=== PATIENT | female | born 1945 | race Two or more races ===

== ENCOUNTER 2017-12-12 09:18 | Inpatient (IN) | payer OTHER ==
[2017-12-12 09:27] VITALS: BMI 41.8
[2017-12-12] MEDS ORDERED: dilTIAZem HCL 50 MG/10 ML - 10 ML VIAL IVPUSH ONE (10:04)
--- NOTE | 2017-12-12 10:26 | PDOC ---
History of Present Illness - History of Present Illness Initial Comments: 12/12/17 11:11 The patient is a 72 year old female with a significant PMH of hypertension who presents to the emergency department with shortness of breath, generalized malaise, dizziness, palpitations and mild abdominal pain that began approximately last night. The patient states she takes baby aspirin for her HTN but Dr. Lang put her on Xarelto two days ago. The patient expresses concern that she has began experiencing all of these symptoms after being put on anticoagulants. The patient reports she was unable to sleep last night secondary to difficulty breathing. The patient states she was in her normal state of health two days ago. The patient denies chest pain and headache. Denies fever, chills, nausea, vomit, diarrhea and constipation. Denies dysuria, frequency, urgency and hematuria. Allergies: NKA Past surgical history: None reported Social history: No reported alcohol, cigarette, or drug use. PCP: Dr. Schneider <Carey Carlson - Last Filed: 12/12/17 11:11> - General History Source: Patient, Family Exam Limitations: No Limitations <Marvin Diez - Last Filed: 12/12/17 13:01> - General Chief Complaint: Shortness of Breath Stated Complaint: SOB Time Seen by Provider: 12/12/17 09:40 Past History <Carey Carlson - Last Filed: 12/12/17 11:11> - Past Medical History Anemia: No Asthma: No Cancer: No Cardiac Disorders: No CVA: No COPD: No CHF: No DVT: No Dementia: No Diabetes: No GI Disorders: No Disorders: No HTN: Yes Hypercholesterolemia: No Liver Disease: No Seizures: No Thyroid Disease: No - Surgical History Abdominal Surgery: Yes (TUBAL LIGATION) Appendectomy: No Cardiac Surgery: No Cholecystectomy: No Lung Surgery: No Neurologic Surgery: No Orthopedic Surgery: No - Immunization History Immunization Up to Date: Yes - Suicide/Smoking/Psychosocial Hx Smoking Status: No Smoking History: Never smoked Have you smoked in the past 12 months: No Number of Cigarettes Smoked Daily: 0 Information on smoking cessation initiated: No Hx Alcohol Use: No Drug/Substance Use Hx: No Substance Use Type: None Hx Substance Use Treatment: No <Marvin Diez - Last Filed: 12/12/17 13:01> - Past Medical History Allergies/Adverse Reactions: Allergies Allergy/AdvReac Type Severity Reaction Status Date / Time No Known Allergies Allergy Verified 12/12/17 09:22 Home Medications: Ambulatory Orders Apixaban [Eliquis] 5 mg PO BID 01/17/16 Levetiracetam [Keppra -] 250 mg PO BID 01/17/16 Cyclobenzaprine HCl [Flexeril -] 10 mg PO TID PRN 03/11/16 Cholestyramine/Aspartame [Questran Light Packet -] 4 gm PO DAILY #30 packet 03/03 Diltiazem Cd [Cardizem Cd -] 240 mg PO DAILY #30 cap.cd.24h 03/21/16 Metoprolol Succinate [Toprol XL -] 50 mg PO DAILY #30 tab.sr.24h 03/21/16 Miscellaneous Medical Supply [Outpatient Order] 1 each ASDIR #1 misc Review of Systems - Review of Systems Able to Perform ROS?: Yes Comments:: 12/12/17 11:12 GENERAL/CONSTITUTIONAL: (+) Generalized malaise. No fever or chills. HEAD, EYES, EARS, NOSE AND THROAT: No change in vision. No ear pain or discharge. No sore throat. CARDIOVASCULAR: (+) Palpitations. No chest pain. RESPIRATORY: (+) Shortness of breath. No cough, wheezing, or hemoptysis. GASTROINTESTINAL: (+) Mild abdominal pain. No nausea, vomiting, diarrhea or constipation. GENITOURINARY: No dysuria, frequency, or change in urination. MUSCULOSKELETAL: No joint or muscle swelling or pain. No neck or back pain. SKIN: No rash NEUROLOGIC: (+) Dizziness. No vertigo, loss of consciousness, or change in strength/sensation. ENDOCRINE: No increased thirst. No abnormal weight change. HEMATOLOGIC/LYMPHATIC: No anemia, easy bleeding, or history of blood clots. ALLERGIC/IMMUNOLOGIC: No hives or skin allergy. <Carey Carlson - Last Filed: 12/12/17 11:11> *Physical Exam - Vital Signs Last Vital Signs Temp Pulse Resp BP Pulse Ox 97.4 F L 97 H 18 94/73 98 12/12/17 09:23 12/12/17 10:41 12/12/17 10:41 12/12/17 10:41 12/12/17 10:41 - Physical Exam Comments: 12/12/17 11:14 GENERAL: Awake, alert, and fully oriented, in no acute distress HEAD: No signs of trauma EYES: PERRLA, EOMI, sclera anicteric, conjunctiva clear ENT: Auricles normal inspection, hearing grossly normal, nares patent, oropharynx clear without exudates. Moist mucosa NECK: Normal ROM, supple, no lymphadenopathy, JVD, or masses LUNGS: Breath sounds equal, clear to auscultation bilaterally. No wheezes, and no crackles HEART: (+) Irregular rate and rhythm. Normal S1 and S2, no murmurs, rubs or gallops ABDOMEN: Soft, nontender, normoactive bowel sounds. No guarding, no rebound. No masses EXTREMITIES: Normal range of motion, no edema. No clubbing or cyanosis. No cords, erythema, or tenderness NEUROLOGICAL: Cranial nerves II through XII grossly intact. Normal speech, normal gait SKIN: Warm, Dry, normal turgor, no rashes or lesions noted. <Carey Carlson - Last Filed: 12/12/17 11:11> - Vital Signs Last Vital Signs Temp Pulse Resp BP Pulse Ox 97.4 F L 83 16 126/59 100 12/12/17 09:23 12/12/17 09:23 12/12/17 09:23 12/12/17 09:23 12/12/17 09:23 <Marvin Diez - Last Filed: 12/12/17 13:01> Heart Score/ECG Review #1 ECG reviewed & interpreted by me at: 10:00 12/12/17 10:20 atrial fibrillation with RVR 133, LVH, TWI V4-V6, no std/nick, QTC 541 msec <Marvin Diez - Last Filed: 12/12/17 13:01> ED Treatment Course - LABORATORY CBC & Chemistry Diagram: 12/12/17 10:06 12/12/17 10:06 - ADDITIONAL ORDERS Additional order review: Laboratory Results 12/12/17 10:06 Sodium 144 Potassium 4.5 Chloride 110 H Carbon Dioxide 22 Anion Gap 12 BUN 14 Creatinine 1.0 Creat Clearance w eGFR 54.66 Random Glucose 133 H Calcium 8.3 L Phosphorus 4.1 ALT 19 Total Protein 7.2 Albumin 3.4 12/12/17 10:06 RBC 4.80 MCV 87.8 MCHC 32.1 RDW 13.4 MPV 11.3 H Neutrophils % 71.2 Lymphocytes % 20.3 D Monocytes % 5.5 Eosinophils % 2.1 Basophils % 0.9 - Medications Given in the ED: ED Medications Discontinued Medications Generic Name Dose Route Start Last Admin Trade Name Freq PRN Reason Stop Dose Admin Diltiazem HCl 10 mg 12/12/17 10:04 12/12/17 10:41 Cardizem Injection - IVPUSH 12/12/17 10:05 10 mg ONCE ONE Administration <Carey Carlson - Last Filed: 12/12/17 11:11> - LABORATORY CBC & Chemistry Diagram: 12/12/17 10:06 12/12/17 10:06 - RADIOLOGY Radiology Studies Ordered: Category Date Time Status CHEST X-RAY PORTABLE* [RAD] Stat Radiology 12/12/17 09:51 Taken <Marvin Diez - Last Filed: 12/12/17 13:01> Medical Decision Making - Medical Decision Making 12/12/17 10:21 A portion of this note was documented by scribe services under my direction. I have reviewed the details of the note, within reason, and agree with the documentation with the following case summary and management plan written by me. Patient treated in the ED. Nursing notes are reviewed and incorporated into the medical decision-making. Vital signs reviewed. Peripheral IV access obtained by the nurse, laboratory studies are drawn and sent, reviewed and interpreted by myself. Vital Signs Temp Pulse Resp BP Pulse Ox 97.4 F L 83 16 126/59 100 12/12/17 09:23 12/12/17 09:23 12/12/17 09:23 12/12/17 09:23 12/12/17 09:23 72-year-old female with history of atrial fibrillation on Xarelto, hypertension presents to the emergency department for general malaise and dizziness. The patient reported that 2 days ago he had visited Dr. Lang. She was initiated on Xarelto and since then, the patient has been feeling general malaise. She has reported that she's been having intermittent dizziness and lightheadedness but denied any chest pain. She states that she's been feeling somewhat increasingly short of breath. Denies any lower extremity edema. Stated yesterday that she had a tension-like headache but had an MRI performed here. MRI scans reviewed here: [id number] volume loss and chronic microvascular ischemic changes without evidence of acute intracranial pathology. The patient now has been endorsing feeling palpitations. She denies any recent illnesses, fevers, chills, cough, vomiting. Patient denies headache at this time. She initially expressed to me that she was concerned that the anti- correlation medication was causing her symptoms. However, the patient is in atrial fibrillation rapid ventricular response, which I suspect this may be driving the patient's symptoms. We'll attempt to rate control and reassess and touch base with the patient's watcher [employer]. 12/12/17 13:00 CBC, BMP 12/12/17 10:06 12/12/17 10:06 CMP Sodium 144 mmol/L (136-145) 12/12/17 10:06 Potassium 4.5 mmol/L (3.5-5.1) 12/12/17 10:06 Chloride 110 mmol/L (98-107) H 12/12/17 10:06 Carbon Dioxide 22 mmol/L (21-32) 12/12/17 10:06 Anion Gap 12 (8-16) 12/12/17 10:06 BUN 14 mg/dL (7-18) 12/12/17 10:06 Creatinine 1.0 mg/dL (0.55-1.02) 12/12/17 10:06 Creat Clearance w eGFR 54.66 (>60) 12/12/17 10:06 Random Glucose 133 mg/dL (74-106) H 12/12/17 10:06 Calcium 8.3 mg/dL (8.5-10.1) L 12/12/17 10:06 Phosphorus 4.1 mg/dL (2.5-4.9) 12/12/17 10:06 Magnesium 1.9 mg/dL (1.8-2.4) 12/12/17 10:06 Total Bilirubin 1.0 mg/dL (0.2-1.0) D 12/12/17 10:06 AST 24 U/L (15-37) 12/12/17 10:06 ALT 19 U/L (12-78) 12/12/17 10:06 Alkaline Phosphatase 88 U/L (45-117) 12/12/17 10:06 Creatine Kinase 129 IU/L (26-192) 12/12/17 10:06 Troponin I < 0.02 ng/ml (0.00-0.05) 12/12/17 10:06 B-Natriuretic Peptide 2408.95 pg/ml (5-125) H 12/12/17 10:06 Total Protein 7.2 g/dl (6.4-8.2) 12/12/17 10:06 Albumin 3.4 g/dl (3.4-5.0) 12/12/17 10:06 Chest xray reviewed. No acute findings. UA pending. Patient's heart rate improved with 10 a grams of IV Cardizem and then given 30 mg of by mouth Cardizem. Patient's blood pressures were in the 90 systolic, so 1 L of IV fluids given. I suspect that the atrial fibrillation is the cause of her symptoms. Case was discussed with watcher [employer] Dr. Lang was aware of the patient and is aware that the patient is admitted. Case is discussed with day kimball hospitalist who missed the patient to telemetry observation. Case discussed in detail with admitting physician including history, physical exam and ancillary studies. Admitting physician has assumed care for the patient, will follow all pending diagnostics and will complete the evaluation and treatment. <Marvin Diez - Last Filed: 12/12/17 13:01> *DC/Admit/Observation/Transfer - Attestations Scribe Attestion: 12/12/17 11:14 Documentation prepared by Carey Carlson, acting as medical front desk specialist for Marvin Diez MD. <Carey Carlson - Last Filed: 12/12/17 11:11> - Discharge Dispostion Admit: Yes <Marvin Diez - Last Filed: 12/12/17 13:01> Diagnosis at time of Disposition: Atrial fibrillation with rapid ventricular response - Discharge Dispostion Condition at time of disposition: Stable - Referrals Referrals: Haley Schneider MD [Primary Care Provider] - - Patient Instructions - Post Discharge Activity
[2017-12-12 10:33] LABS: BASO % 0.9 % (0-2.0); EOS % 2.1 % (0-4.5); HEMATOCRIT 42.1 % (32.4-45.2); HEMOGLOBIN 13.5 GM/dL (10.7-15.3); LYMPH % 20.3 % (8-40); MCH 28.2 pg (25.7-33.7); MCHC 32.1 g/dl (32.0-36.0); MEAN CELL VOLUME 87.8 fl (80-96); MEAN PLT VOLUME 11.3 fl (7.5-11.1); MONO % 5.5 % (3.8-10.2); NEUT % 71.2 % (42.8-82.8); RDW 13.4 % (11.6-15.6); WHITE BLOOD COUNT 12.1 K/mm3 (4.0-10.0)
[2017-12-12] MEDS ORDERED: dilTIAZem HCL 125 MG/25 ML - 25 ML VIAL ONE (10:33)
[2017-12-12] MEDS ORDERED: SODIUM CHLORIDE 1,000 ML IV STA (10:41)
[2017-12-12 11:04] LABS: INR 1.36 (0.82-1.09); PROTHROMBIN TIME (PATIENT) 15.4 SEC (9.98-11.88)
[2017-12-12 11:07] LABS: ACTIVATED PTT 38.8 SECONDS (26.9-34.4)
[2017-12-12 11:08] LABS: ALBUMIN 3.4 g/dl (3.4-5.0); ANION GAP 12 (8-16); BLOOD UREA NITROGEN 14 mg/dL (7-18); CALCIUM 8.3 mg/dL (8.5-10.1); CHLORIDE 110 mmol/L (98-107); CO2 22 mmol/L (21-32); GLUCOSE,RANDOM 133 mg/dL (74-106); PHOSPHOROUS 4.1 mg/dL (2.5-4.9); SGPT/ALT 19 U/L (12-78); SODIUM 144 mmol/L (136-145); TOT PROT 7.2 g/dl (6.4-8.2)
[2017-12-12] MEDS ORDERED: dilTIAZem HCL 30 MG TABLET (FP) PO ONE (11:08)
[2017-12-12 11:11] LABS: POTASSIUM 4.5 mmol/L (3.5-5.1)
[2017-12-12 11:15] LABS: ALK PHOS 88 U/L (45-117); N-TERMINAL BNP 2408.95 pg/ml (5-125)
[2017-12-12 11:17] LABS: MAGNESIUM 1.9 mg/dL (1.8-2.4); SGOT/AST 24 U/L (15-37)
[2017-12-12] MEDS ORDERED: dilTIAZem HCL 30 MG TABLET (FP) ONE (12:23)
--- NOTE | 2017-12-12 12:46 | HP ---
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 ER course was notable for: (1) (2) (3) Recent Travel: PAST MEDICAL HISTORY: PAST SURGICAL HISTORY: Social History: Smoking: Alcohol: Drugs: Family History: Allergies No Known Allergies Allergy (Verified 12/12/17 09:22) HOME MEDICATIONS: Home Medications Medication Instructions Recorded Apixaban [Eliquis] 5 mg PO BID 01/17/16 Levetiracetam [Keppra -] 250 mg PO BID 01/17/16 Cyclobenzaprine HCl [Flexeril -] 10 mg PO TID PRN 03/11/16 Cholestyramine/Aspartame [Questran 4 gm PO DAILY #30 packet 03/21/16 Light Packet -] Diltiazem Cd [Cardizem Cd -] 240 mg PO DAILY #30 cap.cd.24h 03/21/16 Metoprolol Succinate [Toprol XL -] 50 mg PO DAILY #30 tab.sr.24h 03/21/16 Miscellaneous Medical Supply 1 each ASDIR #1 misc 03/21/16 [Outpatient Order] REVIEW OF SYSTEMS CONSTITUTIONAL: Absent: fever, chills, diaphoresis, generalized weakness, malaise, loss of appetite, weight change HEENT: Absent: rhinorrhea, nasal congestion, throat pain, throat swelling, difficulty swallowing, mouth swelling, ear pain, eye pain, visual changes CARDIOVASCULAR: Absent: chest pain, syncope, palpitations, irregular heart rate, lightheadedness , peripheral edema RESPIRATORY: Absent: cough, shortness of breath, dyspnea with exertion, orthopnea, wheezing, stridor, hemoptysis GASTROINTESTINAL: Absent: abdominal pain, abdominal distension, nausea, vomiting, diarrhea, constipation, melena, hematochezia GENITOURINARY: Absent: dysuria, frequency, urgency, hesitancy, hematuria, flank pain, genital pain MUSCULOSKELETAL: Absent: myalgia, arthralgia, joint swelling, back pain, neck pain SKIN: Absent: rash, itching, pallor HEMATOLOGIC/IMMUNOLOGIC: Absent: easy bleeding, easy bruising, lymphadenopathy, frequent infections ENDOCRINE: Absent: unexplained weight gain, unexplained weight loss, heat intolerance, cold intolerance NEUROLOGIC: Absent: headache, focal weakness or paresthesias, dizziness, unsteady gait, seizure, mental status changes, bladder or bowel incontinence PSYCHIATRIC: Absent: anxiety, depression, suicidal or homicidal ideation, hallucinations. PHYSICAL EXAMINATION Vital Signs - 24 hr 12/12/17 12/12/17 12/12/17 09:23 10:30 10:41 Temperature 97.4 F L Pulse Rate 83 Pulse Rate [ 124 H 97 H Apical] Respiratory 16 18 Rate Blood Pressure 126/59 Blood Pressure 107/79 94/73 [Left Arm] O2 Sat by Pulse 100 98 Oximetry (%) GENERAL: Awake, alert, and fully oriented, in no acute distress. HEAD: Normal with no signs of trauma. EYES: Pupils equal, round and reactive to light, extraocular movements intact, sclera anicteric, conjunctiva clear. No lid lag. EARS, NOSE, THROAT: Ears normal, nares patent, oropharynx clear without exudates. Moist mucous membranes. NECK: Normal range of motion, supple without lymphadenopathy, JVD, or masses. LUNGS: Breath sounds equal, clear to auscultation bilaterally. No wheezes, and no crackles. No accessory muscle use. HEART: Regular rate and rhythm, normal S1 and S2 without murmur, rub or gallop. ABDOMEN: Soft, nontender, not distended, normoactive bowel sounds, no guarding, no rebound, no masses. No hepatomegaly or splenomegaly. MUSCULOSKELETAL: Normal range of motion at all joints. No bony deformities or tenderness. No CVA tenderness. UPPER EXTREMITIES: 2+ pulses, warm, well-perfused. No cyanosis. No clubbing. No peripheral edema. LOWER EXTREMITIES: 2+ pulses, warm, well-perfused. No calf tenderness. No peripheral edema. NEUROLOGICAL: Cranial nerves II-XII intact. Normal speech. Normal gait. PSYCHIATRIC: Cooperative. Good eye contact. Appropriate mood and affect. SKIN: Warm, dry, normal turgor, no rashes or lesions noted, normal capillary refill. Laboratory Results - last 24 hr 12/12/17 12/12/17 12/12/17 10:06 10:06 10:06 WBC 12.1 H RBC 4.80 Hgb 13.5 Hct 42.1 MCV 87.8 MCH 28.2 MCHC 32.1 RDW 13.4 MPV 11.3 H Neutrophils % 71.2 Lymphocytes % 20.3 D Monocytes % 5.5 Eosinophils % 2.1 Basophils % 0.9 PT with INR 15.40 H INR 1.36 H D PTT (Actin FS) 38.8 H Sodium 144 Potassium 4.5 Chloride 110 H Carbon Dioxide 22 Anion Gap 12 BUN 14 Creatinine 1.0 Creat Clearance w eGFR 54.66 Random Glucose 133 H Calcium 8.3 L Phosphorus 4.1 Magnesium 1.9 Total Bilirubin 1.0 D AST 24 ALT 19 Alkaline Phosphatase 88 Creatine Kinase 129 Troponin I < 0.02 B-Natriuretic Peptide 2408.95 H Total Protein 7.2 Albumin 3.4 ASSESSMENT/PLAN:
[2017-12-12 13:55] LABS: PLATELET COUNT 345 K/MM3 (134-434)
--- NOTE | 2017-12-12 14:07 | HP ---
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 Symptoms started when patient was resting and were accompanied by malaise, mild sob and dizziness when she gets up. They persisted though the night and were alleviated in ED s/p Cardizem administration. Last time she experienced similar symptoms wast 03/03, at which time she was admitted for afib with rvr precipitated by gastroenteritis. Patient denies f/c, cough, rhinorrhea, sore throat, dysuria, diarrhea, n/v, abd pain or sick contacts and attributes symptoms to starting a new medication (xarelto) 2 days ago. She states that she is compliant with all her home meds but has not been taking eliquis, which was prescribed to her years ago. She deneis CP, LE edema, back pain, weight change, appetite loss. She denies h/a, focal weakness, paresthesia. She denies taking cardizem at home. Yesterday she had an MRI of her brain (result unremarkable) that was ordered by PCP in order to d/c keppra, however, she denies history of seizure. ER course was notable for: (1)cxr: cardiomegaly, clear lung shukla. EKG: prolonged QTc, a fib RVR (2)labs (3)cardizem, IVF Recent Travel: returned from 1 mo ago PAST MEDICAL HISTORY: as above PAST SURGICAL HISTORY: denies Social History: lives at home, sedentary Smoking: denies Alcohol:denies Drugs: denies Family History: unremarkable Allergies No Known Allergies Allergy (Verified 12/12/17 09:22) HOME MEDICATIONS: Home Medications Medication Instructions Recorded Apixaban [Eliquis] 5 mg PO BID 01/17/16 Levetiracetam [Keppra -] 250 mg PO BID 01/17/16 Cyclobenzaprine HCl [Flexeril -] 10 mg PO TID PRN 03/11/16 Cholestyramine/Aspartame [Questran 4 gm PO DAILY #30 packet 03/21/16 Light Packet -] Diltiazem Cd [Cardizem Cd -] 240 mg PO DAILY #30 cap.cd.24h 03/21/16 Metoprolol Succinate [Toprol XL -] 50 mg PO DAILY #30 tab.sr.24h 03/21/16 Miscellaneous Medical Supply 1 each ASDIR #1 [facility] [place] 03/21/16 [Outpatient Order] REVIEW OF SYSTEMS CONSTITUTIONAL: Absent: fever, chills, loss of appetite, weight change HEENT: Absent: rhinorrhea, nasal congestion, throat pain, throat swelling, difficulty swallowin CARDIOVASCULAR: Absent: chest pain, syncope, peripheral edema RESPIRATORY: Absent: cough, dyspnea with exertion, orthopnea, wheezing, stridor, hemoptysis GASTROINTESTINAL: Absent: abdominal pain, abdominal distension, nausea, vomiting, diarrhea, constipation, melena, hematochezia GENITOURINARY: Absent: dysuria MUSCULOSKELETAL: Absent: myalgia, arthralgia SKIN: Absent: rash, itching, pallor HEMATOLOGIC/IMMUNOLOGIC: Absent: frequent infections ENDOCRINE: Absent: unexplained weight gain, unexplained weight loss, heat intolerance, cold intolerance NEUROLOGIC: Absent: headache, focal weakness or paresthesias PSYCHIATRIC: Absent: anxiety, depression PHYSICAL EXAMINATION Vital Signs - 24 hr 12/12/17 12/12/17 12/12/17 09:23 10:30 10:41 Temperature 97.4 F L Pulse Rate 83 Pulse Rate [ 124 H 97 H Apical] Respiratory 16 18 Rate Blood Pressure 126/59 Blood Pressure 107/79 94/73 [Left Arm] O2 Sat by Pulse 100 98 Oximetry (%) 12/12/17 13:10 Temperature Pulse Rate Pulse Rate [ 109 H Apical] Respiratory Rate Blood Pressure Blood Pressure 129/67 [Left Arm] O2 Sat by Pulse Oximetry (%) GENERAL: Awake, alert, and fully oriented, in no acute distress. HEAD: Normal with no signs of trauma. EYES: Pupils equal, round and reactive to light, extraocular movements intact, sclera anicteric, conjunctiva clear. No lid lag. EARS, NOSE, THROAT: Moist mucous membranes. NECK: supple without JVD or thyromegaly LUNGS: Breath sounds equal, clear to auscultation bilaterally. HEART:tachy, irregularly irregular, normal S1 and S2 without murmur, mild hepatojugular reflex at 30 degree recline ABDOMEN: Soft, nontender, not distended, normoactive bowel sounds MUSCULOSKELETAL: No CVA tenderness. UPPER EXTREMITIES: 2+ pulses, warm, well-perfused. No peripheral edema. LOWER EXTREMITIES: 1+ pulses, warm, well-perfused. No calf tenderness. No peripheral edema. NEUROLOGICAL: Cranial nerves II-XII intact. Normal speech. muslcel strenght 5/ 5 b/l, reflexes 1+ b/l PSYCHIATRIC: Cooperative. Good eye contact. Appropriate mood and affect. SKIN: Warm, dry Laboratory Results - last 24 hr 12/12/17 12/12/17 12/12/17 10:06 10:06 10:06 WBC 12.1 H RBC 4.80 Hgb 13.5 Hct 42.1 MCV 87.8 MCH 28.2 MCHC 32.1 RDW 13.4 Plt Count 345 MPV 11.3 H Neutrophils % 71.2 Lymphocytes % 20.3 D Monocytes % 5.5 Eosinophils % 2.1 Basophils % 0.9 PT with INR 15.40 H INR 1.36 H D PTT (Actin FS) 38.8 H Sodium 144 Potassium 4.5 Chloride 110 H Carbon Dioxide 22 Anion Gap 12 BUN 14 Creatinine 1.0 Creat Clearance w eGFR 54.66 Random Glucose 133 H Calcium 8.3 L Phosphorus 4.1 Magnesium 1.9 Total Bilirubin 1.0 D AST 24 ALT 19 Alkaline Phosphatase 88 Creatine Kinase 129 Troponin I < 0.02 B-Natriuretic Peptide 2408.95 H Total Protein 7.2 Albumin 3.4 ASSESSMENT/PLAN: This is a 72 year old female with PMH of A fib with rvr, HTN, 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 acute A fib with RVR, history of severe Mitral regurgitation -r/o infectious, structural vs endocrien etiology etiology -Mild leukocytosis appears chronic, f/u flu swab and UA -F/u TFT's -TTE -Cardiology consult -tele monitoring -rate control: continue home metoprolol sux 50 bid, cardizem 30 QID prn for HR> 120 -monitor lytes -A1c, lipid panel Prolonged QTc -avoid aggravating medication -repeat EKG AM Elevated BNP 1999 -patient appears euvolemic, CXR clear, likely chronic HTN -has been borderline hypotensive, hold HCTZ, losartan SZ -uncertain history -continue keppra -neuro f/u outpatient Dispo: obs tele Problem List - Problem (1) Atrial fibrillation with RVR Code(s): I48.91 - UNSPECIFIED ATRIAL FIBRILLATION (2) Leukocytosis Code(s): D72.829 - ELEVATED WHITE BLOOD CELL COUNT, UNSPECIFIED Qualifiers: Leukocytosis type: unspecified Qualified Code(s): D72.829 - Elevated white blood cell count, unspecified (3) Hypertension Code(s): I10 - ESSENTIAL (PRIMARY) HYPERTENSION Qualifiers: Hypertension type: essential hypertension Qualified Code(s): I10 - Essential (primary) hypertension Visit type - Emergency Visit Emergency Visit: Yes ED Registration Date: 12/12/17 Care time: The patient presented to the Emergency Department on the above date and was hospitalized for further evaluation of their emergent condition. - New Patient This patient is new to me today: Yes Date on this admission: 12/12/17 - Critical Care Critical Care patient: No
[2017-12-12] MEDS ORDERED: dilTIAZem HCL 30 MG TABLET (FP) PO PRN (14:12)
--- NOTE | 2017-12-12 14:29 | HP ---
CHIEF COMPLAINT: palpitations PCP: HISTORY OF PRESENT ILLNESS: 72 year old maldivian-speaking female pmh of hypertension, atrial fibrillation, seizures, and mitral regurgitation presenting for 1 day hx of palpitations and dizziness with mild shortness of breath. She states that she was not doing anything of note when she felt them. Denies any associated chest pain, headache , wheezing, fevers, chills, nausea, vomiting, diarrhea. [facility]. Echo was performed one year ago according to patient - records indicate it was done in 2014. Denies being sick recently. Denies sick contacts. Daughter was sick with bronchitis around abril time. ER course was notable for: (1) EKG Afib/RVR (2) leukocytosis (baseline?) (3) Recent Travel: Came from [place] 1 month ago PAST MEDICAL HISTORY: hypertension, atrial fibrillation, seizures, and mitral regurgitation PAST SURGICAL HISTORY: Social History: Smoking: never Alcohol: never Drugs: never Family History: hypertension Allergies No Known Allergies Allergy (Verified 12/12/17 09:22) HOME MEDICATIONS: Home Medications Medication Instructions Recorded Apixaban [Eliquis] 5 mg PO BID 01/17/16 Levetiracetam [Keppra -] 250 mg PO BID 01/17/16 Cyclobenzaprine HCl [Flexeril -] 10 mg PO TID PRN 03/11/16 Cholestyramine/Aspartame [Questran 4 gm PO DAILY #30 packet 03/21/16 Light Packet -] Diltiazem Cd [Cardizem Cd -] 240 mg PO DAILY #30 cap.cd.24h 03/21/16 Metoprolol Succinate [Toprol XL -] 50 mg PO DAILY #30 tab.sr.24h 03/21/16 Miscellaneous Medical Supply 1 each ASDIR #1 mis 03/21/16 [Outpatient Order] REVIEW OF SYSTEMS CONSTITUTIONAL: Absent: fever, chills, diaphoresis, generalized weakness, malaise, loss of appetite, weight change HEENT: Absent: rhinorrhea, nasal congestion, throat pain, throat swelling, difficulty swallowing, mouth swelling, ear pain, eye pain, visual changes CARDIOVASCULAR: Absent: chest pain, syncope, palpitations, irregular heart rate, lightheadedness , peripheral edema RESPIRATORY: Absent: cough, shortness of breath, dyspnea with exertion, orthopnea, wheezing, stridor, hemoptysis GASTROINTESTINAL: Absent: abdominal pain, abdominal distension, nausea, vomiting, diarrhea, constipation, melena, hematochezia GENITOURINARY: Absent: dysuria, frequency, urgency, hesitancy, hematuria, flank pain, genital pain MUSCULOSKELETAL: Absent: myalgia, arthralgia, joint swelling, back pain, neck pain SKIN: Absent: rash, itching, pallor HEMATOLOGIC/IMMUNOLOGIC: Absent: easy bleeding, easy bruising, lymphadenopathy, frequent infections ENDOCRINE: Absent: unexplained weight gain, unexplained weight loss, heat intolerance, cold intolerance NEUROLOGIC: Absent: headache, focal weakness or paresthesias, dizziness, unsteady gait, seizure, mental status changes, bladder or bowel incontinence PSYCHIATRIC: Absent: anxiety, depression, suicidal or homicidal ideation, hallucinations. PHYSICAL EXAMINATION Vital Signs - 24 hr 12/12/17 12/12/17 12/12/17 09:23 10:30 10:41 Temperature 97.4 F L Pulse Rate 83 Pulse Rate [ 124 H 97 H Apical] Respiratory 16 18 Rate Blood Pressure 126/59 Blood Pressure 107/79 94/73 [Left Arm] O2 Sat by Pulse 100 98 Oximetry (%) 12/12/17 13:10 Temperature Pulse Rate Pulse Rate [ 109 H Apical] Respiratory Rate Blood Pressure Blood Pressure 129/67 [Left Arm] O2 Sat by Pulse Oximetry (%) GENERAL: Awake, alert, and fully oriented, in no acute distress. HEAD: Normal with no signs of trauma. EYES: Pupils equal, round and reactive to light, extraocular movements intact, sclera anicteric, conjunctiva clear. No lid lag. EARS, NOSE, THROAT: Ears normal, nares patent, oropharynx clear without exudates. Moist mucous membranes. NECK: Normal range of motion, supple without lymphadenopathy, JVD, or masses. LUNGS: Breath sounds equal, clear to auscultation bilaterally. No wheezes, and no crackles. No accessory muscle use. HEART: Tachycardic, irregularly irregular, normal S1 and S2 without murmur, rub or gallop. ABDOMEN: Obese, Soft, nontender, not distended, normoactive bowel sounds, no guarding, no rebound, no masses. No hepatomegaly or splenomegaly. MUSCULOSKELETAL: Normal range of motion at all joints. No bony deformities or tenderness. No CVA tenderness. UPPER EXTREMITIES: 2+ pulses, warm, well-perfused. No cyanosis. No clubbing. No peripheral edema. LOWER EXTREMITIES: 2+ pulses, warm, well-perfused. No calf tenderness. No peripheral edema. NEUROLOGICAL: Cranial nerves II-XII intact. Normal speech. Normal gait. Laboratory Results - last 24 hr 12/12/17 12/12/17 12/12/17 10:06 10:06 10:06 WBC 12.1 H RBC 4.80 Hgb 13.5 Hct 42.1 MCV 87.8 MCH 28.2 MCHC 32.1 RDW 13.4 Plt Count 345 MPV 11.3 H Neutrophils % 71.2 Lymphocytes % 20.3 D Monocytes % 5.5 Eosinophils % 2.1 Basophils % 0.9 PT with INR 15.40 H INR 1.36 H D PTT (Actin FS) 38.8 H Sodium 144 Potassium 4.5 Chloride 110 H Carbon Dioxide 22 Anion Gap 12 BUN 14 Creatinine 1.0 Creat Clearance w eGFR 54.66 Random Glucose 133 H Calcium 8.3 L Phosphorus 4.1 Magnesium 1.9 Total Bilirubin 1.0 D AST 24 ALT 19 Alkaline Phosphatase 88 Creatine Kinase 129 Troponin I < 0.02 B-Natriuretic Peptide 2408.95 H Total Protein 7.2 Albumin 3.4 ASSESSMENT/PLAN: 72 yo female with a pmh of HTN, afib on xarelto, mitral regurg and seizures is admitted to obs for treatment of atrial fibrillation with rapid ventricular response #Afib/RVR: patient's rate is between 90bpm and 130bpm, CHADS-VASc of 3 -trop neg, CXR neg -BNP 2000 likely nonspecific -order TSH/free T4 -repeat BMP in AM, w/ mag and phos -hold HCTZ due to risk of hypotension -stop home bisoprolol -hold irbesartan -start metoprolol succinate 50mg PO BID -cardizem 30mg IV Push PRN Q6h -continue xarelto 20 -continue ASA -repeat EKG in AM -echocardiogram -lipid profile -consult home agency service representative Dr. Lang appreciated #Seizure hx: controlled -continue home keppra 250 BID #FEN No standing fluids Lytes normal, replete in AM #Prophylaxis -heparin 5000 subq TID #Disposition -Admit to obs-tele Visit type - Emergency Visit Emergency Visit: Yes ED Registration Date: 12/12/17 Care time: The patient presented to the Emergency Department on the above date and was hospitalized for further evaluation of their emergent condition. - New Patient This patient is new to me today: Yes Date on this admission: 12/12/17 - Critical Care Critical Care patient: No
[2017-12-12] MEDS: METOPROLOL TARTRATE 25 MG TABLET (FP) PO SCH ×2 (15:30→21:48)
[2017-12-12] MEDS ORDERED: FUROSEMIDE 20 MG TABLET (FP) PO ONE (17:15)
--- NOTE | 2017-12-12 18:01 | CON.CARD ---
Cardiology Consult (text) - Consultation Consultation Note: cc: palps/afib with rvr hpi: 72 yo with h/o pafib, htn, mod mr, mild ar, seizures on keppra ( followed by dr. goyal), obesity who p/w palps. + palpitations and weakness this am. On arrival to ER was noted to be in RVR 130's. Review of medications shows that she had been on bisoprolol -hctz 5-6.25 and not on metoprolol 50 mg/day and cardizem 240 mg/day as was previously prescribed by her multimedia developer. She also had self d/c eliquis b/c of side effects and her multimedia developer had switched her to xarelto this week and recommended she stop asa. s/p cardizem 10 mg IV x 1 and 30 mg po dilt in ER. --> this caused drop in sbp to 90's --> given 1L IVF. No cp, sob, dizzy, loc, pnd, orthopnea, le edema. no f/c/s, n/v/d, decreased po intake, transient neurologic sx's, bleeding, h/a, rash, cough, congestion. Sees Dr. Lang for cardiology. pmh: per hpi psh: tubal ligation social: no tob fam: no premature cad or scd ros: per hpi; meds: Ambulatory Orders Aspirin 81 mg PO DAILY 12/12/17 Bisoprolol/Hydrochlorothiazide [Bisoprolol-Hctz 5-6.25 mg Tab] 1 each PO DAILY 12/12/17 Irbesartan 300 mg PO DAILY 12/12/17 Levetiracetam [Keppra -] 250 mg PO BID 12/12/17 Rivaroxaban [Xarelto -] 20 mg PO DAILY 12/12/17 Current Medications Levetiracetam (Keppra -) 250 mg PO BID [facility] Metoprolol Tartrate (Lopressor -) 25 mg PO TID [facility] Last Admin: 12/12/17 15:30 Dose: 25 mg Rivaroxaban (Xarelto -) 20 mg PO DAILY@1800 ANN pe: Vital Signs - 24 hr 12/12/17 12/12/17 12/12/17 09:23 10:30 10:41 Temperature 97.4 F L Pulse Rate 83 Pulse Rate [ 124 H 97 H Apical] Respiratory 16 18 Rate Blood Pressure 126/59 Blood Pressure 107/79 94/73 [Left Arm] O2 Sat by Pulse 100 98 Oximetry (%) 12/12/17 12/12/17 12/12/17 13:10 15:30 16:07 Temperature Pulse Rate Pulse Rate [ 109 H 108 H 94 H Apical] Respiratory 16 16 Rate Blood Pressure Blood Pressure 129/67 116/81 122/96 [Left Arm] O2 Sat by Pulse 100 98 Oximetry (%) Intake & Output 12/10/17 12/11/17 12/12/17 12/13/17 07:59 07:59 07:59 07:59 Weight 214 lb nad no jvd irreg, s1s2 2/6 murmur at apex cta bl nl eff aaox3 no le e/c/c abd nt nd pos bs no jaundice diaphoresis pos dp pt, no carotid bruits CBC, BMP 12/12/17 10:06 12/12/17 10:06 Laboratory Tests 10/17/15 12/12/17 16:32 10:06 Magnesium 1.9 Total Bilirubin 1.0 D AST 24 ALT 19 Alkaline Phosphatase 88 Creatine Kinase 129 Troponin I < 0.02 B-Natriuretic Peptide 516.45 H 2408.95 H Albumin 3.4 ekg: afib, 133 bpm. lvh. non-specific inferolat t wave abnormality, similar to prior t wave abnormality. tele: afib, hr's now controlled 100s cxr: clear (although left base not well seen) echo 10/2015: low nl lvef, nl rv, mod lae, mod-sev mr, mild tr, mild-mod ar, rvsp 30-40 wilfredo 10/2015: mod mr, mild ar mibi 11/2011: no ischemia, nl lvef 72 yo with h/o pafib, htn, mod mr, mild ar, seizures on keppra (followed by dr. goyal), obesity who p/w palps. parox afib: -p/w RVR. possible was reduction of rate control regimen from dilt 240, toprol 50 to bystolic 5. - will start lopressor 25 tid and uptitrate as needed. Add ccb if needed. - con't xarelto (recently switched b/c pt felt she had side effects to eliquis) - note bnp elevated from priors but patient with no clinical signs or symptoms of heart failure and tolerated IVF in ER. Low suspicion for chf exacerbation. - ekg without ischemic changes - repeat echo htn: -stable/intermittently low, monitor with uptitration of regimen. mod mr, mild ar: -no signs of valvular decompensation. - repeat echo as mentioned above.
[2017-12-12] MEDS ORDERED: FUROSEMIDE 40 MG TABLET (FP) ONE (18:22)
--- NOTE | 2017-12-12 21:27 | PN ---
Teaching Attending Note Name of Resident: Ayaan Lopez ATTENDING PHYSICIAN STATEMENT I saw and evaluated the patient. I reviewed the resident's note and discussed the case with the resident. I agree with the resident's findings and plan as documented. SUBJECTIVE: very poor historian, cc: dizziness and palpitations started yesterday HPI: complains of palpitations, no cp or SOB then but now SOB iin ER . no fever or sick contact, no diarreha . no cough . she did nto take her meds this am . she was found to have a fib with RVR in Er , given cardizem IV and improved OBJECTIVE: NAD , AAox3, HEENT: MMM, no facial droop, EOMI, round equal pupils reactive to light . CV: ireg irreg , + hepatojuguilar reflux Lungs : CTAB ext: 1+ edema Abd: sfot, Nt , ND , NL BS Neuro : no facial droop, EOMI, round equal pupils reactive to light. strength 5/ 5 in upper and lower ext , proximally and distally . sensatio tolight touch nL ASSESSMENT AND PLAN: 72 y/o lady with h/o A fib, HTn, seizure disorder , and Mitral regurgitation who presented with palpitations and was found to have A fib with RVR 1- A fib with RVR: not clear of trigger. no signs of infection . looks slightly volume overloaded and SOB . not celar why she was changed from CCB to BB as out pt , also eliquis was changed ot xarelto x 2 yr ago. - check Echo - BB , monitor heart rate and BP - cont xarelto - give a dose of lasix - pending cardiac note for Recs - check TSH. - hold irbesartan due to give room for rate control 2- mild leukocytosis : no signs of infection . no urinary sx , no signs of pNA , no rash or cellulitis . monitor off Abx R mastoid effusion on MRI from yesterday, but has no sx . monitor WBC 3- H/o Seizures, cont keppra for now follow up as out pt ( had MRI yesterday as out pt , with no brain lesions ) 4- HTN: hold ARB as above - hold HCTZ and bisporolol , cont with lopressor DVT PX : on xarelto
[2017-12-12] MEDS: levETIRAcetam 250 MG TABLET (FP) PO SCH (21:48)
[2017-12-12] MEDS: RIVAROXABAN 20 MG TABLET PO SCH (21:48)
[2017-12-13] MEDS: METOPROLOL TARTRATE 25 MG TABLET (FP) PO SCH ×3 (05:52→21:31)
[2017-12-13 07:59] LABS: BASO % 1.1 % (0-2.0); EOS % 1.8 % (0-4.5); HEMATOCRIT 40.3 % (32.4-45.2); HEMOGLOBIN 12.7 GM/dL (10.7-15.3); LYMPH % 28.7 % (8-40); MCH 27.6 pg (25.7-33.7); MCHC 31.4 g/dl (32.0-36.0); MEAN CELL VOLUME 87.8 fl (80-96); MEAN PLT VOLUME 12.3 fl (7.5-11.1); MONO % 6.5 % (3.8-10.2); NEUT % 61.9 % (42.8-82.8); PLATELET COUNT 290 K/MM3 (134-434); RBC 4.59 M/mm3 (3.60-5.2); RDW 13.5 % (11.6-15.6); WHITE BLOOD COUNT 13.5 K/mm3 (4.0-10.0)
[2017-12-13 08:14] LABS: ANION GAP 10 (8-16); BLOOD UREA NITROGEN 16 mg/dL (7-18); CHLORIDE 109 mmol/L (98-107); CO2 24 mmol/L (21-32); CREATININE 0.9 mg/dL (0.55-1.02); GLUCOSE,RANDOM 106 mg/dL (74-106); POTASSIUM 4.1 mmol/L (3.5-5.1); SODIUM 143 mmol/L (136-145)
[2017-12-13 08:19] LABS: CHOLESTEROL 124 mg/dL (50-200); HDL CHOLESTEROL 43 mg/dL (40-60); LDL CHOLESTEROL (ONLY SJRH) 73 mg/dL (5-100); TRIGLYCERIDES 133 mg/dL (35-160)
[2017-12-13] MEDS ORDERED: METOPROLOL TARTRATE 25 MG TABLET (FP) PO ONE (09:00)
[2017-12-13] MEDS: levETIRAcetam 250 MG TABLET (FP) PO SCH ×2 (09:02→21:34)
[2017-12-13 09:09] LABS: MAGNESIUM 1.9 mg/dL (1.8-2.4); PHOSPHOROUS 4.3 mg/dL (2.5-4.9)
--- NOTE | 2017-12-13 09:20 | EKG ---
Test Reason : Blood Pressure : / mmHG Vent. Rate : 127 BPM Atrial Rate : 312 BPM P-R Int : 000 ms QRS Dur : 082 ms QT Int : 308 ms P-R-T Axes : 000 017 210 degrees QTc Int : 447 ms ATRIAL FIBRILLATION WITH RAPID VENTRICULAR RESPONSE WITH PREMATURE VENTRICULAR OR ABERRANTLY CONDUCTED COMPLEXES T WAVE ABNORMALITY, CONSIDER INFERIOR ISCHEMIA ABNORMAL ECG WHEN COMPARED WITH ECG OF 12-DEC-2017 09:54, INVERTED T WAVES HAVE REPLACED NONSPECIFIC T WAVE ABNORMALITY IN INFERIOR LEADS Confirmed by MEG BUSTILLO MD ([id number]) on 12/13/2017 9:19:45 AM Referred By: Confirmed By:MEG BUSTILLO MD
--- NOTE | 2017-12-13 09:49 | EKG ---
Test Reason : Blood Pressure : / mmHG Vent. Rate : 133 BPM Atrial Rate : 093 BPM P-R Int : 000 ms QRS Dur : 082 ms QT Int : 364 ms P-R-T Axes : 000 007 -09 degrees QTc Int : 541 ms ATRIAL FIBRILLATION WITH RAPID VENTRICULAR RESPONSE MINIMAL VOLTAGE CRITERIA FOR LVH, MAY BE NORMAL VARIANT NONSPECIFIC T WAVE ABNORMALITY ABNORMAL ECG WHEN COMPARED WITH ECG OF 16-MAR-2016 08:21, ATRIAL FIBRILLATION HAS REPLACED SINUS RHYTHM VENT. RATE HAS INCREASED BY 52 BPM NONSPECIFIC T WAVE ABNORMALITY HAS REPLACED INVERTED T WAVES IN LATERAL LEADS Confirmed by MEG BUSTILLO MD ([id number]) on 12/13/2017 9:48:53 AM Referred By: Confirmed By:MEG BUSTILLO MD
--- NOTE | 2017-12-13 10:44 | PN ---
Progress Note (short form) - Note Progress Note: s: no cp, mild sob and dizzy and palps o: Vital Signs Period Temp Pulse Resp BP Sys/Batista Pulse Ox Last 24 Hr 98.2 F-98.7 F 88-118 16-18 94-129/54-96 97-100 nad no jvd irreg, s1s2 2/6 murmur at apex cta bl nl eff aaox3 no le e/c/c abd nt nd pos bs Current Medications Generic Name Dose Route Start Last Admin Trade Name Freq PRN Reason Stop Dose Admin Levetiracetam 250 mg 12/12/17 22:00 12/13/17 09:02 Keppra - PO 250 mg BID ANN Administration Metoprolol Tartrate 37.5 mg 12/13/17 14:00 Lopressor - PO TID ANN Rivaroxaban 20 mg 12/12/17 18:00 12/12/17 21:48 Xarelto - PO 20 mg DAILY@1800 ANN Administration CBC, BMP 12/13/17 06:45 12/13/17 06:45 ekg: afib, 133 bpm. lvh. non-specific inferolat t wave abnormality, similar to prior t wave abnormality. tele: afib, rvr 130s cxr: clear (although left base not well seen) echo 10/2015: low nl lvef, nl rv, mod lae, mod-sev mr, mild tr, mild-mod ar, rvsp 30-40 wilfredo 10/2015: mod mr, mild ar echo 11/2017: pt in afib with rvr, lvef mildly reduced, global hk, mild lvh, nl rv, mod lae, mild mr/ar mibi 11/2011: no ischemia, nl lvef a/p: 72 yo f with h/o pafib, htn, mod mr, mild ar, seizures on keppra ( followed by dr. goyal), obesity who p/w palps. parox afib: -p/w RVR. possible was reduction of rate control regimen from dilt 240, toprol 50 to bystolic 5. 12/12: will start lopressor 25 tid and uptitrate as needed. Add ccb if needed. 12/13: still with rvr, increased BB dose, monitor tele. - con't xarelto (recently switched b/c pt felt she had side effects to eliquis) - note bnp elevated from priors but patient with no clinical signs or symptoms of heart failure and tolerated IVF in ER. Low suspicion for chf exacerbation. - ekg without ischemic changes syst chf: -echo here showing mildly reduced lvef but pt was in afib with rvr during the study so LVEF difficult to assess, alternatively she may have some tachycardia induced cardiomyopathy. -plan for now is rate control as above -repeat echo as outpt to monitor lvef htn: -stable/intermittently low, monitor with uptitration of regimen. mod mr, mild ar: -no signs of valvular decompensation. -stable on repeat echo here
--- NOTE | 2017-12-13 16:18 | PN ---
Physical Exam: SUBJECTIVE: Patient seen and examined at bedside. Patient states that she feels mildly short of breath with and has periods where she feels some palpitations. Denies overt chest pain, SOB, nausea, vomiting, diarrhea. OBJECTIVE: Vital Signs Period Temp Pulse Resp BP Sys/Batista Pulse Ox Last 24 Hr 98.2 F-98.7 F 88-118 16-18 112-126/54-61 97-98 GENERAL: Awake, alert, and fully oriented, in no acute distress. HEAD: Normal with no signs of trauma. NECK: possibly hepatojugular reflex noted on exam LUNGS: Breath sounds equal, clear to auscultation bilaterally. No wheezes, and no crackles. No accessory muscle use. HEART: Tachycardic, irregularly irregular, normal S1 and S2 without murmur, rub or gallop. ABDOMEN: Obese, Soft, nontender, not distended, normoactive bowel sounds, no guarding, no rebound, no masses. No hepatomegaly or splenomegaly. Laboratory Results - last 24 hr 12/13/17 12/13/17 12/13/17 06:45 06:45 06:45 WBC 13.5 H RBC 4.59 Hgb 12.7 Hct 40.3 MCV 87.8 MCH 27.6 MCHC 31.4 L RDW 13.5 Plt Count 290 MPV 12.3 H Neutrophils % 61.9 Lymphocytes % 28.7 D Monocytes % 6.5 Eosinophils % 1.8 Basophils % 1.1 Sodium 143 Potassium 4.1 Chloride 109 H Carbon Dioxide 24 Anion Gap 10 BUN 16 Creatinine 0.9 Random Glucose 106 Hemoglobin A1c % Calcium 8.0 L Phosphorus Cancelled 4.3 Magnesium Cancelled 1.9 Triglycerides 133 Cholesterol 124 Total LDL Cholesterol 73 HDL Cholesterol 43 Free T4 0.74 L 12/13/17 06:45 WBC RBC Hgb Hct MCV MCH MCHC RDW Plt Count MPV Neutrophils % Lymphocytes % Monocytes % Eosinophils % Basophils % Sodium Potassium Chloride Carbon Dioxide Anion Gap BUN Creatinine Random Glucose Hemoglobin A1c % 6.6 H Calcium Phosphorus Magnesium Triglycerides Cholesterol Total LDL Cholesterol HDL Cholesterol Free T4 Active Medications Generic Name Dose Route Start Last Admin Trade Name Freq PRN Reason Stop Dose Admin Levetiracetam 250 mg 12/12/17 22:00 12/13/17 09:02 Keppra - PO 250 mg BID ANN Administration Metoprolol Tartrate 37.5 mg 12/13/17 14:00 12/13/17 13:55 Lopressor - PO 37.5 mg TID ANN Administration Rivaroxaban 20 mg 12/12/17 18:00 12/12/17 21:48 Xarelto - PO 20 mg DAILY@1800 ANN Administration ASSESSMENT/PLAN: 72 yo female with a pmh of HTN, afib on xarelto, mitral regurg and seizures is admitted to obs for treatment of atrial fibrillation with rapid ventricular response #Atrial fibrillation with rapid ventricular response: patient's rate is between 90bpm and 120bpm, CHADS-VASc of 3 -echocardiogram - mild LVH, mild global hypokinesis of LV, LA moderately dilated , mild mitral regurgitation, mild aortic regurg -Increase metoprolol to 37.5 TID -continue xarelto 20 -continue ASA -stop home HCTZ and bisoprostol -consult home paper cone machine tender Dr. Lang appreciated #Diabetes: HBA1C returned as 6.6 -patient has never had issues with her sugars in the past -discussed importance of diet and exercise with patient -plan on following up as an outpatient with her primary care physician #Seizure hx: controlled -continue home keppra 250 BID #FEN No standing fluids Lytes normal, replete in AM Sodium controlled diet #Prophylaxis -heparin 5000 subq TID #Disposition -continue to monitor to obs-tele -dc planning once heart rate is better controlled Visit type - Emergency Visit Emergency Visit: No - New Patient This patient is new to me today: No - Critical Care Critical Care patient: No
[2017-12-13] MEDS ORDERED: FUROSEMIDE 20 MG TABLET (FP) PO ONE (16:48)
[2017-12-13] MEDS: RIVAROXABAN 20 MG TABLET PO SCH (18:04)
--- NOTE | 2017-12-13 19:18 | PN ---
Teaching Attending Note Name of Resident: Ayaan Lopez ATTENDING PHYSICIAN STATEMENT I saw and evaluated the patient. I reviewed the resident's note and discussed the case with the resident. I agree with the resident's findings and plan as documented. SUBJECTIVE: No fever or chills, feels SOB OBJECTIVE: NAD , AAox3, HEENT: MMM CV: irreg irreg Lungs: CTAB ext: trace edema , improved from yesterday ASSESSMENT AND PLAN: 72 y/o lady with h/o A fib, HTn, seizure disorder , and Mitral regurgitation who presented with palpitations and was found to have A fib with RVR 1- A fib with RVR: after meds adjustment as outpt . - tele with uncontrolled rate - lopressor increased to 37.5. - can increase as needed , can also add cardizem if needed - give another dose of lasix today - cont xarelto - check TSH - hold irbesartan due to give room for rate control 2- Mild leukocytosis: no signs of infection. no urinary sx , no signs of pNA , no rash or cellulitis . monitor off Abx R mastoid effusion on MRI as outpt , but has no sx . monitor WBC 3- H/o Seizures, cont keppra for now follow up as out pt 4- HTN: hold ARB as above - hold HCTZ and bisporolol, cont with lopressor 5- New diagnosis of DM: pt in denial . diet and esercise f/u as outpt for meds if still needed DVT PX : on xarelto
[2017-12-14] MEDS: METOPROLOL TARTRATE 25 MG TABLET (FP) PO SCH (05:50)
[2017-12-14 08:00] LABS: HEMATOCRIT 39.9 % (32.4-45.2); HEMOGLOBIN 12.7 GM/dL (10.7-15.3); MCH 28.1 pg (25.7-33.7); MCHC 31.8 g/dl (32.0-36.0); MEAN CELL VOLUME 88.4 fl (80-96); MEAN PLT VOLUME 11.9 fl (7.5-11.1); PLATELET COUNT 294 K/MM3 (134-434); RBC 4.52 M/mm3 (3.60-5.2); RDW 13.5 % (11.6-15.6); WHITE BLOOD COUNT 13.3 K/mm3 (4.0-10.0)
[2017-12-14 08:24] LABS: ANION GAP 8 (8-16); BLOOD UREA NITROGEN 15 mg/dL (7-18); CHLORIDE 109 mmol/L (98-107); CO2 26 mmol/L (21-32); GLUCOSE,RANDOM 101 mg/dL (74-106); POTASSIUM 4.2 mmol/L (3.5-5.1); SODIUM 143 mmol/L (136-145)
[2017-12-14 08:36] LABS: CREATININE 0.9 mg/dL (0.55-1.02)
[2017-12-14 09:28] LABS: URINE APPEARANCE CLEAR; URINE BILIRUBIN NEGATIVE (NEGATIVE); URINE BLOOD NEGATIVE (NEGATIVE); URINE COLOR LTYELLOW; URINE GLUCOSE (UA) NEGATIVE (NEGATIVE); URINE KETONE NEGATIVE (NEGATIVE); URINE LEUK ESTERASE TRACE (NEGATIVE); URINE NITRITE NEGATIVE (NEGATIVE); URINE PROTEIN NEGATIVE (NEGATIVE); URINE UROBILINOGEN NEGATIVE mg/dL (0.2-1.0)
[2017-12-14 09:55] LABS: EPI CELLS RARE /HPF (FEW); URINE BACTERIA RARE /hpf (NONE SEEN); URINE HYALINE CAST 1 /lpf; URINE MUCUS RARE
[2017-12-14] MEDS: levETIRAcetam 250 MG TABLET (FP) PO SCH ×2 (10:57→22:00)
[2017-12-14] MEDS: METOPROLOL TARTRATE 50 MG TABLET (FP) PO SCH ×3 (11:56→22:00)
--- NOTE | 2017-12-14 13:20 | PN ---
Physical Exam: SUBJECTIVE: Patient seen and examined at bedside. Patient reports feeling dizzy overnight and had some mild SOB. Patient felt some palpitations. No associated chest pain, nausea, vomiting, fevers, chills. OBJECTIVE: Vital Signs Period Temp Pulse Resp BP Sys/Batista Pulse Ox Last 24 Hr 97.9 F-98.8 F 99-146 14-20 103-144/56-94 96-97 GENERAL: Awake, alert, and fully oriented, in no acute distress. HEAD: Normal with no signs of trauma. NECK: no hepatojugular reflex noted on exam LUNGS: Breath sounds equal, clear to auscultation bilaterally. No wheezes, and no crackles. No accessory muscle use. HEART: Tachycardic, irregularly irregular, normal S1 and S2 without murmur, rub or gallop. ABDOMEN: Obese, Soft, nontender, not distended, normoactive bowel sounds, no guarding, no rebound, no masses. No hepatomegaly or splenomegaly. Laboratory Results - last 24 hr 12/14/17 12/14/17 12/14/17 05:05 05:05 06:30 WBC 13.3 H RBC 4.52 Hgb 12.7 Hct 39.9 MCV 88.4 MCH 28.1 MCHC 31.8 L RDW 13.5 Plt Count 294 MPV 11.9 H Sodium 143 Potassium 4.2 Chloride 109 H Carbon Dioxide 26 Anion Gap 8 BUN 15 Creatinine 0.9 Random Glucose 101 Calcium 8.0 L TSH 5.92 H Urine Color Ltyellow Urine Appearance Clear Urine pH 5.0 Ur Specific [place] 1.011 Urine Protein Negative Urine Glucose (UA) Negative Urine Ketones Negative Urine Blood Negative Urine Nitrite Negative Urine Bilirubin Negative Urine Urobilinogen Negative Ur Leukocyte Esterase Trace Urine WBC (Auto) 2 Urine RBC (Auto) None Ur Epithelial Cells Rare Urine Bacteria Rare Hyaline Casts 1 Urine Mucus Rare Active Medications Generic Name Dose Route Start Last Admin Trade Name Freq PRN Reason Stop Dose Admin Levetiracetam 250 mg 12/12/17 22:00 12/14/17 10:57 Keppra - PO 250 mg BID ANN Administration Metoprolol Tartrate 50 mg 12/14/17 10:51 12/14/17 11:56 Lopressor - PO 50 mg TID ANN Administration Rivaroxaban 20 mg 12/12/17 18:00 12/13/17 18:04 Xarelto - PO 20 mg DAILY@1800 ANN Administration ASSESSMENT/PLAN: 72 yo female with a pmh of HTN, afib on xarelto, mitral regurg and seizures is admitted to obs for treatment of atrial fibrillation with rapid ventricular response #Atrial fibrillation with rapid ventricular response: patient's rate is between 100bpm and 120bpm, CHADS-VASc of 3 -echocardiogram - mild LVH, mild global hypokinesis of LV, LA moderately dilated , mild mitral regurgitation, mild aortic regurg -Increase metoprolol to 50 TID -if rate continues to stay rapid, possible to add cardizem - would be cautious with further increase in B joshua due to potential for hypotension -continue xarelto 20 -continue ASA -need to control rate before considering DC -stop home HCTZ and bisoprostol -cardiology Dr. Lang appreciated #Mastoid Effusion: noted on recent MRI -may be source of infection? and elevated WBC? -ENT consult Dr. Hall #Diabetes: HBA1C 6.6 -patient has never had issues with her sugars in the past -yesterday discussed importance of diet and exercise with patient -plan on following up as an outpatient with her primary care physician #Seizure hx: controlled -continue home keppra 250 BID #FEN No standing fluids Lytes normal, replete in AM Sodium controlled diet #Prophylaxis -heparin 5000 subq TID #Disposition -continue to monitor to obs-tele -dc planning once heart rate is better controlled Visit type - Emergency Visit Emergency Visit: No - New Patient This patient is new to me today: No - Critical Care Critical Care patient: No
--- NOTE | 2017-12-14 14:11 | PN ---
Teaching Attending Note Name of Resident: Ayaan Lopez ATTENDING PHYSICIAN STATEMENT I saw and evaluated the patient. I reviewed the resident's note and discussed the case with the resident. I agree with the resident's findings and plan as documented. SUBJECTIVE: no fever or chills, has no pain, has palpitations , has light headedness . denies any pain in ear , or ART , has no pain behind her ears . was not recently treated for an ear infection OBJECTIVE: NAD , AAox3, HEENT: MMM, no TTP over mastoids, nl external auditory canal , a cerumen plug in both canals . nl oropharynx CV: irreg irreg, tachy Lungs: CTAB Ext: no edema ASSESSMENT AND PLAN: 72 y/o lady with h/o A fib, HTn, seizure disorder , and Mitral regurgitation who presented with palpitations and was found to have A fib with RVR 1- A fib with RVR: tele with poorly controlled HR - increase lopressor to 50 TID - can add cardizem if BP can't tolerate further uptitration in BB - cont xarelto - no evidence of hyperthyroidism, repeat TFTs as outpt - hold irbesartan due to give room for rate control 2- Mild leukocytosis: had leukocytosis in past, of unclear etiology R mastoid effusion on MRI as outpt , but has no sx or tenderness. can't visualize tympanic membranes due to cerumen plugs will ask ENT to evaluate for possible mastoiditis and management of effusion 3- H/o Seizures, cont keppra for now follow up as out pt 4- HTN: hold ARB as above - hold HCTZ and bisporolol, cont with lopressor 5- New diagnosis of DM:l . diet and exercise f/u as outpt for meds if still needed DVT PX : on xarelto
--- NOTE | 2017-12-14 15:57 | PN ---
Progress Note (short form) - Note Progress Note: CC: palps/afib with rvr s: no cp, + mild sob and dizzy and palps. HR's uncontrolled yesterday and this morning. lopressor increased to 50 tid. o: Current Medications Levetiracetam (Keppra -) 250 mg PO BID [facility] Last Admin: 12/14/17 10:57 Dose: 250 mg Metoprolol Tartrate (Lopressor -) 50 mg PO TID [facility] Last Admin: 12/14/17 14:41 Dose: Not Given Rivaroxaban (Xarelto -) 20 mg PO DAILY@1800 [facility] Last Admin: 12/13/17 18:04 Dose: 20 mg Vital Signs - 24 hr 12/13/17 12/13/17 12/13/17 17:00 21:00 22:00 Temperature 98.8 F 98.4 F Pulse Rate 99 H 100 H Respiratory 18 20 Rate Blood Pressure 103/75 119/72 O2 Sat by Pulse 97 Oximetry (%) 12/14/17 12/14/17 12/14/17 01:00 05:00 06:00 Temperature 97.9 F 98.1 F Pulse Rate 122 H 103 H Respiratory 20 20 Rate Blood Pressure 104/67 103/62 O2 Sat by Pulse 97 Oximetry (%) 12/14/17 12/14/17 12/14/17 09:00 12:11 12:12 Temperature 98.2 F Pulse Rate 124 H 132 H 140 H Respiratory 18 14 14 Rate Blood Pressure 104/56 128/76 144/94 O2 Sat by Pulse Oximetry (%) 12/14/17 12/14/17 12/14/17 12:14 12:57 14:00 Temperature 98.6 F Pulse Rate 146 H 94 H Respiratory 14 14 18 Rate Blood Pressure 134/92 129/79 O2 Sat by Pulse 97 Oximetry (%) Intake & Output 12/12/17 12/13/17 12/14/17 12/15/17 07:59 07:59 07:59 07:59 Intake Total 580 360 Balance 580 360 Weight 215 lb nad calm no jvd irreg, s1s2 2/6 murmur at apex cta bl nl eff + bs soft nt nd aaox3 no le e/c/c + dp/pt, no carotid bruits CBC, BMP 12/14/17 05:05 12/14/17 05:05 ekg: afib, 133 bpm. lvh. non-specific inferolat t wave abnormality, similar to prior t wave abnormality. tele: afib, rvr 120's-130s cxr: clear (although left base not well seen) echo 11/2017: pt in afib with rvr, lvef mildly reduced, global hk, mild lvh, nl rv, mod lae, mild mr/ar echo 10/2015: low nl lvef, nl rv, mod lae, mod-sev mr, mild tr, mild-mod ar, rvsp 30-40 wilfredo 10/2015: mod mr, mild ar mibi 11/2011: no ischemia, nl lvef a/p: 72 yo f with h/o pafib, htn, mod mr, mild ar, seizures on keppra ( followed by dr. goyal), obesity who p/w palps. parox afib: -p/w RVR. possible was reduction of rate control regimen from dilt 240, toprol 50 to bystolic 5. 12/12: will start lopressor 25 tid and uptitrate as needed. Add ccb if needed. 12/13-12/14: still with rvr, increased BB dose to 50 tid today, but still with uncontrolled rates, will increase further to 75 mg tid, monitor tele. - con't xarelto (recently switched b/c pt felt she had side effects to eliquis) - note bnp elevated from priors but patient with no clinical signs or symptoms of heart failure and tolerated IVF in ER. Low suspicion for chf exacerbation. - ekg without ischemic changes syst chf: -echo here showing mildly reduced lvef but pt was in afib with rvr during the study so LVEF difficult to assess, alternatively she may have some tachycardia induced cardiomyopathy. -plan for now is rate control as above -repeat echo as outpt to monitor lvef htn: -stable/intermittently low, monitor with uptitration of regimen. holding home irbesartan, hctz for now. New dx of dm, add back irbesartan once uptitration of rate control meds is complete and if bp tolerates. mod mr, mild ar: -no signs of valvular decompensation. -stable/improved on repeat echo here
[2017-12-14] MEDS: dilTIAZem HCL 60 MG TABLET (FP) PO SCH ×2 (17:22→23:56)
[2017-12-14] MEDS: RIVAROXABAN 20 MG TABLET PO SCH (17:22)
[2017-12-15] MEDS: dilTIAZem HCL 60 MG TABLET (FP) PO SCH (06:31)
[2017-12-15] MEDS: METOPROLOL TARTRATE 50 MG TABLET (FP) PO SCH ×3 (06:32→21:27)
[2017-12-15 09:06] LABS: BASO % 0.4 % (0-2.0); EOS % 1.9 % (0-4.5); HEMATOCRIT 39.8 % (32.4-45.2); HEMOGLOBIN 12.6 GM/dL (10.7-15.3); LYMPH % 27.4 % (8-40); MCHC 31.7 g/dl (32.0-36.0); MEAN CELL VOLUME 88.5 fl (80-96); MONO % 6.7 % (3.8-10.2); NEUT % 63.6 % (42.8-82.8); RDW 13.6 % (11.6-15.6); WHITE BLOOD COUNT 14.5 K/mm3 (4.0-10.0)
[2017-12-15 09:59] LABS: PLATELET COUNT 284 K/MM3 (134-434)
[2017-12-15] MEDS: levETIRAcetam 250 MG TABLET (FP) PO SCH ×2 (10:03→21:26)
--- NOTE | 2017-12-15 15:26 | PN ---
Progress Note (short form) - Note Progress Note: CC: palps/afib with rvr s: no cp, + mild sob and dizzy and palps. HR's uncontrolled yesterday. lopressor increased to 75 tid and diltiazem 60 mg po q6h added --> improved hr' s overnight but sbp's dropped into 90 --> stopped. HR's trending up this afternoon off diltiazem. o: Current Medications Levetiracetam (Keppra -) 250 mg PO BID [facility] Last Admin: 12/15/17 10:03 Dose: 250 mg Metoprolol Tartrate (Lopressor -) 75 mg PO TID [facility] Last Admin: 12/15/17 14:36 Dose: 75 mg Rivaroxaban (Xarelto -) 20 mg PO DAILY@1800 [facility] Last Admin: 12/14/17 17:22 Dose: 20 mg Vital Signs - 24 hr 12/14/17 12/14/17 12/14/17 18:00 20:10 22:00 Temperature 98.4 F 98.5 F Pulse Rate 115 H 98 H Respiratory 18 18 Rate Blood Pressure 117/62 107/68 O2 Sat by Pulse 98 Oximetry (%) 12/15/17 12/15/17 12/15/17 02:00 06:00 10:00 Temperature 97.7 F 97.7 F 98.2 F Pulse Rate 88 93 H 96 H Respiratory 20 20 14 Rate Blood Pressure 92/67 111/50 114/64 O2 Sat by Pulse Oximetry (%) 12/15/17 12/15/17 12:49 14:05 Temperature 98.1 F Pulse Rate 92 H Respiratory 14 18 Rate Blood Pressure 117/67 O2 Sat by Pulse 98 Oximetry (%) Intake & Output 12/13/17 12/14/17 12/15/17 12/16/17 07:59 07:59 07:59 07:59 Intake Total 580 360 Balance 580 360 Weight 215 lb nad calm no jvd irreg, s1s2 2/6 murmur at apex cta bl nl eff + bs soft nt nd aaox3 no le e/c/c + dp/pt, no carotid bruits CBC, BMP 12/15/17 08:30 ekg: afib, 133 bpm. lvh. non-specific inferolat t wave abnormality, similar to prior t wave abnormality. tele: afib, Hr's briefly controlled (80's), rising trend to 110's this afternoon. cxr: clear (although left base not well seen) echo 11/2017: pt in afib with rvr, lvef mildly reduced, global hk, mild lvh, nl rv, mod lae, mild mr/ar echo 10/2015: low nl lvef, nl rv, mod lae, mod-sev mr, mild tr, mild-mod ar, rvsp 30-40 wilfredo 10/2015: mod mr, mild ar mibi 11/2011: no ischemia, nl lvef a/p: 72 yo f with h/o pafib, htn, mod mr, mild ar, seizures on keppra ( followed by dr. goyal), obesity who p/w palps. parox afib: -p/w RVR. possible was reduction of rate control regimen from dilt 240, toprol 50 to bystolic 5. - 12/12: will start lopressor 25 tid and uptitrate as needed. Add ccb if needed. - 12/13-12/14: still with rvr, increased BB dose to 50 tid today, but still with uncontrolled rates, will increase further to 75 mg tid, monitor tele. - 12/15 HR's improved, but still uncontrolled on lopressor 75 mg tid yesterday. diltiazem 60 mg po q6h added yesterday afternoon --> improved hr's overnight but sbp's dropped into 90 --> stopped. HR's trending up this afternoon off diltiazem. Will add back lower dose of diltiazem (30 mg q6h), use with caution in setting of mildly depressed EF. - con't xarelto (recently switched b/c pt felt she had side effects to eliquis) - note bnp elevated from priors but patient with no clinical signs or symptoms of heart failure and tolerated IVF in ER. Low suspicion for chf exacerbation on admit. con't to monitor volume status in setting of persistently elevated heart rates. - ekg without ischemic changes syst chf: -echo here showing mildly reduced lvef but pt was in afib with rvr during the study so LVEF difficult to assess, alternatively she may have some tachycardia induced cardiomyopathy. -plan for now is rate control as above -repeat echo as outpt to monitor lvef htn: -stable/intermittently low, monitor with uptitration of regimen. holding home irbesartan, hctz for now. New dx of dm, add back irbesartan once uptitration of rate control meds is complete and if bp tolerates. mod mr, mild ar: -no signs of valvular decompensation. -stable/improved on repeat echo here
--- NOTE | 2017-12-15 16:54 | PN ---
Progress Note (short form) - Note Progress Note: Subjective: no fever or chills, has no SOB or CP Objective: Vital Signs: Last Vital Signs Temp Pulse Resp BP Pulse Ox 98.1 F 92 H 18 117/67 98 12/15/17 14:05 12/15/17 14:05 12/15/17 14:05 12/15/17 14:05 12/15/17 12:49 Laboratory Results - last 24 hr 12/15/17 08:30 WBC 14.5 H RBC 4.50 Hgb 12.6 Hct 39.8 MCV 88.5 MCH 28.0 MCHC 31.7 L RDW 13.6 Plt Count 284 MPV 12.0 H Neutrophils % 63.6 Lymphocytes % 27.4 Monocytes % 6.7 Eosinophils % 1.9 Basophils % 0.4 Platelet Comment No clumping noted Physical Exam: OBJECTIVE: NAD , AAox3, HEENT: MMM, no TTP over mastoids, CV: irreg irreg, HR in 90s Lungs: CTAB Ext: no edema ASSESSMENT AND PLAN: 72 y/o lady with h/o A fib, HTn, seizure disorder , and Mitral regurgitation who presented with palpitations and was found to have A fib with RVR 1- A fib with RVR: tele with better control of HR - cont lopressor 75 mg TID - cardizem 60 q 6 h was started yesterday afternoon, will dc du eot increased BB and to avoid hypotension - cont xarelto - no evidence of hyperthyroidism, repeat TFTs as outpt - hold irbesartan due to give room for rate control. 2- Mild leukocytosis: had leukocytosis in past, of unclear etiology R mastoid effusion on MRI as outpt, but has no sx or tenderness. can't visualize tympanic membranes due to cerumen plugs ENT eval pending , for need for Abx 3- H/o Seizures, cont keppra for now follow up as out pt 4- HTN: hold ARB as above - hold HCTZ and bisporolol, cont with lopressor 5- New diagnosis of DM: diet and exercise f/u as outpt for meds if still needed DVT PX: on xarelto Visit type - Emergency Visit Emergency Visit: Yes ED Registration Date: 12/12/17 Care time: The patient presented to the Emergency Department on the above date and was hospitalized for further evaluation of their emergent condition. - New Patient This patient is new to me today: No - Critical Care Critical Care patient: No
[2017-12-15] MEDS: dilTIAZem HCL 30 MG TABLET (FP) PO SCH ×2 (17:19→17:20)
[2017-12-15] MEDS: RIVAROXABAN 20 MG TABLET PO SCH (17:20)
[2017-12-15] MEDS ORDERED: METOPROLOL TARTRATE 5 MG/5 ML VIAL IVPUSH PRN (18:00)
[2017-12-16] MEDS: dilTIAZem HCL 30 MG TABLET (FP) PO SCH ×3 (00:20→15:16)
[2017-12-16] MEDS: METOPROLOL TARTRATE 50 MG TABLET (FP) PO SCH (05:48)
[2017-12-16 07:24] LABS: ANION GAP 9 (8-16); BLOOD UREA NITROGEN 15 mg/dL (7-18); CALCIUM 8.4 mg/dL (8.5-10.1); CHLORIDE 110 mmol/L (98-107); CO2 24 mmol/L (21-32); GLUCOSE,RANDOM 108 mg/dL (74-106); POTASSIUM 4.4 mmol/L (3.5-5.1); SODIUM 143 mmol/L (136-145)
[2017-12-16 07:26] LABS: CREATININE 0.9 mg/dL (0.55-1.02)
[2017-12-16 08:25] LABS: HEMATOCRIT 37.7 % (32.4-45.2); HEMOGLOBIN 11.9 GM/dL (10.7-15.3); MCH 27.9 pg (25.7-33.7); MCHC 31.5 g/dl (32.0-36.0); MEAN CELL VOLUME 88.4 fl (80-96); MEAN PLT VOLUME 12.4 fl (7.5-11.1); RBC 4.27 M/mm3 (3.60-5.2); RDW 13.3 % (11.6-15.6); WHITE BLOOD COUNT 16.5 K/mm3 (4.0-10.0)
[2017-12-16 08:47] LABS: PLATELET COUNT 272 K/MM3 (134-434)
--- NOTE | 2017-12-16 08:56 | PN ---
Progress Note, Physician Chief Complaint: palps History of Present Illness: bad palpitations overnight, much better now no cp slight sob briefly--resolved no syncope - Current Medication List Current Medications: Active Medications Diltiazem HCl (Cardizem -) 30 mg PO Q6HPO [facility] Last Admin: 12/16/17 05:48 Dose: 30 mg Levetiracetam (Keppra -) 250 mg PO BID [facility] Last Admin: 12/15/17 21:26 Dose: 250 mg Metoprolol Tartrate (Lopressor -) 75 mg PO TID [facility] Last Admin: 12/16/17 05:48 Dose: 75 mg Metoprolol Tartrate (Lopressor Injection -) 5 mg IVPUSH Q4H PRN PRN Reason: TACHYCARDIA Last Admin: 12/16/17 01:30 Dose: 5 mg Rivaroxaban (Xarelto -) 20 mg PO DAILY@1800 [facility] Last Admin: 12/15/17 17:20 Dose: 20 mg - Objective Vital Signs: Vital Signs Temperature 98.7 F 12/16/17 05:40 Pulse Rate 126 H 12/16/17 05:40 Respiratory Rate 20 12/16/17 05:40 Blood Pressure 116/62 12/16/17 05:40 O2 Sat by Pulse Oximetry (%) 99 12/15/17 22:00 Constitutional: Yes: Well Nourished, No Distress, Calm Cardiovascular: Yes: Pulse Irregular, S1, S2. No: JVD (tds habitus), Gallop, Murmur Respiratory: Yes: Regular, CTA Bilaterally. No: Accessory Muscle Use, Rales, Wheezes Extremities: No: Cold Edema: No Neurological: Yes: Alert. No: Seizure Psychiatric: No: Agitated Labs: CBC, BMP 12/16/17 07:15 12/16/17 06:35 INR, PTT INR 1.36 (0.82-1.09) H D 12/12/17 10:06 - ....Imaging EKG: Other (tele: afib mostly 110s, at times rapid to 140s overnight--currently 80s) Assessment/Plan ekg: afib, 133 bpm. lvh. non-specific t wave abnormality, similar to prior. cxr: clear (left base not well seen) echo 11/2017: pt in afib with rvr, lvef mildly reduced, global hk, mild lvh, nl rv, mod lae, mild mr/ar echo 10/2015: low nl lvef, nl rv, mod lae, mod-sev mr, mild tr, mild-mod ar, rvsp 30-40 wilfredo 10/2015: mod mr, mild ar mibi 11/2011: no ischemia, nl lvef a/p: 72 yo f with h/o pafib, htn, mod mr, mild ar, seizures on keppra ( followed by dr. goyal), obesity who p/w palps. parox afib: - p/w RVR. possible was reduction of rate control regimen from dilt 240, toprol 50 to bystolic 5. - 12/12: will start lopressor 25 tid and uptitrate as needed. Add ccb if needed. - 12/13-12/14: still with rvr, increased BB dose to 50 tid today, but still with uncontrolled rates, will increase further to 75 mg tid, monitor tele. - 12/15 HR's markedly improved with diltiazem 60 q6h (consistently in HRs), but was held for sbp in 90s. HR's trended back up off diltiazem so resumed at 30 q6h. - 12/16: clearly responds better to diltiazem than (high dose) lopressor. d/c lopressor. resume diltiazem 60 q6h (tolerated 240 ER dose at home). start toprol 25 bid for now. if HR controlled in am rec change back to diltiazem ER 240 qd and hope for discharge tomorrow - con't xarelto (recently switched as outpt b/c pt felt she had side effects to eliquis) - note bnp elevated from priors but patient with no clinical signs or symptoms of heart failure and tolerated IVF in ER. Low suspicion for chf exacerbation on admit. con't to monitor volume status in setting of persistently elevated heart rates. - ekg without ischemic changes syst chf: -echo here showing mildly reduced lvef but pt was in afib with rvr during the study so LVEF difficult to assess, alternatively she may have some tachycardia induced cardiomyopathy. -plan for now is rate control as above -repeat echo as outpt to monitor lvef htn: -stable/intermittently low, monitor with uptitration of regimen. -holding home irbesartan, hctz for now. -given new dx of dm, add back irbesartan once uptitration of rate control meds is complete, if bp tolerates. hi TSH (5.9) -per pmd/hospitalist
[2017-12-16] MEDS ORDERED: dilTIAZem HCL 30 MG TABLET (FP) PO ONE (08:58)
[2017-12-16] MEDS: levETIRAcetam 250 MG TABLET (FP) PO SCH ×2 (09:48→21:31)
[2017-12-16] MEDS: metoPROLOL SUCCINATE 25 MG TAB.SR.24H (FP) PO SCH ×2 (09:49→21:31)
[2017-12-16] MEDS: dilTIAZem HCL 60 MG TABLET (FP) PO SCH ×2 (11:57→17:30)
--- NOTE | 2017-12-16 13:19 | PN ---
Teaching Attending Note Name of Resident: Ayaan Lopez ATTENDING PHYSICIAN STATEMENT I saw and evaluated the patient. I reviewed the resident's note and discussed the case with the resident. I agree with the resident's findings and plan as documented. SUBJECTIVE: No fever or chills , has palpitations still OBJECTIVE: NAD , AAox3, HEENT: MMM, no TTP over mastoids, CV: irreg irreg, tachy . NO JVD Lungs: CTAB Ext: no edema ASSESSMENT AND PLAN: 72 y/o lady with h/o A fib, HTN, seizure disorder , and Mitral regurgitation who presented with palpitations and was found to have A fib with RVR 1- A fib with RVR: HR not controlled on BB alone - appreciate Dr. Castillo help. cardizem 60 q 6 and toprol 25 BID - cont xarelto - repeat TFTs as out pt 2- Mild leukocytosis: had leukocytosis in past, of unclear etiology. now WBC is worsening R mastoid effusion on MRI as outpt, but has no sx or tenderness. can't visualize tympanic membranes due to cerumen plugs. ENT eval pending, for need for Abx 3- H/o Seizures, cont keppra for now follow up as out pt 4- HTN: hold ARB for rate control - will not resume HCTZ and bisporololat dc - toprol and cardizem as above 5- New diagnosis of DM: diet and exercise f/u as outpt for meds if still needed DVT PX: on xarelto Dc pending rate control and ENT eval
[2017-12-16] MEDS: ACETAMINOPHEN 325 MG TABLET (FP) PO PRN (16:53)
--- NOTE | 2017-12-16 17:03 | PN ---
Physical Exam: SUBJECTIVE: Patient seen and examined at bedside. Patient states she has continued palpitations and mild dizziness when she stands up. Denies overt chest pain or shortness of breath. States that she has a headache. OBJECTIVE: Vital Signs Period Temp Pulse Resp BP Sys/Batista Pulse Ox Last 24 Hr 98 F-98.9 F 80-142 18-20 101-126/54-90 98-99 GENERAL: Awake, alert, and fully oriented, in no acute distress. HEAD: Normal with no signs of trauma. NECK: no hepatojugular reflex noted on exam LUNGS: Breath sounds equal, clear to auscultation bilaterally. No wheezes, and no crackles. No accessory muscle use. HEART: Tachycardic, irregularly irregular, normal S1 and S2 without murmur, rub or gallop. ABDOMEN: Obese, Soft, nontender, not distended, normoactive bowel sounds, no guarding, no rebound, no masses. No hepatomegaly or splenomegaly. Laboratory Results - last 24 hr 12/16/17 12/16/17 06:35 07:15 WBC 16.5 H RBC 4.27 Hgb 11.9 Hct 37.7 MCV 88.4 MCH 27.9 MCHC 31.5 L RDW 13.3 Plt Count 272 MPV 12.4 H Platelet Comment Sodium 143 Potassium 4.4 Chloride 110 H Carbon Dioxide 24 Anion Gap 9 BUN 15 Creatinine 0.9 Random Glucose 108 H Calcium 8.4 L Magnesium 2.0 Active Medications Generic Name Dose Route Start Last Admin Trade Name Freq PRN Reason Stop Dose Admin Acetaminophen 650 mg 12/16/17 16:42 12/16/17 16:53 Tylenol - PO 650 mg Q4H PRN Administration PAIN Diltiazem HCl 60 mg 12/16/17 12:00 12/16/17 11:57 Cardizem - PO 60 mg Q6HPO ANN Administration Levetiracetam 250 mg 12/12/17 22:00 12/16/17 09:48 Keppra - PO 250 mg BID ANN Administration Metoprolol Succinate 25 mg 12/16/17 10:00 12/16/17 09:49 Toprol Xl - PO 25 mg BID ANN Administration Metoprolol Tartrate 5 mg 12/15/17 18:00 12/16/17 01:30 Lopressor Injection - IVPUSH 5 mg Q4H PRN Administration TACHYCARDIA Rivaroxaban 20 mg 12/12/17 18:00 12/15/17 17:20 Xarelto - PO 20 mg DAILY@1800 ANN Administration ASSESSMENT/PLAN: 72 yo female with a pmh of HTN, afib on xarelto, mitral regurg and seizures is admitted to obs for treatment of atrial fibrillation with rapid ventricular response #Atrial fibrillation with rapid ventricular response: patient's rate is between 120bpm and 140bpm, CHADS-VASc of 3 -echocardiogram - mild LVH, mild global hypokinesis of LV, LA moderately dilated , mild mitral regurgitation, mild aortic regurg -medications changed to metoprolol 25 BID -added cardizem 60 Q6h standing -continue xarelto 20 -continue ASA -need to control rate before considering DC -stop home HCTZ and bisoprostol -cardiology Dr. Lang appreciated #Mastoid Effusion: noted on recent MRI -may be source of infection? and elevated WBC? -ENT consult Dr. Hall, called service today #Headache: 2/10 non-radiating, no aura, no nausea/vomiting. -tylenol 650 PO Q4 PRN #Diabetes: HBA1C 6.6 -patient has never had issues with her sugars in the past -plan on following up as an outpatient with her primary care physician #Seizure hx: controlled -continue home keppra 250 BID #FEN No standing fluids Lytes normal, replete in AM Sodium controlled diet #Prophylaxis -heparin 5000 subq TID #Disposition -change patient to inpatient status -dc planning once heart rate is better controlled Visit type - Emergency Visit Emergency Visit: No - New Patient This patient is new to me today: No - Critical Care Critical Care patient: No
[2017-12-16] MEDS: RIVAROXABAN 20 MG TABLET PO SCH (17:30)
--- NOTE | 2017-12-16 17:53 | CON.ENT ---
Consult Consult Specialty:: otolaryngology Reason for Consultation:: evaluate ear - History of Present Illness Chief Complaint: mastoid effusion History of Present Illness: 72F admitted for palpitations and cardiac workup was noted to incidentally have a mild mastoid effusion on MRI (right ear). Consult passed to me this morning. The patient denies any ear pain, hearing loss, tinnitus, vertigo. She's never had ear surgery nor recurrent ear infections. - History Source History Provided By: Patient Limitations to Obtaining History: Other (slovenian-speaking) - Past Medical History Cardio/Vascular: Yes: CAD, HTN, Other (STENTS) - Past Surgical History Past Surgical History: Yes: Joint Replacement, Tubal Ligation - Alcohol/Substance Use Hx Alcohol Use: No History of Substance Use: reports: None - Smoking History Smoking history: Never smoked Have you smoked in the past 12 months: No Aproximately how many cigarettes per day: 0 - Social History Usual Living Arrangement: With Child (daughter) ADL: Independent History of Recent Travel: No Home Medications - Allergies Allergies/Adverse Reactions: Allergies Allergy/AdvReac Type Severity Reaction Status Date / Time No Known Allergies Allergy Verified 12/12/17 09:22 - Home Medications Home Medications: Ambulatory Orders Aspirin 81 mg PO DAILY 12/12/17 Bisoprolol/Hydrochlorothiazide [Bisoprolol-Hctz 5-6.25 mg Tab] 1 each PO DAILY 12/12/17 Irbesartan 300 mg PO DAILY 12/12/17 Levetiracetam [Keppra -] 250 mg PO BID 12/12/17 Rivaroxaban [Xarelto -] 20 mg PO DAILY 12/12/17 Family Disease History - Family Disease History Family Disease History: Heart Disease: Mother (HTN), Sister (HTN) Review of Systems - Review of Systems HENT: denies: Ear Discharge, Ear Pain Cardiovascular: reports: Palpitations Physical Exam-ENT Vital Signs: Vital Signs Temperature 98.9 F 12/16/17 14:00 Pulse Rate 80 12/16/17 14:00 Respiratory Rate 18 12/16/17 09:00 Blood Pressure 126/69 12/16/17 14:00 O2 Sat by Pulse Oximetry (%) 98 12/16/17 10:00 Constitutional: Yes: Well Nourished, No Distress, Calm, Other (laying down watching TV. seems slightly irritated that I ask so many questions about her ear ) Head: Yes: WNL Face: Yes: WNL Eyes: Yes: WNL Nose: Yes: WNL Nasal Passage: Yes: WNL Oral/Pharynx: Yes: WNL Outer Ear: Yes: WNL, Other (no protrusion of auricles. no mastoid tenderness, edema, discoloration.) Ear Canal: Yes: Cerumen Neck: Yes: WNL Neurological: Yes: Other (CN3-7,11,12 intact, symmetrical) Imaging - Results MRI: Report Reviewed (small mastoid effusion right), Image Reviewed Other: Other (Loop curette used to remove wax right ear, unable to complete) Problem List - Problems (1) Mastoid disorder Assessment/Plan: Right mastoid effusion, mild, noted incidentally on MRI. No marrow changes noted. - Impacted wax, unable to remove at bedside, limits complete evaluation of the ear. (Cannot see TM). She can see me as an outpatient on discharge for cleaning with assistance of my microscope. - This is most likely an incidental finding. She has no pain or tenderness. My review of the MRI shows the fluid to be inferior in the mastoid tip, sparing the upper mastoid and middle ear. Very low suspicion for mastoiditis. Can consider doing CT Temporal Bone with Contrast as this is the best radiographic study to evaluate for mastoiditis, though I do not think it is necessary at this time. - Her leukocytosis has been present on nearly all her CBCs for several years and is very unlikely to be from the mastoid effusion. (her first WBC on computer record from 01/2011 was 19, and almost all since then have been abnormally high). Advise further workup as appropriate per primary team to determine the cause of her leukocytosis. Code(s): H74.90 - UNSP DISORDER OF MIDDLE EAR AND MASTOID, UNSPECIFIED EAR (2) Excessive cerumen in both ear canals Assessment/Plan: cannot safely remove at bedside given density of impaction I gave her my business card; she may schedule an apptmt with me after discharge. Thank you for this consultation. Please call with questions. Code(s): H61.23 - IMPACTED CERUMEN, BILATERAL
[2017-12-17] MEDS: dilTIAZem HCL 60 MG TABLET (FP) PO SCH ×2 (00:20→05:27)
[2017-12-17] MEDS: ACETAMINOPHEN 325 MG TABLET (FP) PO PRN ×2 (02:19→10:11)
[2017-12-17] MEDS: metoPROLOL SUCCINATE 25 MG TAB.SR.24H (FP) PO SCH (09:23)
[2017-12-17] MEDS: levETIRAcetam 250 MG TABLET (FP) PO SCH (09:23)
--- NOTE | 2017-12-17 11:20 | PN ---
Progress Note (short form) - Note Progress Note: Chief Complaint: palps History of Present Illness: Diltiazem increased to 60 mg po q6h. Lopressor 75 mg tid stopped and toprol 25 mg bid started --> improvement in HR/conversion to sr, stable bp's. no cp, palps, dizziness sob. today complaing of myalgias, h/a and nausea. Current Medications Acetaminophen (Tylenol -) 650 mg PO Q4H PRN PRN Reason: PAIN Last Admin: 12/17/17 10:11 Dose: 650 mg Diltiazem HCl (Cardizem -) 60 mg PO Q6HPO [facility] Last Admin: 12/17/17 05:27 Dose: 60 mg Levetiracetam (Keppra -) 250 mg PO BID [facility] Last Admin: 12/17/17 09:23 Dose: 250 mg Metoprolol Succinate (Toprol Xl -) 25 mg PO BID [facility] Last Admin: 12/17/17 09:23 Dose: 25 mg Metoprolol Tartrate (Lopressor Injection -) 5 mg IVPUSH Q4H PRN PRN Reason: TACHYCARDIA Last Admin: 12/16/17 01:30 Dose: 5 mg Rivaroxaban (Xarelto -) 20 mg PO DAILY@1800 [facility] Last Admin: 12/16/17 17:30 Dose: 20 mg - Objective Vital Signs: Vital Signs - 24 hr 12/16/17 12/16/17 12/16/17 14:00 17:00 20:42 Temperature 98.9 F 99.2 F Pulse Rate 80 54 L Respiratory 20 Rate Blood Pressure 126/69 113/46 O2 Sat by Pulse 95 Oximetry (%) 12/16/17 12/17/17 12/17/17 21:00 01:00 05:15 Temperature 98.5 F 99.0 F 98.2 F Pulse Rate 65 67 64 Respiratory 20 20 20 Rate Blood Pressure 127/68 133/75 121/66 O2 Sat by Pulse Oximetry (%) Intake & Output 12/15/17 12/16/17 12/17/17 12/18/17 07:59 07:59 07:59 07:59 Intake Total 100 900 Balance 100 900 nad calm no jvd rrr, s1s2 no mrg cta bl nl eff + bs soft nt nd aaox3 no le e/c/c + dp/pt, no carotid bruits Labs: no CBC, BMP - ....Imaging EKG: Other (tele: afib --> rate controlled --> conversion to sr. rare nsvt vs. short runs of rapid afib with aberrant conduction) Assessment/Plan ekg: afib, 133 bpm. lvh. non-specific t wave abnormality, similar to prior. cxr: clear (left base not well seen) echo 11/2017: pt in afib with rvr, lvef mildly reduced, global hk, mild lvh, nl rv, mod lae, mild mr/ar echo 10/2015: low nl lvef, nl rv, mod lae, mod-sev mr, mild tr, mild-mod ar, rvsp 30-40 wilfredo 10/2015: mod mr, mild ar mibi 11/2011: no ischemia, nl lvef a/p: 72 yo f with h/o pafib, htn, mod mr, mild ar, seizures on keppra ( followed by dr. goyal), obesity who p/w palps. parox afib: - p/w RVR. possible was reduction of rate control regimen from dilt 240, toprol 50 to bystolic 5. - 12/12: will start lopressor 25 tid and uptitrate as needed. Add ccb if needed. - 12/13-12/14: still with rvr, increased BB dose to 50 tid today, but still with uncontrolled rates, will increase further to 75 mg tid, monitor tele. - 12/15 HR's markedly improved with diltiazem 60 q6h (consistently in HRs), but was held for sbp in 90s. HR's trended back up off diltiazem so resumed at 30 q6h. - 12/16: clearly responds better to diltiazem than (high dose) lopressor. d/c lopressor. resume diltiazem 60 q6h (tolerated 240 ER dose at home). start toprol 25 bid for now. If HR controlled in am rec change back to diltiazem ER 240 qd and hope for discharge tomorrow - 12/17 HR now controlled and in SR, bp stable. Will stop short acting diltiazem and start diltiazem ER 240 mg. - con't xarelto (recently switched as outpt b/c pt felt she had side effects to eliquis) - note bnp elevated from priors but patient with no clinical signs or symptoms of heart failure and tolerated IVF in ER. Low suspicion for chf exacerbation on admit. stable volume status despite prolonged elevated heart rates (now rate controlled). - ekg without ischemic changes syst chf: -echo here showing mildly reduced lvef but pt was in afib with rvr during the study so LVEF difficult to assess, alternatively she may have some tachycardia induced cardiomyopathy. -plan for now is rate control as above -repeat echo as outpt to monitor lvef htn: -stable/intermittently low, with uptitration of regimen. --> stable on current rate control regimen. -holding home irbesartan, hctz for now. -given new dx of dm, add back irbesartan as outpatient if bp tolerates. hi TSH (5.9) -per pmd/hospitalist stable from CV perspective. OK to d/c if HR remains stable on long acting diltiazem today.
--- NOTE | 2017-12-17 13:31 | PN ---
Teaching Attending Note Name of Resident: Ayaan Lopez ATTENDING PHYSICIAN STATEMENT I saw and evaluated the patient. I reviewed the resident's note and discussed the case with the resident. I agree with the resident's findings and plan as documented. SUBJECTIVE: No fever or dc . has no pain , no palpitations OBJECTIVE: NAD , AAox3, HEENT: MMM, no TTP over mastoids, CV: irreg irreg . NO JVD Lungs: CTAB Ext: no edema ASSESSMENT AND PLAN: 72 y/o lady with h/o A fib, HTN, seizure disorder , and Mitral regurgitation who presented with palpitations and was found to have A fib with RVR 1- A fib with RVR: HR controlled . cont toprol BID ( 25 mg ) and cardizem CD ( 240 ) repeat TFTS as outpt 2- Mild leukocytosis: chronic . no signs of infection. appreciate ENT eval, mastoid effusion not thought to be infection. f/u as out pt for possible CT and ear cleaning for full evaluation f/u with heme for w//u of leukocytosis blood cx neg to date 3- H/o Seizures, cont keppra for now follow up as out pt 4- HTN: hold ARB . will be added as outpt as diabetic if tolerated - will not resume HCTZ and bisporololat dc - toprol and cardizem as above 5- New diagnosis of DM: diet and exercise f/u as outpt for meds if still needed dc home . f/u ENT, heme , PCP , and card
[2017-12-17 14:41] VITALS: BP 162/89; PULSE 78; TEMP 98.8
--- NOTE | 2017-12-17 14:59 | DS ---
Physical Exam: SUBJECTIVE: Patient seen and examined at bedside. Patient states that she is asymptomatic and did not have any more episodes of palpitations overnight. Her headache has resolved. OBJECTIVE: Vital Signs Period Temp Pulse Resp BP Sys/Batista Pulse Ox Last 24 Hr 98 F-99.2 F 54-78 18-20 113-162/46-90 95-98 PHYSICAL EXAM GENERAL: The patient is awake, alert, and fully oriented, in no acute distress. HEAD: Normal with no signs of trauma. EYES: PERRL, extraocular movements intact, sclera anicteric, conjunctiva clear. ENT: Ears normal, nares patent, oropharynx clear without exudates, moist mucous membranes. NECK: Trachea midline, full range of motion, supple. LUNGS: Breath sounds equal, clear to auscultation bilaterally, no wheezes, no crackles, no accessory muscle use. HEART: Regular rate but irregular rhythm, S1, S2 without murmur, rub or gallop. ABDOMEN: Soft, nontender, nondistended, normoactive bowel sounds, no guarding, no rebound, no hepatosplenomegaly, no masses. EXTREMITIES: 2+ pulses, warm, well-perfused, no edema. NEUROLOGICAL: Cranial nerves II through XII grossly intact. Normal speech, gait not observed. PSYCH: Normal mood, normal affect. SKIN: Warm, dry, normal turgor, no rashes or lesions noted. Home Medication List Medication Instructions Recorded Confirmed Type Aspirin 81 mg PO DAILY 12/12/17 12/12/17 History Levetiracetam [Keppra -] 250 mg PO BID 12/12/17 12/12/17 History Rivaroxaban [Xarelto -] 20 mg PO DAILY 12/12/17 12/12/17 History Active Medications Generic Name Dose Route Start Last Admin Trade Name Freq PRN Reason Stop Dose Admin Acetaminophen 650 mg 12/16/17 16:42 12/17/17 10:11 Tylenol - PO 650 mg Q4H PRN Administration PAIN Diltiazem HCl 240 mg 12/17/17 11:55 12/17/17 11:44 Cardizem Cd - PO 240 mg DAILY ANN Administration Levetiracetam 250 mg 12/12/17 22:00 12/17/17 09:23 Keppra - PO 250 mg BID ANN Administration Metoprolol Succinate 25 mg 12/16/17 10:00 12/17/17 09:23 Toprol Xl - PO 25 mg BID ANN Administration Metoprolol Tartrate 5 mg 12/15/17 18:00 12/16/17 01:30 Lopressor Injection - IVPUSH 5 mg Q4H PRN Administration TACHYCARDIA Rivaroxaban 20 mg 12/12/17 18:00 12/16/17 17:30 Xarelto - PO 20 mg DAILY@1800 ANN Administration HOSPITAL COURSE: Date of Admission:12/16/17 72 year old female with a pmh of HTN, atrial fibrillation on xarelto, mitral regurgitation, and seizures presented to the hospital on 12/16 for atrial fibrillation with rapid ventricular response. Patient's rate on admission was in the 120-140s and she was experiencing palpitations. CHADs-VASC on admission was 3. Patient was recently changed from eliquis to xarelto due to side effects of the medication. She had an MRI done the day prior to admission showing an effusion of the mastoid sinus. Patient also has a chronic leukocytosis (WBC 12- 13 range over several admissions) without any discernable reason. Patient was initially started on lopressor, which did not effectively control her rate, even after increasing her dose to 50mg BID. Patient was transitioned to cardizem 60mg PO Q6h and toprol XL 25 BID, which controlled her rate to the 60s- 80s. Patient's home irbesartan, bisoprolol, and HCTZ were stopped due to risk for hypotension in the hospital because her blood pressure has been consistently on the low end of normal. Dr. Gustafson ENT saw patient and did not recommend any acute treatment for the mastoid effusion. In the hospital, it was also found that patient is a diabetic with a HgbA1C of 6.6. Patient was discharged home with cardizem 240mg PO QD as well as toprol XL 25 BID and instructions to follow with her PCP in 1 week to evaluate blood pressure medications, follow up on her diabetes, and to follow with her naturopath as well as the ENT. Patient was also referred to Dr. Laughlin for a heme workup of her chronic leukocytosis. Date of Discharge: 12/17/17 Minutes to complete discharge: 35 Discharge Summary Reason For Visit: ATRIAL FIB W RAPID VENTRICULAR RESPONSE Current Active Problems Excessive cerumen in both ear canals (Acute) Leukocytosis (Chronic) Mastoid disorder (Chronic) Condition: Improved - Instructions Diet, Activity, Other Instructions: #You were treated in the hospital for atrial fibrillation with rapid ventricular response. #In the hospital, we found that you had an elevated white blood cell count which was elevated at many of your previous admissions. This could be normal for you, but it would be beneficial to see a electronic imager (blood doctor) to have this evaluated. #We found that you have fluid around your mastoid process, an area inside the bone of the skull in the back of your head. This is likely not a serious medical condition -the fluid was evaluated by an vice provost, who did not recommend any acute treatment, and only that you follow with him in the office in 2 weeks. #You were also found to have diabetes in the hospital. Although your daily sugar levels remained low, the Hemoglobin A1C level was 6.6, indicating that you have diabetes. Please follow with your primary care doctor for proper management. as you might need medications in near future #We changed several medications while you were in the hospital, please bring this form to your primary care provider when you see them in the office. Recommendations: 1. Take your blood pressure once every day and record that number, bring that number with you to the primary care physician. 2. If you experience severe palpitations, chest pain, or shortness of breath, please return to the hospital immediately. 3. You were diagnosed with diabetes - when you go to your primary care physician , make sure they follow your A1C levels closely to make sure your diabetes is not getting worse. 4- eat diabetic diet ( low carb, low fat diet ) 5- check your sugar daily before breakfast . take the log to your primary doctor . call MD if > 250 6- You need repeat thyroid function test in 4 weeks Medication Changes: 1. Take Cardizem 240mg once a day for atrial fibrillation. Please take this every day at the same time to avoid the chance of going back into a rapid and abnormal heart rhythm. 2. Take Toprol XL 25mg twice a day for atrial fibrillation. Please take this every day at the same time to avoid the chance of going back into a rapid and abnormal heart rhythm. 3. We stopped your hydrochlorothiazide (HCTZ) because your blood pressure was on the low end of normal. Do not take this when you go home and follow with your PCP. 4. We stopped your bisoprolol because your blood pressure was on the low end of normal and we used a different medication to control your atrial fibrillation. Do not take this at home. 5. We held your irbesartan due to your blood pressure being on the low end. Please check your blood pressure every day this week and discuss possibly restarting this medication with your primary care physician when you see them. 6. Continue taking aspirin 81mg once a day 7. Continue taking xarelto 20mg once a day at 3pm 8. Continue taking keppra 250mg twice a day Referrals: 1. Make an appointment with your primary care physician, Dr. Schneider within 1 week of discharge to discuss all of the medication changes we implemented in the hospital 2. Make an appointment with your naturopath, Dr. Lang, within 2 weeks of discharge to follow up on the management of your atrial fibrillation 3. Make an appointment with the vice provost, Dr. Gustafson, within 2 weeks of discharge to discuss the fluid around your mastoid process. 4. Make an appointment with the electronic imager, Dr. Laughlin, within 2 weeks of discharge to discuss your elevated white blood cell count Referrals: Bud Lang MD [Staff Physician] - 2 Weeks Norah Laughlin MD [Staff Physician] - 2 Weeks Haley Schneider MD [Primary Care Provider] - 1 Week Pete Rodriguez MD [Staff Physician] - 2 Weeks Disposition: HOME - Home Medications Comprehensive Discharge Medication List: Ambulatory Orders Aspirin 81 mg PO DAILY 12/12/17 Levetiracetam [Keppra -] 250 mg PO BID 12/12/17 Rivaroxaban [Xarelto -] 20 mg PO DAILY 12/12/17 Diltiazem Cd [Cardizem Cd -] 240 mg PO DAILY #30 cap.cd.24h 12/17/17 Lancets 1 each MC DAILY #100 each 12/17/17 Metoprolol Succinate [Toprol XL -] 25 mg PO BID #60 tab.sr.24h 12/17/17 Miscellaneous Medical Supply [Glucometer Device] 1 each SQ DAILY #1 kit Miscellaneous Medical Supply [Glucometer Test Strips #100] 1 each SQ DAILY #1 box 12/17/17 This patient is new to me today: No Emergency Visit: No Critical Care patient: No - Discharge Referral Referred to [facility] No
== END 2017-12-17 17:07 | disposition home or self-care (01) | DRG 309 ==
LOC: JER 09:18 → JERBED 13:01 → J4W 19:15 → JERBED 20:23 → J4W 20:24 → JERBED 20:33 → J4W 20:36 → OBSVTOIN 12-16 13:47
PROVIDERS: ADMIT Internal Medicine; ATTEND Internal Medicine
DX: I48.0 Paroxysmal atrial fibrillation (principal); I50.22 Chronic systolic (congestive) heart failure; Z68.41 Body mass index [BMI] 40.0-44.9, adult; G40.89 Other seizures; I11.0 Hypertensive heart disease with heart failure; I34.0 Nonrheumatic mitral (valve) insufficiency; E11.9 Type 2 diabetes mellitus without complications; E66.9 Obesity, unspecified; I45.81 Long QT syndrome; Z79.01 Long term (current) use of anticoagulants; H74.90 Unspecified disorder of middle ear and mastoid, unspecified ear; H61.23 Impacted cerumen, bilateral
CPT/HCPCS: 36415; 70450-TC; 71045-TC; 80048; 80053; 80061; 81003; 81015; 82550; 82803; 82962; 83036; 83605; 83721; 83735; 83880; 84100; 84439; 84443; 84484; 85025; 85027; 85610; 85730; 87040; 87086; 87804; 93005; 93010; 93306-TC; 99284-25; G0378

== ENCOUNTER 2017-12-17 21:16 | Inpatient (IN) | payer OTHER ==
--- NOTE | 2017-12-17 21:20 | PDOC ---
History of Present Illness - General History Source: Patient, Family Exam Limitations: No Limitations - History of Present Illness Initial Comments: 12/17/17 21:39 The patient is a 72 year old female with a pmh of HTN, atrial fibrillation on xarelto, mitral regurgitation, and seizures who presented to the hospital on and was admitted on 12/12 for atrial fibrillation with rapid ventricular response, who presents to the emergency department just a few hours post discharge with complaint of diffuse headache, difficulty breathing, and "high blood pressure since discharge" today. The patient states she takes baby aspirin for her hypertension, however, Dr. Lang put her on Xarelto two days prior to ED arrival on 12/11. As per discharge summary today, the patient was advised to continue taking xarelto 20mg once a day at 3pm, amongst many other thorough discharge instructions. The patient denies chest pain or dizziness. Denies fever, chills, nausea, vomit, diarrhea and constipation. Denies dysuria, frequency, urgency and hematuria. Allergies: NKDA Past surgical history: None reported Social history: No reported alcohol, cigarette, or drug use. PCP: Dr. Schneider Surgical Device Sales Representative: Dr. Lang <Nora Garcia - Last Filed: 12/17/17 23:43> - History of Present Illness Initial Comments: Pt and family report that pt's breathing is at baseline and that she was "breathing like that prior to going home from the hospital". 12/17/17 22:21 <Keri Hogan - Last Filed: 12/17/17 23:46> - General Stated Complaint: HEADACHE Time Seen by Provider: 12/17/17 21:20 Past History <Nora Garcia - Last Filed: 12/17/17 23:43> - Past Medical History Anemia: No Asthma: No Cancer: No Cardiac Disorders: No CVA: No COPD: No CHF: No DVT: No Dementia: No Diabetes: No GI Disorders: No Disorders: No HTN: Yes Hypercholesterolemia: No Liver Disease: No Seizures: No Thyroid Disease: No - Surgical History Abdominal Surgery: Yes (TUBAL LIGATION) Appendectomy: No Cardiac Surgery: No Cholecystectomy: No Lung Surgery: No Neurologic Surgery: No Orthopedic Surgery: No - Immunization History Immunization Up to Date: Yes - Suicide/Smoking/Psychosocial Hx Smoking Status: No Smoking History: Never smoked Have you smoked in the past 12 months: No Number of Cigarettes Smoked Daily: 0 Hx Alcohol Use: No Drug/Substance Use Hx: No Substance Use Type: None Hx Substance Use Treatment: No <Keri Hogan - Last Filed: 12/17/17 23:46> - Past Medical History Allergies/Adverse Reactions: Allergies Allergy/AdvReac Type Severity Reaction Status Date / Time No Known Allergies Allergy Verified 12/17/17 21:19 Home Medications: Ambulatory Orders Aspirin 81 mg PO DAILY 12/12/17 Levetiracetam [Keppra -] 250 mg PO BID 12/12/17 Rivaroxaban [Xarelto -] 20 mg PO DAILY 12/12/17 Diltiazem Cd [Cardizem Cd -] 240 mg PO DAILY #30 cap.cd.24h 12/17/17 Metoprolol Succinate [Toprol XL -] 25 mg PO BID #60 tab.sr.24h 12/17/17 Review of Systems - Review of Systems Able to Perform ROS?: Yes Comments:: 12/17/17 21:40 CONSTITUTIONAL: Absent: fever, no chills, no fatigue EYES: Absent: visual changes ENT: Absent: ear pain, no sore throat CARDIOVASCULAR: (+) high blood pressure. Absent: chest pain, no palpitations RESPIRATORY: (+) difficulty breathing Absent: cough, GI: Absent: abdominal pain, no nausea, no vomiting, no constipation, no diarrhea GENITOURINARY: Absent: dysuria, no frequency, no hematuria MUSCULOSKELETAL: Absent: back pain, no arthralgia, no myalgia SKIN: Absent: rash NEURO: (+) headache. No weakness <Nora Garcia - Last Filed: 12/17/17 23:43> *Physical Exam - Vital Signs Last Vital Signs Temp Pulse Resp BP Pulse Ox 96 H 28 H 146/107 96 12/17/17 21:26 12/17/17 21:26 12/17/17 21:26 12/17/17 21:26 - Physical Exam Comments: 12/17/17 21:41 GENERAL: (+) anxious appearing. Obese. No apparent distress. HEENT: Normocephalic, atraumatic. PERRL, EOM intact. CARDIOVASCULAR: Normal S1, S2. Regular rate and rhythm. PULMONARY: (+) tachypneic but speaking full sentences. Clear to auscultation bilaterally. ABDOMEN: Soft, non-distended, non-tender. EXTREMITIES: Normal ROM in all four extremities. No gross deformities. SKIN: Warm, dry. No rash NEUROLOGICAL: No focal neurological deficits. <Nora Garcia - Last Filed: 12/17/17 23:43> ED Treatment Course - LABORATORY CBC & Chemistry Diagram: 12/17/17 22:00 12/17/17 22:00 - RADIOLOGY Radiograph Interpretation: EXAM#: TYPE/EXAM: RESULT: [id number] RAD/CHEST X-RAY PORTABLE* Exam: Chest x-ray - single AP portable view. Indication: Chest pain. Comparison: 12/14/2009 chest x-ray. Findings: There is moderate pulmonary vascular congestion and small bilateral pleural effusions with underlying atelectasis versus consolidation. Stable enlargement of the cardiomediastinal silhouette. There is no definable pneumothorax. Impression: Moderate pulmonary vascular congestion and small bilateral pleural effusions with atelectasis versus consolidation in the underlying lung bases. Stable enlargement of the cardiomediastinal silhouette. Please correlate clinically for CHF exacerbation. Reported By: Maddi Alfred DO 12/17/17 2305 EXAM#: TYPE/EXAM: RESULT: [id number] CT/HEAD CT WITHOUT CONTRAST Exam: CT head without contrast. Indication: Headache. Technique: Axial noncontrast head CT with coronal and sagittal reformations. Comparison: 01/17/[address] Correlation made to the 12/11/2017 MRI brain. Findings: There is no acute intracranial hemorrhage. There is no compelling evidence of acute transcortical infarction at this time. MRI is more sensitive in detecting acute infarction. There is a left middle cranial fossa arachnoid cyst along the anterior left temporal convexity, measuring approximately 1.5 cm in AP dimension and 2.5 cm in length, unchanged unchanged in size dating back to at least 01/17/[address] There is unchanged mild mass effect with indentation of the anterior left temporal convexity. There are no other mass effects. There is no midline shift or hydrocephalus. There is an expanded and partially empty sella turcica. There is relatively symmetric, age-related calcification within the globus pallidus. The calvarium is intact. There is mild hyperostosis frontalis interna. The visualized paranasal sinuses and mastoid air cells are clear. Impression: 1. No definite interval change from 01/17/[address] No acute intracranial hemorrhage. No hydrocephalus. No significant mass effects. 2. Approximately 1.5 x 2.5 cm left middle cranial fossa arachnoid cyst indenting the anterior left temporal convexity is unchanged in size dating back to at least 01/17/[address] Reported By: Maddi Alfred DO 12/17/17 3516 <Nora Garcia - Last Filed: 12/17/17 23:43> - LABORATORY CBC & Chemistry Diagram: 12/17/17 22:00 12/17/17 22:00 <Keri Hogan - Last Filed: 12/17/17 23:46> Medical Decision Making - Medical Decision Making 12/17/17 22:23 Pt with HTN, afib on xarelto, recently diagnosed with DM presents to ED 7hrs after inpatient discharge from [facility] with headache, SOB and c/o "my pressure is high". +slight CP. O2 on room air is 92%, lungs clear but difficult to auscultate 2/2 habitus. +trace pitting edema bilat LE. Ddx includes CHF, MN, COPD (though no documented hx) less likely PE, though possible as she was recently hospitalized/reasonably immobilized. Regarding headache, seems that she complained of rogers while inpatient, the features are not different, was not sudden onset, not concerned about SAH at this time. EKG nsr HR 93, no ST/T wave changes, non-ischemic. - oxygen 2L nc - labs including cardiac enzymes (will trend), proBNP - CXR - reglan, tylenol, ntg [facility] - admit 12/17/17 23:38 CXR reviewed, labs reviewed. +leukocytosis higher than baseline with L shift. CXR with cardiomegaly, pleural effusion and pulm vasc congestion c/w CHF and possible pna. Due to recent hospitalization, will treat for HCAP with vanc/ zosyn. Will also give lasix 40mg IVP for CHF exac (EF 43% from 12/12/17). admit to hospitalist for further management. Looks more comfortable breathing now, received 1 sl ntg prior to CXR. If she clinically worsens, will consider bipap. 12/17/17 23:[address] Tong - will admit to med tele. Bld cx and lactate to be drawn prior to abx. <Keri Hogan - Last Filed: 12/17/17 23:46> *DC/Admit/Observation/Transfer - Attestations Scribe Attestion: 12/17/17 21:43 Documentation prepared by Nora Garcia, acting as medical sales specialist for Keri Hogan DO <Nora Garcia - Last Filed: 12/17/17 23:43> - Discharge Dispostion Admit: Yes <Keri Hogan - Last Filed: 12/17/17 23:46> Diagnosis at time of Disposition: Acute exacerbation of CHF (congestive heart failure), Hospital-acquired pneumonia - Discharge Dispostion Condition at time of disposition: Guarded - Referrals Referrals: Haley Schneider MD [Primary Care Provider] - - Patient Instructions - Post Discharge Activity
[2017-12-17 21:28] VITALS: BMI 41.8
[2017-12-17] MEDS ORDERED: ASPIRIN 81 MG CHEWABLE TABLETS PO ONE (21:29)
[2017-12-17] MEDS ORDERED: METOCLOPRAMIDE HCL INJECTION 10 MG/2 ML VIAL IVPUSH ONE (21:34)
[2017-12-17] MEDS ORDERED: ACETAMINOPHEN 325 MG TABLET (FP) PO ONE (21:34)
[2017-12-17] MEDS ORDERED: METOCLOPRAMIDE HCL INJECTION 10 MG/2 ML VIAL ONE (21:48)
[2017-12-17] MEDS ORDERED: NITROGLYCERIN SUBLINGUAL 1/150 0.4 MG TAB SL ONE (22:15)
[2017-12-17 22:23] LABS: VENOUS PC02 44.2 mmHg (38-52); VENOUS PH 7.39 (7.32-7.42); VENOUS PO2 46.2 mmHg (28-48)
[2017-12-17] MEDS ORDERED: ACETAMINOPHEN 325 MG TABLET (FP) ONE (22:28)
[2017-12-17] MEDS ORDERED: ASPIRIN 81 MG CHEWABLE TABLETS ONE (22:28)
[2017-12-17 22:38] LABS: BASO % 1.1 % (0-2.0); EOS % 0.3 % (0-4.5); HEMATOCRIT 34.9 % (32.4-45.2); HEMOGLOBIN 11.5 GM/dL (10.7-15.3); LYMPH % 8.3 % (8-40); MCH 28.6 pg (25.7-33.7); MCHC 32.9 g/dl (32.0-36.0); MEAN CELL VOLUME 86.8 fl (80-96); MONO % 6.6 % (3.8-10.2); NEUT % 83.7 % (42.8-82.8); RBC 4.02 M/mm3 (3.60-5.2); WHITE BLOOD COUNT 18.9 K/mm3 (4.0-10.0)
[2017-12-17 22:51] LABS: INR 1.24 (0.82-1.09)
[2017-12-17 23:03] LABS: ALBUMIN 3.5 g/dl (3.4-5.0); ANION GAP 8 (8-16); BILIRUBIN,TOTAL 0.9 mg/dL (0.2-1.0); BLOOD UREA NITROGEN 8 mg/dL (7-18); CALCIUM 8.2 mg/dL (8.5-10.1); CHLORIDE 107 mmol/L (98-107); CO2 27 mmol/L (21-32); CREATININE 0.9 mg/dL (0.55-1.02); GLUCOSE,RANDOM 155 mg/dL (74-106); MAGNESIUM 2.1 mg/dL (1.8-2.4); POTASSIUM 4.3 mmol/L (3.5-5.1); SGOT/AST 57 U/L (15-37); SGPT/ALT 83 U/L (12-78); SODIUM 142 mmol/L (136-145); TOT PROT 7.2 g/dl (6.4-8.2)
[2017-12-17 23:06] LABS: ALK PHOS 113 U/L (45-117)
[2017-12-17 23:12] LABS: MEAN PLT VOLUME 12.5 fl (7.5-11.1); PLATELET COUNT 243 K/MM3 (134-434)
[2017-12-17 23:13] LABS: PLATELET ESTIMATE ADEQUATE
[2017-12-17] MEDS ORDERED: FUROSEMIDE 40 MG/4 ML INJECTABLE VIAL IVPUSH ONE (23:34)
[2017-12-17] MEDS ORDERED: PIPERACILLIN/TAZOB 3.375 GM/50 ML PRE-DOCKED IVPB ONE (23:35)
[2017-12-17] MEDS ORDERED: FUROSEMIDE 40 MG/4 ML INJECTABLE VIAL ONE (23:41)
[2017-12-17] MEDS ORDERED: VANCOMYCIN 1 GRAM (PRE-DOCKED) 1,000 MG/250 ML BAG IVPB ONE (23:41)
[2017-12-17] MEDS ORDERED: PIPERACILLIN/TAZOB 3.375 GM 3.375 GM/50 ML BAG IVPB ONE (23:42)
--- NOTE | 2017-12-17 23:46 | PN ---
Teaching Attending Note Name of Resident: Dilcia Springer ATTENDING PHYSICIAN STATEMENT I saw and evaluated the patient. I reviewed the resident's note and discussed the case with the resident. I agree with the resident's findings and plan as documented. SUBJECTIVE: 72 F with pmhx. of A-FIB (on Xarelto), HTN, Seizure Do, and MR who was recently admitted 12/11 for Afib w RVR and d/c'd yesterday. Presents with headache and shortness of breath. Also with "high blood pressures" since d/c. States her headache has gone away now, and shortness of breath has improved, but is still present with exertion. No chest pain or pressure. OBJECTIVE: Physical: VS: Vital Signs Period Temp Pulse Resp BP Sys/Batista Pulse Ox Last 24 Hr 98.4 F 87-96 18-28 146-152/106-107 96- GEN: NAD, resting in bed, AA0X3 HEENT: NCAT, PERRL, throat without erythema or exudates CARD: RRR S1, S2 RESP: Bilateral Crackles at bases ABD: BSx4, NTD to palpation EXT: - C/C/E CBCD WBC 18.9 K/mm3 (4.0-10.0) H 12/17/17 22:00 RBC 4.02 M/mm3 (3.60-5.2) 12/17/17 22:00 Hgb 11.5 GM/dL (10.7-15.3) 12/17/17 22:00 Hct 34.9 % (32.4-45.2) 12/17/17 22:00 MCV 86.8 fl (80-96) 12/17/17 22:00 MCHC 32.9 g/dl (32.0-36.0) 12/17/17 22:00 RDW 13.0 % (11.6-15.6) 12/17/17 22:00 Plt Count 243 K/MM3 (134-434) 12/17/17 22:00 MPV 12.5 fl (7.5-11.1) H 12/17/17 22:00 CMP Sodium 142 mmol/L (136-145) 12/17/17 22:00 Potassium 4.3 mmol/L (3.5-5.1) 12/17/17 22:00 Chloride 107 mmol/L (98-107) 12/17/17 22:00 Carbon Dioxide 27 mmol/L (21-32) 12/17/17 22:00 Anion Gap 8 (8-16) 12/17/17 22:00 BUN 8 mg/dL (7-18) 12/17/17 22:00 Creatinine 0.9 mg/dL (0.55-1.02) 12/17/17 22:00 Creat Clearance w eGFR > 60 (>60) 12/17/17 22:00 Random Glucose 155 mg/dL (74-106) H 12/17/17 22:00 Calcium 8.2 mg/dL (8.5-10.1) L 12/17/17 22:00 Total Bilirubin 0.9 mg/dL (0.2-1.0) 12/17/17 22:00 AST 57 U/L (15-37) H 12/17/17 22:00 ALT 83 U/L (12-78) H 12/17/17 22:00 Alkaline Phosphatase 113 U/L (45-117) 12/17/17 22:00 Total Protein 7.2 g/dl (6.4-8.2) 12/17/17 22:00 Albumin 3.5 g/dl (3.4-5.0) 12/17/17 22:00 CARDIAC ENZYMES Creatine Kinase 47 IU/L (26-192) 12/17/17 22:00 Troponin I < 0.02 ng/ml (0.00-0.05) 12/17/17 22:00 CT HEAD: Impression: 1. No definite interval change from 01/17/[address] No acute intracranial hemorrhage. No hydrocephalus. No significant mass effects. 2. Approximately 1.5 x 2.5 cm left middle cranial fossa arachnoid cyst indenting the anterior left temporal convexity is unchanged in size dating back to at least 01/17/[address] CXR- Moderate pulmonary vascular congestion and small bilateral plueral effusions with atelectasis vs. consolidation in underlying lung bases, Stable enlargement of cardiomediastinal silhoutte. EKG:NSR, QTC 462 ECHO 12/12: EF 43%, Mild MR, Mild AR Home Medications Medication Instructions Recorded Aspirin 81 mg PO DAILY 12/12/17 Levetiracetam [Keppra -] 250 mg PO BID 12/12/17 Rivaroxaban [Xarelto -] 20 mg PO DAILY 12/12/17 Diltiazem Cd [Cardizem Cd -] 240 mg PO DAILY #30 cap.cd.24h 12/17/17 Metoprolol Succinate [Toprol XL -] 25 mg PO BID #60 tab.sr.24h 12/17/17 ASSESSMENT AND PLAN: 72 F with pmhx. of A-FIB (on Xarelto), HTN, Seizure Do, and MR who was recently admitted 12/11 for Afib w RVR and d/c'd yesterday, presents with shortness of breath, being admitted for pneumonia and Acute CHF exacerbation. 1.) Acute Systolic Congestive Heart Failure - Lasix - Daily weight - Strict I/O - Trend Trop/EKG - NA/Fluid Restrict - Cardio for medication adjustment 2.) Sepsis Pneumonia- Hospital Aquired - [place] stat - [facility] CX - Vanco/Zosyn - ID consult - Hold IVF due to CHF 3.) A-FIB: - Rate Controlled - C/W Xarelto - ? sys HF will hold Cardizem for now/ Toprol XL in AM 4.) Seizure Do - C/W Keppra 5.) Dvt Ppx - On Xarelto Place in [facility] [employer]
[2017-12-18 00:39] LABS: URINE APPEARANCE CLEAR; URINE BILIRUBIN NEGATIVE (NEGATIVE); URINE BLOOD NEGATIVE (NEGATIVE); URINE COLOR STRAW; URINE GLUCOSE (UA) NEGATIVE (NEGATIVE); URINE KETONE NEGATIVE (NEGATIVE); URINE LEUK ESTERASE NEGATIVE (NEGATIVE); URINE NITRITE NEGATIVE (NEGATIVE); URINE PROTEIN NEGATIVE (NEGATIVE); URINE UROBILINOGEN NEGATIVE mg/dL (0.2-1.0)
[2017-12-18] MEDS ORDERED: VANCOMYCIN 1,000 MG in DEXTROSE 5%-WATER - 250 ML IVPB ONE ×2 (01:04→23:34)
[2017-12-18] MEDS ORDERED: METOPROLOL SUCCINATE 50 MG TAB.SR.24H (FP) ONE ×2 (01:23→10:25)
[2017-12-18] MEDS ORDERED: levETIRAcetam 500 MG TABLET (FP) PO ONE ×2 (01:23→10:26)
[2017-12-18] MEDS: levETIRAcetam 250 MG TABLET (FP) PO SCH ×3 (01:26→22:15)
[2017-12-18] MEDS: METOPROLOL SUCCINATE 25 MG TAB.SR.24H (FP) PO SCH ×3 (01:26→22:15)
--- NOTE | 2017-12-18 01:31 | HP ---
CHIEF COMPLAINT: Headache, SOB PCP: HISTORY OF PRESENT ILLNESS: 72 y/o F with PMH HTN, afib (on Xarelto; with recent admission), MR, seizure disorder, newly diagnosed DM, who presented to the ED with ART and SOB. x 1 day. She was discharged yesterday afternoon d/t afib with RVR on Cardizem 240mg qd, Toprol XL 25mg BID, aspirin 81mg qd, and xarelto 20mg qd. As per pt, she developed an unbearable ART upon discharge- 08/27, constant pain in her temples b /l, which gradually worsened. During this time, pt also noted mild SOB at rest, however became increasingly tachypneic in ED after ambulating to the restroom. Pt denied fever, chills, visual changes, chest pain, cough, lower extremity edema, N/V, or changes in urinary or bowel function. 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 Smoking: denies Alcohol: denies Drugs: denies Family History: denies Allergies No Known Allergies Allergy (Verified 12/17/17 21:19) HOME MEDICATIONS: Home Medications Medication Instructions Recorded Aspirin 81 mg PO DAILY 12/12/17 Levetiracetam [Keppra -] 250 mg PO BID 12/12/17 Rivaroxaban [Xarelto -] 20 mg PO DAILY 12/12/17 Diltiazem Cd [Cardizem Cd -] 240 mg PO DAILY #30 cap.cd.24h 12/17/17 Metoprolol Succinate [Toprol XL -] 25 mg PO BID #60 tab.sr.24h 12/17/17 REVIEW OF SYSTEMS CONSTITUTIONAL: Absent: fever, chills, diaphoresis, generalized weakness, malaise, loss of appetite, weight change HEENT: Absent: rhinorrhea, nasal congestion, throat pain, throat swelling, difficulty swallowing, mouth swelling, ear pain, eye pain, visual changes CARDIOVASCULAR: Absent: chest pain, syncope, palpitations, irregular heart rate, lightheadedness , peripheral edema RESPIRATORY: +SOB, dyspnea with exertion Absent: cough, orthopnea, wheezing, stridor, hemoptysis GASTROINTESTINAL: Absent: abdominal pain, abdominal distension, nausea, vomiting, diarrhea, constipation, melena, hematochezia GENITOURINARY: Absent: dysuria, frequency, urgency, hesitancy, hematuria, flank pain, genital pain MUSCULOSKELETAL: Absent: myalgia, arthralgia, joint swelling, back pain, neck pain SKIN: Absent: rash, itching, pallor HEMATOLOGIC/IMMUNOLOGIC: Absent: easy bleeding, easy bruising, lymphadenopathy, frequent infections ENDOCRINE: Absent: unexplained weight gain, unexplained weight loss, heat intolerance, cold intolerance NEUROLOGIC: +headache Absent: focal weakness or paresthesias, dizziness, unsteady gait, seizure, mental status changes, bladder or bowel incontinence PSYCHIATRIC: Absent: anxiety, depression, suicidal or homicidal ideation, hallucinations. PHYSICAL EXAMINATION Vital Signs 12/17/17 12/17/17 21:26 22:39 Temperature 98.4 F Pulse Rate 96 H Pulse Rate [ 87 Apical] Respiratory 28 H 18 Rate Blood Pressure 146/107 Blood Pressure 152/106 [Left Arm] O2 Sat by Pulse 96 96 Oximetry (%) GENERAL: Tachypneic, lying on R side. Awake, alert, and fully oriented, in mild distress. On 3L NC HEAD: Normal with no signs of trauma. EYES: Pupils equal, round and reactive to light, extraocular movements intact, sclera anicteric, conjunctiva clear. EARS, NOSE, THROAT: Ears normal, nares patent, oropharynx clear without exudates. Moist mucous membranes. NECK: Normal range of motion, supple. Unable to adequately assess JVD, hepatojug reflex d/t pt's body habitus LUNGS: crackles appreciated in lung bases b/l. otherwise, without rhonchi or wheezes. mild accessory m. usage. HEART: Regular rate and rhythm (sinus during exam), normal S1 and S2 without murmur, rub or gallop. ABDOMEN: Soft, obese, without tenderness to palpation, non distended, normoactive bowel sounds, no guarding, no rebound UPPER EXTREMITIES: 2+ radial pulse LOWER EXTREMITIES: 2+ posterior tibial pulses, warm, well-perfused. No calf tenderness. Trace edema b/l NEUROLOGICAL: Cranial nerves II-XII intact. PSYCHIATRIC: Anxious Laboratory Results 12/17/17 12/17/17 12/17/17 22:00 22:00 22:00 WBC 18.9 H RBC 4.02 Hgb 11.5 Hct 34.9 MCV 86.8 MCH 28.6 MCHC 32.9 RDW 13.0 Plt Count 243 MPV 12.5 H Neutrophils % 83.7 H D Lymphocytes % 8.3 D Monocytes % 6.6 Eosinophils % 0.3 D Basophils % 1.1 Platelet Estimate Adequate Platelet Comment PT with INR 14.00 H INR 1.24 H VBG pH Mixed VBG HCO3 Sodium 142 Potassium 4.3 Chloride 107 Carbon Dioxide 27 Anion Gap 8 BUN 8 Creatinine 0.9 Creat Clearance w eGFR > 60 Random Glucose 155 H Lactic Acid Calcium 8.2 L Magnesium 2.1 Total Bilirubin 0.9 AST 57 H ALT 83 H Alkaline Phosphatase 113 Creatine Kinase 47 Troponin I < 0.02 B-Natriuretic Peptide Total Protein 7.2 Albumin 3.5 12/17/17 12/17/17 12/17/17 22:00 22:00 23:45 Lactic Acid 1.1 B-Natriuretic Peptide 2510.57 H Microbiology 12/17/17 22:00 Nasopharyngeal Swab Influenza Types A,B Antigen (NOMI) - Final 12/17/17 22:00 Nasopharyngeal Swab - Final Blood cx- pending Urine cx- pending Radio CXR: pulmonary vascular congestion, b/l pleural effusions with atelectasis ASSESSMENT/PLAN: 72 y/o F with PMH HTN, afib (on Xarelto; with recent admission), MR, seizure disorder, newly diagnosed DM, who presented to the ED with ART and SOB. x 1 day. Pt admitted to telemetry for acute CHF exacerbation possibly 2/2 HCAP. #Acute CHF exacerbation possibly 2/2 HCAP -SOB at rest and on exertion, 92% initial sat on RA. requiring 3L NC to keep sat up -sx alleviation with lasix, improved lower extremity edema since admission -CXR: b/l pl effusions with atelectasis -Continue lasix 40mg IVP qd -Strict I's and O's -Daily weights -Fluid restricted -Na control -Trend trops, 1st (-) #Elevated LFT's most likely 2/2 CHF -AST 57, ALT 83 -Continue to monitor #Possible HCAP -afebrile, however pt with recent hospital admission, with gradually increasing leukocytosis (16.5>18.9) -lactic acid WNL -Received vanc 1g, zosyn 3.375 x 1 in ED -Empiric coverage for HCAP with vanc 1g IVPB qd, zosyn 4.5 g IVPB q6h (Cr clearance WNL) -F/u blood cx, urine cx -ID Consult- Dr. Louie #Afib -Holding cardizem d/t decreased EF. To be reassessed by cardio -Pt continued on Toprol XL 25mg BID-rate control, aspirin 81mg qd, and xarelto 20mg qd -Cardio consult- Dr. Cordova #Hx seizure disorder -Continue keppra 250mg PO BID #PPX DVT: pt on xarelto #F/E/N -no fluids at this time, to avoid overload -will continue to monitor electrolytes -Na controlled diet #Dispo Telemetry monitoring Visit type - Emergency Visit Emergency Visit: Yes ED Registration Date: 12/18/17 Care time: The patient presented to the Emergency Department on the above date and was hospitalized for further evaluation of their emergent condition. - New Patient This patient is new to me today: Yes Date on this admission: 12/18/17 - Critical Care Critical Care patient: No
[2017-12-18] MEDS ORDERED: PIPERACILLIN/TAZOB 4.5 GM/100 ML PRE-DOCKED IVPB ONE (06:00)
[2017-12-18] MEDS ORDERED: PIPERACILLIN/TAZOB 4.5 GM 4.5 GM/100 ML BAG IVPB ONE ×2 (07:15→12:54)
--- NOTE | 2017-12-18 08:11 | EKG ---
Test Reason : Blood Pressure : / mmHG Vent. Rate : 093 BPM Atrial Rate : 093 BPM P-R Int : 168 ms QRS Dur : 076 ms QT Int : 372 ms P-R-T Axes : 041 029 053 degrees QTc Int : 462 ms NORMAL SINUS RHYTHM NORMAL ECG WHEN COMPARED WITH ECG OF 13-DEC-2017 08:35, SINUS RHYTHM HAS REPLACED ATRIAL FIBRILLATION T WAVE INVERSION NO LONGER EVIDENT IN INFERIOR LEADS NONSPECIFIC T WAVE ABNORMALITY NOW EVIDENT IN ANTERIOR LEADS T WAVE INVERSION NO LONGER EVIDENT IN LATERAL LEADS Confirmed by MAGED YODER, ILANA ([id number]) on 12/18/2017 8:11:30 AM Referred By: Confirmed By:ILANA LYNNE MD
--- NOTE | 2017-12-18 08:22 | PN ---
Teaching Attending Note Name of Resident: Ayaan Lopez ATTENDING PHYSICIAN STATEMENT I saw and evaluated the patient. I reviewed the resident's note and discussed the case with the resident. I agree with the resident's findings and plan as documented. SUBJECTIVE: Patient is a 72yo yoruba speaking female was discharged yesterday comes in with having headache today , frontal headache with no radiation to the back of his neck. ( translation was done by an ED EMS) OBJECTIVE: Vital Signs Temperature 98.9 F 12/18/17 06:59 Pulse Rate 90 12/18/17 07:00 Respiratory Rate 20 12/18/17 07:00 Blood Pressure 150/98 12/18/17 07:00 O2 Sat by Pulse Oximetry (%) 97 12/18/17 07:00 CBCD WBC 18.9 K/mm3 (4.0-10.0) H 12/17/17 22:00 RBC 4.02 M/mm3 (3.60-5.2) 12/17/17 22:00 Hgb 11.5 GM/dL (10.7-15.3) 12/17/17 22:00 Hct 34.9 % (32.4-45.2) 12/17/17 22:00 MCV 86.8 fl (80-96) 12/17/17 22:00 MCHC 32.9 g/dl (32.0-36.0) 12/17/17 22:00 RDW 13.0 % (11.6-15.6) 12/17/17 22:00 Plt Count 243 K/MM3 (134-434) 12/17/17 22:00 MPV 12.5 fl (7.5-11.1) H 12/17/17 22:00 CMP Sodium 142 mmol/L (136-145) 12/17/17 22:00 Potassium 4.3 mmol/L (3.5-5.1) 12/17/17 22:00 Chloride 107 mmol/L (98-107) 12/17/17 22:00 Carbon Dioxide 27 mmol/L (21-32) 12/17/17 22:00 Anion Gap 8 (8-16) 12/17/17 22:00 BUN 8 mg/dL (7-18) 12/17/17 22:00 Creatinine 0.9 mg/dL (0.55-1.02) 12/17/17 22:00 Creat Clearance w eGFR > 60 (>60) 12/17/17 22:00 Random Glucose 155 mg/dL (74-106) H 12/17/17 22:00 Calcium 8.2 mg/dL (8.5-10.1) L 12/17/17 22:00 Total Bilirubin 0.9 mg/dL (0.2-1.0) 12/17/17 22:00 AST 57 U/L (15-37) H 12/17/17 22:00 ALT 83 U/L (12-78) H 12/17/17 22:00 Alkaline Phosphatase 113 U/L (45-117) 12/17/17 22:00 Total Protein 7.2 g/dl (6.4-8.2) 12/17/17 22:00 Albumin 3.5 g/dl (3.4-5.0) 12/17/17 22:00 CARDIAC ENZYMES Creatine Kinase 47 IU/L (26-192) 12/17/17 22:00 Troponin I < 0.02 ng/ml (0.00-0.05) 12/17/17 22:00 Current Medications Generic Name Dose Route Start Last Admin Trade Name Freq PRN Reason Stop Dose Admin Aspirin 81 mg 12/18/17 10:00 Asa - PO DAILY [facility] Furosemide 40 mg 12/18/17 10:00 Lasix Injection - IVPUSH DAILY [facility] Vancomycin HCl 1,000 mg/ 250 mls @ 250 mls/hr 12/18/17 10:00 Dextrose IVPB DAILY [facility] Protocol Insulin Aspart 1 vial 12/18/17 07:00 Novolog Vial Sliding Scale - SQ ACHS [facility] Protocol Levetiracetam 250 mg 12/18/17 01:15 12/18/17 01:26 Keppra - PO 250 mg BID ANN Administration Metoprolol Succinate 25 mg 12/18/17 01:15 12/18/17 01:26 Toprol Xl - PO 25 mg BID ANN Administration Piperacillin/Tazobactam/Dextrose 4.5 gm 12/18/17 15:00 Zosyn 4.5gm Ivpb (Premix) IVPB Q6H-IV ANN Rivaroxaban 20 mg 12/18/17 10:00 Xarelto - PO DAILY [facility] Home Medications Medication Instructions Recorded Aspirin 81 mg PO DAILY 12/12/17 Levetiracetam [Keppra -] 250 mg PO BID 12/12/17 Rivaroxaban [Xarelto -] 20 mg PO DAILY 12/12/17 Diltiazem Cd [Cardizem Cd -] 240 mg PO DAILY #30 cap.cd.24h 12/17/17 Metoprolol Succinate [Toprol XL -] 25 mg PO BID #60 tab.sr.24h 12/17/17 PE: lying in bed c/o having headache Chest: decreased air entry BL Heart: S1s2 positive. CXR: pulmonary vascular congestion, b/l pleural effusions with atelectasis ASSESSMENT/PLAN: Patient is a 72 y/o F with PMH HTN, afib (on Xarelto; with recent admission), MR , seizure disorder, newly diagnosed DM, who presented to the ED with ART and SOB. x 1 day. Pt admitted to telemetry for acute CHF exacerbation with possible HCAP. #Acute systolic CHF exacerbation will place her on IV Lasix 40mg IV bid since CXR: BL with increased edema bl , Dr. Macias cardio consult Strict I's and O's, Daily weights, Fluid restricted, Na control and diabetic diet. #Elevated LFT's most likely due to CHF, will monitor #Possible HCAP will monitor, afebrile, with recent hospital admission, and elevated WBC from (16.5>18.9), lactic acid WNL, on Vanco/zosyn as per ID . to continue, will repeat the CXR in am # Headache , will get head CT to r/o bleed since patient is on Xarelto. #Afib on po cardizem to continue ,cardio to see the patient. Continue Toprol as well. #Hx seizure disorder continue keppra 250mg PO BID #PPX: DVT: pt on Xarelto
[2017-12-18 09:24] LABS: BASO % 0.5 % (0-2.0); EOS % 0.9 % (0-4.5); HEMATOCRIT 35.1 % (32.4-45.2); HEMOGLOBIN 11.3 GM/dL (10.7-15.3); LYMPH % 8.1 % (8-40); MCHC 32.2 g/dl (32.0-36.0); MEAN CELL VOLUME 87.1 fl (80-96); MEAN PLT VOLUME 11.8 fl (7.5-11.1); MONO % 8.2 % (3.8-10.2); NEUT % 82.3 % (42.8-82.8); RBC 4.03 M/mm3 (3.60-5.2); RDW 13.2 % (11.6-15.6); WHITE BLOOD COUNT 18.6 K/mm3 (4.0-10.0)
[2017-12-18] MEDS ORDERED: RIVAROXABAN 20 MG TABLET PO SCH (10:00)
[2017-12-18] MEDS ORDERED: FUROSEMIDE 40 MG/4 ML INJECTABLE VIAL IVPUSH SCH (10:00)
[2017-12-18] MEDS ORDERED: VANCOMYCIN 1,000 MG in DEXTROSE 5%-WATER - 250 ML IVPB SCH (10:00)
[2017-12-18 10:09] LABS: CHLORIDE 101 mmol/L (98-107); POTASSIUM 3.4 mmol/L (3.5-5.1); SODIUM 141 mmol/L (136-145)
[2017-12-18 10:13] LABS: ANION GAP 11 (8-16); BLOOD UREA NITROGEN 7 mg/dL (7-18); CALCIUM 8.6 mg/dL (8.5-10.1); CO2 29 mmol/L (21-32); CREATININE 0.8 mg/dL (0.55-1.02); GLUCOSE,RANDOM 116 mg/dL (74-106)
[2017-12-18] MEDS: INSULIN SLIDING SCALE (NOVOLOG) 1 VIAL SQ SCH ×4 (10:15→22:15)
[2017-12-18] MEDS ORDERED: ASPIRIN 81 MG CHEWABLE TABLETS ONE (10:25)
[2017-12-18] MEDS ORDERED: FUROSEMIDE 40 MG/4 ML INJECTABLE VIAL ONE (10:26)
[2017-12-18] MEDS: ASPIRIN 81 MG CHEWABLE TABLETS PO SCH (10:32)
--- NOTE | 2017-12-18 10:42 | CON.ID ---
Consult Consult Specialty:: infectious disease Referred by:: hospitalist service Reason for Consultation:: leukocytosis - History of Present Illness Chief Complaint: headache, sob History of Present Illness: 72 year old female with history of HTN, afib, just hospitalized 12/12 to 12/16 for afib with rapid ventricular response discharged yesterday afternoon, returned yesterday evening with HTN- 146/107 , ART and SOB, hypoxia she was noted to have an elevated WBC of 18K during the last admission she was noted to have elevated WBC as well-12 to 16 no fevers, no cough no chest pain, no abdominal pain no nausea or vomiting no diarrhea or dysuria - History Source History Provided By: Patient, Medical Record Limitations to Obtaining History: Clinical Condition - Past Medical History 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 Cardio/Vascular: Yes: AFIB, CAD, HTN, Other (STENTS, mitral regurgitation) Endocrine: Yes: Diabetes Mellitus - Past Surgical History Past Surgical History: Yes: Joint Replacement, Tubal Ligation - Alcohol/Substance Use Hx Alcohol Use: No History of Substance Use: reports: None - Smoking History Smoking history: Never smoked Have you smoked in the past 12 months: No Aproximately how many cigarettes per day: 0 - Social History Usual Living Arrangement: With Child (daughter) ADL: Independent History of Recent Travel: No Home Medications - Allergies Allergies/Adverse Reactions: Allergies Allergy/AdvReac Type Severity Reaction Status Date / Time No Known Allergies Allergy Verified 12/17/17 21:19 - Home Medications Home Medications: Ambulatory Orders Aspirin 81 mg PO DAILY 12/12/17 Levetiracetam [Keppra -] 250 mg PO BID 12/12/17 Rivaroxaban [Xarelto -] 20 mg PO DAILY 12/12/17 Diltiazem Cd [Cardizem Cd -] 240 mg PO DAILY #30 cap.cd.24h 12/17/17 Metoprolol Succinate [Toprol XL -] 25 mg PO BID #60 tab.sr.24h 12/17/17 Family Disease History - Family Disease History Family Disease History: Heart Disease: Mother (HTN), Sister (HTN) Review of Systems - Review of Systems Constitutional: reports: No Symptoms. denies: Chills, Fever Eyes: reports: No Symptoms HENT: reports: No Symptoms. denies: Difficult Swallowing, Throat Pain Neck: reports: No Symptoms Cardiovascular: reports: No Symptoms Respiratory: reports: SOB. denies: Cough Gastrointestinal: reports: No Symptoms. denies: Abdominal Pain, Constipation, Diarrhea, Nausea, Vomiting Genitourinary: reports: No Symptoms. denies: Burning, Discharge Breasts: reports: No Symptoms Reported Musculoskeletal: reports: No Symptoms Integumentary: reports: No Symptoms Neurological: reports: Headache Physical Exam Vital Signs: Vital Signs Temperature 98.9 F 12/18/17 06:59 Pulse Rate 90 12/18/17 07:00 Respiratory Rate 20 12/18/17 07:00 Blood Pressure 150/98 12/18/17 07:00 O2 Sat by Pulse Oximetry (%) 97 12/18/17 07:00 Constitutional: Yes: Well Nourished, No Distress, Calm Eyes: Yes: WNL HENT: Yes: Atraumatic, Normocephalic Neck: Yes: WNL, Supple, Trachea Midline Cardiovascular: Yes: Regular Rate and Rhythm Respiratory: Yes: Regular, CTA Bilaterally, Other (decreased bs at bases) Gastrointestinal: Yes: Normal Bowel Sounds, Soft ...Rectal Exam: Yes: Deferred Renal/: Yes: WNL Breast(s): Yes: WNL Musculoskeletal: Yes: WNL Extremities: Yes: Other (indurated tender cord right forearm) Neurological: Yes: Alert, Oriented Labs: CBC, BMP 12/18/17 09:00 12/18/17 09:00 blood cultures pending ua negative Imaging - Results Chest X-ray: Report Reviewed (pulmonary vascular congestion, small bilateral pleural effusions) Problem List - Problems (1) Leukocytosis Code(s): D72.829 - ELEVATED WHITE BLOOD CELL COUNT, UNSPECIFIED (2) Acute exacerbation of CHF (congestive heart failure) Code(s): I50.9 - HEART FAILURE, UNSPECIFIED (3) Hypertension Code(s): I10 - ESSENTIAL (PRIMARY) HYPERTENSION Qualifiers: Hypertension type: essential hypertension Qualified Code(s): I10 - Essential (primary) hypertension Assessment/Plan leukocytosis- unclear is she truly has pneumonia suggest repeat cxray in 48 hours continue vanco/zosyn as well she has a superficial phlebitis of the right forearm she has a history of prior elevated WBC and may ultimately need a heme evaluation I suspect pulmonary findings are more related to chf in the setting of uncontrolled HTN await cardiology f/u
[2017-12-18 11:02] LABS: PLATELET COUNT 231 K/MM3 (134-434)
[2017-12-18] MEDS ORDERED: ACETAMINOPHEN 500 MG TABLET (FP) PO ONE (11:50)
--- NOTE | 2017-12-18 12:23 | CON.CARD ---
Cardiology Consult (text) - Consultation Consultation Note: cc: ART, sob hpi: 72 yo with h/o pafib, htn, mod mr, mild ar, seizures, obesity, syst chf here with ART, sob. Recently admitted for afib with rvr, dc'ed and came back to ER next day for ART and sob. No cp, palps, dizzy, loc, pnd, orthopnea, le edema. Sees me for cardio. no f/c/s, n/v/d, decreased po intake, transient neurologic sx's, bleeding, rash , cough, congestion, gib, dysuria pmh: per hpi psh: tubal ligation social: no tob fam: no premature cad or scd ros: per hpi meds: Home Medications Medication Instructions Recorded Aspirin 81 mg PO DAILY 12/12/17 Levetiracetam [Keppra -] 250 mg PO BID 12/12/17 Rivaroxaban [Xarelto -] 20 mg PO DAILY 12/12/17 Diltiazem Cd [Cardizem Cd -] 240 mg PO DAILY #30 cap.cd.24h 12/17/17 Metoprolol Succinate [Toprol XL -] 25 mg PO BID #60 tab.sr.24h 12/17/17 pe: Home Medications Medication Instructions Recorded Aspirin 81 mg PO DAILY 12/12/17 Levetiracetam [Keppra -] 250 mg PO BID 12/12/17 Rivaroxaban [Xarelto -] 20 mg PO DAILY 12/12/17 Diltiazem Cd [Cardizem Cd -] 240 mg PO DAILY #30 cap.cd.24h 12/17/17 Metoprolol Succinate [Toprol XL -] 25 mg PO BID #60 tab.sr.24h 12/17/17 nad no jvd rrr, s1s2 2/6 murmur at apex scattered rhonchi, nl eff aaox3 no le e/c/c abd nt nd pos bs no jaundice diaphoresis pos dp pt, no carotid bruits Laboratory Last Values WBC 18.6 K/mm3 (4.0-10.0) H 12/18/17 09:00 RBC 4.03 M/mm3 (3.60-5.2) 12/18/17 09:00 Hgb 11.3 GM/dL (10.7-15.3) 12/18/17 09:00 Hct 35.1 % (32.4-45.2) 12/18/17 09:00 MCV 87.1 fl (80-96) 12/18/17 09:00 MCH 28.0 pg (25.7-33.7) 12/18/17 09:00 MCHC 32.2 g/dl (32.0-36.0) 12/18/17 09:00 RDW 13.2 % (11.6-15.6) 12/18/17 09:00 Plt Count 231 K/MM3 (134-434) 12/18/17 09:00 MPV 11.8 fl (7.5-11.1) H 12/18/17 09:00 Neutrophils % 82.3 % (42.8-82.8) 12/18/17 09:00 Lymphocytes % 8.1 % (8-40) 12/18/17 09:00 Monocytes % 8.2 % (3.8-10.2) 12/18/17 09:00 Eosinophils % 0.9 % (0-4.5) D 12/18/17 09:00 Basophils % 0.5 % (0-2.0) 12/18/17 09:00 Platelet Estimate Adequate 12/17/17 22:00 Platelet Comment 12/17/17 22:00 PT with INR 14.00 SEC (9.98-11.88) H 12/17/17 22:00 INR 1.24 (0.82-1.09) H 12/17/17 22:00 VBG pH 7.39 (7.32-7.42) 12/17/17 22:00 POC VBG pCO2 44.2 mmHg (38-52) 12/17/17 22:00 POC VBG pO2 46.2 mmHg (28-48) 12/17/17 22:00 Mixed VBG HCO3 25.9 meq/L (19-25) H 12/17/17 22:00 Sodium 141 mmol/L (136-145) 12/18/17 09:00 Potassium 3.4 mmol/L (3.5-5.1) L 12/18/17 09:00 Chloride 101 mmol/L (98-107) 12/18/17 09:00 Carbon Dioxide 29 mmol/L (21-32) 12/18/17 09:00 Anion Gap 11 (8-16) 12/18/17 09:00 BUN 7 mg/dL (7-18) 12/18/17 09:00 Creatinine 0.8 mg/dL (0.55-1.02) 12/18/17 09:00 Creat Clearance w eGFR > 60 (>60) 12/17/17 22:00 POC Glucometer 128.48191 UNITS (80-120) 12/18/17 09:36 Random Glucose 116 mg/dL (74-106) H 12/18/17 09:00 Lactic Acid 1.6 mmol/L (0.0-2.0) 12/18/17 09:00 Calcium 8.6 mg/dL (8.5-10.1) 12/18/17 09:00 Magnesium 2.1 mg/dL (1.8-2.4) 12/17/17 22:00 Total Bilirubin 0.9 mg/dL (0.2-1.0) 12/17/17 22:00 AST 57 U/L (15-37) H 12/17/17 22:00 ALT 83 U/L (12-78) H 12/17/17 22:00 Alkaline Phosphatase 113 U/L (45-117) 12/17/17 22:00 Creatine Kinase 47 IU/L (26-192) 12/17/17 22:00 Troponin I < 0.02 ng/ml (0.00-0.05) 12/18/17 09:00 B-Natriuretic Peptide 2510.57 pg/ml (5-125) H 12/17/17 22:00 Total Protein 7.2 g/dl (6.4-8.2) 12/17/17 22:00 Albumin 3.5 g/dl (3.4-5.0) 12/17/17 22:00 Urine Color Straw 12/18/17 00:30 Urine Appearance Clear 12/18/17 00:30 Urine pH 5.0 (5.0-8.0) 12/18/17 00:30 Ur Specific [place] 1.008 (1.001-1.035) 12/18/17 00:30 Urine Protein Negative (NEGATIVE) 12/18/17 00:30 Urine Glucose (UA) Negative (NEGATIVE) 12/18/17 00:30 Urine Ketones Negative (NEGATIVE) 12/18/17 00:30 Urine Blood Negative (NEGATIVE) 12/18/17 00:30 Urine Nitrite Negative (NEGATIVE) 12/18/17 00:30 Urine Bilirubin Negative (NEGATIVE) 12/18/17 00:30 Urine Urobilinogen Negative mg/dL (0.2-1.0) 12/18/17 00:30 Ur Leukocyte Esterase Negative (NEGATIVE) 12/18/17 00:30 ekg: sr, nl intervals, no ischemic changes cxr: chf echo 11/2017: pt in afib with rvr, lvef mildly reduced, global hk, mild lvh, nl rv, mod lae, mild mr/ar echo 10/2015: low nl lvef, nl rv, mod lae, mod-sev mr, mild tr, mild-mod ar, rvsp 30-40 wilfredo 10/2015: mod mr, mild ar mibi 11/2011: no ischemia, nl lvef a/p: 72 yo with h/o pafib, htn, mod mr, mild ar, seizures, obesity, syst chf here with ART, sob. sob, acute systolic chf: -agree with iv lasix -daily wts, chem7 -also possible pna may be contributing -echo here showing mildly reduced lvef but pt was in afib with rvr during the study so LVEF difficult to assess, alternatively she may have some tachycardia induced cardiomyopathy. -plan for now is rate control -repeat echo as outpt to monitor lvef parox afib: -in sr now -cont prior toprol 25 bid and dilt 240 qd as her hr was difficult to control when in afib last admit -cont xarelto, (has headache-->head ct w/o bleed) htn: -cont bb, dilt
[2017-12-18] MEDS ORDERED: ACETAMINOPHEN 325 MG TABLET (FP) ONE (12:54)
[2017-12-18] MEDS: PIPERACILLIN/TAZOB 4.5 GM 4.5 GM in DEXTROSE 5%-WATER - 100 ML IVPB SCH ×2 (13:04→18:02)
--- NOTE | 2017-12-18 13:41 | PN ---
Physical Exam: SUBJECTIVE: Patient seen and examined. Patient has improved breathing but states that she gets dizzy when she sits up. Patient denies chest pain, SOB, fevers, chills, nausea, vomiting, diarrhea. She states that she has a mild frontal headache. OBJECTIVE: Vital Signs Period Temp Pulse Resp BP Sys/Batista Pulse Ox Last 24 Hr 98.4 F-98.9 F 68-96 17-28 118-152/62-107 95-97 GENERAL: The patient is awake, alert, and fully oriented, in no acute distress. HEAD: Normal with no signs of trauma. LUNGS: Breath sounds equal, clear to auscultation bilaterally, no wheezes, no crackles, no accessory muscle use. HEART: Regular rate and rhythm, S1, S2 without murmur, rub or gallop. ABDOMEN: Soft, nontender, nondistended, normoactive bowel sounds, no guarding, no rebound, no hepatosplenomegaly, no masses. NEUROLOGICAL: Cranial nerves II through XII grossly intact. Normal speech, gait not observed. SKIN: Warm, dry, normal turgor, no rashes or lesions noted Laboratory Results - last 24 hr 12/17/17 12/17/17 12/17/17 22:00 22:00 22:00 WBC 18.9 H RBC 4.02 Hgb 11.5 Hct 34.9 MCV 86.8 MCH 28.6 MCHC 32.9 RDW 13.0 Plt Count 243 MPV 12.5 H Neutrophils % 83.7 H D Lymphocytes % 8.3 D Monocytes % 6.6 Eosinophils % 0.3 D Basophils % 1.1 Platelet Estimate Adequate Platelet Comment PT with INR 14.00 H INR 1.24 H VBG pH POC VBG pCO2 POC VBG pO2 Mixed VBG HCO3 Sodium 142 Potassium 4.3 Chloride 107 Carbon Dioxide 27 Anion Gap 8 BUN 8 Creatinine 0.9 Creat Clearance w eGFR > 60 POC Glucometer Random Glucose 155 H Lactic Acid Calcium 8.2 L Magnesium 2.1 Total Bilirubin 0.9 AST 57 H ALT 83 H Alkaline Phosphatase 113 Creatine Kinase 47 Troponin I < 0.02 B-Natriuretic Peptide Total Protein 7.2 Albumin 3.5 Urine Color Urine Appearance Urine pH Ur Specific [place] Urine Protein Urine Glucose (UA) Urine Ketones Urine Blood Urine Nitrite Urine Bilirubin Urine Urobilinogen Ur Leukocyte Esterase 12/17/17 12/17/17 12/17/17 22:00 22:00 23:45 WBC RBC Hgb Hct MCV MCH MCHC RDW Plt Count MPV Neutrophils % Lymphocytes % Monocytes % Eosinophils % Basophils % Platelet Estimate Platelet Comment PT with INR INR VBG pH 7.39 POC VBG pCO2 44.2 POC VBG pO2 46.2 Mixed VBG HCO3 25.9 H Sodium Potassium Chloride Carbon Dioxide Anion Gap BUN Creatinine Creat Clearance w eGFR POC Glucometer Random Glucose Lactic Acid 1.1 Calcium Magnesium Total Bilirubin AST ALT Alkaline Phosphatase Creatine Kinase Troponin I B-Natriuretic Peptide 2510.57 H Total Protein Albumin Urine Color Urine Appearance Urine pH Ur Specific [place] Urine Protein Urine Glucose (UA) Urine Ketones Urine Blood Urine Nitrite Urine Bilirubin Urine Urobilinogen Ur Leukocyte Esterase 12/18/17 12/18/17 12/18/17 00:30 09:00 09:00 WBC 18.6 H RBC 4.03 Hgb 11.3 Hct 35.1 MCV 87.1 MCH 28.0 MCHC 32.2 RDW 13.2 Plt Count 231 MPV 11.8 H Neutrophils % 82.3 Lymphocytes % 8.1 Monocytes % 8.2 Eosinophils % 0.9 D Basophils % 0.5 Platelet Estimate Platelet Comment PT with INR INR VBG pH POC VBG pCO2 POC VBG pO2 Mixed VBG HCO3 Sodium 141 Potassium 3.4 L Chloride 101 Carbon Dioxide 29 Anion Gap 11 BUN 7 Creatinine 0.8 Creat Clearance w eGFR POC Glucometer Random Glucose 116 H Lactic Acid Calcium 8.6 Magnesium Total Bilirubin AST ALT Alkaline Phosphatase Creatine Kinase Troponin I B-Natriuretic Peptide Total Protein Albumin Urine Color Straw Urine Appearance Clear Urine pH 5.0 Ur Specific [place] 1.008 Urine Protein Negative Urine Glucose (UA) Negative Urine Ketones Negative Urine Blood Negative Urine Nitrite Negative Urine Bilirubin Negative Urine Urobilinogen Negative Ur Leukocyte Esterase Negative 12/18/17 12/18/17 12/18/17 09:00 09:00 09:36 WBC RBC Hgb Hct MCV MCH MCHC RDW Plt Count MPV Neutrophils % Lymphocytes % Monocytes % Eosinophils % Basophils % Platelet Estimate Platelet Comment PT with INR INR VBG pH POC VBG pCO2 POC VBG pO2 Mixed VBG HCO3 Sodium Potassium Chloride Carbon Dioxide Anion Gap BUN Creatinine Creat Clearance w eGFR POC Glucometer 128.37515 Random Glucose Lactic Acid 1.6 Calcium Magnesium Total Bilirubin AST ALT Alkaline Phosphatase Creatine Kinase Troponin I < 0.02 B-Natriuretic Peptide Total Protein Albumin Urine Color Urine Appearance Urine pH Ur Specific [place] Urine Protein Urine Glucose (UA) Urine Ketones Urine Blood Urine Nitrite Urine Bilirubin Urine Urobilinogen Ur Leukocyte Esterase Active Medications Generic Name Dose Route Start Last Admin Trade Name Varinder PRN Reason Stop Dose Admin Aspirin 81 mg 12/18/17 10:00 12/18/17 10:32 Asa - PO 81 mg DAILY ANN Administration Diltiazem HCl 240 mg 12/19/17 10:00 Cardizem Cd - PO DAILY [facility] Furosemide 40 mg 12/18/17 18:00 Lasix Injection - IVPUSH BID@0600,1800 [facility] Vancomycin HCl 1,250 mg/ 250 mls @ 166.667 mls/hr 12/18/17 13:00 Dextrose IVPB Q12H [facility] Protocol Piperacillin Sod/Tazobactam 100 mls @ 200 mls/hr 12/18/17 12:30 12/18/17 13: 04 Sod 4.5 gm/ Dextrose IVPB 200 mls/hr Q8H-IV ANN Administration Insulin Aspart 1 vial 12/18/17 07:00 12/18/17 12:13 Novolog Vial Sliding Scale - SQ Not Given ACHS [facility] Protocol Levetiracetam 250 mg 12/18/17 01:15 12/18/17 10:32 Keppra - PO 250 mg BID ANN Administration Metoprolol Succinate 25 mg 12/18/17 01:15 12/18/17 10:32 Toprol Xl - PO 25 mg BID ANN Administration Rivaroxaban 20 mg 12/18/17 10:48 Xarelto - PO DAILY@1800 [facility] IMAGING: CXR: pulmonary vascular congestion, b/l pleural effusions with atelectasis ASSESSMENT/PLAN: 72 y/o F with PMH HTN, afib (on Xarelto), mitral regurgitation, seizure disorder , newly diagnosed DM, who presented to the ED with ART and SOB x 1 day duration and admitted for treatment of acute CHF exacerbation. #Acute CHF exacerbation: improving -WBC elevated but stable -asymptomatic on exam, continue IV lasix 40 BID -daily weights -strict I's/Os -fluid restriction #Headache: improved as of this morning -give 1000mg tylenol once -head CT negative for intracranial bleed #Hypertension: patient was initially hypertensive on admission, but has since resolved -cardizem, lasix, toprol XL #Pneumonia: unlikely given no cough or fever -continue vanc/zosyn -F/u blood cx, urine cx -ID Consult- Dr. Louie appreciated #Atrial fibrillation: rate controlled and in sinus rhythm -continue cardizem 240 WD -Continue Toprol XL 25mg BID-rate control, -continue aspirin 81mg qd, and -continue xarelto 20mg qd -Cardio consult- Dr. blanquita adams #Hx seizure disorder -Continue keppra 250mg PO BID #FEN -no fluids at this time, to avoid overload -replete lytes in AM -Na controlled diet #Prophylaxis -Already on xarelto #Disposition -continue telemetry monitoring Visit type - Emergency Visit Emergency Visit: Yes ED Registration Date: 12/17/17 Care time: The patient presented to the Emergency Department on the above date and was hospitalized for further evaluation of their emergent condition. - New Patient This patient is new to me today: Yes Date on this admission: 12/18/17 - Critical Care Critical Care patient: No
[2017-12-18] MEDS ORDERED: PIPERACILLIN/TAZOB 4.5 GM/100 ML PREMIX BAG IVPB SCH (15:00)
[2017-12-18] MEDS: VANCOMYCIN 1,250 MG in DEXTROSE 5%-WATER - 250 ML IVPB SCH (15:12)
[2017-12-18] MEDS ORDERED: PIPERACILLIN/TAZOB 4.5 GM/100 ML PRE-DOCKED IVPB SCH (16:00)
[2017-12-18] MEDS: FUROSEMIDE 40 MG/4 ML INJECTABLE VIAL IVPUSH SCH (18:01)
[2017-12-18] MEDS: RIVAROXABAN 20 MG TABLET PO SCH (18:01)
[2017-12-18] MEDS ORDERED: PNEUMOC 13-VAL CONJ-DIP CRM/PF 0.5 ML DISP.SYRIN IM ONE (18:14)
[2017-12-18] MEDS ORDERED: ACETAMINOPHEN 325 MG TABLET (FP) PO STA (23:28)
[2017-12-19] MEDS: VANCOMYCIN 1,250 MG in DEXTROSE 5%-WATER - 250 ML IVPB SCH ×2 (01:46→13:35)
[2017-12-19] MEDS: PIPERACILLIN/TAZOB 4.5 GM 4.5 GM in DEXTROSE 5%-WATER - 100 ML IVPB SCH ×4 (03:28→17:12)
[2017-12-19] MEDS: FUROSEMIDE 40 MG/4 ML INJECTABLE VIAL IVPUSH SCH ×2 (06:24→17:13)
[2017-12-19] MEDS: INSULIN SLIDING SCALE (NOVOLOG) 1 VIAL SQ SCH ×4 (06:31→21:47)
[2017-12-19] MEDS ORDERED: INSULIN (NOVOLOG) ASPART 100 UNITS/ML 10ML VIAL ONE (06:37)
[2017-12-19 06:54] LABS: HEMATOCRIT 37.1 % (32.4-45.2); HEMOGLOBIN 12.1 GM/dL (10.7-15.3); MCH 28.3 pg (25.7-33.7); MCHC 32.6 g/dl (32.0-36.0); MEAN CELL VOLUME 86.9 fl (80-96); MEAN PLT VOLUME 11.7 fl (7.5-11.1); PLATELET COUNT 256 K/MM3 (134-434); RBC 4.27 M/mm3 (3.60-5.2); RDW 13.2 % (11.6-15.6); WHITE BLOOD COUNT 13.9 K/mm3 (4.0-10.0)
[2017-12-19 07:43] LABS: ANION GAP 9 (8-16); BLOOD UREA NITROGEN 9 mg/dL (7-18); CALCIUM 8.3 mg/dL (8.5-10.1); CHLORIDE 100 mmol/L (98-107); CO2 32 mmol/L (21-32); GLUCOSE,RANDOM 97 mg/dL (74-106); POTASSIUM 3.3 mmol/L (3.5-5.1); SODIUM 141 mmol/L (136-145)
[2017-12-19] MEDS ORDERED: POTASSIUM CHLORIDE TABS 20 MEQ TABLET.ER (FP) PO ONE (08:24)
[2017-12-19] MEDS: levETIRAcetam 250 MG TABLET (FP) PO SCH ×2 (09:06→21:48)
[2017-12-19] MEDS: ASPIRIN 81 MG CHEWABLE TABLETS PO SCH (09:07)
[2017-12-19] MEDS: METOPROLOL SUCCINATE 25 MG TAB.SR.24H (FP) PO SCH ×2 (09:07→21:48)
--- NOTE | 2017-12-19 10:35 | CON.CARD ---
Cardiology Consult (text) - Consultation Consultation Note: s: no cp sob palps dizzy o: Vital Signs Period Temp Pulse Resp BP Sys/Batista Pulse Ox Last 24 Hr 97.4 F-98.9 F 69-80 16-20 127-145/47-86 93-97 nad no jvd rrr, s1s2 2/6 murmur at apex scattered rhonchi, nl eff aaox3 no le e/c/c abd nt nd pos bs no jaundice diaphoresis Current Medications Generic Name Dose Route Start Last Admin Trade Name Freq PRN Reason Stop Dose Admin Aspirin 81 mg 12/18/17 10:00 12/19/17 09:07 Asa - PO 81 mg DAILY ANN Administration Diltiazem HCl 240 mg 12/19/17 10:00 12/19/17 09:07 Cardizem Cd - PO 240 mg DAILY ANN Administration Furosemide 40 mg 12/18/17 18:00 12/19/17 06:24 Lasix Injection - IVPUSH 40 mg BID@0600,1800 ANN Administration Vancomycin HCl 1,250 mg/ 250 mls @ 166.667 mls/hr 12/18/17 13:00 12/19/17 01: 46 Dextrose IVPB 166.667 mls/hr Q12H ANN Administration Protocol Piperacillin Sod/Tazobactam 100 mls @ 200 mls/hr 12/18/17 12:30 12/19/17 09: 16 Sod 4.5 gm/ Dextrose IVPB 200 mls/hr Q8H-IV ANN Administration Insulin Aspart 1 vial 12/18/17 07:00 12/19/17 06:31 Novolog Vial Sliding Scale - SQ Not Given ACHS ANN Protocol Levetiracetam 250 mg 12/18/17 01:15 12/19/17 09:06 Keppra - PO 250 mg BID ANN Administration Metoprolol Succinate 25 mg 12/18/17 01:15 12/19/17 09:07 Toprol Xl - PO 25 mg BID ANN Administration Rivaroxaban 20 mg 12/18/17 10:48 12/18/17 18:01 Xarelto - PO 20 mg DAILY@1800 ANN Administration CBC, BMP 12/19/17 06:15 12/19/17 06:15 ekg: sr, nl intervals, no ischemic changes cxr: chf echo 11/2017: pt in afib with rvr, lvef mildly reduced, global hk, mild lvh, nl rv, mod lae, mild mr/ar echo 10/2015: low nl lvef, nl rv, mod lae, mod-sev mr, mild tr, mild-mod ar, rvsp 30-40 wilfredo 10/2015: mod mr, mild ar tele: sr mibi 11/2011: no ischemia, nl lvef a/p: 72 yo with h/o pafib, htn, mod mr, mild ar, seizures, obesity, syst chf here with ART, sob. sob, acute systolic chf: -cont with iv lasix -daily wts, chem7 -also possible pna may be contributing -echo here showing mildly reduced lvef but pt was in afib with rvr during the study so LVEF difficult to assess, alternatively she may have some tachycardia induced cardiomyopathy. -plan for now is rate control -repeat echo as outpt to monitor lvef parox afib: -in sr now -cont prior toprol 25 bid and dilt 240 qd as her hr was difficult to control when in afib last admit -cont xarelto htn: -cont bb, dilt
--- NOTE | 2017-12-19 11:56 | PN ---
Progress Note, Physician Chief Complaint: KAVITA [place] Appears comfortable No SOB fevers chills - Current Medication List Current Medications: Active Medications Aspirin (Asa -) 81 mg PO DAILY [facility] Last Admin: 12/19/17 09:07 Dose: 81 mg Diltiazem HCl (Cardizem Cd -) 240 mg PO DAILY [facility] Last Admin: 12/19/17 09:07 Dose: 240 mg Furosemide (Lasix Injection -) 40 mg IVPUSH BID@0600,1800 [facility] Last Admin: 12/19/17 06:24 Dose: 40 mg Vancomycin HCl 1,250 mg/ (Dextrose) 250 mls @ 166.667 mls/hr IVPB Q12H [facility] PRN Reason: Protocol Last Admin: 12/19/17 01:46 Dose: 166.667 mls/hr Piperacillin Sod/Tazobactam (Sod 4.5 gm/ Dextrose) 100 mls @ 200 mls/hr IVPB Q8H-IV [facility] Last Admin: 12/19/17 09:16 Dose: 200 mls/hr Insulin Aspart (Novolog Vial Sliding Scale -) 1 vial SQ ACHS [facility] PRN Reason: Protocol Last Admin: 12/19/17 11:48 Dose: Not Given Levetiracetam (Keppra -) 250 mg PO BID [facility] Last Admin: 12/19/17 09:06 Dose: 250 mg Metoprolol Succinate (Toprol Xl -) 25 mg PO BID [facility] Last Admin: 12/19/17 09:07 Dose: 25 mg Rivaroxaban (Xarelto -) 20 mg PO DAILY@1800 [facility] Last Admin: 12/18/17 18:01 Dose: 20 mg - Objective Vital Signs: Vital Signs Temperature 98 F 12/19/17 10:00 Pulse Rate 66 12/19/17 10:00 Respiratory Rate 18 12/19/17 10:00 Blood Pressure 130/70 12/19/17 10:00 O2 Sat by Pulse Oximetry (%) 95 12/19/17 09:00 Constitutional: Yes: Well Nourished, No Distress HENT: Yes: WNL, Atraumatic Neck: Yes: WNL, Supple Cardiovascular: Yes: Murmur, S1, S2 Respiratory: Yes: WNL, Regular, CTA Bilaterally, Diminished Gastrointestinal: Yes: WNL, Normal Bowel Sounds, Soft. No: Tenderness, Tenderness, Epigastrium Edema: No Labs: CBC, BMP 12/19/17 06:15 12/19/17 06:15 INR, PTT INR 1.24 (0.82-1.09) H 12/17/17 22:00 Assessment/Plan Microbiology 12/18/17 00:30 Urine - Urine Clean Catch Urine Culture - Final 12/17/17 22:00 Nasopharyngeal Swab Influenza Types A,B Antigen (NOMI) - Final 12/17/17 22:00 Nasopharyngeal Swab - Final 12/17/17 23:45 Blood - Peripheral Venous Blood Culture - Preliminary NO GROWTH OBTAINED AFTER 24 HOURS, INCUBATION TO CONTINUE FOR 4 DAYS. 12/17/17 22:00 Blood - Peripheral Venous Blood Culture - Preliminary NO GROWTH OBTAINED AFTER 24 HOURS, INCUBATION TO CONTINUE FOR 4 DAYS. Laboratory Tests 12/18/17 12/19/17 12/19/17 00:30 06:15 06:15 WBC 13.9 H Hgb 12.1 Hct 37.1 Plt Count 256 BUN 9 Creatinine 1.0 Ur Leukocyte Esterase Negative Assessment Acute SOB Congestive heart failure Paroxsymal Fibrillation Leukocyte elevation chronic Plan Observe off antibiotics Lobo YODER
--- NOTE | 2017-12-19 13:59 | PN ---
<Ayaan Lopez - Last Filed: 12/19/17 14:01> Physical Exam: SUBJECTIVE: Patient seen and examined at bedside. Patient states that she feels better than she did yesterday with some mild R sided chest pressure when she lays on her side. States that her SOB has improved but she still does not feel completely healthy. OBJECTIVE: Vital Signs Period Temp Pulse Resp BP Sys/Batista Pulse Ox Last 24 Hr 97.4 F-98.9 F 66-80 16-20 127-144/47-86 93-95 GENERAL: The patient is awake, alert, and fully oriented, in no acute distress. HEAD: Normal with no signs of trauma. LUNGS: Breath sounds equal, clear to auscultation bilaterally, no wheezes, no crackles, no accessory muscle use. HEART: Regular rate and rhythm, S1, S2 without murmur, rub or gallop. ABDOMEN: Soft, nontender, nondistended, normoactive bowel sounds, no guarding, no rebound, no hepatosplenomegaly, no masses. NEUROLOGICAL: Cranial nerves II through XII grossly intact. Normal speech, gait not observed. SKIN: Warm, dry, normal turgor, no rashes or lesions noted Laboratory Results - last 24 hr 12/18/17 12/18/17 12/18/17 17:00 17:56 22:14 WBC RBC Hgb Hct MCV MCH MCHC RDW Plt Count MPV Sodium Potassium Chloride Carbon Dioxide Anion Gap BUN Creatinine POC Glucometer 256.41289 240 118 Random Glucose Calcium 12/19/17 12/19/17 12/19/17 06:15 06:15 06:29 WBC 13.9 H RBC 4.27 Hgb 12.1 Hct 37.1 MCV 86.9 MCH 28.3 MCHC 32.6 RDW 13.2 Plt Count 256 MPV 11.7 H Sodium 141 Potassium 3.3 L Chloride 100 Carbon Dioxide 32 Anion Gap 9 BUN 9 Creatinine 1.0 POC Glucometer 110 Random Glucose 97 Calcium 8.3 L 12/19/17 11:48 WBC RBC Hgb Hct MCV MCH MCHC RDW Plt Count MPV Sodium Potassium Chloride Carbon Dioxide Anion Gap BUN Creatinine POC Glucometer 106 Random Glucose Calcium Active Medications Generic Name Dose Route Start Last Admin Trade Name Freq PRN Reason Stop Dose Admin Aspirin 81 mg 12/18/17 10:00 12/19/17 09:07 Asa - PO 81 mg DAILY ANN Administration Diltiazem HCl 240 mg 12/19/17 10:00 12/19/17 09:07 Cardizem Cd - PO 240 mg DAILY ANN Administration Furosemide 40 mg 12/18/17 18:00 12/19/17 06:24 Lasix Injection - IVPUSH 40 mg BID@0600,1800 ANN Administration Vancomycin HCl 1,250 mg/ 250 mls @ 166.667 mls/hr 12/18/17 13:00 12/19/17 13: 35 Dextrose IVPB 166.667 mls/hr Q12H ANN Administration Protocol Piperacillin Sod/Tazobactam 100 mls @ 200 mls/hr 12/18/17 12:30 12/19/17 09: 16 Sod 4.5 gm/ Dextrose IVPB 200 mls/hr Q8H-IV ANN Administration Insulin Aspart 1 vial 12/18/17 07:00 12/19/17 11:48 Novolog Vial Sliding Scale - SQ Not Given ACHS ANN Protocol Levetiracetam 250 mg 12/18/17 01:15 12/19/17 09:06 Keppra - PO 250 mg BID ANN Administration Metoprolol Succinate 25 mg 12/18/17 01:15 12/19/17 09:07 Toprol Xl - PO 25 mg BID ANN Administration Potassium Chloride 40 meq 12/20/17 10:00 K-Dur - PO 12/20/17 10:01 ONCE ONE Rivaroxaban 20 mg 12/18/17 10:48 12/18/17 18:01 Xarelto - PO 20 mg DAILY@1800 ANN Administration ASSESSMENT/PLAN: 72 y/o F with PMH HTN, afib (on Xarelto), mitral regurgitation, seizure disorder , newly diagnosed DM, who presented to the ED with ART and SOB x 1 day duration and admitted for treatment of acute CHF exacerbation. #Acute CHF exacerbation: improving -WBC improved today -asymptomatic on exam, continue IV lasix 40 BID -daily weights -strict I's/Os #Headache: improved as of this morning -head CT negative for intracranial bleed #Hypertension: patient was initially hypertensive on admission, but has since resolved -cardizem, lasix, toprol XL #Pneumonia: unlikely given no cough or fever -monitor off antibiotics -ID Consult- Dr. Louie appreciated #Atrial fibrillation: rate controlled and in sinus rhythm -continue cardizem 240 WD -Continue Toprol XL 25mg BID-rate control, -continue aspirin 81mg qd, and -continue xarelto 20mg qd -Cardio consult- Dr. blanquita adams #Hx seizure disorder -Continue keppra 250mg PO BID #FEN -no fluids at this time, to avoid overload -kdur given this AM, recheck BMP in AM and give again -Na controlled diet #Prophylaxis -Already on xarelto #Disposition -continue telemetry monitoring Visit type - Emergency Visit Emergency Visit: No - New Patient This patient is new to me today: No - Critical Care Critical Care patient: No <Abundio Hyde - Last Filed: 12/19/17 19:25> Physical Exam: Patient seen and examined will continue Lasix IV 40mg BId , if stable in am will discharge patient home on po lasix
[2017-12-19] MEDS: RIVAROXABAN 20 MG TABLET PO SCH (17:13)
[2017-12-20] MEDS: VANCOMYCIN 1,250 MG in DEXTROSE 5%-WATER - 250 ML IVPB SCH (00:26)
[2017-12-20] MEDS ORDERED: PT OWN MED DRAWER 7, Y5N ONE (02:36)
[2017-12-20] MEDS: PIPERACILLIN/TAZOB 4.5 GM 4.5 GM in DEXTROSE 5%-WATER - 100 ML IVPB SCH ×2 (02:38→09:28)
[2017-12-20] MEDS: FUROSEMIDE 40 MG/4 ML INJECTABLE VIAL IVPUSH SCH (06:06)
[2017-12-20] MEDS: INSULIN SLIDING SCALE (NOVOLOG) 1 VIAL SQ SCH ×2 (06:07→11:44)
[2017-12-20 08:39] LABS: ANION GAP 10 (8-16); BLOOD UREA NITROGEN 12 mg/dL (7-18); CALCIUM 8.4 mg/dL (8.5-10.1); CHLORIDE 100 mmol/L (98-107); CO2 29 mmol/L (21-32); CREATININE 1.3 mg/dL (0.55-1.02); GLUCOSE,RANDOM 121 mg/dL (74-106); POTASSIUM 3.5 mmol/L (3.5-5.1); SODIUM 139 mmol/L (136-145)
[2017-12-20 08:42] LABS: HEMATOCRIT 40.1 % (32.4-45.2); HEMOGLOBIN 12.7 GM/dL (10.7-15.3); MCH 27.9 pg (25.7-33.7); MCHC 31.8 g/dl (32.0-36.0); MEAN CELL VOLUME 87.7 fl (80-96); MEAN PLT VOLUME 11.2 fl (7.5-11.1); RBC 4.57 M/mm3 (3.60-5.2); RDW 13.2 % (11.6-15.6); WHITE BLOOD COUNT 13.2 K/mm3 (4.0-10.0)
[2017-12-20 09:20] VITALS: BP 136/78; PULSE 70; TEMP 98
[2017-12-20] MEDS: METOPROLOL SUCCINATE 25 MG TAB.SR.24H (FP) PO SCH (09:28)
[2017-12-20] MEDS: levETIRAcetam 250 MG TABLET (FP) PO SCH (09:28)
[2017-12-20] MEDS: ASPIRIN 81 MG CHEWABLE TABLETS PO SCH (09:28)
[2017-12-20] MEDS ORDERED: POTASSIUM CHLORIDE TABS 20 MEQ TABLET.ER (FP) PO ONE (10:00)
--- NOTE | 2017-12-20 11:13 | PN ---
Progress Note (short form) - Note Progress Note: s: no cp sob palps dizzy o: Vital Signs Period Temp Pulse Resp BP Sys/Batista Pulse Ox Last 24 Hr 98 F-98.9 F 63-78 18-20 119-136/42-79 97-98 nad no jvd rrr, s1s2 2/6 murmur at apex scattered rhonchi, nl eff aaox3 no le e/c/c abd nt nd pos bs no jaundice diaphoresis Current Medications Generic Name Dose Route Start Last Admin Trade Name Freq PRN Reason Stop Dose Admin Aspirin 81 mg 12/18/17 10:00 12/20/17 09:28 Asa - PO 81 mg DAILY ANN Administration Diltiazem HCl 240 mg 12/19/17 10:00 12/20/17 09:28 Cardizem Cd - PO 240 mg DAILY ANN Administration Furosemide 40 mg 12/18/17 18:00 12/20/17 06:06 Lasix Injection - IVPUSH 40 mg BID@0600,1800 ANN Administration Vancomycin HCl 1,250 mg/ 250 mls @ 166.667 mls/hr 12/18/17 13:00 12/20/17 00: 26 Dextrose IVPB 166.667 mls/hr Q12H ANN Administration Protocol Piperacillin Sod/Tazobactam 100 mls @ 200 mls/hr 12/18/17 12:30 12/20/17 09: 28 Sod 4.5 gm/ Dextrose IVPB 200 mls/hr Q8H-IV ANN Administration Insulin Aspart 1 vial 12/18/17 07:00 12/20/17 06:07 Novolog Vial Sliding Scale - SQ Not Given ACHS ANN Protocol Levetiracetam 250 mg 12/18/17 01:15 12/20/17 09:28 Keppra - PO 250 mg BID ANN Administration Metoprolol Succinate 25 mg 12/18/17 01:15 12/20/17 09:28 Toprol Xl - PO 25 mg BID ANN Administration Rivaroxaban 20 mg 12/18/17 10:48 12/19/17 17:13 Xarelto - PO 20 mg DAILY@1800 ANN Administration CBC, BMP 12/20/17 07:50 12/20/17 07:50 ekg: sr, nl intervals, no ischemic changes cxr: chf echo 11/2017: pt in afib with rvr, lvef mildly reduced, global hk, mild lvh, nl rv, mod lae, mild mr/ar echo 10/2015: low nl lvef, nl rv, mod lae, mod-sev mr, mild tr, mild-mod ar, rvsp 30-40 wilfredo 10/2015: mod mr, mild ar tele: sr mibi 11/2011: no ischemia, nl lvef a/p: 72 yo with h/o pafib, htn, mod mr, mild ar, seizures, obesity, syst chf here with ART, sob. sob, acute systolic chf: -cont with iv lasix -daily wts, chem7 -also possible pna may be contributing -echo here showing mildly reduced lvef but pt was in afib with rvr during the study so LVEF difficult to assess, alternatively she may have some tachycardia induced cardiomyopathy. -plan for now is rate control -repeat echo as outpt to monitor lvef parox afib: -in sr now -cont prior toprol 25 bid and dilt 240 qd as her hr was difficult to control when in afib last admit -cont xarelto htn: -cont bb, dilt
[2017-12-20 12:40] LABS: PLATELET COUNT 285 K/MM3 (134-434)
--- NOTE | 2017-12-20 13:56 | DS ---
Physical Exam: SUBJECTIVE: Patient seen and examined at bedside. Denies headache, chest pain, palpitations, nausea, vomiting, diarrhea. OBJECTIVE: Vital Signs Period Temp Pulse Resp BP Sys/Batista Pulse Ox Last 24 Hr 98 F-98.9 F 63-78 18-20 119-136/42-79 97-98 PHYSICAL EXAM GENERAL: The patient is awake, alert, and fully oriented, in no acute distress. HEAD: Normal with no signs of trauma. LUNGS: Breath sounds equal, clear to auscultation bilaterally, no wheezes, no crackles, no accessory muscle use. HEART: Regular rate and rhythm, S1, S2 without murmur, rub or gallop. ABDOMEN: Soft, nontender, nondistended, normoactive bowel sounds, no guarding, no rebound, no hepatosplenomegaly, no masses. NEUROLOGICAL: Cranial nerves II through XII grossly intact. Normal speech, gait not observed. SKIN: Warm, dry, normal turgor, no rashes or lesions noted LABS Laboratory Results - last 24 hr 12/19/17 12/20/17 12/20/17 21:46 05:59 07:50 WBC 13.2 H RBC 4.57 Hgb 12.7 Hct 40.1 MCV 87.7 MCH 27.9 MCHC 31.8 L RDW 13.2 Plt Count 285 MPV 11.2 H Platelet Comment No clumping noted Sodium Potassium Chloride Carbon Dioxide Anion Gap BUN Creatinine POC Glucometer 144 117 Random Glucose Calcium 12/20/17 12/20/17 07:50 11:41 WBC RBC Hgb Hct MCV MCH MCHC RDW Plt Count MPV Platelet Comment Sodium 139 Potassium 3.5 Chloride 100 Carbon Dioxide 29 Anion Gap 10 BUN 12 Creatinine 1.3 H POC Glucometer 178 Random Glucose 121 H Calcium 8.4 L HOSPITAL COURSE: Date of Admission:12/17/17 72 y/o F with PMH HTN, afib (on Xarelto), mitral regurgitation, seizure disorder , newly diagnosed DM, who presented to the ED with ART and SOB x 1 day duration directly after being discharged the day prior for afib/rvr and admitted for treatment of acute CHF exacerbation. Patient was treated with lasix 40mg BID. She improved over 2 days duration. Patient was given tylenol for headache. CT head was negative for acute bleed. Patient had no runs of afib/rvr and remained in sinus rhythm for the duration of her hospitalization. She was discharged on with instructions to see her biomedical electronics technician, PCP in 1 weeks time. Date of Discharge: 12/20/17 Minutes to complete discharge: 35 <Ayaan Lopez - Last Filed: 12/20/17 13:57> Physical Exam: Patient seen and examined. Patient is doing better. Added Lasix 40mg po daily. Patient is being discharged home on po LAsix 40mg daily. Follow with primary in a week period. Follow with biomedical electronics technician. <Abundio Hyde - Last Filed: 12/20/17 19:10> Discharge Summary Reason For Visit: ACUTE ON CHRONIC CHF/HOSP ACQ PNEUMONIA - Home Medications Comprehensive Discharge Medication List: Ambulatory Orders Aspirin 81 mg PO DAILY 12/12/17 Levetiracetam [Keppra -] 250 mg PO BID 12/12/17 Rivaroxaban [Xarelto -] 20 mg PO DAILY 12/12/17 Diltiazem Cd [Cardizem Cd -] 240 mg PO DAILY #30 cap.cd.24h 12/17/17 Metoprolol Succinate [Toprol XL -] 25 mg PO BID #60 tab.sr.24h 12/17/17 Furosemide Injection [Lasix Injection -] 40 mg PO DAILY #30 vial 12/20/17 Furosemide [Lasix -] 40 mg PO DAILY #30 tablet 12/20/17 <Ayaan Lopez - Last Filed: 12/20/17 13:57> - Home Medications Comprehensive Discharge Medication List: Ambulatory Orders Aspirin 81 mg PO DAILY 12/12/17 Levetiracetam [Keppra -] 250 mg PO BID 12/12/17 Rivaroxaban [Xarelto -] 20 mg PO DAILY 12/12/17 Diltiazem Cd [Cardizem Cd -] 240 mg PO DAILY #30 cap.cd.24h 12/17/17 Metoprolol Succinate [Toprol XL -] 25 mg PO BID #60 tab.sr.24h 12/17/17 Furosemide Injection [Lasix Injection -] 40 mg PO DAILY #30 vial 12/20/17 Furosemide [Lasix -] 40 mg PO DAILY #30 tablet 12/20/17 <Abundio Hyde - Last Filed: 02/02/18 19:10> Condition: Improved - Instructions Diet, Activity, Other Instructions: You were admitted to the hospital for the treatment of shortness of breath due to congestive heart failure and headache. Diet, Activity, Other Instructions: #You were treated in the hospital for atrial fibrillation with rapid ventricular response. #In the hospital, we found that you had an elevated white blood cell count which was elevated at many of your previous admissions. This could be normal for you, but it would be beneficial to see a stock shaper (blood doctor) to have this evaluated. #We found that you have fluid around your mastoid process, an area inside the bone of the skull in the back of your head. This is likely not a serious medical condition -the fluid was evaluated by an jig maker, who did not recommend any acute treatment, and only that you follow with him in the office in 2 weeks. #You were also found to have diabetes in the hospital. Although your daily sugar levels remained low, the Hemoglobin A1C level was 6.6, indicating that you have diabetes. Please follow with your primary care doctor for proper management. as you might need medications in near future #We changed several medications while you were in the hospital, please bring this form to your primary care provider when you see them in the office. Recommendations: 1. Take your blood pressure once every day and record that number, bring that number with you to the primary care physician. 2. If you experience severe palpitations, chest pain, or shortness of breath, please return to the hospital immediately. 3. You were diagnosed with diabetes - when you go to your primary care physician , make sure they follow your A1C levels closely to make sure your diabetes is not getting worse. 4- eat diabetic diet ( low carb, low fat diet ) 5- check your sugar daily before breakfast . take the log to your primary doctor . call MD if > 250 6- You need repeat thyroid function test in 4 weeks Medication Changes: 1. Take Cardizem 240mg once a day for atrial fibrillation. Please take this every day at the same time to avoid the chance of going back into a rapid and abnormal heart rhythm. 2. Take Toprol XL 25mg twice a day for atrial fibrillation. Please take this every day at the same time to avoid the chance of going back into a rapid and abnormal heart rhythm. 3. Take furosemide 40mg once a day for congestive heart failure. 3. We stopped your hydrochlorothiazide (HCTZ) because your blood pressure was on the low end of normal. Do not take this when you go home and follow with your PCP. 4. We stopped your bisoprolol because your blood pressure was on the low end of normal and we used a different medication to control your atrial fibrillation. Do not take this at home. 5. We held your irbesartan due to your blood pressure being on the low end. Please check your blood pressure every day this week and discuss possibly restarting this medication with your primary care physician when you see them. 6. Continue taking aspirin 81mg once a day 7. Continue taking xarelto 20mg once a day at 3pm 8. Continue taking keppra 250mg twice a day Referrals: 1. Make an appointment with your primary care physician, Dr. Schneider within 1 week of discharge to discuss all of the medication changes we implemented in the hospital 2. Make an appointment with your biomedical electronics technician, Dr. Lang, within 2 weeks of discharge to follow up on the management of your atrial fibrillation 3. Make an appointment with the jig maker, Dr. Gustafson, within 2 weeks of discharge to discuss the fluid around your mastoid process. 4. Make an appointment with the stock shaper, Dr. Laughlin, within 2 weeks of discharge to discuss your elevated white blood cell count Referrals: Bud Lang MD [Staff Physician] - Norah Laughlin MD [Staff Physician] - Haely Schneider MD [Primary Care Provider] - Pete Rodriguez MD [Staff Physician] - Disposition: HOME This patient is new to me today: No Emergency Visit: No Critical Care patient: No - Discharge Referral Referred to [facility] No <Ayaan Lopez - Last Filed: 12/20/17 13:57>
== END 2017-12-20 13:13 | disposition home or self-care (01) | DRG 291 ==
LOC: JER 21:16 → JERBED 23:46 → UNDOADMIN 12-18 → JERBED 12-18 → J4W 12-18 17:15
PROVIDERS: ADMIT Internal Medicine; ATTEND Internal Medicine
DX: I11.0 Hypertensive heart disease with heart failure (principal); J18.9 Pneumonia, unspecified organism; Z68.41 Body mass index [BMI] 40.0-44.9, adult; I50.23 Acute on chronic systolic (congestive) heart failure; Z79.01 Long term (current) use of anticoagulants; E11.9 Type 2 diabetes mellitus without complications; G40.909 Epilepsy, unspecified, not intractable, without status epilepticus; Y95 Nosocomial condition; R51 Headache; E66.9 Obesity, unspecified; I34.0 Nonrheumatic mitral (valve) insufficiency; I48.0 Paroxysmal atrial fibrillation
CPT/HCPCS: 36415; 70450-TC; 71045-TC; 80048; 80053; 81003; 82550; 82803; 82962; 83605; 83735; 83880; 84484; 85025; 85027; 85610; 87040; 87086; 87804; 93005; 93010; 99284-25

== ENCOUNTER 2018-11-13 11:48 | Inpatient (IN) | payer OTHER ==
[2018-11-13 12:19] VITALS: BMI 36.1
--- NOTE | 2018-11-13 12:35 | PDOC ---
History of Present Illness - General History Source: Patient Exam Limitations: No Limitations - History of Present Illness Initial Comments: 11/13/18 12:34 72 y/o F with PMH HTN, afib (on eliquis), seizure disorder, DM who presents with 3 days of nonradiating weakness in the L arm and lower abdominal pain. The patient does not recall what she was doing when the pain first onset but notes that her episodes of weakness are associated with sweating and occur in the AM when she wakes and resolve with eating food. She denies any chest pain, or shortness of breath. Denies recent travel, denies recent fever or illness. Denies dysuria, hematuria. Denies feeling lightheaded. Denies swelling in the legs, dizziness or weakness when walking. Patient has no other complaints at bedside. Meds: luci, PSHX: tubal ligation Cardiology: Laura PCP: Penny Echo 11/2017: pt in afib with rvr, lvef mildly reduced, global hk, mild lvh, nl rv, mod lae, mild mr/ar <Keira Villarreal - Last Filed: 11/13/18 15:49> <Keturah Guillen - Last Filed: 11/13/18 16:11> - General Chief Complaint: Weakness Stated Complaint: WEAKNESS, BODYACHES Time Seen by Provider: 11/13/18 12:32 Past History - Past Medical History Anemia: No Asthma: No Cancer: No Cardiac Disorders: Yes (afib) CVA: No COPD: No CHF: No DVT: No Dementia: No Diabetes: No GI Disorders: No Disorders: No HTN: Yes Hypercholesterolemia: No Liver Disease: No Seizures: Yes Thyroid Disease: No - Surgical History Abdominal Surgery: Yes (TUBAL LIGATION) Appendectomy: No Cardiac Surgery: No Cholecystectomy: No Lung Surgery: No Neurologic Surgery: No Orthopedic Surgery: No - Immunization History Immunization Up to Date: Yes - Suicide/Smoking/Psychosocial Hx Smoking Status: No Smoking History: Never smoked Have you smoked in the past 12 months: No Number of Cigarettes Smoked Daily: 0 Hx Alcohol Use: No Drug/Substance Use Hx: No Substance Use Type: None Hx Substance Use Treatment: No <Keira Villarreal - Last Filed: 11/13/18 15:49> <Keturah Guillen - Last Filed: 11/13/18 16:11> - Past Medical History Allergies/Adverse Reactions: Allergies Allergy/AdvReac Type Severity Reaction Status Date / Time No Known Allergies Allergy Verified 12/17/17 21:19 Home Medications: Ambulatory Orders Aspirin 81 mg PO DAILY 12/12/17 Rivaroxaban [Xarelto -] 20 mg PO DAILY 12/12/17 levETIRAcetam [Keppra -] 250 mg PO BID 12/12/17 Diltiazem Cd [Cardizem Cd -] 240 mg PO DAILY #30 cap.cd.24h 12/17/17 Metoprolol Succinate [Toprol XL -] 25 mg PO BID #60 tab.sr.24h 12/17/17 Furosemide [Lasix -] 40 mg PO DAILY #30 tablet 12/20/17 Review of Systems - Review of Systems Able to Perform ROS?: Yes Is the patient limited Upper Sorbian proficient: No Constitutional: Yes: Diaphoresis. No: Fever, Night Sweats HEENTM: No: Blurred Vision, Tinnitus Respiratory: No: Cough, Orthopnea, Shortness of Breath Cardiac (ROS): No: Chest Pain, Lightheadedness, Palpitations, Syncope ABD/GI: No: Constipated, Diarrhea, Nausea, Vomiting : No: Burning, Dysuria, Hematuria, Incontinence Musculoskeletal: Yes: See HPI, Muscle Pain Neurological: No: Headache, Numbness, Tingling <Keira Villarreal - Last Filed: 11/13/18 15:49> *Physical Exam - Vital Signs Last Vital Signs Temp Pulse Resp BP Pulse Ox 98.3 F 152 H 20 123/87 98 11/13/18 12:17 11/13/18 12:17 11/13/18 12:17 11/13/18 12:17 11/13/18 12:17 - Physical Exam Comments: 11/13/18 15:43 GENERAL: Awake, alert, and fully oriented, tired appearing, diaphoretic HEAD: No signs of trauma, normocephalic, atraumatic EYES: EOMI, sclera anicteric, conjunctiva clear ENT: oropharynx clear without exudates. Moist mucosa NECK: Normal ROM, supple LUNGS: No distress, speaks full sentences, clear to auscultation bilaterally HEART: tachycardic, irregular rhythm, normal S1 and S2, no murmurs, rubs or gallops, peripheral pulses normal and equal bilaterally. ABDOMEN: Soft, nontender, normoactive bowel sounds. No guarding, no rebound. No masses EXTREMITIES : Normal inspection, Normal range of motion, no edema. No clubbing or cyanosis. NEUROLOGICAL: Cranial nerves II through XII grossly intact. Normal speech, normal gait, no focal sensorimotor deficits SKIN: Warm, Dry, normal turgor, no rashes or lesions noted <Keira Villarreal - Last Filed: 11/13/18 15:49> - Vital Signs Last Vital Signs Temp Pulse Resp BP Pulse Ox 98.3 F 65 20 97/65 99 11/13/18 12:17 11/13/18 13:50 11/13/18 13:35 11/13/18 13:50 11/13/18 14:40 <Keturah Guillen - Last Filed: 11/13/18 16:11> Moderate Sedation - Procedure Monitoring Vital Signs: Procedure Monitoring Vital Signs Temperature 98.3 F 11/13/18 12:17 Pulse Rate 152 H 11/13/18 12:17 Respiratory Rate 20 11/13/18 12:17 Blood Pressure 123/87 11/13/18 12:17 O2 Sat by Pulse Oximetry (%) 98 11/13/18 12:17 <Keira Villarreal - Last Filed: 11/13/18 15:49> - Procedure Monitoring Vital Signs: Procedure Monitoring Vital Signs Temperature 98.3 F 11/13/18 12:17 Pulse Rate 65 11/13/18 13:50 Respiratory Rate 20 11/13/18 13:35 Blood Pressure 97/65 11/13/18 13:50 O2 Sat by Pulse Oximetry (%) 99 11/13/18 14:40 <Keturah Guillen - Last Filed: 11/13/18 16:11> ED Treatment Course - LABORATORY CBC & Chemistry Diagram: 11/13/18 13:50 11/13/18 13:50 <Keira Villarreal - Last Filed: 11/13/18 15:49> - LABORATORY CBC & Chemistry Diagram: 11/13/18 13:50 11/13/18 13:50 - ADDITIONAL ORDERS Additional order review: Laboratory Results 11/13/18 13:50 Sodium 140 Potassium 4.6 Chloride 108 H Carbon Dioxide 23 Anion Gap 9 BUN 15 Creatinine 1.0 Creat Clearance w eGFR 54.50 Random Glucose 170 H Calcium 8.8 Phosphorus 4.0 Magnesium 2.1 Total Bilirubin 0.4 AST 20 ALT 21 Alkaline Phosphatase 112 Troponin I < 0.02 Total Protein 7.2 Albumin 3.4 TSH 4.56 H Digoxin 0.45 L 11/13/18 13:50 RBC 4.99 MCV 87.6 MCHC 32.1 RDW 13.8 MPV 11.4 H Neutrophils % 73.4 Lymphocytes % 18.5 D Monocytes % 6.1 Eosinophils % 1.3 Basophils % 0.7 - Medications Given in the ED: ED Medications Discontinued Medications Generic Name Dose Route Start Last Admin Trade Name Freq PRN Reason Stop Dose Admin Diltiazem HCl 20 mg 11/13/18 13:09 11/13/18 13:38 Cardizem Injection - IVPUSH 11/13/18 13:10 20 mg ONCE ONE Administration Diltiazem HCl 60 mg 11/13/18 13:10 11/13/18 13:38 Cardizem - PO 11/13/18 13:11 60 mg ONCE ONE Administration Sodium Chloride 500 ml 11/13/18 13:47 11/13/18 13:56 Normal Saline - IV 11/13/18 13:48 500 ml ONCE ONE Administration <Keturah Guillen - Last Filed: 11/13/18 16:11> Medical Decision Making - Medical Decision Making 11/13/18 13:19 72 y/o F with PMH HTN, afib (on eliquis), seizure disorder, DM who presents with 3 days of nonradiating weakness in the L arm and lower abdominal pain. The patient does not recall what she was doing when the pain first onset but notes that her episodes of weakness are associated with sweating and occur in the AM when she wakes and resolve with eating food. She denies any chest pain, or shortness of breath. Denies recent travel, denies recent fever or illness. Denies dysuria, hematuria. Denies feeling lightheaded. Denies swelling in the legs, dizziness or weakness when walking. Patient has no other complaints at bedside. ED Course: Patient in Afib w/ RVR w/ rates of 140s and diaphoretic at bedside. Consider ACS vs AFib RVR 2/2 infection vs electrolytes vs hyperthyroidism. Less likely dissection as patient pulses are equal, BP on both arms > 120 systolic, and patient does not complain of chest pain Also considered PE, unlikely as patient not immobilized, not hypercoaguable, no recent travel or recent surgery cbc, cmp, trop, cxr, ekg, ua, ucx, digoxin level, mag, phos, TSH 11/13/18 13:26 BP on R and L forearm between 110-100/60-70 11/13/18 14:37 Patient still with irregularly irregular rhythm but at rate of 50s CBC: wbc of 15.4 11/13/18 14:59 Trop negative, TSH: elevated, patient is likely hypothyrioid Plan to admission for Tele Obs Will advise consult with Laura Dumas lawn specialist. 11/13/18 15:43 Patient admitted to medicine. <Keira Villarreal - Last Filed: 11/13/18 15:49> *DC/Admit/Observation/Transfer - Discharge Dispostion Decision to Admit order: Yes <Keira Villarreal - Last Filed: 11/13/18 15:49> - Discharge Dispostion Decision to Admit order: Yes Decision to Admit order Date/Time: 11/13/18 16:11 <Keturah Guillen - Last Filed: 11/13/18 16:11> Diagnosis at time of Disposition: Atrial fibrillation with RVR - Discharge Dispostion Condition at time of disposition: Guarded - Referrals Referrals: Jovita Frank MD [Primary Care Provider] -
[2018-11-13] MEDS ORDERED: dilTIAZem HCL 50 MG/10 ML - 10 ML VIAL IVPUSH ONE (13:09)
[2018-11-13] MEDS ORDERED: dilTIAZem HCL 60 MG TABLET (FP) PO ONE (13:10)
[2018-11-13] MEDS ORDERED: dilTIAZem HCL 125 MG/25 ML - 25 ML VIAL ONE ×2 (13:33→13:34)
[2018-11-13] MEDS ORDERED: dilTIAZem HCL 30 MG TABLET (FP) ONE (13:33)
[2018-11-13] MEDS ORDERED: SODIUM CHLORIDE 0.9% 500 ML INFUS.BAG IV ONE (13:47)
[2018-11-13 14:06] LABS: BASO % 0.7 % (0-2.0); EOS % 1.3 % (0-4.5); HEMATOCRIT 43.8 % (32.4-45.2); LYMPH % 18.5 % (8-40); MCH 28.1 pg (25.7-33.7); MCHC 32.1 g/dl (32.0-36.0); MEAN CELL VOLUME 87.6 fl (80-96); MEAN PLT VOLUME 11.4 fl (7.5-11.1); MONO % 6.1 % (3.8-10.2); NEUT % 73.4 % (42.8-82.8); PLATELET COUNT 356 K/MM3 (134-434); RBC 4.99 M/mm3 (3.60-5.2); RDW 13.8 % (11.6-15.6); WHITE BLOOD COUNT 15.4 K/mm3 (4.0-10.0)
--- NOTE | 2018-11-13 14:10 | PDOC ---
Attending Attestation - HPI HPI: 11/13/18 14:10 73 YOF with h/o HTN, paroxysmal afib (on eliquis), mod mr, mild ar, obesity, syst CHF , seizure disorder, DM presenting with non radiating left arm weakness and lower abdominal pain for the past three days. Patient also admits to palpitations and diaphoresis. Patient states the left arm weakness is worse in the morning and intermittent throughout the day which is alleviated after food intake. Patient has been eating and drinking normally but has noticed the lower abdominal pain is worse after eating. Patient is compliant with her meds. Patient denies recent travel. Denies any recent illnesses. Patient denies cough, nausea, vomiting, cp, sob, ringing in the ears, leg swelling, lightheadedness, and dizziness. Denies urinary symptoms, changes in bowel movements, or blood in the stool. Allergies: NKDA Surgeries: None reported. Social history: No reported alcohol, drug or cigarette use. Cardiology: Dr. Sanchez Patients most recent echo on 11/2017: showed pt in afib with rvr, lvef mildly reduced 2/2 RVR, global hk, mild lvh, nl rv, mod lae, mild mr/ar - Physicial Exam PE: 11/13/18 14:10 NAD, well appearing, PERRL, EOMI, MMM, nl conjunctiva, anicteric; no JVD. neck supple. lungs clear, irreg irregular, RVR/tachy. abdomen soft nontender, obese. PELAYO x4, no focal neuro deficits. No peripheral edema. normal color for ethnicity , WWP. no calf tenderness. <Carey Carlson - Last Filed: 11/13/18 14:10> - Resident Resident Name: Keira Villarreal - ED Attending Attestation I have performed the following: I have examined & evaluated the patient, The case was reviewed & discussed with the resident, I agree w/resident's findings & plan - Medical Decision Making 11/13/18 14:55 See HPI for details Vital signs reviewed, no fever, hemodynamically appropriate. on supp O2 for comfort Prior notes reviewed, including admissions, discharges and consultations. laboratory results and imaging reviewed, basic labs and lytes wnl, notable for high tsh c/w hypothyroid, dig level low. chronically elevated leukocytosis, but no fever here. prior echo report seen, mildly reduced LVEF 2/2 tachy/rvr at the time, MR, otherwise unremarkable. CXR_enlarged cardiac silhouette, no acute pathology, interstitial markings noted , no change from previous. Cardiac panel_neg trop EKG irregularly irregular/Afib in RVR 150s. No P waves, no interval abnormalities, narrow QRS, ST and T wave segments and morphology normal. Nonspecific T wave abnormalities 2/2 tachycardia. ED course: gentle hydration with NSS 500cc, diltiazem for rate control, with effect. cards cs as inpatient Dr Sanchez on AC already, keep with it, rate control to be continued, PO dose of dilt given while here, Afib in slow ventricular response with HR down to 40-50s, likely 2/ 2 dilt/AVN blockade effect. when stimulated, HR improves. Dispo: Admit to tele for Afib RVR. Discussed results and management plan with pt and family member at bedside, agree with impression and plan admit to hospitalist service. 11/13/18 16:11 <Keturah Guillen - Last Filed: 11/13/18 16:12>
[2018-11-13 14:53] LABS: ALBUMIN 3.4 g/dl (3.4-5.0); ALK PHOS 112 U/L (45-117); ANION GAP 9 MMOL/L (8-16); BILIRUBIN,TOTAL 0.4 mg/dL (0.2-1); BLOOD UREA NITROGEN 15 mg/dL (7-18); CALCIUM 8.8 mg/dL (8.5-10.1); CHLORIDE 108 mmol/L (98-107); CO2 23 mmol/L (21-32); GLUCOSE,RANDOM 170 mg/dL (74-106); MAGNESIUM 2.1 mg/dL (1.8-2.4); POTASSIUM 4.6 mmol/L (3.5-5.1); SGOT/AST 20 U/L (15-37); SGPT/ALT 21 U/L (13-61); SODIUM 140 mmol/L (136-145); TOT PROT 7.2 g/dl (6.4-8.2)
[2018-11-13] MEDS ORDERED: SODIUM CHLORIDE 1,000 ML IV SCH (16:15)
--- NOTE | 2018-11-13 17:27 | HP ---
CHIEF COMPLAINT: left shoulder pain, palpitations PCP: Dr Francis HISTORY OF PRESENT ILLNESS: The patient is a 73 year old British speaking female with a PMh of A.Fib, on Xarelto, seizure disorder, DM, HTN that presented to the hospital complaining of palpitations, left shoulder pain for 3 days. She also reports lower abdominal pain, 8/10, intermittent. The patient denies trauma, chest pain, nausea, vomiting, fever, chills. She was seen by her [place] Associate Dr Sanchez 5 days ago and is scheduled for more testing in the beginning on November. ER course was notable for: (1)CXR, ekg (2)Cardizem, NS PAST MEDICAL HISTORY: as above PAST SURGICAL HISTORY: tubal ligation Social History: denies toxic habits Allergies No Known Allergies Allergy (Verified 12/17/17 21:19) HOME MEDICATIONS: Home Medications Medication Instructions Recorded Aspirin 81 mg PO DAILY 12/12/17 Rivaroxaban [Xarelto -] 20 mg PO DAILY 12/12/17 levETIRAcetam [Keppra -] 250 mg PO BID 12/12/17 Diltiazem Cd [Cardizem Cd -] 240 mg PO DAILY #30 cap.cd.24h 12/17/17 Metoprolol Succinate [Toprol XL -] 25 mg PO BID #60 tab.sr.24h 12/17/17 Furosemide [Lasix -] 40 mg PO DAILY #30 tablet 12/20/17 REVIEW OF SYSTEMS CONSTITUTIONAL: Absent: fever, chills, diaphoresis, generalized weakness, malaise, loss of appetite, weight change HEENT: Absent: rhinorrhea, nasal congestion, visual changes CARDIOVASCULAR: palpitations, irregular heart rate Absent: chest pain, syncope, lightheadedness, peripheral edema RESPIRATORY: Absent: cough, shortness of breath, dyspnea with exertion, orthopnea, wheezing, GASTROINTESTINAL: Absent: abdominal pain, abdominal distension, nausea, vomiting, diarrhea, constipation GENITOURINARY: Absent: dysuria, frequency, urgency, hesitancy, hematuria, flank pain, genital pain MUSCULOSKELETAL: Absent: myalgia, arthralgia, joint swelling, back pain, neck pain SKIN: Absent: rash NEUROLOGIC: Absent: headache, focal weakness PSYCHIATRIC: Absent: anxiety, depression PHYSICAL EXAMINATION Vital Signs - 24 hr 12/27/18 12/27/18 12/27/18 12:17 13:30 13:35 Temperature 98.3 F Pulse Rate 152 H Pulse Rate [ 140 H 72 Right Radial] Respiratory 20 20 20 Rate Blood Pressure 123/87 Blood Pressure 128/78 95/58 L [Right Arm] O2 Sat by Pulse 98 99 99 Oximetry (%) 11/13/18 11/13/18 11/13/18 13:50 14:40 16:00 Temperature Pulse Rate Pulse Rate [ 65 61 Right Radial] Respiratory 16 Rate Blood Pressure Blood Pressure 97/65 103/56 L [Right Arm] O2 Sat by Pulse 94 L 99 99 Oximetry (%) GENERAL: Awake, alert, and fully oriented, in no acute distress. HEAD: Normal with no signs of trauma. EYES: Pupils equal, round and reactive to light, extraocular movements intact, sclera anicteric, conjunctiva clear. EARS, NOSE, THROAT: Ears normal, nares patent, oropharynx clear without exudates. Moist mucous membranes. NECK: Normal range of motion, supple without lymphadenopathy, JVD, or masses. LUNGS: Breath sounds equal, clear to auscultation bilaterally. No wheezes, and no crackles. No accessory muscle use. HEART: Irregular rate and rhythm, normal S1 and S2 without murmur, rub or gallop. ABDOMEN: Soft, mild suprapubic tenderness, not distended, normoactive bowel sounds, no guarding, no rebound, no masses. MUSCULOSKELETAL: Normal range of motion at all joints. No bony deformities or tenderness. No CVA tenderness, mild tenderness to palpation over anterior shoulder. UPPER EXTREMITIES: No peripheral edema. LOWER EXTREMITIES: 2+ pulses, 1+ peripheral edema. NEUROLOGICAL: Cranial nerves II-XII intact. Normal speech. PSYCHIATRIC: Cooperative. Good eye contact. Appropriate mood and affect. SKIN: Warm, dry, normal turgor, no rashes. Laboratory Results - last 24 hr 11/13/18 11/13/18 13:50 13:50 WBC 15.4 H RBC 4.99 Hgb 14.0 Hct 43.8 MCV 87.6 MCH 28.1 MCHC 32.1 RDW 13.8 Plt Count 356 D MPV 11.4 H Absolute Neuts (auto) 11.3 H Neutrophils % 73.4 Lymphocytes % 18.5 D Monocytes % 6.1 Eosinophils % 1.3 Basophils % 0.7 Nucleated RBC % 0 Sodium 140 Potassium 4.6 Chloride 108 H Carbon Dioxide 23 Anion Gap 9 BUN 15 Creatinine 1.0 Creat Clearance w eGFR 54.50 Random Glucose 170 H Calcium 8.8 Phosphorus 4.0 Magnesium 2.1 Total Bilirubin 0.4 AST 20 ALT 21 Alkaline Phosphatase 112 Troponin I < 0.02 Total Protein 7.2 Albumin 3.4 TSH 4.56 H Digoxin 0.45 L ASSESSMENT/PLAN: The patient is a 73 year old British speaking female with a PMh of A.Fib, on Xarelto, seizure disorder, DM, HTN that presented to the hospital complaining of palpitations, left shoulder pain and lower abdominal pain for 3 days. She is admitted for observation to telemetry for rapid A.Fib with RVR. A.Fib with RVR HTN DMII seizure disorder obesity Plan: Rapid A.Fib is possibly caused by medication non compliance, but also r/o acs, intection, thyroid disease we will continue metoprolol 12.5 mg BID, Eliquis 5 mg BID -f/u troponin level at 6 pm -echo -repeat EKG in AM -f/u HgA1C -cont Keppra 250 mg BID -cardiac monitoring F/E/N: no more NS/no changes/diabetic Dispo: tele obs Problem List - Problem (1) Atrial fibrillation with RVR Code(s): I48.91 - UNSPECIFIED ATRIAL FIBRILLATION (2) Acute exacerbation of CHF (congestive heart failure) Code(s): I50.9 - HEART FAILURE, UNSPECIFIED (3) DVT prophylaxis Code(s): [id number] - Visit type - Emergency Visit Emergency Visit: Yes Care time: The patient presented to the Emergency Department on the above date and was hospitalized for further evaluation of their emergent condition. - New Patient This patient is new to me today: Yes Date on this admission: 11/13/18 - Critical Care Critical Care patient: No
[2018-11-13 17:48] LABS: URINE APPEARANCE CLEAR; URINE BILIRUBIN NEGATIVE (<2.0 mg/dL); URINE COLOR LTYELLOW; URINE GLUCOSE (UA) NEGATIVE (NEGATIVE); URINE KETONE NEGATIVE (NEGATIVE); URINE LEUK ESTERASE TRACE (NEGATIVE); URINE NITRITE NEGATIVE (NEGATIVE); URINE PROTEIN NEGATIVE (NEGATIVE); URINE UROBILINOGEN NEGATIVE mg/dL (0.2-1.0)
[2018-11-13 17:50] LABS: EPI CELLS RARE /HPF (FEW); URINE BACTERIA MANY /hpf (NONE SEEN); URINE MUCUS RARE
--- NOTE | 2018-11-13 18:34 | HP ---
CHIEF COMPLAINT:Left shoulder pain, lower abdominal pain PCP:Dr. Francis HISTORY OF PRESENT ILLNESS: Patient is a 73 year old female with past medical history of HTN, Atrial fibrillation, seizure disorder, DM and CHFrEF presented with intermittent left shoulder pain, palpitations and lower abdominal pain for 3 days. Patient reported left shoulder pain and lower abdominal pain is intermittent, cramping, 8/10, with no aggravating or alleviating symptoms. Her palpitations occur intermittently as well, and could not identify anything that makes it better or worse. Patient also reported she has follow-up with Dr. Sanchez on November to have some tests done. Patient denies chest pain, shortness of breath, palpitations, fever, chills, nausea, vomiting, headache, dizziness, weakness, numbness, tingling. ER course was notable for: (1)IV NS 500ml bolus (2)EKG - AF with RVR (3)Cardizem IV and PO given Recent Travel:denies any recent travel PAST MEDICAL HISTORY: HTN Atrial fibrillation seizure disorder DM CHFrEF PAST SURGICAL HISTORY: Tubal ligation Social History: Smoking:denies Alcohol:denies Drugs: denies Family History: Allergies No Known Allergies Allergy (Verified 11/13/18 17:58) HOME MEDICATIONS: Home Medications Medication Instructions Recorded Aspirin 81 mg PO DAILY 12/12/17 Rivaroxaban [Xarelto -] 20 mg PO DAILY 12/12/17 levETIRAcetam [Keppra -] 250 mg PO BID 12/12/17 Diltiazem Cd [Cardizem Cd -] 240 mg PO DAILY #30 cap.cd.24h 12/17/17 Metoprolol Succinate [Toprol XL -] 25 mg PO BID #60 tab.sr.24h 12/17/17 Furosemide [Lasix -] 40 mg PO DAILY #30 tablet 12/20/17 REVIEW OF SYSTEMS CONSTITUTIONAL: Absent: fever, chills, diaphoresis, generalized weakness, malaise, loss of appetite, weight change HEENT: Absent: rhinorrhea, nasal congestion, throat pain, throat swelling, difficulty swallowing, mouth swelling, ear pain, eye pain, visual changes CARDIOVASCULAR: Absent: chest pain, syncope, palpitations, irregular heart rate, lightheadedness , peripheral edema RESPIRATORY: Absent: cough, shortness of breath, dyspnea with exertion, orthopnea, wheezing, stridor, hemoptysis GASTROINTESTINAL: Absent: abdominal pain, abdominal distension, nausea, vomiting, diarrhea, constipation, melena, hematochezia GENITOURINARY: Absent: dysuria, frequency, urgency, hesitancy, hematuria, flank pain, genital pain MUSCULOSKELETAL: Absent: myalgia, arthralgia, joint swelling, back pain, neck pain, left shoulder pain SKIN: Absent: rash, itching, pallor HEMATOLOGIC/IMMUNOLOGIC: Absent: easy bleeding, easy bruising, lymphadenopathy, frequent infections ENDOCRINE: Absent: unexplained weight gain, unexplained weight loss, heat intolerance, cold intolerance NEUROLOGIC: Absent: headache, focal weakness or paresthesias, dizziness, unsteady gait, seizure, mental status changes, bladder or bowel incontinence PSYCHIATRIC: Absent: anxiety, depression, suicidal or homicidal ideation, hallucinations. PHYSICAL EXAMINATION Vital Signs - 24 hr 11/13/18 11/13/18 11/13/18 12:17 13:30 13:35 Temperature 98.3 F Pulse Rate 152 H Pulse Rate [ 140 H 72 Right Radial] Respiratory 20 20 20 Rate Blood Pressure 123/87 Blood Pressure 128/78 95/58 L [Right Arm] O2 Sat by Pulse 98 99 99 Oximetry (%) 11/13/18 11/13/18 11/13/18 13:50 14:40 16:00 Temperature Pulse Rate Pulse Rate [ 65 61 Right Radial] Respiratory 16 Rate Blood Pressure Blood Pressure 97/65 103/56 L [Right Arm] O2 Sat by Pulse 94 L 99 99 Oximetry (%) GENERAL: Awake, alert, and fully oriented, in no acute distress. HEAD: Normal with no signs of trauma. EYES: PERRLA, EOMI, sclera anicteric, conjunctiva clear. EARS, NOSE, THROAT: Ears normal, nares patent, oropharynx clear without exudates. Moist mucous membranes. NECK: Soft, supple, trachea midline without LAD LUNGS: Breath sounds equal, clear to auscultation bilaterally. HEART: Irregularly irregular, normal S1 and S2 without murmur, rub or gallop. ABDOMEN: Soft, obese, +mild suprapubic tenderness, not distended, normoactive bowel sounds. MUSCULOSKELETAL: Normal range of motion at all joints. No bony deformities or tenderness. No CVA tenderness. UPPER EXTREMITIES: 2+ pulses, warm, well-perfused. No cyanosis. +left shoulder tenderness to palpation LOWER EXTREMITIES: 2+ pulses, warm, well-perfused. No calf tenderness. +1 pitting edema, b/l LE NEUROLOGICAL: AAOx3, Cranial nerves II-XII intact. Motor strength 5/5 on all extremities, Sensation intact. Normal speech. Normal gait. PSYCHIATRIC: Cooperative. Good eye contact. Appropriate mood and affect. SKIN: Warm, dry, normal turgor, no rashes or lesions noted, normal capillary refill. Laboratory Results - last 24 hr 11/13/18 11/13/18 11/13/18 13:50 13:50 17:30 WBC 15.4 H RBC 4.99 Hgb 14.0 Hct 43.8 MCV 87.6 MCH 28.1 MCHC 32.1 RDW 13.8 Plt Count 356 D MPV 11.4 H Absolute Neuts (auto) 11.3 H Neutrophils % 73.4 Lymphocytes % 18.5 D Monocytes % 6.1 Eosinophils % 1.3 Basophils % 0.7 Nucleated RBC % 0 Sodium 140 Potassium 4.6 Chloride 108 H Carbon Dioxide 23 Anion Gap 9 BUN 15 Creatinine 1.0 Creat Clearance w eGFR 54.50 Random Glucose 170 H Calcium 8.8 Phosphorus 4.0 Magnesium 2.1 Total Bilirubin 0.4 AST 20 ALT 21 Alkaline Phosphatase 112 Troponin I < 0.02 Total Protein 7.2 Albumin 3.4 TSH 4.56 H Urine Color Ltyellow Urine Appearance Clear Urine pH 5.0 Ur Specific [place] 1.011 Urine Protein Negative Urine Glucose (UA) Negative Urine Ketones Negative Urine Blood Negative Urine Nitrite Negative Urine Bilirubin Negative Urine Urobilinogen Negative Ur Leukocyte Esterase Trace Urine WBC (Auto) 3 Urine RBC (Auto) None Ur Epithelial Cells Rare Urine Bacteria Many Urine Mucus Rare Digoxin 0.45 L ASSESSMENT/PLAN: Patient is a 73 year old female with past medical history of HTN, Atrial fibrillation, seizure disorder, DM and CHFrEF presented with intermittent left shoulder pain, palpitations and lower abdominal pain for 3 days. #Atrial fibrillation with RVR -may be 2/2 medication noncompliance, infection, valvular problem, ACS, Thyroid disease -Trop <0.02 -EKG: AF with RVR, T wave inversions on lateral leads -Will repeat EKG in the morning -CHADS VASc - 4 -Patient HR has been irregular, ranging from 30 - 110 -On eliquis 5mg PO BID -Will repeat echo tomorrow -Tele monitoring. -Metoprolol 12.5 mg PO BID for rate control -Cardiology (Dr. Sanchez) consulted. #Lower abdominal pain -rule out UTI -will continue to monitor -UA pending #Left shoulder pain -may be 2/2 frozen shoulder or arthritis -Left shoulder xray ordered to rule out fracture #Seizure -patient reported last episode was many years ago -She has been taking Keppra once daily. -Will continue Keppra 250mg BID #CHFrEF: not on acute exacerbation -Echo (11/2017): LV EF mildly reduced, mild global hypokinesis of LV, RV normal size and function, LA moderately dilated, mild MR, mild AR -Not on any home medications -Will repeat Echo -Cardiology consulted #DM -not on any medications -last HbA1c in 11/2017 is 6.6 -Will repeat HbA1c #HTN: controlled -Hold home medication Irbesartan for now as BP is controlled -On Metroprolol 12.5mg BID #Elevated TSH: 4.56 -likely 2/2 hypothyroidism -TSH chronically elevated since 2010; free T4 0.74 () -Will need to follow-up with primary for further work-up as outpatient #FEN -Not on any standing fluids -Electrolytes wnl, routine bmp monitoring -Sodium controlled, diabetic diet #Prophylaxis -Eliquis 5 mg PO BID #Disposition -full code -tele obs Visit type - Emergency Visit Emergency Visit: Yes ED Registration Date: 11/13/18 Care time: The patient presented to the Emergency Department on the above date and was hospitalized for further evaluation of their emergent condition. - New Patient This patient is new to me today: Yes Date on this admission: 11/13/18 - Critical Care Critical Care patient: No
--- NOTE | 2018-11-13 19:56 | PN ---
Teaching Attending Note Name of Resident: Elizabeth Lewis ATTENDING PHYSICIAN STATEMENT I saw and evaluated the patient. I reviewed the resident's note and discussed the case with the resident. I agree with the resident's findings and plan as documented. SUBJECTIVE: CC: L shoulder pain, palpitations and lower abd pain HPI: reports L shoulder pain x 3 days , worse with upper ext movements. has palpations on and off. she reports being on metoprool for HR control but when reviewing her medication bottles , no metoprolol is found. she complained of intermittent lower abd pain to resident but now resolved. no dysuria she follows with Dr. Sanchez as out pt. in ER was found to have HR in 140s and was given IV meds. OBJECTIVE: NAD, AAox3, HEENT: MMM, no facial droop. EOMI. CV: irreg irreg HR ranges between 39 to 130 Lungs: CTAB Ext: no edema or erythema, tenderness over L shoulder laterally. no erythema . range of motion is limited to 90 degrees with abduction Abd: soft, NT, ND , NL BS . ASSESSMENT AND PLAN: 72 y/o lady with h/o A fib, HTN, seizure disorder , and Mitral regurgitation who presented with palpitations and L shoulder pain . she was found ot have A fib with RVR 1- A fib with RVR: still tachy. she has not been taking her BB as per med bottle review. inpast she was on BB and CCB per last dc summary - start lopressor 12.5 BID and monitor HR ( vanda ) - cont eliquis - consult cardiology - tele monitoring - no signs of infection , UA is clean, no resp sx ,cxray clear. No signs of hyperthyridism - check Echo - EKG with TWI in lateral leads not present last admission . will follow trop - EKG in am 2- H/o seizure : cont keppra at home do e 3- HTN: hold irbesartan as BP is low normal . monitor on BB Dispo : OC
[2018-11-13] MEDS ORDERED: METOPROLOL TARTRATE 25 MG TABLET (FP) PO ONE (19:58)
[2018-11-13] MEDS ORDERED: METOPROLOL TARTRATE 25 MG TABLET (FP) ONE ×2 (20:19→20:21)
[2018-11-13] MEDS ORDERED: levETIRAcetam 250 MG TABLET (FP) PO SCH (22:00)
[2018-11-13] MEDS ORDERED: METOPROLOL TARTRATE 25 MG TABLET (FP) PO SCH (22:00)
[2018-11-13] MEDS ORDERED: APIXABAN 5 MG TABLET PO SCH (22:00)
[2018-11-13] MEDS: levETIRAcetam 250 MG TABLET (FP) PO SCH (23:06)
[2018-11-13] MEDS: APIXABAN 5 MG TABLET PO SCH (23:06)
[2018-11-14] MEDS ORDERED: METOPROLOL TARTRATE 5 MG/5 ML VIAL ONE (03:30)
[2018-11-14] MEDS ORDERED: METOPROLOL TARTRATE 5 MG/5 ML VIAL IVPUSH ONE (03:30)
[2018-11-14] MEDS ORDERED: METOPROLOL TARTRATE 50 MG TABLET (FP) PO ONE (07:31)
[2018-11-14 07:35] LABS: ANION GAP 8 MMOL/L (8-16); BLOOD UREA NITROGEN 13 mg/dL (7-18); CALCIUM 7.9 mg/dL (8.5-10.1); CHLORIDE 113 mmol/L (98-107); CO2 23 mmol/L (21-32); CREATININE 0.9 mg/dL (0.55-1.3); GLUCOSE,RANDOM 111 mg/dL (74-106); MAGNESIUM 2.1 mg/dL (1.8-2.4); PHOSPHOROUS 4.6 mg/dL (2.5-4.9); POTASSIUM 4.5 mmol/L (3.5-5.1); SODIUM 143 mmol/L (136-145)
[2018-11-14 07:57] LABS: BASO % 0.5 % (0-2.0); EOS % 2.5 % (0-4.5); HEMOGLOBIN 12.5 GM/dL (10.7-15.3); LYMPH % 23.9 % (8-40); MCH 27.7 pg (25.7-33.7); MCHC 31.3 g/dl (32.0-36.0); MEAN CELL VOLUME 88.3 fl (80-96); MEAN PLT VOLUME 11.5 fl (7.5-11.1); NEUT % 66.1 % (42.8-82.8); PLATELET COUNT 325 K/MM3 (134-434); RBC 4.53 M/mm3 (3.60-5.2); WHITE BLOOD COUNT 14.1 K/mm3 (4.0-10.0)
[2018-11-14] MEDS ORDERED: ACETAMINOPHEN 325 MG TABLET (FP) PO PRN (08:17)
--- NOTE | 2018-11-14 09:40 | EKG ---
Test Reason : Blood Pressure : / mmHG Vent. Rate : 071 BPM Atrial Rate : 267 BPM P-R Int : 000 ms QRS Dur : 086 ms QT Int : 420 ms P-R-T Axes : 000 000 176 degrees QTc Int : 456 ms ATRIAL FIBRILLATION MINIMAL VOLTAGE CRITERIA FOR LVH, MAY BE NORMAL VARIANT T WAVE ABNORMALITY, CONSIDER INFEROLATERAL ISCHEMIA ABNORMAL ECG WHEN COMPARED WITH ECG OF 17-DEC-2017 21:40, ATRIAL FIBRILLATION HAS REPLACED SINUS RHYTHM T WAVE INVERSION NOW EVIDENT IN INFERIOR LEADS T WAVE INVERSION NOW EVIDENT IN LATERAL LEADS Confirmed by MAGED YODER, ILANA ([id number]) on 11/14/2018 9:40:16 AM Referred By: Confirmed By:ILANA LYNNE MD
[2018-11-14] MEDS: APIXABAN 5 MG TABLET PO SCH ×2 (09:59→22:14)
[2018-11-14] MEDS: levETIRAcetam 250 MG TABLET (FP) PO SCH ×2 (09:59→22:14)
[2018-11-14] MEDS ORDERED: METOPROLOL TARTRATE 25 MG TABLET (FP) PO SCH (10:00)
--- NOTE | 2018-11-14 10:09 | CON.CARD ---
Consult Consult Specialty:: Cardiology Referred by:: Hospitalist Medicine Reason for Consultation:: Palpitations, rapid afib, med noncompliance - History of Present Illness Chief Complaint: Palpitations History of Present Illness: 73 yo with h/o paroxysmal afib, htn, mod mr, mild ar, seizure d/o, obesity, syst chf last saw Dr. Sanchez 11/07/2018 presented with intermittent left shoulder pain, palpitations without chest pain, near or true syncope, orthopnea, PND or LE edema, found to be in rapid afib 140s, questionable compliance with Toprol, initially given Cardizem. - History Source History Provided By: Patient Limitations to Obtaining History: No Limitations - Past Medical History LEAD SOLUTIONS ARCHITECT: Yes: Seizure Cardio/Vascular: Yes: AFIB, CAD, CHF, HTN, Other (STENTS, mitral regurgitation) Endocrine: Yes: Diabetes Mellitus - Past Surgical History Past Surgical History: Yes: Joint Replacement, Tubal Ligation - Alcohol/Substance Use Hx Alcohol Use: No History of Substance Use: reports: None - Smoking History Smoking history: Never smoked Have you smoked in the past 12 months: No Aproximately how many cigarettes per day: 0 - Social History Usual Living Arrangement: With Child (daughter) ADL: Independent History of Recent Travel: No Home Medications - Allergies Allergies/Adverse Reactions: Allergies Allergy/AdvReac Type Severity Reaction Status Date / Time No Known Allergies Allergy Verified 11/13/18 17:58 - Home Medications Home Medications: Ambulatory Orders Aspirin 81 mg PO DAILY 12/12/17 levETIRAcetam [Keppra -] 250 mg PO BID 12/12/17 Acetaminophen [Tylenol] 500 mg PO BID PRN 11/13/18 Apixaban [Eliquis] 5 mg PO BID 11/13/18 Irbesartan 300 mg PO DAILY 11/13/18 Metoprolol Succinate [Toprol Xl] 50 mg PO DAILY 11/13/18 Family Disease History - Family Disease History Family Disease History: Heart Disease: Mother (HTN), Sister (HTN) Review of Systems - Review of Systems Cardiovascular: reports: Palpitations Vital Signs: Vital Signs Temperature 98 F 11/14/18 07:52 Pulse Rate 140 H 11/14/18 09:30 Respiratory Rate 20 11/14/18 09:30 Blood Pressure 109/72 11/14/18 09:30 O2 Sat by Pulse Oximetry (%) 96 11/13/18 22:00 Constitutional: Yes: No Distress, Calm Neck: Yes: Supple Respiratory: Yes: Regular, Diminished Gastrointestinal: Yes: Normal Bowel Sounds, Soft, Abdomen, Obese Cardiovascular: Yes: Tachycardia, Pulse Irregular JVD: No Carotid Bruit: No Heart Sounds: Yes: S1, S2 Edema: No - Other Data Labs, Other Data: CBC, BMP 11/14/18 05:30 11/14/18 05:30 Troponin, BNP 11/13/18 11/13/18 13:50 19:50 Troponin I < 0.02 < 0.02 Troponin, BNP 11/13/18 11/13/18 13:50 19:50 Troponin I < 0.02 < 0.02 Rapid afib 140s -> 71 min criteria LVH Ejection Fraction %: LVEF > or = 40 % Imaging - Results Chest X-ray: Report Reviewed (NAD) Problem List - Problems (1) Hypertensive cardiomyopathy Code(s): I11.9 - HYPERTENSIVE HEART DISEASE WITHOUT HEART FAILURE; I43 - CARDIOMYOPATHY IN DISEASES CLASSIFIED ELSEWHERE Qualifiers: Heart failure presence: without heart failure Qualified Code(s): I11.9 - Hypertensive heart disease without heart failure; I43 - Cardiomyopathy in diseases classified elsewhere (2) Chronic anticoagulation Code(s): Z79.01 - BRIDGE TENDER (CURRENT) USE OF 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 (3) Seizure disorder Code(s): G40.909 - EPILEPSY, UNSP, NOT INTRACTABLE, WITHOUT STATUS EPILEPTICUS (4) Atrial fibrillation with RVR Code(s): I48.91 - UNSPECIFIED ATRIAL FIBRILLATION Assessment/Plan echo 11/2017: pt in afib with rvr, lvef mildly reduced, global hk, mild lvh, nl rv, mod lae, mild mr/ar echo 10/2015: low nl lvef, nl rv, mod lae, mod-sev mr, mild tr, mild-mod ar, rvsp 30-40 01/08/2018 Nuc stress: No ischemia, low normal LV fxn LVEF 50-52% wilfredo 10/2015: mod mr, mild ar mibi 11/2011: no ischemia, nl lvef 1. Paroxysmal afib with RVR 2. 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 3. HTN cardiomyopathy 4. Sz d/o P:1. Agree with Lopressor 25 bid with Cardizem IV as needed for rate-control and uptitration as tolerated, please d/c digoxin load 2. Resume irbesartan 300 qd or equivalent as hemodynamics tolerate 3. Continue Eliquis 5 bid given elevated risk score, d/c ASA 81 qd given no CAD 4. F/u echo results, thank you for consultative opportunity
[2018-11-14] MEDS ORDERED: DIGOXIN 0.25 MG TABLET (FP) PO ONE (10:35)
[2018-11-14] MEDS ORDERED: dilTIAZem HCL 50 MG/10 ML - 10 ML VIAL IVPUSH PRN (11:02)
[2018-11-14] MEDS ORDERED: DILTIAZEM INJECTION 125 MG in SODIUM CHLORIDE 100 ML IVPB SCH (14:15)
--- NOTE | 2018-11-14 14:17 | PN ---
Teaching Attending Note Name of Resident: Elizabeth Lewis ATTENDING PHYSICIAN STATEMENT I saw and evaluated the patient. I reviewed the resident's note and discussed the case with the resident. I agree with the resident's findings and plan as documented. SUBJECTIVE: no fever or chills . No CP . No palpitations , feels sweaty . L shoulder pain and L knee pain OBJECTIVE: seen around 10 am NAD, AAOx3, CV: irreg irreg . HR in 140 at time of evaluation . No JVD Lungs: CTAB Ext: no edema or erythema, ASSESSMENT AND PLAN: 72 y/o lady with h/o A fib, HTN, seizure disorder , and Mitral regurgitation who presented with palpitations and L shoulder pain . she was found ot have A fib with RVR 1- A fib with RVR: HR is still uncontrolled. - dig load started , but appreciate card input. will dc - cardizem gtt - lopressor 25 BID - will transition gtt to po cardizem in addition to BB - echo pending - no signs of decompenzated heart failure - repeat EKG reviewed. 2- H/o seizure : cont keppra 3- HTN: hold irbesartan as BP is low . will resume when appropriate Dispo : OC
--- NOTE | 2018-11-14 14:56 | PN ---
Physical Exam: SUBJECTIVE: Patient seen and examined at bedside this morning. Patient remained in A.Fib overnight with heart rate at 140s. IV Lopressor 5mg given, and HR improved for a few hours. The rest of the night, patient remained tachycardic. This morning, patient was given additional dose of 50mg Lopressor PO. Patient remained in A. fib. IV Cardizem 10mg q4h ordered. After receiving IV dose, patient became tachy again after 2 hours. Cardiology called, ordered Cardizem drip. Before the drip was started, patient's HR normalized ranging from 70-100. Patient remained asymptomatic. Patient still reports left shoulder pain. Otherwise, patient denies chest pain, palpitations, SOB, fever, chills, nausea, vomiting, headache, weakness, abdominal pain, diarrhea, urinary symptoms. OBJECTIVE: Vital Signs Period Temp Pulse Resp BP Sys/Batista Pulse Ox Last 24 Hr 97.8 F-99.1 F 61-145 16-20 93-138/56-86 96-99 GENERAL: Awake, alert, and fully oriented, in no acute distress. HEAD: Normal with no signs of trauma. EYES: PERRLA, EOMI, sclera anicteric, conjunctiva clear. EARS, NOSE, THROAT: Ears normal, nares patent, oropharynx clear without exudates. Moist mucous membranes. NECK: Soft, supple, trachea midline without LAD LUNGS: Breath sounds equal, clear to auscultation bilaterally. HEART: Irregularly irregular, normal S1 and S2 without murmur, rub or gallop. ABDOMEN: Soft, obese, +mild suprapubic tenderness, not distended, normoactive bowel sounds. MUSCULOSKELETAL: Normal range of motion at all joints. No bony deformities or tenderness. No CVA tenderness. UPPER EXTREMITIES: 2+ pulses, warm, well-perfused. No cyanosis. +left shoulder tenderness to palpation LOWER EXTREMITIES: 2+ pulses, warm, well-perfused. No calf tenderness. +1 pitting edema, b/l LE NEUROLOGICAL: AAOx3, Cranial nerves II-XII intact. Motor strength 5/5 on all extremities, Sensation intact. Normal speech. Normal gait. PSYCHIATRIC: Cooperative. Good eye contact. Appropriate mood and affect. SKIN: Warm, dry, normal turgor, no rashes or lesions noted, normal capillary refill. Laboratory Results - last 24 hr 11/13/18 11/13/18 11/13/18 13:50 17:30 19:50 WBC RBC Hgb Hct MCV MCH MCHC RDW Plt Count MPV Absolute Neuts (auto) Neutrophils % Lymphocytes % Monocytes % Eosinophils % Basophils % Nucleated RBC % Sodium 140 Potassium 4.6 Chloride 108 H Carbon Dioxide 23 Anion Gap 9 BUN 15 Creatinine 1.0 Creat Clearance w eGFR 54.50 POC Glucometer Random Glucose 170 H Hemoglobin A1c % Calcium 8.8 Phosphorus 4.0 Magnesium 2.1 Total Bilirubin 0.4 AST 20 ALT 21 Alkaline Phosphatase 112 Troponin I < 0.02 < 0.02 Total Protein 7.2 Albumin 3.4 TSH 4.56 H Urine Color Ltyellow Urine Appearance Clear Urine pH 5.0 Ur Specific Waterproof 1.011 Urine Protein Negative Urine Glucose (UA) Negative Urine Ketones Negative Urine Blood Negative Urine Nitrite Negative Urine Bilirubin Negative Urine Urobilinogen Negative Ur Leukocyte Esterase Trace Urine WBC (Auto) 3 Urine RBC (Auto) None Ur Epithelial Cells Rare Urine Bacteria Many Urine Mucus Rare Digoxin 0.45 L 11/14/18 11/14/18 11/14/18 05:30 05:30 05:30 WBC 14.1 H RBC 4.53 Hgb 12.5 Hct 40.0 MCV 88.3 MCH 27.7 MCHC 31.3 L RDW 14.0 Plt Count 325 MPV 11.5 H Absolute Neuts (auto) 9.3 H Neutrophils % 66.1 Lymphocytes % 23.9 D Monocytes % 7.0 Eosinophils % 2.5 D Basophils % 0.5 Nucleated RBC % 0 Sodium 143 Potassium 4.5 Chloride 113 H Carbon Dioxide 23 Anion Gap 8 BUN 13 Creatinine 0.9 Creat Clearance w eGFR > 60 POC Glucometer Random Glucose 111 H Hemoglobin A1c % 7.4 H Calcium 7.9 L Phosphorus 4.6 Magnesium 2.1 Total Bilirubin AST ALT Alkaline Phosphatase Troponin I Total Protein Albumin TSH Urine Color Urine Appearance Urine pH Ur Specific Waterproof Urine Protein Urine Glucose (UA) Urine Ketones Urine Blood Urine Nitrite Urine Bilirubin Urine Urobilinogen Ur Leukocyte Esterase Urine WBC (Auto) Urine RBC (Auto) Ur Epithelial Cells Urine Bacteria Urine Mucus Digoxin 11/14/18 11/14/18 05:45 12:13 WBC RBC Hgb Hct MCV MCH MCHC RDW Plt Count MPV Absolute Neuts (auto) Neutrophils % Lymphocytes % Monocytes % Eosinophils % Basophils % Nucleated RBC % Sodium Potassium Chloride Carbon Dioxide Anion Gap BUN Creatinine Creat Clearance w eGFR POC Glucometer 122 146 Random Glucose Hemoglobin A1c % Calcium Phosphorus Magnesium Total Bilirubin AST ALT Alkaline Phosphatase Troponin I Total Protein Albumin TSH Urine Color Urine Appearance Urine pH Ur Specific Waterproof Urine Protein Urine Glucose (UA) Urine Ketones Urine Blood Urine Nitrite Urine Bilirubin Urine Urobilinogen Ur Leukocyte Esterase Urine WBC (Auto) Urine RBC (Auto) Ur Epithelial Cells Urine Bacteria Urine Mucus Digoxin Active Medications Generic Name Dose Route Start Last Admin Trade Name Freq PRN Reason Stop Dose Admin Acetaminophen 650 mg 11/14/18 08:17 Tylenol - PO Q6H PRN PAIN OR FEVER Apixaban 5 mg 11/13/18 22:00 11/14/18 09:59 Eliquis - PO 5 mg BID ANN Administration Diltiazem HCl 10 mg 11/14/18 11:02 11/14/18 11:16 Cardizem Injection - IVPUSH 10 mg Q4H PRN Administration TACHYCARDIA Diltiazem HCl 125 mg/ Sodium 125 mls @ 5 mls/hr 11/14/18 14:15 Chloride IVPB TITR ANN Protocol 5 MG/HR Insulin Aspart 1 vial 11/14/18 16:30 Novolog Vial Sliding Scale - SQ TIDAC [facility] Protocol Levetiracetam 250 mg 11/13/18 22:00 11/14/18 09:59 Keppra - PO 250 mg BID ANN Administration Metoprolol Tartrate 25 mg 11/14/18 20:00 Lopressor - PO BID [facility] ASSESSMENT/PLAN: Patient is a 73 year old female with past medical history of HTN, Atrial fibrillation, seizure disorder, DM and CHFrEF presented with intermittent left shoulder pain, palpitations and lower abdominal pain for 3 days. #Atrial fibrillation with RVR -may be 2/2 medication noncompliance, infection, valvular problem, ACS, Thyroid disease -Trop <0.02 -EKG: AF with RVR, T wave inversions on lateral leads -Will repeat EKG in the morning -CHADS VASc - 4 -Patient HR has been irregular, ranging from 30 - 110 -On eliquis 5mg PO BID -Echo done. -Tele monitoring. -Metoprolol 12.5 mg PO BID increased to 25mg BID -Cardizem 30mg PO q6h added. -IV Cardizem 10mg q4h PRN for tachycardia. -Cardizem drip cancelled. -Cardiology (Dr. Ward) consulted. Recommendations appreciated. #Lower abdominal pain: resolved -UA normal -will continue to monitor -Leukocytosis - chronic #Left shoulder pain -may be 2/2 frozen shoulder or arthritis -Left shoulder xray: some arthritic changes without fracture or subluxation #Seizure -patient reported last episode was many years ago -Will continue Keppra 250mg BID #CHFrEF: not on acute exacerbation -Echo (11/2017): LV EF mildly reduced, mild global hypokinesis of LV, RV normal size and function, LA moderately dilated, mild MR, mild AR -Not on any home medications -Echo -Cardiology consulted #DM -not on any medications -last HbA1c in 11/2017 is 6.6 -HbA1c- 7.4 -insulin sliding scale implemented -BGM ACHS #HTN: controlled -Hold home medication Irbesartan for now as BP is controlled -On Metroprolol 25mg BID, Cardizem 30mg Q6h #Elevated TSH: 4.56 -likely 2/2 hypothyroidism -TSH chronically elevated since 2010; free T4 0.74 () -Will need to follow-up with primary for further work-up as outpatient #FEN -Not on any standing fluids -Electrolytes wnl, routine bmp monitoring -Sodium controlled, diabetic diet #Prophylaxis -Eliquis 5 mg PO BID #Disposition -full code -tele obs Visit type - Emergency Visit Emergency Visit: Yes ED Registration Date: 11/14/18 Care time: The patient presented to the Emergency Department on the above date and was hospitalized for further evaluation of their emergent condition. - New Patient This patient is new to me today: No - Critical Care Critical Care patient: No
[2018-11-14] MEDS ORDERED: INSULIN SLIDING SCALE (NOVOLOG) 1 VIAL SQ SCH (16:30)
[2018-11-14] MEDS ORDERED: DIGOXIN 0.25 MG TABLET (FP) PO SCH (16:45)
[2018-11-14] MEDS ORDERED: dilTIAZem HCL 30 MG TABLET (FP) PO ONE (16:45)
[2018-11-14] MEDS: INSULIN SLIDING SCALE (NOVOLOG) 1 VIAL SQ SCH (17:12)
[2018-11-14] MEDS ORDERED: dilTIAZem HCL 30 MG TABLET (FP) PO SCH (18:00)
--- NOTE | 2018-11-14 19:21 | EKG ---
Test Reason : Blood Pressure : / mmHG Vent. Rate : 066 BPM Atrial Rate : 085 BPM P-R Int : 000 ms QRS Dur : 082 ms QT Int : 376 ms P-R-T Axes : 000 -07 176 degrees QTc Int : 394 ms ATRIAL FIBRILLATION VOLTAGE CRITERIA FOR LEFT VENTRICULAR HYPERTROPHY INFERIOR INFARCT , AGE UNDETERMINED ABNORMAL ECG WHEN COMPARED WITH ECG OF 13-NOV-2018 12:30, VENT. RATE HAS DECREASED BY 78 BPM INFERIOR INFARCT IS NOW PRESENT Confirmed by ILANA LYNNE MD ([id number]) on 11/14/2018 7:20:51 PM Referred By: Confirmed By:ILANA LYNNE MD
--- NOTE | 2018-11-14 19:22 | EKG ---
Test Reason : Blood Pressure : / mmHG Vent. Rate : 144 BPM Atrial Rate : 131 BPM P-R Int : 000 ms QRS Dur : 082 ms QT Int : 296 ms P-R-T Axes : 000 018 202 degrees QTc Int : 458 ms ATRIAL FIBRILLATION WITH RAPID VENTRICULAR RESPONSE ABNORMAL ECG WHEN COMPARED WITH ECG OF 17-DEC-2017 21:40, ATRIAL FIBRILLATION HAS REPLACED SINUS RHYTHM VENT. RATE HAS INCREASED BY 51 BPM T WAVE INVERSION NOW EVIDENT IN INFERIOR LEADS T WAVE INVERSION NOW EVIDENT IN LATERAL LEADS Confirmed by MAGED YODER, ILANA ([id number]) on 11/14/2018 7:21:31 PM Referred By: Confirmed By:ILANA LYNNE MD
[2018-11-14] MEDS: METOPROLOL TARTRATE 25 MG TABLET (FP) PO SCH ×2 (20:38→22:01)
[2018-11-14] MEDS: dilTIAZem HCL 30 MG TABLET (FP) PO SCH (23:35)
[2018-11-15] MEDS: dilTIAZem HCL 30 MG TABLET (FP) PO SCH ×2 (01:27→06:08)
[2018-11-15] MEDS: INSULIN SLIDING SCALE (NOVOLOG) 1 VIAL SQ SCH ×3 (06:07→16:45)
[2018-11-15] MEDS: APIXABAN 5 MG TABLET PO SCH ×2 (09:44→21:44)
[2018-11-15] MEDS: levETIRAcetam 250 MG TABLET (FP) PO SCH ×2 (09:44→21:44)
[2018-11-15] MEDS: METOPROLOL TARTRATE 25 MG TABLET (FP) PO SCH ×2 (09:44→22:57)
[2018-11-15] MEDS ORDERED: dilTIAZem HCL 60 MG TABLET (FP) PO SCH (10:07)
--- NOTE | 2018-11-15 10:53 | PN ---
Teaching Attending Note Name of Resident: Katty Olsen ATTENDING PHYSICIAN STATEMENT I saw and evaluated the patient. I reviewed the resident's note and discussed the case with the resident. I agree with the resident's findings and plan as documented. SUBJECTIVE: no fever or chills. No abd pain,. has SOB with ambulation , has palpitations OBJECTIVE: NAD, AAOx3, CV: irreg irreg . HR 110-120 Lungs: CTAB Ext: no edema or erythema, TTP over L lateral upper arm ASSESSMENT AND PLAN: 72 y/o lady with h/o A fib, HTN, seizure disorder , and Mitral regurgitation who presented with palpitations and L shoulder pain . she was found ot have A fib with RVR 1- A fib with RVR: HR improved but not controlled. cardizem gtt was never started as her HR responded to IV pushes. - cont metoprolol - increase cardizem form 30 to 60 q 6 hrs and tomorrow hopefully can switch to CD - cont tele - echo still pending read 2- H/o seizure : cont keppra 3- HTN: resume ARb after rate control if BP tolerates 4- leukocytosis . no signs of infection. refused CBC will try again Dispo : OC
--- NOTE | 2018-11-15 12:31 | PN ---
Physical Exam: SUBJECTIVE: Patient seen and examined. She is complaining of occasional palpitations. No overnight events. On monitor she had episodes of PVC, several non sustained VT, per nurse HR going to 130s when ambulating. OBJECTIVE: Vital Signs Period Temp Pulse Resp BP Sys/Batista Pulse Ox Last 24 Hr 97.7 F-98.4 F 64-145 18-20 112-136/63-84 99 GENERAL: The patient is awake, alert, and fully oriented, in no acute distress. HEAD: Normal with no signs of trauma. EYES: Extraocular movements intact, conjunctiva clear. ENT: moist mucous membranes. NECK: Trachea midline, full range of motion, supple. LUNGS: Breath sounds equal, clear to auscultation bilaterally, no wheezes, no crackles, no accessory muscle use. HEART: Irregular rate and rhythm, S1, S2 without murmur, rub or gallop. ABDOMEN: Obese, soft, nontender, nondistended, normoactive bowel sounds, no guarding, no rebound, no hepatosplenomegaly, no masses. EXTREMITIES: 2+ pulses, no edema, mild tenderness to palpation over anterior shoulder, normal ROM in r shoulder, no skin rash. PSYCH: Normal mood, normal affect. SKIN: Warm, dry, normal turgor, no rashes or lesions noted Laboratory Results - last 24 hr 11/14/18 11/14/18 11/15/18 12:13 16:37 05:53 POC Glucometer 146 133 114 Active Medications Generic Name Dose Route Start Last Admin Trade Name Freq PRN Reason Stop Dose Admin Acetaminophen 650 mg 11/14/18 08:17 11/14/18 22:13 Tylenol - PO 650 mg Q6H PRN Administration PAIN OR FEVER Apixaban 5 mg 11/13/18 22:00 11/15/18 09:44 Eliquis - PO 5 mg BID ANN Administration Diltiazem HCl 10 mg 11/14/18 11:02 11/14/18 11:16 Cardizem Injection - IVPUSH 10 mg Q4H PRN Administration TACHYCARDIA Diltiazem HCl 60 mg 11/15/18 10:07 Cardizem - PO Q6HPO [facility] Insulin Aspart 1 vial 11/14/18 16:30 11/15/18 06:07 Novolog Vial Sliding Scale - SQ Not Given TIDAC [facility] Protocol Levetiracetam 250 mg 11/13/18 22:00 11/15/18 09:44 Keppra - PO 250 mg BID ANN Administration Metoprolol Tartrate 25 mg 11/14/18 20:00 11/15/18 09:44 Lopressor - PO 25 mg BID ANN Administration ASSESSMENT/PLAN: Patient is a 73 year old female with past medical history of HTN, Atrial fibrillation, seizure disorder, DMII, and CHFrEF presented with intermittent left shoulder pain, palpitations and lower abdominal pain for 3 days. Atrial fibrillation with RVR - likely due to medication noncompliance, infection, valvular problem, ACS, thyroid disease -Patient HR still not controlled, ranging from 30 - 110 -Cardizem 30mg PO q6h increased to 60 mg today -cont Cardizem 19 mg q4h PRN -continue Metoprolol 25 mg BID -Echo pending, troponin neg -cont cardiac monitoring -Cardiology (Dr. Ward) consulted, will f/u recommendations appreciated. lower abdominal pain: -resolved -leukocytosis - chronic, refused CBC today Left shoulder pain -likely due to arthritis -Left shoulder xray reviewed, no acute pathology -continue Tylenol H/o of Seizures -Will continue Keppra 250mg BID -no seizure during hospitalization CHFrEF: -no acute exacerbation -Echo (11/2017): LV EF mildly reduced, mild global hypokinesis of LV, RV normal size and function, LA moderately dilated, mild MR, mild AR -Echo pending DM II -HbA1c- 7.4 -insulin sliding scale ACHS -BGM ACHS -will start on medications upo discharge and diabetic education HTN: controlled - BP is controlled -On Metroprolol 25mg BID, Cardizem 30mg Q6h -hold Irbesartan Elevated TSH -likely hypothyroidism -TSH chronically elevated -follow-up as outpatient FEN; no/no changes/Sodium controlled, diabetic diet DVT Prophylaxis Eliquis Disposition inpatient telemetry monitoring Problem List - Problems (1) Atrial fibrillation with RVR Code(s): I48.91 - UNSPECIFIED ATRIAL FIBRILLATION (2) Acute exacerbation of CHF (congestive heart failure) Code(s): I50.9 - HEART FAILURE, UNSPECIFIED (3) DVT prophylaxis Code(s): DIH0570 - Visit type - Emergency Visit Emergency Visit: Yes ED Registration Date: 11/14/18 Care time: The patient presented to the Emergency Department on the above date and was hospitalized for further evaluation of their emergent condition. - New Patient This patient is new to me today: No - Critical Care Critical Care patient: No - Discharge Referral Referred to [facility] No
--- NOTE | 2018-11-15 14:53 | PN ---
Progress Note, Physician Chief Complaint: Not in distress at this time History of Present Illness: Patient was seen and examined. Awake and alert. Chart was reviewed Denies chest pain, SOB or palpitations Initially was in AF with RVR currently sinus rhythm and slow ventricular response this morning at 30-40's - Current Medication List Current Medications: Active Medications Acetaminophen (Tylenol -) 650 mg PO Q6H PRN PRN Reason: PAIN OR FEVER Last Admin: 11/14/18 22:13 Dose: 650 mg Apixaban (Eliquis -) 5 mg PO BID [facility] Last Admin: 11/15/18 09:44 Dose: 5 mg Diltiazem HCl (Cardizem Injection -) 10 mg IVPUSH Q4H PRN PRN Reason: TACHYCARDIA Last Admin: 11/14/18 11:16 Dose: 10 mg Diltiazem HCl (Cardizem -) 60 mg PO Q6HPO [facility] Last Admin: 11/15/18 12:17 Dose: 60 mg Insulin Aspart (Novolog Vial Sliding Scale -) 1 vial SQ TIDAC [facility]; Protocol Last Admin: 11/15/18 12:17 Dose: Not Given Levetiracetam (Keppra -) 250 mg PO BID [facility] Last Admin: 11/15/18 09:44 Dose: 250 mg Metoprolol Tartrate (Lopressor -) 25 mg PO BID [facility] Last Admin: 11/15/18 09:44 Dose: 25 mg - Objective Vital Signs: Vital Signs Temperature 98 F 11/15/18 09:49 Pulse Rate 108 H 11/15/18 12:16 Respiratory Rate 20 11/15/18 12:16 Blood Pressure 118/70 11/15/18 12:16 O2 Sat by Pulse Oximetry (%) 99 11/14/18 21:00 Constitutional: Yes: Well Nourished Eyes: Yes: PERRL HENT: Yes: Atraumatic Neck: Yes: Supple Cardiovascular: Yes: Regular Rate and Rhythm, S1, S2 Respiratory: Yes: CTA Bilaterally Gastrointestinal: Yes: Normal Bowel Sounds, Soft. No: Tenderness Edema: No Additional Findings/Remarks: - Review of Systems Constitutional: denies: Chills, Fever Cardiovascular: reports: Palpitations. denies: Chest Pain, Shortness of Breath Respiratory: denies: Cough, Hemoptysis, Orthopnea, PND, SOB, SOB on Exertion Gastrointestinal: denies: Abdominal Pain, Melena, Nausea, Rectal Bleeding, Vomiting Genitourinary: denies: Dysuria, Hematuria Musculoskeletal: denies: Back Pain, Joint Pain Neurological: denies: Dizziness. denies: Change in Speech, Headache, Numbness, Parasthesia, Seizure, Syncope Labs: CBC, BMP 11/14/18 05:30 11/14/18 05:30 Problem List - Problems (1) Atrial fibrillation with RVR Code(s): I48.91 - UNSPECIFIED ATRIAL FIBRILLATION (2) Hypertensive cardiomyopathy Code(s): I11.9 - HYPERTENSIVE HEART DISEASE WITHOUT HEART FAILURE; I43 - CARDIOMYOPATHY IN DISEASES CLASSIFIED ELSEWHERE Qualifiers: Heart failure presence: without heart failure Qualified Code(s): I11.9 - Hypertensive heart disease without heart failure; I43 - Cardiomyopathy in diseases classified elsewhere (3) Seizure disorder Code(s): G40.909 - EPILEPSY, UNSP, NOT INTRACTABLE, WITHOUT STATUS EPILEPTICUS (4) Acute exacerbation of CHF (congestive heart failure) Code(s): I50.9 - HEART FAILURE, UNSPECIFIED (5) Hypertension Code(s): I10 - ESSENTIAL (PRIMARY) HYPERTENSION Qualifiers: Hypertension type: essential hypertension Qualified Code(s): I10 - Essential (primary) hypertension Assessment/Plan 1. Paroxysmal AF with RVR 2. 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 3. HTN 4. Seizure disorder PLAN: 1. Continue Lopressor at current dose. Reduce Cardizem dose as she is bradycardic currently 2. Continue irbesartan 300 qd or equivalent as hemodynamics tolerate 3. Continue Eliquis 5 bid given elevated risk score 4. Continue court recording monitor. Repeat EKG Further plans are to follow Piter Sanchez MD
[2018-11-15] MEDS: dilTIAZem HCL 60 MG TABLET (FP) PO SCH (21:44)
[2018-11-16] MEDS: INSULIN SLIDING SCALE (NOVOLOG) 1 VIAL SQ SCH ×3 (06:34→18:08)
[2018-11-16] MEDS: dilTIAZem HCL 60 MG TABLET (FP) PO SCH ×3 (06:37→18:14)
[2018-11-16 07:17] LABS: BASO % 0.6 % (0-2.0); EOS % 2.6 % (0-4.5); HEMATOCRIT 37.8 % (32.4-45.2); HEMOGLOBIN 12.1 GM/dL (10.7-15.3); LYMPH % 19.8 % (8-40); MCH 27.9 pg (25.7-33.7); MEAN CELL VOLUME 87.3 fl (80-96); MEAN PLT VOLUME 11.3 fl (7.5-11.1); MONO % 7.2 % (3.8-10.2); NEUT % 69.8 % (42.8-82.8); PLATELET COUNT 288 K/MM3 (134-434); RBC 4.34 M/mm3 (3.60-5.2); RDW 13.8 % (11.6-15.6); WHITE BLOOD COUNT 15.6 K/mm3 (4.0-10.0)
--- NOTE | 2018-11-16 09:22 | PN ---
Progress Note, Physician Chief Complaint: Not in distress at this time But monitor reveals tachy-vanda with pause of 3.3 sec and periods of tachycardia at 150's History of Present Illness: Patient was seen and examined. Awake and alert. Chart was reviewed Denies chest pain, SOB or palpitations - Current Medication List Current Medications: Active Medications Acetaminophen (Tylenol -) 650 mg PO Q6H PRN PRN Reason: PAIN OR FEVER Last Admin: 11/14/18 22:13 Dose: 650 mg Apixaban (Eliquis -) 5 mg PO BID [facility] Last Admin: 11/15/18 21:44 Dose: 5 mg Diltiazem HCl (Cardizem Injection -) 10 mg IVPUSH Q4H PRN PRN Reason: TACHYCARDIA Last Admin: 11/14/18 11:16 Dose: 10 mg Diltiazem HCl (Cardizem -) 60 mg PO TID [facility] Last Admin: 11/16/18 06:37 Dose: 60 mg Insulin Aspart (Novolog Vial Sliding Scale -) 1 vial SQ TIDAC [facility]; Protocol Last Admin: 11/16/18 06:34 Dose: Not Given Levetiracetam (Keppra -) 250 mg PO BID [facility] Last Admin: 11/15/18 21:44 Dose: 250 mg Metoprolol Tartrate (Lopressor -) 25 mg PO BID [facility] Last Admin: 11/15/18 22:57 Dose: 25 mg - Objective Vital Signs: Vital Signs Temperature 98.1 F 11/16/18 05:57 Pulse Rate 120 H 11/16/18 05:57 Respiratory Rate 20 11/16/18 05:57 Blood Pressure 113/70 11/16/18 05:57 O2 Sat by Pulse Oximetry (%) 99 11/14/18 21:00 Eyes: Yes: PERRL HENT: Yes: Atraumatic Neck: Yes: Supple Cardiovascular: Yes: Tachycardia, Pulse Irregular, S1, S2 Respiratory: Yes: CTA Bilaterally Gastrointestinal: Yes: Normal Bowel Sounds, Soft. No: Tenderness Edema: No Additional Findings/Remarks: - Review of Systems Constitutional: denies: Chills, Fever Cardiovascular: reports: Palpitations. denies: Chest Pain, Shortness of Breath Respiratory: denies: Cough, Hemoptysis, Orthopnea, PND, SOB, SOB on Exertion Gastrointestinal: denies: Abdominal Pain, Melena, Nausea, Rectal Bleeding, Vomiting Genitourinary: denies: Dysuria, Hematuria Musculoskeletal: denies: Back Pain, Joint Pain Neurological: denies: Dizziness. denies: Change in Speech, Headache, Numbness, Parasthesia, Seizure, Syncope Labs: CBC, BMP 11/16/18 06:15 11/14/18 05:30 Problem List - Problems (1) Atrial fibrillation with RVR Code(s): I48.91 - UNSPECIFIED ATRIAL FIBRILLATION (2) Hypertensive cardiomyopathy Code(s): I11.9 - HYPERTENSIVE HEART DISEASE WITHOUT HEART FAILURE; I43 - CARDIOMYOPATHY IN DISEASES CLASSIFIED ELSEWHERE Qualifiers: Heart failure presence: without heart failure Qualified Code(s): I11.9 - Hypertensive heart disease without heart failure; I43 - Cardiomyopathy in diseases classified elsewhere (3) Seizure disorder Code(s): G40.909 - EPILEPSY, UNSP, NOT INTRACTABLE, WITHOUT STATUS EPILEPTICUS (4) Acute exacerbation of CHF (congestive heart failure) Code(s): I50.9 - HEART FAILURE, UNSPECIFIED (5) Hypertension Code(s): I10 - ESSENTIAL (PRIMARY) HYPERTENSION Qualifiers: Hypertension type: essential hypertension Qualified Code(s): I10 - Essential (primary) hypertension Assessment/Plan 1. 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 3. HTN 4. Seizure disorder PLAN: 1. Continue Lopressor at current dose and continue Cardizem and continue quality assurance monitor chassis. Patient may require PPM in view of above finding 2. Continue irbesartan 300 qd or equivalent as hemodynamics tolerate 3. Continue Eliquis 5 bid given elevated risk score Further plans are to follow Piter Sanchez MD
[2018-11-16] MEDS: levETIRAcetam 250 MG TABLET (FP) PO SCH ×2 (10:28→23:11)
[2018-11-16] MEDS: APIXABAN 5 MG TABLET PO SCH ×2 (10:28→23:11)
[2018-11-16] MEDS: METOPROLOL TARTRATE 25 MG TABLET (FP) PO SCH ×2 (10:28→23:11)
--- NOTE | 2018-11-16 11:27 | EKG ---
Test Reason : Blood Pressure : / mmHG Vent. Rate : 059 BPM Atrial Rate : 227 BPM P-R Int : 000 ms QRS Dur : 088 ms QT Int : 396 ms P-R-T Axes : 000 005 200 degrees QTc Int : 392 ms ATRIAL FIBRILLATION WITH SLOW VENTRICULAR RESPONSE ABNORMAL ECG WHEN COMPARED WITH ECG OF 13-NOV-2018 15:50, QT HAS SHORTENED Confirmed by ZONIA YATES MD ([id number]) on 11/16/2018 11:27:06 AM Referred By: Rubio SANTACRUZ Confirmed By:ZONIA YAETS MD
--- NOTE | 2018-11-16 17:19 | PN ---
Progress Note (short form) - Note Progress Note: Subjective: no fever or chills. No cp , no palpitations. feels SOB with ambulation Objective: Vital Signs: Last Vital Signs Temp Pulse Resp BP Pulse Ox 98.1 F 140 H 20 112/68 99 11/16/18 09:00 11/16/18 09:00 11/16/18 09:00 11/16/18 09:00 11/14/18 21:00 Laboratory Results - last 24 hr 11/16/18 11/16/18 05:54 06:15 WBC 15.6 H RBC 4.34 Hgb 12.1 Hct 37.8 MCV 87.3 MCH 27.9 MCHC 32.0 RDW 13.8 Plt Count 288 MPV 11.3 H Absolute Neuts (auto) 10.9 H Neutrophils % 69.8 Lymphocytes % 19.8 Monocytes % 7.2 Eosinophils % 2.6 Basophils % 0.6 Nucleated RBC % 0 POC Glucometer 118 Physical Exam: NAD CV: irreg irreg. Lungs: CTAB Ext: no edema or erythema, ASSESSMENT AND PLAN: 72 y/o lady with h/o A fib, HTN, seizure disorder , and Mitral regurgitation who presented with palpitations and L shoulder pain . she was found ot have A fib with RVR 1- A fib with RVR: periods of bradycardia on tele with pauses - cont metoprolol and cardizem at current doses. - no signs of heart failure still - echo still pending read - might need PPM. pt is agreeable. await more Recs form Card 2- H/o seizure : cont keppra 3- HTN: resume ARb after rate control if BP tolerates 4- Leukocytosis . no signs of infection. dispo : HLOC. Visit type - Emergency Visit Emergency Visit: Yes ED Registration Date: 11/14/18 Care time: The patient presented to the Emergency Department on the above date and was hospitalized for further evaluation of their emergent condition. - New Patient This patient is new to me today: No - Critical Care Critical Care patient: No
[2018-11-17] MEDS: dilTIAZem HCL 60 MG TABLET (FP) PO SCH ×3 (00:31→11:49)
[2018-11-17] MEDS: INSULIN SLIDING SCALE (NOVOLOG) 1 VIAL SQ SCH ×3 (06:17→18:05)
[2018-11-17 06:53] LABS: BASO % 0.8 % (0-2.0); EOS % 2.7 % (0-4.5); HEMATOCRIT 38.5 % (32.4-45.2); HEMOGLOBIN 12.3 GM/dL (10.7-15.3); LYMPH % 20.9 % (8-40); MCH 27.9 pg (25.7-33.7); MEAN PLT VOLUME 11.5 fl (7.5-11.1); NEUT % 67.6 % (42.8-82.8); PLATELET COUNT 299 K/MM3 (134-434); RBC 4.42 M/mm3 (3.60-5.2); RDW 13.6 % (11.6-15.6); WHITE BLOOD COUNT 13.7 K/mm3 (4.0-10.0)
--- NOTE | 2018-11-17 08:47 | PN ---
Teaching Attending Note Name of Resident: Dilcia Springer ATTENDING PHYSICIAN STATEMENT I saw and evaluated the patient. I reviewed the resident's note and discussed the case with the resident. I agree with the resident's findings and plan as documented. SUBJECTIVE: no fever or chills. No PC , no SOB . no Abd pain . OBJECTIVE: NAD CV: irreg irreg. Lungs: CTAB Ext: no edema or erythema ASSESSMENT AND PLAN: 72 y/o lady with h/o A fib, HTN, seizure disorder , and Mitral regurgitation who presented with palpitations and L shoulder pain . she was found ot have A fib with RVR 1- A fib with RVR: tele lwith periods of vanda and pauses of 3.1 seconds last night - cont metoprolol and cardizem at current doses. - no signs of heart failure still - echo still pending read - might need PPM. await more Recs form Card 2- H/o seizure : cont keppra 3- HTN: resume ARb after rate control if BP tolerates 4- Leukocytosis . no signs of infection. Dispo : HLOC.
[2018-11-17] MEDS: METOPROLOL TARTRATE 25 MG TABLET (FP) PO SCH (09:52)
[2018-11-17] MEDS: levETIRAcetam 250 MG TABLET (FP) PO SCH ×2 (09:54→22:18)
[2018-11-17] MEDS: APIXABAN 5 MG TABLET PO SCH ×2 (10:06→22:18)
[2018-11-17] MEDS ORDERED: LIDOCAINE VISCOUS 2% ORAL/TOP 20 ML UNIT-DOSE CUP ONE (10:43)
--- NOTE | 2018-11-17 11:07 | PN ---
Progress Note, Physician Chief Complaint: Not in distress at this time AF with variable HR with intermittent pauses History of Present Illness: Patient was seen and examined. Awake and alert. Chart was reviewed Denies chest pain, SOB or palpitations - Current Medication List Current Medications: Active Medications Acetaminophen (Tylenol -) 650 mg PO Q6H PRN PRN Reason: PAIN OR FEVER Last Admin: 11/14/18 22:13 Dose: 650 mg Apixaban (Eliquis -) 5 mg PO BID [facility] Last Admin: 11/17/18 10:06 Dose: 5 mg Diltiazem HCl (Cardizem Injection -) 10 mg IVPUSH Q4H PRN PRN Reason: TACHYCARDIA Last Admin: 11/14/18 11:16 Dose: 10 mg Diltiazem HCl (Cardizem -) 60 mg PO Q6HPO [facility] Last Admin: 11/17/18 06:17 Dose: 60 mg Insulin Aspart (Novolog Vial Sliding Scale -) 1 vial SQ TIDAC [facility]; Protocol Last Admin: 11/17/18 06:17 Dose: Not Given Levetiracetam (Keppra -) 250 mg PO BID [facility] Last Admin: 11/17/18 09:54 Dose: 250 mg Metoprolol Tartrate (Lopressor -) 25 mg PO BID [facility] Last Admin: 11/17/18 09:52 Dose: 25 mg - Objective Vital Signs: Vital Signs Temperature 97.8 F 11/17/18 06:00 Pulse Rate 135 H 11/17/18 06:00 Respiratory Rate 20 11/17/18 06:00 Blood Pressure 142/93 11/17/18 06:00 O2 Sat by Pulse Oximetry (%) 99 11/14/18 21:00 Eyes: Yes: PERRL HENT: Yes: Atraumatic Neck: Yes: Supple Cardiovascular: Yes: Tachycardia, Pulse Irregular, S1, S2 Respiratory: Yes: CTA Bilaterally Gastrointestinal: Yes: Normal Bowel Sounds, Soft. No: Tenderness Edema: No Additional Findings/Remarks: - Review of Systems Constitutional: denies: Chills, Fever Cardiovascular: denies: Palpitations. denies: Chest Pain, Shortness of Breath Respiratory: denies: Cough, Hemoptysis, Orthopnea, PND, SOB, SOB on Exertion Gastrointestinal: denies: Abdominal Pain, Melena, Nausea, denies: Rectal Bleeding, Vomiting Genitourinary: denies: Dysuria, Hematuria Musculoskeletal: denies: Back Pain, Joint Pain Neurological: denies: Dizziness. denies: Change in Speech, Headache, Numbness, Parasthesia, Seizure, Syncope Labs: CBC, BMP 11/17/18 05:30 11/14/18 05:30 Problem List - Problems (1) Atrial fibrillation with RVR Code(s): I48.91 - UNSPECIFIED ATRIAL FIBRILLATION (2) Hypertensive cardiomyopathy Code(s): I11.9 - HYPERTENSIVE HEART DISEASE WITHOUT HEART FAILURE; I43 - CARDIOMYOPATHY IN DISEASES CLASSIFIED ELSEWHERE Qualifiers: Heart failure presence: without heart failure Qualified Code(s): I11.9 - Hypertensive heart disease without heart failure; I43 - Cardiomyopathy in diseases classified elsewhere (3) Seizure disorder Code(s): G40.909 - EPILEPSY, UNSP, NOT INTRACTABLE, WITHOUT STATUS EPILEPTICUS (4) Acute exacerbation of CHF (congestive heart failure) Code(s): I50.9 - HEART FAILURE, UNSPECIFIED (5) Hypertension Code(s): I10 - ESSENTIAL (PRIMARY) HYPERTENSION Qualifiers: Hypertension type: essential hypertension Qualified Code(s): I10 - Essential (primary) hypertension Assessment/Plan 1. 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 3. HTN 4. Seizure disorder PLAN: 1. 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 Attempt synchronized cardioversion with NINFA prior to rule out thrombus. Will plan this am. If she continues to exhibit tachy-vanda episodes, then she may need PPM implantation 2. Continue irbesartan 300 qd or equivalent as hemodynamics tolerate 3. Continue Eliquis 5 bid given elevated risk score Further plans are to follow Piter Sanchez MD
[2018-11-17] MEDS ORDERED: PATIENT'S OWN MEDICATION (NON-FORMULARY) (Irbesartan [Irbesartan] 150 MG) PO SCH (12:00)
[2018-11-17] MEDS ORDERED: LOSARTAN POTASSIUM 50 MG TABLET (FP) PO SCH (12:00)
--- NOTE | 2018-11-17 12:16 | EKG ---
Test Reason : Blood Pressure : / mmHG Vent. Rate : 051 BPM Atrial Rate : 051 BPM P-R Int : 176 ms QRS Dur : 086 ms QT Int : 392 ms P-R-T Axes : 041 022 051 degrees QTc Int : 361 ms SINUS BRADYCARDIA WITH SINUS ARRHYTHMIA NONSPECIFIC T WAVE ABNORMALITY ABNORMAL ECG WHEN COMPARED WITH ECG OF 15-NOV-2018 15:02, SINUS RHYTHM HAS REPLACED ATRIAL FIBRILLATION T WAVE VARIATION Confirmed by ROXANNA COELHO MD ([id number]) on 11/17/2018 12:15:41 PM Referred By: Confirmed By:ROXANNA COELHO MD
[2018-11-17] MEDS ORDERED: SOTALOL HCL 80 MG TABLET (FP) PO SCH (12:45)
--- NOTE | 2018-11-17 16:09 | ECHO ---
Name: PAUL, LIBBY Exam:Transesophageal Echocardiogram Study Date: 11/17/2018 11:19 AM Age: 73 yrs Reason For Study: A-Fib Height: 60 in Weight: 185 lb BSA: 1.8 m2 Procedure: A 2D transesophageal echocardiogram with Doppler and color flow Doppler was performed. Informed conse nt for Transesophageal Echocardiogram, and use of a contrast agent as needed, was obtained prior to the proc edure. The patient was brought to the endoscopy suite in a fasting state. An intravenous line was placed. A topical anesthetic agent was used for oropharangeal anesthesia. A bite block was inserted. IV concious sedati on was administered using propafol. A multifrequency, multiplane transesopheageal echocardiographic endoscop e was inserted and manipulated in the standard fashion to achieve multiplane views. The usual views were ob tained; basal, mid-esophageal, transgastric and aortic views. The patient's vital signs, including blood pres sure, heart rate, pulse oximetry and cardiac rhythm were monitored throughout the procedure and remained st able. The patient tolerated the procedure well without evidence of orophangeal or esophageal trauma. There were no complications. The patient was in atrial fibrillation with rapid ventricular response during the exam with a heart rate exceeding 100 bpm. Left Ventricle The left ventricle is normal in size. Left ventricular systolic function is moderate to severely redu cori. Ejection Fraction = 30-35%. There is moderate to severe global hypokinesis of the left ventricle. Atria No thrombus is detected in the left atrial appendage. No left atrial mass or thrombus visualized. The interatrial septum is intact with no evidence for an atrial septal defect. Injection of contrast docu mented no interatrial shunt. Mitral Valve The mitral valve is grossly normal. There is moderate mitral regurgitation. Tricuspid Valve The tricuspid valve is not well visualized, but is grossly normal. There is mild tricuspid regurgitat ion. Aortic Valve The aortic valve is trileaflet. The aortic valve is normal in structure and function. Mild aortic regurgitation. Pulmonic Valve The pulmonic valve is not well visualized. Trace to mild pulmonic valvular regurgitation. Great Vessels No evidence of atherosclerotic plaques in thoracic aorta and aortic arch. Pericardium/Pluera There is no pericardial effusion. Interpretation Summary The left ventricle is normal in size. Left ventricular systolic function is moderate to severely reduced. There is moderate to severe global hypokinesis of the left ventricle. Ejection Fraction = 30-35%. No thrombus is detected in the left atrial appendage. No left atrial mass or thrombus visualized. The interatrial septum is intact with no evidence for an atrial septal defect. Injection of contrast documented no interatrial shunt. There is moderate mitral regurgitation. There is mild tricuspid regurgitation. Mild aortic regurgitation. Trace to mild pulmonic valvular regurgitation. No evidence of atherosclerotic plaques in thoracic aorta and aortic arch There is no pericardial effusion. Proceed with synchronized cardioversion Piter Sanchez MD 11/17/2018 04:09 PM
--- NOTE | 2018-11-17 17:18 | PN ---
Physical Exam: SUBJECTIVE: Patient seen and examined at bedside this morning. Overnight, patient had PVCs and non-sustained tachy on tele, as well as bradycardia, but remained asymptomatic. She no new complaints today. OBJECTIVE: Vital Signs Period Temp Pulse Resp BP Sys/Batista Pulse Ox Last 24 Hr 97.4 F-98.3 F 48-155 18-20 105-142/54-93 98-100 GENERAL: Awake, alert, and fully oriented, in no acute distress. HEAD: Normal with no signs of trauma. EYES: PERRLA, EOMI, sclera anicteric, conjunctiva clear. EARS, NOSE, THROAT: Ears normal, nares patent, oropharynx clear without exudates. Moist mucous membranes. NECK: Soft, supple, trachea midline without LAD LUNGS: Breath sounds equal, clear to auscultation bilaterally. HEART: Irregularly irregular, normal S1 and S2 without murmur, rub or gallop. ABDOMEN: Soft, obese, nontender, not distended, normoactive bowel sounds. MUSCULOSKELETAL: Normal range of motion at all joints. No bony deformities or tenderness. No CVA tenderness. UPPER EXTREMITIES: 2+ pulses, warm, well-perfused. No cyanosis. +left shoulder tenderness to palpation LOWER EXTREMITIES: 2+ pulses, warm, well-perfused. No calf tenderness. +1 pitting edema, b/l LE NEUROLOGICAL: AAOx3, Cranial nerves II-XII intact. Motor strength 5/5 on all extremities, Sensation intact. Normal speech. Normal gait. PSYCHIATRIC: Cooperative. Good eye contact. Appropriate mood and affect. SKIN: Warm, dry, normal turgor, no rashes or lesions noted, normal capillary refill. Laboratory Results - last 24 hr 11/16/18 11/17/18 11/17/18 18:07 05:30 06:15 WBC 13.7 H RBC 4.42 Hgb 12.3 Hct 38.5 MCV 87.0 MCH 27.9 MCHC 32.0 RDW 13.6 Plt Count 299 MPV 11.5 H Absolute Neuts (auto) 9.3 H Neutrophils % 67.6 Lymphocytes % 20.9 Monocytes % 8.0 Eosinophils % 2.7 Basophils % 0.8 Nucleated RBC % 0 POC Glucometer 158 117 11/17/18 11/17/18 12:44 16:45 WBC RBC Hgb Hct MCV MCH MCHC RDW Plt Count MPV Absolute Neuts (auto) Neutrophils % Lymphocytes % Monocytes % Eosinophils % Basophils % Nucleated RBC % POC Glucometer 105 181 Active Medications Generic Name Dose Route Start Last Admin Trade Name Freq PRN Reason Stop Dose Admin Acetaminophen 650 mg 11/14/18 08:17 11/14/18 22:13 Tylenol - PO 650 mg Q6H PRN Administration PAIN OR FEVER Amiodarone HCl 200 mg 11/17/18 22:00 Cordarone - PO BID [facility] Apixaban 5 mg 11/13/18 22:00 11/17/18 10:06 Eliquis - PO 5 mg BID [facility] Administration Diltiazem HCl 10 mg 11/14/18 11:02 11/14/18 11:16 Cardizem Injection - IVPUSH 10 mg Q4H PRN Administration TACHYCARDIA Insulin Aspart 1 vial 11/14/18 16:30 11/17/18 11:49 Novolog Vial Sliding Scale - SQ Not Given TIDAC [facility] Protocol Levetiracetam 250 mg 11/13/18 22:00 11/17/18 09:54 Keppra - PO 250 mg BID [facility] Administration Losartan Potassium 50 mg 11/18/18 10:00 Cozaar - PO DAILY [facility] Metoprolol Tartrate 50 mg 11/17/18 22:00 Lopressor - PO BID [facility] ASSESSMENT/PLAN: Patient is a 73 year old female with past medical history of HTN, Atrial fibrillation, seizure disorder, DM and CHFrEF presented with intermittent left shoulder pain, palpitations and lower abdominal pain for 3 days. #Atrial fibrillation with RVR -Trop <0.02 -EKG: AF with RVR, T wave inversions on lateral leads -CHADS VASc - 4 -On eliquis 5mg PO BID -Tele monitoring: nonsustained VT, PVCs, bradycardia -Cardiology (Dr. Sanchez) consulted. Recommendations appreciated. -NINFA to rule out thrombus -NINFA: LV normal in size, LV systolic function mod-severely reduced. Moderate to severe global hypokinesis of LV. EF 30-35%. No thrombus in left atrial appendage. Moderate MR, mild TR, mild AR, trace to mild IA. No pericardial effusion. -Attempt for synchronized cardioversion. Patient converted to sinus rhythm. -If patient continues to have tachy-vanda syndrome, for possible pacemaker placement. -Continue Metoprolol 25mg BID -Cardizem 30mg PO q6h discontinued -Start Amiodarone 200mg BID -IV Cardizem 10mg q4h PRN for tachycardia. #Lower abdominal pain: resolved -UA normal -will continue to monitor -Leukocytosis - chronic #Left shoulder pain -may be 2/2 frozen shoulder or arthritis -Left shoulder xray: some arthritic changes without fracture or subluxation #Seizure -patient reported last episode was many years ago -Will continue Keppra 250mg BID #CHFrEF -Echo (11/2017): LV EF mildly reduced, mild global hypokinesis of LV, RV normal size and function, LA moderately dilated, mild MR, mild AR -NINFA: EF 30-35% -Not on any home medications -Cardiology consulted #DM -not on any medications -last HbA1c in 11/2017 is 6.6 -HbA1c- 7.4 -insulin sliding scale implemented -BGM ACHS #HTN: controlled -Continue home Irbesartan 150mg daily. -On Metroprolol 25mg BID #Elevated TSH: 4.56 -likely 2/2 hypothyroidism -TSH chronically elevated since 2010; free T4 0.74 () -Will need to follow-up with primary for further work-up as outpatient #FEN -Not on any standing fluids -Electrolytes wnl, routine bmp monitoring -Sodium controlled, diabetic diet #Prophylaxis -Eliquis 5 mg PO BID #Disposition -full code -tele Visit type - Emergency Visit Emergency Visit: Yes ED Registration Date: 11/14/18 Care time: The patient presented to the Emergency Department on the above date and was hospitalized for further evaluation of their emergent condition. - New Patient This patient is new to me today: No - Critical Care Critical Care patient: No
[2018-11-17] MEDS ORDERED: dilTIAZem HCL 30 MG TABLET (FP) PO SCH (18:00)
[2018-11-17] MEDS ORDERED: METOPROLOL TARTRATE 25 MG TABLET (FP) PO SCH (22:00)
[2018-11-17] MEDS: AMIODARONE HCL 200 MG TABLET (FP) PO SCH (22:17)
[2018-11-17] MEDS: METOPROLOL TARTRATE 50 MG TABLET (FP) PO SCH (22:18)
[2018-11-18] MEDS: INSULIN SLIDING SCALE (NOVOLOG) 1 VIAL SQ SCH ×3 (06:56→17:10)
[2018-11-18 07:43] LABS: HEMATOCRIT 34.3 % (32.4-45.2); MCH 27.9 pg (25.7-33.7); MEAN CELL VOLUME 87.2 fl (80-96); MEAN PLT VOLUME 11.5 fl (7.5-11.1); PLATELET COUNT 277 K/MM3 (134-434); RBC 3.93 M/mm3 (3.60-5.2); RDW 13.8 % (11.6-15.6); WHITE BLOOD COUNT 12.6 K/mm3 (4.0-10.0)
[2018-11-18 08:22] LABS: ANION GAP 7 MMOL/L (8-16); BLOOD UREA NITROGEN 14 mg/dL (7-18); CALCIUM 8.1 mg/dL (8.5-10.1); CHLORIDE 110 mmol/L (98-107); CO2 24 mmol/L (21-32); CREATININE 0.9 mg/dL (0.55-1.3); GLUCOSE,RANDOM 96 mg/dL (74-106); MAGNESIUM 2.1 mg/dL (1.8-2.4); PHOSPHOROUS 4.5 mg/dL (2.5-4.9); POTASSIUM 4.4 mmol/L (3.5-5.1); SODIUM 141 mmol/L (136-145)
[2018-11-18] MEDS ORDERED: LOSARTAN POTASSIUM 50 MG TABLET (FP) PO SCH (10:00)
[2018-11-18] MEDS: levETIRAcetam 250 MG TABLET (FP) PO SCH (10:48)
[2018-11-18] MEDS: AMIODARONE HCL 200 MG TABLET (FP) PO SCH (10:48)
[2018-11-18] MEDS: APIXABAN 5 MG TABLET PO SCH (10:48)
[2018-11-18] MEDS: METOPROLOL TARTRATE 50 MG TABLET (FP) PO SCH (10:48)
--- NOTE | 2018-11-18 12:20 | PN ---
Progress Note, Physician Chief Complaint: Not in distress at this time Remains in sinus rhythm Tolerating therapy History of Present Illness: Patient was seen and examined. Awake and alert. Chart was reviewed Denies chest pain, SOB or palpitations - Current Medication List Current Medications: Active Medications Acetaminophen (Tylenol -) 650 mg PO Q6H PRN PRN Reason: PAIN OR FEVER Last Admin: 11/14/18 22:13 Dose: 650 mg Amiodarone HCl (Cordarone -) 200 mg PO BID [facility] Last Admin: 11/18/18 10:48 Dose: 200 mg Apixaban (Eliquis -) 5 mg PO BID [facility] Last Admin: 11/18/18 10:48 Dose: 5 mg Diltiazem HCl (Cardizem Injection -) 10 mg IVPUSH Q4H PRN PRN Reason: TACHYCARDIA Last Admin: 11/14/18 11:16 Dose: 10 mg Insulin Aspart (Novolog Vial Sliding Scale -) 1 vial SQ TIDAC [facility]; Protocol Last Admin: 11/18/18 11:27 Dose: Not Given Levetiracetam (Keppra -) 250 mg PO BID [facility] Last Admin: 11/18/18 10:48 Dose: 250 mg Losartan Potassium (Cozaar -) 50 mg PO DAILY [facility] Last Admin: 11/18/18 10:48 Dose: 50 mg Metoprolol Tartrate (Lopressor -) 50 mg PO BID [facility] Last Admin: 11/18/18 10:48 Dose: 50 mg - Objective Vital Signs: Vital Signs Temperature 98.3 F 11/18/18 08:37 Pulse Rate 60 11/18/18 08:37 Respiratory Rate 20 11/18/18 09:00 Blood Pressure 135/74 11/18/18 08:37 O2 Sat by Pulse Oximetry (%) 100 11/18/18 09:00 Eyes: Yes: PERRL HENT: Yes: Atraumatic Neck: Yes: Supple Cardiovascular: Yes: Regular Rate and Rhythm, S1, S2 Respiratory: Yes: CTA Bilaterally Gastrointestinal: Yes: Normal Bowel Sounds, Soft. No: Tenderness Edema: No Additional Findings/Remarks: - Review of Systems Constitutional: denies: Chills, Fever Cardiovascular: denies: Palpitations. denies: Chest Pain, Shortness of Breath Respiratory: denies: Cough, Hemoptysis, Orthopnea, PND, SOB, SOB on Exertion Gastrointestinal: denies: Abdominal Pain, Melena, Nausea, denies: Rectal Bleeding, Vomiting Genitourinary: denies: Dysuria, Hematuria Musculoskeletal: denies: Back Pain, Joint Pain Neurological: denies: Dizziness. denies: Change in Speech, Headache, Numbness, Parasthesia, Seizure, Syncope Labs: CBC, BMP 11/18/18 06:25 11/18/18 06:25 Problem List - Problems (1) Atrial fibrillation with RVR Code(s): I48.91 - UNSPECIFIED ATRIAL FIBRILLATION (2) Hypertensive cardiomyopathy Code(s): I11.9 - HYPERTENSIVE HEART DISEASE WITHOUT HEART FAILURE; I43 - CARDIOMYOPATHY IN DISEASES CLASSIFIED ELSEWHERE Qualifiers: Heart failure presence: without heart failure Qualified Code(s): I11.9 - Hypertensive heart disease without heart failure; I43 - Cardiomyopathy in diseases classified elsewhere (3) Seizure disorder Code(s): G40.909 - EPILEPSY, UNSP, NOT INTRACTABLE, WITHOUT STATUS EPILEPTICUS (4) Acute exacerbation of CHF (congestive heart failure) Code(s): I50.9 - HEART FAILURE, UNSPECIFIED (5) Hypertension Code(s): I10 - ESSENTIAL (PRIMARY) HYPERTENSION Qualifiers: Hypertension type: essential hypertension Qualified Code(s): I10 - Essential (primary) hypertension Assessment/Plan 1. Paroxysmal AF with RVR s/p synchronized cardioversion to sinus rhythm 2. 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 3. HTN 4. Seizure disorder PLAN: 1. Continue Lopressor 50 mg BID. Cardizem has been taken off. Continue Amiodarone 200 mg BID for 1 week and then QD 2. Continue irbesartan 300 qd or equivalent as hemodynamics tolerate 3. Continue Eliquis 5 bid given elevated risk score 4. Echocardiography can be repeated as outpatient to assess LVEF. Patient is to follow up in office in 2 weeks. Discharge planning Piter Sanchez MD
[2018-11-18 15:27] VITALS: BP 131/77; PULSE 66; TEMP 98
--- NOTE | 2018-11-18 16:25 | PN ---
Progress Note (short form) - Note Progress Note: denies any PC or SOB exam: NAD CV: RRR Lungs: CTAB Ext: no edema or erythema ASSESSMENT AND PLAN: 72 y/o lady with h/o A fib, HTN, seizure disorder , and Mitral regurgitation who presented with palpitations and L shoulder pain . she was found ot have A fib with RVR 1- A fib with RVR: s/p cardioversion yesterday. now in sinus. - cont amio bid x 1 week then daily - cont metoprolol 50 - follwo up with dr. Sanchez as out pt - tele with no events - cont eliquis 2- H/o seizure: cont keppra 3- HTN: cont ARb in addision to metprolol 4- Leukocytosis . no signs of infection. 5- L shoulder pain , follow with PCP for MRI dispo dc home Visit type - Emergency Visit Emergency Visit: Yes ED Registration Date: 11/14/18 Care time: The patient presented to the Emergency Department on the above date and was hospitalized for further evaluation of their emergent condition. - New Patient This patient is new to me today: No - Critical Care Critical Care patient: No
[2018-11-18] MEDS ORDERED: METOPROLOL TARTRATE 25 MG TABLET (FP) PO SCH (22:00)
--- NOTE | 2018-11-19 13:10 | DS ---
Physical Exam: SUBJECTIVE: Please see attending's note for subjective and physical exam. OBJECTIVE: LABS CBC, BMP 11/18/18 06:25 11/18/18 06:25 NINFA: LV normal in size, LV systolic function mod-severely reduced. Moderate to severe global hypokinesis of LV. EF 30-35%. No thrombus in left atrial appendage. Moderate MR, mild TR, mild AR, trace to mild VA. No pericardial effusion. Left shoulder xray: some arthritic changes without fracture or subluxation HOSPITAL COURSE: Date of Admission:11/14/18 Date of Discharge: 11/19/18 Patient is a 73 year old female with past medical history of HTN, Atrial fibrillation, seizure disorder, DM and CHFrEF presented with intermittent left shoulder pain, palpitations and lower abdominal pain. At the ED, patient was noted to have atrial fibrillation with RVR. Cardiology was consulted. Patient was started on Lopressor and Cardizem, but remained to have intermittent episodes of tachycardia followed by episodes of bradycardia. NINFA was done to rule out thrombus, and synchronized cardioversion was done. Patient converted to sinus rhythm and was started on Amiodarone. 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 Minutes to complete discharge: 40 Discharge Summary Reason For Visit: A FIB WITH RAPID VENTRICULAR RESPONSE Condition: Improved - Instructions Diet, Activity, Other Instructions: - you were treated for rapid heart beat and received cardioversion. - amiodarone is a new medication added for your heart, please take twice a day for 1 week then continue with once daily only. - follow with Dr. Sanchez in office ( heart doctorr) in1 week - metoprolol 50 mg was added to your medicatins. please take twice a day. - pick your medications today as you need them this evening - call MD with any fever , palpitations, dizziness or any other complaints - please follow with your PCP to get MRI of your shoulder if it continue to bother you - call your doctor fro refil befoe you run out of your medications . - do not take aspirin . you do not need it good luck Referrals: Piter Sanchez MD [Staff Physician] - 1 Week Jovita Frank MD [Primary Care Provider] - 1 Week Disposition: HOME - Home Medications Comprehensive Discharge Medication List: Ambulatory Orders levETIRAcetam [Keppra -] 250 mg PO BID 12/12/17 Acetaminophen [Tylenol] 500 mg PO BID PRN 11/13/18 Apixaban [Eliquis] 5 mg PO BID 11/13/18 Irbesartan 300 mg PO DAILY 11/13/18 Amiodarone HCl [Cordarone -] 200 mg PO BID #60 tablet 11/18/18 Metoprolol Tartrate [Lopressor] 50 mg PO BID #60 tablet 11/18/18 This patient is new to me today: No Emergency Visit: Yes ED Registration Date: 11/14/18 Care time: The patient presented to the Emergency Department on the above date and was hospitalized for further evaluation of their emergent condition. Critical Care patient: No - Discharge Referral Referred to [facility] No
--- NOTE | 2018-11-19 19:04 | EKG ---
Test Reason : Blood Pressure : / mmHG Vent. Rate : 067 BPM Atrial Rate : 067 BPM P-R Int : 180 ms QRS Dur : 092 ms QT Int : 400 ms P-R-T Axes : 045 012 -49 degrees QTc Int : 422 ms SINUS RHYTHM WITH PREMATURE ATRIAL COMPLEXES NONSPECIFIC T WAVE ABNORMALITY ABNORMAL ECG WHEN COMPARED WITH ECG OF 17-NOV-2018 11:54, PREMATURE ATRIAL COMPLEXES ARE NOW PRESENT QT HAS LENGTHENED Confirmed by IBIS YODER, EVIN ([id number]) on 11/19/2018 7:03:50 PM Referred By: Rubio SANTACRUZ Confirmed By:EVIN BAUMANN MD
== END 2018-11-18 19:15 | disposition home or self-care (01) | DRG 309 ==
LOC: JER 11:48 → JERBED 15:49 → J4W 21:41 → OBSVTOIN 11-14 07:28
PROVIDERS: ADMIT Internal Medicine; ATTEND Internal Medicine
PROC: B24BZZ4 Ultrasonography of Heart with Aorta, Transesophageal (ICD-10-PCS; 2018-11-17)
PROC: 5A2204Z Restoration of Cardiac Rhythm, Single (ICD-10-PCS; principal; 2018-11-17 10:00)
DX: I48.0 Paroxysmal atrial fibrillation (principal); I50.42 Chronic combined systolic (congestive) and diastolic (congestive) heart failure; I48.1 Persistent atrial fibrillation; I11.0 Hypertensive heart disease with heart failure; I43 Cardiomyopathy in diseases classified elsewhere; I49.5 Sick sinus syndrome; I34.0 Nonrheumatic mitral (valve) insufficiency; E11.9 Type 2 diabetes mellitus without complications; R56.9 Unspecified convulsions; M25.512 Pain in left shoulder; E66.9 Obesity, unspecified; Z68.36 Body mass index [BMI] 36.0-36.9, adult; D72.829 Elevated white blood cell count, unspecified; Z79.01 Long term (current) use of anticoagulants; Z91.14 Patient's other noncompliance with medication regimen; I25.10 Atherosclerotic heart disease of native coronary artery without angina pectoris; Z95.5 Presence of coronary angioplasty implant and graft
CPT/HCPCS: 36415; 71045-TC-FY; 73030-TC-LT-FY; 80048; 80053; 80162; 81003; 81015; 82962; 83036; 83735; 84100; 84443; 84484; 85025; 85027; 87086; 93005; 93010; 93306-TC; 93312; 93325; 99282-25; G0378; J7030

== ENCOUNTER 2018-11-21 08:20 | Emergency (ER) | payer OTHER ==
[2018-11-21 08:32] VITALS: BMI 42.2
--- NOTE | 2018-11-21 09:09 | PDOC ---
*Physical Exam - Vital Signs Last Vital Signs Temp Pulse Resp BP Pulse Ox 98.4 F 69 22 H 138/87 97 11/21/18 08:28 11/21/18 08:28 11/21/18 08:28 11/21/18 08:28 11/21/18 08:28 ED Treatment Course - LABORATORY CBC & Chemistry Diagram: 11/21/18 09:05 11/21/18 09:05 Medical Decision Making - Medical Decision Making 11/21/18 09:09 Pt seen by Midlevel Provider under my direct supervision Pt interviewed and examined Ancillary studies reviewed 11/21/18 11:23 Laboratory Tests 11/18/18 11/18/18 11/21/18 06:25 06:25 09:05 WBC 12.6 H 18.4 H Hgb 11.0 11.5 Hct 34.3 33.3 Plt Count 277 291 INR BUN 14 Creatinine 0.9 Creatine Kinase Troponin I TSH Influenza A (Rapid) Influenza B (Rapid) 11/21/18 11/21/18 11/21/18 09:05 09:05 09:05 WBC Hgb Hct Plt Count INR 1.23 H BUN 8 Creatinine 0.9 Creatine Kinase 40 Troponin I < 0.02 TSH 5.97 H Influenza A (Rapid) Negative Influenza B (Rapid) Negative Upon re assessment, pt states she feels better No fever No source found CT head no acute findings, no ICH I agree with plan as outlined by Midlevel Provider 11/21/18 13:42 *DC/Admit/Observation/Transfer Diagnosis at time of Disposition: Palpitations, Headache - Discharge Dispostion Disposition: HOME Condition at time of disposition: Stable - Referrals Referrals: Haley Schneider MD [Primary Care Provider] - - Patient Instructions Printed Discharge Instructions: DI for Headache, DI for Palpitations Additional Instructions: Your EKG and CAT scan were all normal today. Your EKG showed normal sinus rhythm. You are not currently in A. fib. Please take Tylenol 650 mg every 4 hours as needed for pain. Please drink plenty of fluids. Follow-up with her primary care doctor on Saturday. Return to the emergency department for increased pain, headache, nausea, vomiting or if you've any changes in your symptoms. Tu EKG y TAC fueron todos normales hoy. [place] EKG mostr ritmo sinusal normal. Actualmente no ests en A. fib. [place] Tylenol 650 mg cada 4 horas segn sea necesario para el dolor. Por favor, amie muchos lquidos. Seguimiento con gonzales mdico de atencin primaria el . Regrese a la carlton de emergencias para aumentar el dolor, dolor de matias, nuseas, vmitos o si tiene algn cambio en rissa sntomas. - Post Discharge Activity
[2018-11-21] MEDS ORDERED: ACETAMINOPHEN 1000 MG/100 ML VIAL (NON FORMULARY) IVPB ONE (09:10)
[2018-11-21] MEDS ORDERED: SODIUM CHLORIDE 1,000 ML IV STA ×2 (09:10→12:37)
--- NOTE | 2018-11-21 09:10 | PDOC ---
History of Present Illness - General Chief Complaint: Palpitations Stated Complaint: PALPITATIONS Time Seen by Provider: 11/21/18 08:47 Past History - Past Medical History Allergies/Adverse Reactions: Allergies Allergy/AdvReac Type Severity Reaction Status Date / Time No Known Allergies Allergy Verified 11/21/18 08:28 Home Medications: Ambulatory Orders levETIRAcetam [Keppra -] 250 mg PO BID 12/12/17 Acetaminophen [Tylenol] 500 mg PO BID PRN 11/13/18 Apixaban [Eliquis] 5 mg PO BID 11/13/18 Irbesartan 300 mg PO DAILY 11/13/18 Amiodarone HCl [Cordarone -] 200 mg PO BID #60 tablet 11/18/18 Metoprolol Tartrate [Lopressor] 50 mg PO BID #60 tablet 11/18/18 Anemia: No Asthma: No Cancer: No Cardiac Disorders: Yes (afib,mvr) CVA: No COPD: No CHF: No DVT: No Dementia: No Diabetes: Yes GI Disorders: No Disorders: No HTN: Yes Hypercholesterolemia: No Liver Disease: No Seizures: Yes Thyroid Disease: No Other medical history: NINFA and cardioversion 11/19/18 - Surgical History Abdominal Surgery: Yes (TUBAL LIGATION) Appendectomy: No Cardiac Surgery: No Cholecystectomy: No Lung Surgery: No Neurologic Surgery: No Orthopedic Surgery: No - Immunization History Immunization Up to Date: Yes - Suicide/Smoking/Psychosocial Hx Smoking Status: No Smoking History: Never smoked Have you smoked in the past 12 months: No Number of Cigarettes Smoked Daily: 0 Hx Alcohol Use: No Drug/Substance Use Hx: No Substance Use Type: None Hx Substance Use Treatment: No *Physical Exam - Vital Signs Last Vital Signs Temp Pulse Resp BP Pulse Ox 98.4 F 69 22 H 138/87 97 11/21/18 08:28 11/21/18 08:28 11/21/18 08:28 11/21/18 08:28 11/21/18 08:28 Moderate Sedation - Procedure Monitoring Vital Signs: Procedure Monitoring Vital Signs Temperature 98.4 F 11/21/18 08:28 Pulse Rate 69 11/21/18 08:28 Respiratory Rate 22 H 11/21/18 08:28 Blood Pressure 138/87 11/21/18 08:28 O2 Sat by Pulse Oximetry (%) 97 11/21/18 08:28 ED Treatment Course - LABORATORY CBC & Chemistry Diagram: 11/21/18 09:05 11/21/18 09:05 *DC/Admit/Observation/Transfer Diagnosis at time of Disposition: Palpitations Headache Qualifiers: Headache type: unspecified Headache chronicity pattern: acute headache Intractability: not intractable Qualified Code(s): R51 - Headache - Discharge Dispostion Disposition: HOME Condition at time of disposition: Stable Decision to Admit order: No - Referrals Referrals: Haley Schneider MD [Primary Care Provider] - - Patient Instructions Printed Discharge Instructions: DI for Headache, DI for Palpitations Additional Instructions: Your EKG and CAT scan were all normal today. Your EKG showed normal sinus rhythm. You are not currently in A. fib. Please take Tylenol 650 mg every 4 hours as needed for pain. Please drink plenty of fluids. Follow-up with her primary care doctor on Saturday. Return to the emergency department for increased pain, headache, nausea, vomiting or if you've any changes in your symptoms. Tu EKG y TAC fueron todos normales hoy. [place] EKG mostr ritmo sinusal normal. Actualmente no ests en A. fib. [place] Tylenol 650 mg cada 4 horas segn sea necesario para el dolor. Por favor, amie muchos lquidos. Seguimiento con gonzales mdico de atencin primaria el . Regrese a la carlton de emergencias para aumentar el dolor, dolor de matias, nuseas, vmitos o si tiene algn cambio en rissa sntomas. - Post Discharge Activity
[2018-11-21] MEDS ORDERED: METOCLOPRAMIDE HCL INJECTION 10 MG/2 ML VIAL IVPB ONE (09:11)
[2018-11-21] MEDS ORDERED: ACETAMINOPHEN INJECTION 100 ML IVPB ONE (09:18)
[2018-11-21] MEDS ORDERED: METOCLOPRAMIDE HCL INJECTION 10 MG/2 ML VIAL ONE (09:18)
--- NOTE | 2018-11-21 09:31 | EKG ---
Test Reason : Blood Pressure : / mmHG Vent. Rate : 066 BPM Atrial Rate : 066 BPM P-R Int : 172 ms QRS Dur : 076 ms QT Int : 446 ms P-R-T Axes : 065 019 020 degrees QTc Int : 467 ms SINUS RHYTHM WITH MARKED SINUS ARRHYTHMIA NONSPECIFIC ST AND T WAVE ABNORMALITY ABNORMAL ECG WHEN COMPARED WITH ECG OF 18-NOV-2018 09:05, PREMATURE ATRIAL COMPLEXES ARE NO LONGER PRESENT T WAVE INVERSION NO LONGER EVIDENT IN LATERAL LEADS Confirmed by MAGED YODER, ILANA ([id number]) on 11/21/2018 9:30:59 AM Referred By: Confirmed By:ILANA LYNNE MD
[2018-11-21 09:37] LABS: INR 1.23 (0.83-1.09); PROTHROMBIN TIME (PATIENT) 14.6 SEC (9.7-13.0)
[2018-11-21 10:17] LABS: ALBUMIN 3.2 g/dl (3.4-5.0); ALK PHOS 106 U/L (45-117); ANION GAP 7 MMOL/L (8-16); BILIRUBIN,TOTAL 0.9 mg/dL (0.2-1); BLOOD UREA NITROGEN 8 mg/dL (7-18); CALCIUM 8.2 mg/dL (8.5-10.1); CHLORIDE 107 mmol/L (98-107); CO2 25 mmol/L (21-32); CREATININE 0.9 mg/dL (0.55-1.3); GLUCOSE,RANDOM 117 mg/dL (74-106); POTASSIUM 4.1 mmol/L (3.5-5.1); SGOT/AST 22 U/L (15-37); SGPT/ALT 39 U/L (13-61); SODIUM 139 mmol/L (136-145); TOT PROT 6.9 g/dl (6.4-8.2)
[2018-11-21 10:27] LABS: BASO % 0.7 % (0-2.0); EOS % 0.5 % (0-4.5); HEMATOCRIT 33.3 % (32.4-45.2); HEMOGLOBIN 11.5 GM/dL (10.7-15.3); MCH 29.4 pg (25.7-33.7); MCHC 34.5 g/dl (32.0-36.0); MEAN CELL VOLUME 85.3 fl (80-96); MEAN PLT VOLUME 12.1 fl (7.5-11.1); MONO % 6.6 % (3.8-10.2); NEUT % 81.2 % (42.8-82.8); PLATELET COUNT 291 K/MM3 (134-434); RDW 13.9 % (11.6-15.6); WHITE BLOOD COUNT 18.4 K/mm3 (4.0-10.0)
[2018-11-21 11:16] VITALS: TEMP 98.3
[2018-11-21] MEDS ORDERED: KETOROLAC TROMETHAMINE 30 MG/1 ML VIAL ONE (11:59)
[2018-11-21] MEDS ORDERED: KETOROLAC TROMETHAMINE 30 MG/1 ML VIAL IVPUSH ONE (12:05)
[2018-11-21 12:09] LABS: URINE APPEARANCE CLEAR; URINE BILIRUBIN NEGATIVE (<2.0 mg/dL); URINE COLOR LTYELLOW; URINE GLUCOSE (UA) NEGATIVE (NEGATIVE); URINE KETONE NEGATIVE (NEGATIVE); URINE LEUK ESTERASE NEGATIVE (NEGATIVE); URINE NITRITE NEGATIVE (NEGATIVE); URINE PROTEIN NEGATIVE (NEGATIVE); URINE UROBILINOGEN NEGATIVE mg/dL (0.2-1.0)
[2018-11-21 15:17] VITALS: BP 144/95; PULSE 55
== END 2018-11-21 15:28 | disposition home or self-care (01) ==
LOC: JER 08:20
PROC: 3E0337Z Introduction of Electrolytic and Water Balance Substance into Peripheral Vein, Percutaneous Approach (ICD-10-PCS; principal; 2018-11-21)
PROC: 3E033GC Introduction of Other Therapeutic Substance into Peripheral Vein, Percutaneous Approach (ICD-10-PCS; 2018-11-21)
PROC: 3E033GC Introduction of Other Therapeutic Substance into Peripheral Vein, Percutaneous Approach (ICD-10-PCS; 2018-11-21)
PROC: 3E033NZ Introduction of Analgesics, Hypnotics, Sedatives into Peripheral Vein, Percutaneous Approach (ICD-10-PCS; 2018-11-21)
PROC: 3E0333Z Introduction of Anti-inflammatory into Peripheral Vein, Percutaneous Approach (ICD-10-PCS; 2018-11-21)
DX: R00.2 Palpitations (principal); R51 Headache; I48.91 Unspecified atrial fibrillation; Z79.01 Long term (current) use of anticoagulants; I10 Essential (primary) hypertension; G40.909 Epilepsy, unspecified, not intractable, without status epilepticus; E11.9 Type 2 diabetes mellitus without complications
CPT/HCPCS: 36415; 70450-TC; 80053; 81003; 82550; 84443; 84484; 85025; 85610; 87086; 87804; 93005; 93010; 96361; 96374; 96375; 99284-25; J0131; J7030

== ENCOUNTER 2018-11-22 09:15 | Inpatient (IN) | payer OTHER ==
[2018-11-22 09:31] VITALS: BMI 35.2
--- NOTE | 2018-11-22 09:39 | PDOC ---
Attending Attestation - Resident Resident Name: Rosangela Weaver - ED Attending Attestation I have performed the following: I have examined & evaluated the patient, The case was reviewed & discussed with the resident, I agree w/resident's findings & plan, Exceptions are as noted - HPI HPI: 11/22/18 15:15 Ms cantor is a 73 yo F h/o HTN, Afib on Amiodarone and Eliquis s/p cardioversion, h/o seizure, NIDDM, CHF She was recently discharged from the hospital Presented to the ER with a complaint of body aches, shortness of breath on exertion and palpitations Pt reports subjective fevers and chills No vomiting or diarrhea No abdominal pain, diarrhea No dysuria or hematuria - Physicial Exam PE: 11/22/18 15:28 General Appearance: Yes: Other (Awake, alert, oriented x3, in no acute distress ) HEENT: positive: PAULINA, Normal ENT Inspection, Normal Voice, Symmetrical, TMs Normal, Pharynx Normal. negative: Tonsillar Exudate, Tonsillar Erythema, Rhinorrhea, Sinus Tenderness Neck: positive: Supple. negative: Carotid bruit, Decreased range of motion, Lymphadenopathy (R), Lymphadenopathy (L) Respiratory/Chest: positive: Lungs Clear, Normal Breath Sounds. negative: Crackles, Rales, Rhonchi, Wheezing Cardiovascular: positive: Regular Rhythm, Regular Rate, S1, S2. negative: Edema , JVD, Murmur Gastrointestinal/Abdominal: positive: Other (Soft, nontender, nondistended, normoactive bowel sounds, no rebound or tenderness, no organomegaly ) Musculoskeletal: positive: Normal Inspection. negative: CVA Tenderness, CVA Tenderness (R), CVA Tenderness (L), Decreased Range of Motion Extremity: positive: Normal Capillary Refill, Normal Inspection, Normal Range of Motion. negative: Swelling, Calf Tenderness, Erythema Integumentary: positive: Normal Color, Dry, Warm. negative: Cyanotic, Erythema , Jaundice Neurologic: positive: carbonation equipment tender II-XII NML intact, Fully Oriented, Alert, Normal Mood/ Affect, Normal Response, Motor Strength 03/22 - Medical Decision Making 11/22/18 15:12 Laboratory Tests 11/22/18 11/22/18 10:40 10:40 WBC 17.7 H Hgb 11.4 Hct 35.5 Plt Count 311 BUN 8 Creatinine 0.8 Creatine Kinase 99 Troponin I < 0.02 B-Natriuretic Peptide 4615.1 H 11/22/18 15:[address] robertson He recommends further evaluation of pt CXR as mediastinum is enlarged CT performed no aortic dissection No lymph nodes noted Will admit for diuresis clinical impression: congestive heart failure, initial presentation
--- NOTE | 2018-11-22 10:39 | PDOC ---
History of Present Illness - General Chief Complaint: Palpitations Stated Complaint: PALPITATIONS Time Seen by Provider: 11/22/18 09:35 - History of Present Illness Initial Comments: 11/22/18 11:11 Patient is a 73 year old female with a PMHx of HTN, Atrial Fibrillation on Amiodarone and Eliquis s/p synchronized cardioversion to sinus rhythm, Seizure disorder, NIDDMII, and HFrEF who presents today complaining of a constant, sharp chest pain radiating to the back associated with whole body aches, shortness of breath on exertion, and palpitations. Patient was seen here in the ED yesterday for similar symptoms with labs, ekg, and cxr wnl. Patient states the symptoms worsened, prompting this hospital visit. Patient also reports feeling more weak and fatigued, especially when taking a few steps. Patient otherwise denies fever, chills, nausea, vomiting, diaphoresis, abdominal pain, diarrhea, constipation, urinary and bowel symptoms, acute vision changes, headaches. PMHx: HTN Atrial Fibrillation Seizure disorder NIDDMII HFrEF PSHx: Denies Social Hx: Smoking: never Alcohol: never Drugs: never Allergies: Denies Past History - Past Medical History Allergies/Adverse Reactions: Allergies Allergy/AdvReac Type Severity Reaction Status Date / Time No Known Allergies Allergy Verified 11/21/18 08:28 Home Medications: Ambulatory Orders levETIRAcetam [Keppra -] 250 mg PO BID 12/12/17 Apixaban [Eliquis] 5 mg PO BID 11/13/18 Amiodarone HCl [Cordarone -] 200 mg PO BID #60 tablet 11/18/18 Metoprolol Tartrate [Lopressor] 50 mg PO BID #60 tablet 11/18/18 Anemia: No Asthma: No Cancer: No Cardiac Disorders: Yes (afib,mvr) CVA: No COPD: No CHF: No DVT: No Dementia: No Diabetes: Yes GI Disorders: No Disorders: No HTN: Yes Hypercholesterolemia: No Liver Disease: No Seizures: Yes Thyroid Disease: No - Surgical History Abdominal Surgery: Yes (TUBAL LIGATION) Appendectomy: No Cardiac Surgery: No Cholecystectomy: No Lung Surgery: No Neurologic Surgery: No Orthopedic Surgery: No - Immunization History Immunization Up to Date: Yes - Suicide/Smoking/Psychosocial Hx Smoking Status: No Smoking History: Unknown if ever smoked Have you smoked in the past 12 months: No Number of Cigarettes Smoked Daily: 0 Hx Alcohol Use: No Drug/Substance Use Hx: No Substance Use Type: None Hx Substance Use Treatment: No Cardiac Specific PMH - Complaint Specific PMHX Angina: No Cardiac Arrhythmia: No GERD: No Pacemaker: No Review of Systems - Review of Systems Constitutional: Yes: Weakness. No: Chills, Diaphoresis, Fever, Malaise HEENTM: No: Blurred Vision, Nose Pain, Nose Congestion, Throat Pain, Throat Swelling Respiratory: Yes: Shortness of Breath, SOB with Exertion. No: Cough, Orthopnea , Wheezing, Productive cough, Hemoptysis Cardiac (ROS): Yes: Chest Pain, Palpitations. No: Edema, Syncope ABD/GI: No: Diarrhea, Difficulty Swallowing, Nausea, Vomiting, Indigestion : No: Burning, Dysuria, Frequency, Flank Pain, Hematuria Musculoskeletal: No: Back Pain, Muscle Pain Integumentary: No: Bruising, Erythema Neurological: Yes: Headache. No: Numbness, Tremors, Dizziness *Physical Exam - Vital Signs Last Vital Signs Temp Pulse Resp BP Pulse Ox 100.3 F H 72 18 143/83 99 11/22/18 12:25 11/22/18 12:25 11/22/18 12:25 11/22/18 12:25 11/22/18 12:25 - Physical Exam General Appearance: Yes: Other (Awake, alert, oriented x3, in no acute distress ) HEENT: positive: PAULINA, Normal ENT Inspection, Normal Voice, Symmetrical, TMs Normal, Pharynx Normal. negative: Tonsillar Exudate, Tonsillar Erythema, Rhinorrhea, Sinus Tenderness Neck: positive: Supple. negative: Carotid bruit, Decreased range of motion, Lymphadenopathy (R), Lymphadenopathy (L) Respiratory/Chest: positive: Lungs Clear, Normal Breath Sounds. negative: Crackles, Rales, Rhonchi, Wheezing Cardiovascular: positive: Regular Rhythm, Regular Rate, S1, S2. negative: Edema , JVD, Murmur Gastrointestinal/Abdominal: positive: Other (Soft, nontender, nondistended, normoactive bowel sounds, no rebound or tenderness, no organomegaly ) Musculoskeletal: positive: Normal Inspection. negative: CVA Tenderness, CVA Tenderness (R), CVA Tenderness (L), Decreased Range of Motion Extremity: positive: Normal Capillary Refill, Normal Inspection, Normal Range of Motion. negative: Swelling, Calf Tenderness, Erythema Integumentary: positive: Normal Color, Dry, Warm. negative: Cyanotic, Erythema , Jaundice Neurologic: positive: polysomnograph tech II-XII NML intact, Fully Oriented, Alert, Normal Mood/ Affect, Normal Response, Motor Strength 5/5 Heart Score/ECG Review - History History: Slightly suspicious - Electrocardiogram EKG: Normal - Age Age: >/= 65 - Risk Factors Risk Factors Heart Score: Yes Hx Hypertension, Yes Hx Diabetes, Yes Hx Obesity Based on the list above the patient has:: >/=3 risk factors or Hx atherosclerotic disease - Troponin Troponin: </= normal limit - Score Heart Score - Total: 4 Moderate Sedation - Procedure Monitoring Vital Signs: Procedure Monitoring Vital Signs Temperature 100.3 F H 11/22/18 12:25 Pulse Rate 72 11/22/18 12:25 Respiratory Rate 18 11/22/18 12:25 Blood Pressure 143/83 11/22/18 12:25 O2 Sat by Pulse Oximetry (%) 99 11/22/18 12:25 ED Treatment Course - LABORATORY CBC & Chemistry Diagram: 11/22/18 10:40 11/22/18 10:40 - ADDITIONAL ORDERS Additional order review: Laboratory Results 11/22/18 11/22/18 10:40 10:40 PT with INR Cancelled INR Cancelled Sodium 139 Potassium 4.6 Chloride 107 Carbon Dioxide 24 Anion Gap 8 BUN 8 Creatinine 0.8 Creat Clearance w eGFR > 60 Random Glucose 104 Calcium 8.0 L Magnesium 2.1 Total Bilirubin 1.0 AST 34 ALT 37 Alkaline Phosphatase 102 Creatine Kinase 99 Troponin I < 0.02 B-Natriuretic Peptide 4615.1 H Total Protein 7.0 Albumin 3.2 L 11/22/18 10:40 RBC 4.09 MCV 86.9 MCHC 32.0 RDW 13.7 MPV 11.4 H Neutrophils % 83.3 H Lymphocytes % 8.7 D Monocytes % 6.2 Eosinophils % 0.9 Basophils % 0.9 - RADIOLOGY Radiology Studies Ordered: Category Date Time Status CHEST CT W/WO CONTRAST [CT] Stat CT Scan 11/22/18 12:03 Completed - Medications Given in the ED: ED Medications Discontinued Medications Generic Name Dose Route Start Last Admin Trade Name Freq PRN Reason Stop Dose Admin Acetaminophen 650 mg 11/22/18 14:04 11/22/18 15:30 Tylenol - PO 11/22/18 14:05 650 mg ONCE ONE Administration Furosemide 40 mg 11/22/18 15:09 11/22/18 15:30 Lasix Injection - IVPUSH 11/22/18 15:10 40 mg ONCE ONE Administration Medical Decision Making - Medical Decision Making 11/22/18 11:39 Patient is a 73 year old female who presents here today for palpitations, shortness of breath and chest pain. DDx includes but not limited to CHF exacerbation, ACS, Pericarditis, Aortic dissection. -CBC, CMP, CARDIAC PROFILE, MAG, BNP -EKG, CXR 11/22/18 11:52 -CXR shows congestive changes however patients lungs are clear, saturating 100% on room air, no JVD and no weight gain. -Call made out to highway safety engineer 11/22/18 12:07 -Spoke to Dr. Rosen who recommended CT with and without contrast due to CXR showing new congestive changes and enlarged mediastinum. Will need to rule out interstitial lung disease from possible acute toxicity secondary to amiodarone. 11/22/18 12:17 -Labs revealed leukocytosis, which has been persistent since 2010 from records here. Patient will likely need Hematology evaluation. -CT chest pending 11/22/18 15:09 -CT revealed cardiomegaly but not helpful due to artifact -Spoke to highway safety engineer, Dr. Rosen, who recommended diuretics with IV Lasix and admit for obs. Patient will need tepeat CXR tomorrow and further evaluation. -Will send microblog to [facility] for admission 11/22/18 15:30 -Spoke to Hospitalist, Dr. Kim, who accepted patient. *DC/Admit/Observation/Transfer Diagnosis at time of Disposition: Acute CHF (congestive heart failure) Qualifiers: Heart failure type: combined systolic and diastolic Qualified Code(s): I50.41 - Acute combined systolic (congestive) and diastolic (congestive) heart failure - Discharge Dispostion Decision to Admit order: Yes - Referrals - Patient Instructions - Post Discharge Activity
[2018-11-22 11:00] LABS: BASO % 0.9 % (0-2.0); EOS % 0.9 % (0-4.5); HEMATOCRIT 35.5 % (32.4-45.2); HEMOGLOBIN 11.4 GM/dL (10.7-15.3); LYMPH % 8.7 % (8-40); MCH 27.8 pg (25.7-33.7); MEAN CELL VOLUME 86.9 fl (80-96); MEAN PLT VOLUME 11.4 fl (7.5-11.1); MONO % 6.2 % (3.8-10.2); NEUT % 83.3 % (42.8-82.8); PLATELET COUNT 311 K/MM3 (134-434); RBC 4.09 M/mm3 (3.60-5.2); RDW 13.7 % (11.6-15.6); WHITE BLOOD COUNT 17.7 K/mm3 (4.0-10.0)
[2018-11-22 11:43] LABS: ALBUMIN 3.2 g/dl (3.4-5.0); ALK PHOS 102 U/L (45-117); ANION GAP 8 MMOL/L (8-16); BLOOD UREA NITROGEN 8 mg/dL (7-18); CHLORIDE 107 mmol/L (98-107); CO2 24 mmol/L (21-32); CREATININE 0.8 mg/dL (0.55-1.3); GLUCOSE,RANDOM 104 mg/dL (74-106); MAGNESIUM 2.1 mg/dL (1.8-2.4); N-TERMINAL BNP 4615.1 pg/ml (5-125); POTASSIUM 4.6 mmol/L (3.5-5.1); SGOT/AST 34 U/L (15-37); SGPT/ALT 37 U/L (13-61); SODIUM 139 mmol/L (136-145)
[2018-11-22] MEDS ORDERED: ACETAMINOPHEN 325 MG TABLET (FP) PO ONE (14:04)
[2018-11-22] MEDS ORDERED: FUROSEMIDE 40 MG/4 ML INJECTABLE VIAL IVPUSH ONE (15:09)
[2018-11-22] MEDS ORDERED: ACETAMINOPHEN 325 MG TABLET (FP) ONE (15:27)
[2018-11-22] MEDS ORDERED: FUROSEMIDE 40 MG/4 ML INJECTABLE VIAL ONE (15:27)
--- NOTE | 2018-11-22 16:29 | HP ---
Admitting History and Physical - Admission History of Present Illness: This is a 73 year old female with a PMHx of HTN, Atrial Fibrillation on recently started on amiodarone and apixiban s/p synchronized cardioversion to sinus rhythm, Seizure disorder, NIDDMII, and newly diagnosed HFrEF who presents today complaining of a constant, sharp chest pain radiating to the back associated with whole body aches, shortness of breath on exertion, and palpitations. Patient was seen here in the ED yesterday for similar symptoms with labs, ekg, and cxr wnl. Patient states the symptoms worsened, prompting this hospital visit. Patient also reports feeling more weak and fatigued, especially when taking a few steps. Patient otherwise denies fever, chills, nausea, vomiting, diaphoresis, abdominal pain, diarrhea, constipation, urinary and bowel symptoms, acute vision changes, headaches. she stated that everything started when the patient took the amiodarone few days ago. besides that she said the pain can be reproducible and worse with movement. - Past Medical History LEAD ADVISOR: Yes: Seizure Cardiovascular: Yes: AFIB, CAD, CHF, HTN, Other (STENTS, mitral regurgitation) Endocrine: Yes: Diabetes Mellitus - Past Surgical History Past Surgical History: Yes: Joint Replacement, Tubal Ligation - Smoking History Smoking history: Unknown if ever smoked Have you smoked in the past 12 months: No Aproximately how many cigarettes per day: 0 - Alcohol/Substance Use Hx Alcohol Use: No History of Substance Use: reports: None - Social History ADL: Independent History of Recent Travel: No Home Medications - Allergies Allergies/Adverse Reactions: Allergies Allergy/AdvReac Type Severity Reaction Status Date / Time No Known Allergies Allergy Verified 11/21/18 08:28 - Home Medications Home Medications: Ambulatory Orders levETIRAcetam [Keppra -] 250 mg PO BID 12/12/17 Apixaban [Eliquis] 5 mg PO BID 11/13/18 Amiodarone HCl [Cordarone -] 200 mg PO BID #60 tablet 11/18/18 Metoprolol Tartrate [Lopressor] 50 mg PO BID #60 tablet 11/18/18 Family Disease History - Family Disease History Family Disease History: Heart Disease: Mother (HTN), Sister (HTN) Review of Systems - Review of Systems Constitutional: reports: No Symptoms Eyes: reports: No Symptoms HENT: reports: No Symptoms Neck: reports: No Symptoms Cardiovascular: reports: Chest Pain, Palpitations, Shortness of Breath Respiratory: reports: SOB, SOB on Exertion Gastrointestinal: reports: No Symptoms Genitourinary: reports: No Symptoms Musculoskeletal: reports: No Symptoms Integumentary: reports: No Symptoms Neurological: reports: No Symptoms Physical Examination Vital Signs: Vital Signs Temperature 100.3 F H 11/22/18 12:25 Pulse Rate 72 11/22/18 12:25 Respiratory Rate 18 11/22/18 12:25 Blood Pressure 143/83 11/22/18 12:25 O2 Sat by Pulse Oximetry (%) 99 11/22/18 12:25 Labs: CBC, BMP 11/22/18 10:40 11/22/18 10:40 Problem List - Problems (1) Paroxysmal a-fib Assessment/Plan: can be 2/2 to d/hansel amiodarone for the hypothyroidism and the SOB rate control with metoprolol c/w apixiban cardiology consultation patient requires an Code(s): I48.0 - PAROXYSMAL ATRIAL FIBRILLATION (2) Seizure disorder Assessment/Plan: c/w [facility] monitor for seizure disorder Code(s): G40.909 - EPILEPSY, UNSP, NOT INTRACTABLE, WITHOUT STATUS EPILEPTICUS (3) HFrEF (heart failure with reduced ejection fraction) Assessment/Plan: obtain a TTE start the patient on carvedilol cardiology consult consider spencer mckeon has Mild TR on last echo Code(s): I50.20 - UNSPECIFIED SYSTOLIC (CONGESTIVE) HEART FAILURE (4) Hypothyroidism Assessment/Plan: patients require to be started on levothyroxine start 25mcg daily hold amiodarone Code(s): E03.9 - HYPOTHYROIDISM, UNSPECIFIED (5) Hypertension Assessment/Plan: start the patient on valsartan 80mg daily Code(s): I10 - ESSENTIAL (PRIMARY) HYPERTENSION Qualifiers: Hypertension type: essential hypertension Qualified Code(s): I10 - Essential (primary) hypertension
[2018-11-22] MEDS ORDERED: levETIRAcetam 500 MG TABLET (FP) PO ONE (22:15)
[2018-11-22] MEDS ORDERED: APIXABAN 5 MG TABLET PO ONE (22:15)
[2018-11-22] MEDS: APIXABAN 5 MG TABLET PO SCH (22:22)
[2018-11-22] MEDS: levETIRAcetam 250 MG TABLET (FP) PO SCH (22:22)
[2018-11-23 06:28] LABS: HEMATOCRIT 36.8 % (32.4-45.2); HEMOGLOBIN 11.9 GM/dL (10.7-15.3); MCH 27.8 pg (25.7-33.7); MCHC 32.3 g/dl (32.0-36.0); MEAN CELL VOLUME 85.9 fl (80-96); MEAN PLT VOLUME 11.3 fl (7.5-11.1); PLATELET COUNT 304 K/MM3 (134-434); RBC 4.29 M/mm3 (3.60-5.2); RDW 14.1 % (11.6-15.6); WHITE BLOOD COUNT 13.3 K/mm3 (4.0-10.0)
[2018-11-23] MEDS ORDERED: LEVOTHYROXINE NA 25 MCG TABLET (FP) ONE (07:15)
[2018-11-23] MEDS: LEVOTHYROXINE NA 25 MCG TABLET (FP) PO SCH (07:17)
[2018-11-23] MEDS ORDERED: VALSARTAN 80 MG TABLET (UD) PO SCH (10:00)
[2018-11-23] MEDS ORDERED: ACETAMINOPHEN 325 MG TABLET (FP) ONE ×2 (10:12→10:13)
[2018-11-23] MEDS: levETIRAcetam 250 MG TABLET (FP) PO SCH ×2 (11:05→22:01)
[2018-11-23] MEDS: APIXABAN 5 MG TABLET PO SCH ×2 (11:05→22:01)
--- NOTE | 2018-11-23 11:14 | PN ---
Progress Note (short form) - Note Progress Note: Chief Complaint: Events noted, notes reviewed, reported progressive dyspnea improved this AM, denies any chest pain sinus rhythm is maintained History of Present Illness: Seen and examined in the ER as telemetry hold. Full consult dictated - Current Medication List Current Medications Apixaban (Eliquis -) 5 mg PO BID [facility] Last Admin: 11/23/18 11:05 Dose: 5 mg Levetiracetam (Keppra -) 250 mg PO BID [facility] Last Admin: 11/23/18 11:05 Dose: 250 mg Levothyroxine Sodium (Synthroid -) 25 mcg PO DAILY@0700 [facility] Last Admin: 11/23/18 07:17 Dose: 25 mcg Metoprolol Succinate (Toprol Xl -) 50 mg PO DAILY [facility] Last Admin: 11/23/18 11:05 Dose: 50 mg Valsartan (Diovan -) 80 mg PO DAILY [facility] Last Admin: 11/23/18 11:04 Dose: 80 mg Review of Systems - Review of Systems Constitutional: denies: Chills, Fever Cardiovascular: as noted above Respiratory: denies: Cough or Sputum Production Gastrointestinal: denies: Nausea, Vomiting, Diarrhea, Constipation or Abdominal Pain Genitourinary: denies: Dysuria Musculoskeletal: denies: Joint Pain Neurological: No Symptoms Reported - Objective Vital Signs: Last Vital Signs Temp Pulse Resp BP Pulse Ox 98.2 F 70 18 138/88 96 11/23/18 06:03 11/23/18 11:06 11/23/18 11:06 11/23/18 11:06 11/23/18 11:06 Intake & Output 11/20/18 11/21/18 11/22/18 11/23/18 23:59 23:59 23:59 23:59 Weight 205 lb Neck: Supple Negative JVD No Bruit Respiratory: Clear to A&P Bilaterally Cardiovascular: S1 S2 Regular Rate and Rhythm Grade 2/6 SM Gastrointestinal: Soft Benign Normal Bowel Sounds Ext: No Edema Labs: Troponin, BNP 11/22/18 11/23/18 10:40 05:30 Troponin I < 0.02 < 0.02 B-Natriuretic Peptide 4615.1 H CBC, BMP 11/23/18 05:30 Hepatic Panel Total Bilirubin 1.0 mg/dL (0.2-1) 11/22/18 10:40 AST 34 U/L (15-37) 11/22/18 10:40 ALT 37 U/L (13-61) 11/22/18 10:40 Alkaline Phosphatase 102 U/L (45-117) 11/22/18 10:40 Albumin 3.2 g/dl (3.4-5.0) L 11/22/18 10:40 INR, PTT INR Cancelled 11/22/18 10:40 Assessment/Plan 1. 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 Paroxysmal atrial fibrillation currently in sinus rhythm [id number] score of 3 on A/C with DOAC's/Eliquis 4. Moderate mitral regurgitation 5. HTN 6. History of seizure disorder PLAN: 1. Continue Toprol XL 2. Continue Diovan 3. Continue Eliquis considering the above noted [id number] score of 3 4. Add Diuretics Lasix+/-Aldactone with close monitoring of renal function 5. Continue Amiodarone 6. Echocardiography to evaluate LV size and function and valvular function 7. Counselled importance of compliance to therapy administration Emmett Rosen M.D.
--- NOTE | 2018-11-23 11:17 | PN ---
Progress Note, Physician - Current Medication List Current Medications: Active Medications Apixaban (Eliquis -) 5 mg PO BID [facility] Last Admin: 11/23/18 11:05 Dose: 5 mg Levetiracetam (Keppra -) 250 mg PO BID [facility] Last Admin: 11/23/18 11:05 Dose: 250 mg Levothyroxine Sodium (Synthroid -) 25 mcg PO DAILY@0700 [facility] Last Admin: 11/23/18 07:17 Dose: 25 mcg Metoprolol Succinate (Toprol Xl -) 50 mg PO DAILY [facility] Last Admin: 11/23/18 11:05 Dose: 50 mg Valsartan (Diovan -) 80 mg PO DAILY [facility] Last Admin: 11/23/18 11:04 Dose: 80 mg - Objective Vital Signs: Vital Signs Temperature 98.2 F 11/23/18 06:03 Pulse Rate 70 11/23/18 11:06 Respiratory Rate 18 11/23/18 11:06 Blood Pressure 138/88 11/23/18 11:06 O2 Sat by Pulse Oximetry (%) 96 11/23/18 11:06 Constitutional: Yes: Well Nourished, No Distress, Calm Eyes: Yes: WNL, Conjunctiva Clear, EOM Intact HENT: Yes: WNL, Atraumatic, Normocephalic Neck: Yes: WNL, Supple, Trachea Midline Cardiovascular: Yes: WNL, Regular Rate and Rhythm, S1, S2 Respiratory: Yes: WNL, Regular, CTA Bilaterally Gastrointestinal: Yes: WNL, Normal Bowel Sounds, Soft, Abdomen, Obese Musculoskeletal: Yes: WNL Extremities: Yes: WNL Edema: No Peripheral Pulses WNL: Yes Peripheral Pulses: Left Radial: 2+, Right Radial: 2+ Integumentary: Yes: WNL Neurological: Yes: WNL, Alert, Oriented ...Motor Strength: WNL Psychiatric: Yes: WNL, Alert, Oriented Labs: CBC, BMP 11/23/18 05:30 INR, PTT INR Cancelled 11/22/18 10:40 Problem List - Problems (1) Paroxysmal a-fib Code(s): I48.0 - PAROXYSMAL ATRIAL FIBRILLATION (2) Seizure disorder Code(s): G40.909 - EPILEPSY, UNSP, NOT INTRACTABLE, WITHOUT STATUS EPILEPTICUS (3) HFrEF (heart failure with reduced ejection fraction) Code(s): I50.20 - UNSPECIFIED SYSTOLIC (CONGESTIVE) HEART FAILURE (4) Hypothyroidism Code(s): E03.9 - HYPOTHYROIDISM, UNSPECIFIED (5) Hypertension Code(s): I10 - ESSENTIAL (PRIMARY) HYPERTENSION Qualifiers: Qualified Code(s): I10 - Essential (primary) hypertension Assessment/Plan Paroxysmal a-fib can be 2/2 to the moderate MR amiodarone was d/c due to hypothyroidism and the SOB rate control with metoprolol c/w apixiban 5mg twice a day cardiology consultation Seizure disorder c/w kera monitor for seizure disorder HFrEF (heart failure with reduced ejection fraction) obtain a TTE start the patient on carvedilol cardiology consult consider spencer mckeon has Mild TR on last echo Hypothyroidism patients require to be started on levothyroxine start 25mcg daily hold amiodarone Hypertension start the patient on valsartan 80mg daily
[2018-11-23] MEDS ORDERED: FUROSEMIDE 40 MG/4 ML INJECTABLE VIAL IVPUSH ONE (11:29)
[2018-11-23] MEDS: AMIODARONE HCL 200 MG TABLET (FP) PO SCH (12:00)
[2018-11-23] MEDS ORDERED: AMIODARONE HCL 200 MG TABLET (FP) ONE (12:02)
[2018-11-23] MEDS ORDERED: FUROSEMIDE 40 MG/4 ML INJECTABLE VIAL ONE (12:03)
[2018-11-23 12:32] LABS: ALBUMIN 3.2 g/dl (3.4-5.0); ALK PHOS 104 U/L (45-117); ANION GAP 10 MMOL/L (8-16); BILIRUBIN,TOTAL 0.8 mg/dL (0.2-1); BLOOD UREA NITROGEN 8 mg/dL (7-18); CALCIUM 8.2 mg/dL (8.5-10.1); CHLORIDE 105 mmol/L (98-107); CO2 28 mmol/L (21-32); GLUCOSE,RANDOM 107 mg/dL (74-106); MAGNESIUM 1.9 mg/dL (1.8-2.4); N-TERMINAL BNP 8262.7 pg/ml (5-125); PHOSPHOROUS 4.5 mg/dL (2.5-4.9); POTASSIUM 3.4 mmol/L (3.5-5.1); SGOT/AST 16 U/L (15-37); SGPT/ALT 29 U/L (13-61); SODIUM 142 mmol/L (136-145); TOT PROT 6.9 g/dl (6.4-8.2)
[2018-11-23] MEDS ORDERED: AMIODARONE HCL 150 MG/3 ML VIAL IVPUSH ONE (12:47)
[2018-11-23] MEDS ORDERED: METOPROLOL TARTRATE 5 MG/5 ML VIAL IVPUSH ONE ×2 (12:53→13:25)
[2018-11-23] MEDS ORDERED: METOPROLOL TARTRATE 5 MG/5 ML VIAL ONE (13:05)
[2018-11-23] MEDS ORDERED: AMIODARONE HCL 150 MG/3 ML VIAL ONE (13:05)
[2018-11-23] MEDS ORDERED: AMIODARONE IN DEXTROSE,ISO-OSM 150 MG/100 ML BAG IVPB ONE (13:23)
--- NOTE | 2018-11-23 13:27 | CONS ---
DATE OF CONSULTATION: 11/23/2018 CONSULTATION REQUESTED BY: Hospitalist CHIEF COMPLAINT: Dyspnea. CARDIOVASCULAR EVALUATION: A 73-year-old female of descent with known history of probable coronary artery disease, angina pectoris, systolic/diastolic left ventricular dysfunction with chronic class 1 [place] Heart Association Classification left ventricular failure, paroxysmal atrial fibrillation, on chronic anticoagulation therapy with Eliquis, hypertensive cardiovascular disease, and seizure disorders who presented to [facility] with progressive dyspnea, which has been noted over the last several days and, in addition, complained of palpitations. Dyspnea was noted with minimal physical activity and patient, in addition, reported orthopnea, but denied paroxysmal nocturnal dyspnea. Patient denied any peripheral edema. Patient denied any chest discomfort. Patient reported fatigue and tiredness. Patient, in addition, reported palpitations, but denied any dizziness or lightheadedness. PAST MEDICAL HISTORY: Coronary artery disease, angina pectoris; diastolic/systolic left ventricular dysfunction with class 1 [place] Heart Association Classification left ventricular failure; paroxysmal atrial fibrillation, on anticoagulation therapy with Eliquis and, in addition, on antiarrhythmic therapy; hypertensive cardiovascular disease; seizure disorder. SOCIAL HISTORY: Nonsmoker. FAMILY HISTORY: No history of premature coronary artery disease. ALLERGIES: None reported. MEDICAL THERAPY: Currently includes: Eliquis 5 mg twice a day; Keppra 250 mg twice a day; Synthroid 25 mcg once daily for hypothyroidism; Toprol-XL 50 mg once a day; Diovan 80 mg once a day. REVIEW OF SYSTEMS: Head/Neck: Patient denies headache, photophobia, blurring of vision. Respiratory: No cough or sputum production. Cardiovascular: As noted above. Gastrointestinal: No nausea, vomiting, diarrhea, abdominal discomfort. Genitourinary: No symptoms reported. Musculoskeletal: No symptoms reported. PHYSICAL EXAMINATION: Vital Signs: Blood pressure is 138/88 mmHg, pulse rate is 70 beats/min. Head/Neck: Pupils equal and reactive to light and accommodation. Extraocular muscles are intact. Anicteric sclerae. Negative JVD. No bruit appreciated. Chest: Diminished breath sounds at the bases bilaterally. Cardiovascular: S1, S2 regular. Grade 1/6 systolic ejection murmur. No clicks or gallops. Abdomen: Soft, benign, normoactive bowel sounds. Extremities: Negative edema. Intact distal pulses. No calf tenderness. Electrocardiogram revealed sinus rhythm with nonspecific T-wave abnormality. Chest x-ray and CT scan of the chest reports were noted. CBC revealed a white cell count of 13.3, hemoglobin 11.9, platelet count 304. INR cancelled. BNP 4615. Basic metabolic profile from today is pending. Yesterday, sodium was 139, potassium 4.6, BUN was 8, creatinine 0.8, glucose 104 with normal liver profile. ASSESSMENT: 1. 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 2. Probable coronary artery disease, angina pectoris. 3. Paroxysmal atrial fibrillation, currently in sinus rhythm, CHADS2-VASc Score of 3, on anticoagulation therapy with Eliquis. 4. Mitral valve regurgitation. 5. Hypertensive cardiovascular disease. 6. History of seizure disorder. RECOMMENDATION: 1. Continuation of Toprol-XL. 2. Continuation of Diovan. 3. Continuation of Eliquis, considering the above-noted CHADS2-VASc Score of 3. 4. Additional diuretics with Lasix +/- Aldactone with close monitoring of renal function. 5. Continuation of amiodarone. 6. Echocardiography for evaluation of left ventricular size and function and valvular pathology. 7. Patient was strongly counseled on the importance of compliance with therapy administration and risk factor modification. Thank you for the kind referral. NALLELY MEJIA M.D. [id number]
--- NOTE | 2018-11-23 16:56 | EKG ---
Test Reason : Blood Pressure : / mmHG Vent. Rate : 081 BPM Atrial Rate : 081 BPM P-R Int : 176 ms QRS Dur : 074 ms QT Int : 392 ms P-R-T Axes : 067 021 041 degrees QTc Int : 455 ms POOR DATA QUALITY, INTERPRETATION MAY BE ADVERSELY AFFECTED SINUS RHYTHM WITH PREMATURE SUPRAVENTRICULAR COMPLEXES SEPTAL INFARCT , AGE UNDETERMINED T WAVE ABNORMALITY, CONSIDER ANTERIOR ISCHEMIA ABNORMAL ECG Confirmed by MD MABEL, BARBARA ([id number]) on 11/23/2018 4:55:59 PM Referred By: Confirmed By:BARBARA MONROE MD
[2018-11-23] MEDS: VALSARTAN 80 MG TABLET (UD) PO SCH (22:01)
[2018-11-24] MEDS: LEVOTHYROXINE NA 25 MCG TABLET (FP) PO SCH (06:10)
[2018-11-24 08:01] LABS: INR 1.35 (0.83-1.09)
[2018-11-24 08:02] LABS: ALBUMIN 3.2 g/dl (3.4-5.0); ALK PHOS 95 U/L (45-117); ANION GAP 8 MMOL/L (8-16); BILIRUBIN,TOTAL 0.6 mg/dL (0.2-1); BLOOD UREA NITROGEN 10 mg/dL (7-18); CHLORIDE 103 mmol/L (98-107); CO2 29 mmol/L (21-32); GLUCOSE,RANDOM 112 mg/dL (74-106); MAGNESIUM 1.9 mg/dL (1.8-2.4); PHOSPHOROUS 4.4 mg/dL (2.5-4.9); POTASSIUM 3.5 mmol/L (3.5-5.1); SGOT/AST 14 U/L (15-37); SGPT/ALT 25 U/L (13-61); SODIUM 141 mmol/L (136-145); TOT PROT 6.7 g/dl (6.4-8.2)
[2018-11-24 08:04] LABS: ACTIVATED PTT 34.3 SECONDS (25.2-36.5)
[2018-11-24 08:35] LABS: BASO % 0.5 % (0-2.0); EOS % 3.6 % (0-4.5); HEMATOCRIT 37.2 % (32.4-45.2); HEMOGLOBIN 12.7 GM/dL (10.7-15.3); LYMPH % 16.8 % (8-40); MCH 29.2 pg (25.7-33.7); MCHC 34.2 g/dl (32.0-36.0); MEAN CELL VOLUME 85.5 fl (80-96); MEAN PLT VOLUME 11.4 fl (7.5-11.1); MONO % 8.2 % (3.8-10.2); NEUT % 70.9 % (42.8-82.8); PLATELET COUNT 329 K/MM3 (134-434); RBC 4.35 M/mm3 (3.60-5.2); RDW 13.6 % (11.6-15.6); WHITE BLOOD COUNT 13.8 K/mm3 (4.0-10.0)
--- NOTE | 2018-11-24 09:44 | EKG ---
Test Reason : Blood Pressure : / mmHG Vent. Rate : 070 BPM Atrial Rate : 070 BPM P-R Int : 170 ms QRS Dur : 078 ms QT Int : 492 ms P-R-T Axes : 075 014 078 degrees QTc Int : 531 ms SINUS RHYTHM WITH PREMATURE ATRIAL COMPLEXES T WAVE ABNORMALITY, CONSIDER ANTERIOR ISCHEMIA PROLONGED QT ABNORMAL ECG WHEN COMPARED WITH ECG OF 23-NOV-2018 12:13, SINUS RHYTHM HAS REPLACED ATRIAL FIBRILLATION VENT. RATE HAS DECREASED BY 48 BPM Confirmed by ROXANNA COELHO MD ([id number]) on 11/24/2018 9:43:48 AM Referred By: Confirmed By:ROXANNA COELHO MD
[2018-11-24] MEDS: levETIRAcetam 250 MG TABLET (FP) PO SCH ×2 (10:03→21:21)
[2018-11-24] MEDS: FUROSEMIDE 40 MG TABLET (FP) PO SCH (10:03)
[2018-11-24] MEDS: APIXABAN 5 MG TABLET PO SCH ×2 (10:03→21:21)
[2018-11-24] MEDS: VALSARTAN 80 MG TABLET (UD) PO SCH ×2 (10:03→21:21)
[2018-11-24] MEDS: AMIODARONE HCL 200 MG TABLET (FP) PO SCH (10:03)
--- NOTE | 2018-11-24 10:29 | PN ---
Progress Note, Physician History of Present Illness: Dyspnea improving, remains in NSR with PAC. - Current Medication List Current Medications: Active Medications Amiodarone HCl (Cordarone -) 200 mg PO DAILY [facility] Last Admin: 11/24/18 10:03 Dose: 200 mg Apixaban (Eliquis -) 5 mg PO BID [facility] Last Admin: 11/24/18 10:03 Dose: 5 mg Furosemide (Lasix -) 40 mg PO DAILY [facility] Last Admin: 11/24/18 10:03 Dose: 40 mg Levetiracetam (Keppra -) 250 mg PO BID [facility] Last Admin: 11/24/18 10:03 Dose: 250 mg Levothyroxine Sodium (Synthroid -) 25 mcg PO DAILY@0700 [facility] Last Admin: 11/24/18 06:10 Dose: 25 mcg Metoprolol Succinate (Toprol Xl -) 50 mg PO DAILY [facility] Last Admin: 11/24/18 10:03 Dose: 50 mg Valsartan (Diovan -) 80 mg PO BID [facility] Last Admin: 11/24/18 10:03 Dose: 80 mg - Objective Vital Signs: Vital Signs Temperature 98 F 11/24/18 10:00 Pulse Rate 66 11/24/18 10:00 Respiratory Rate 18 11/24/18 10:00 Blood Pressure 138/77 11/24/18 10:00 O2 Sat by Pulse Oximetry (%) 97 11/23/18 21:00 Constitutional: Yes: No Distress, Calm Neck: Yes: Supple Cardiovascular: Yes: Regular Rate and Rhythm Respiratory: Yes: Regular, Diminished Gastrointestinal: Yes: Normal Bowel Sounds, Soft, Abdomen, Obese Edema: No Labs: CBC, BMP 11/24/18 07:20 11/24/18 07:20 INR, PTT INR 1.35 (0.83-1.09) H 11/24/18 07:20 - ....Imaging EKG: Report Reviewed (SR, PAC anterior T wave inversions) Problem List - Problems (1) Acute exacerbation of CHF (congestive heart failure) Code(s): I50.9 - HEART FAILURE, UNSPECIFIED Qualifiers: Heart failure type: combined systolic and diastolic Qualified Code(s): I50.43 - Acute on chronic 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) heart failure (2) Atrial fibrillation with RVR Code(s): I48.91 - UNSPECIFIED ATRIAL FIBRILLATION (3) Chronic anticoagulation Code(s): Z79.01 - MCC (CURRENT) USE OF 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 (4) Hypertensive cardiomyopathy Code(s): I11.9 - HYPERTENSIVE HEART DISEASE WITHOUT HEART FAILURE; I43 - CARDIOMYOPATHY IN DISEASES CLASSIFIED ELSEWHERE Qualifiers: Heart failure presence: with heart failure Qualified Code(s): I11.0 - Hypertensive heart disease with heart failure; I43 - Cardiomyopathy in diseases classified elsewhere (5) Hypothyroidism Code(s): E03.9 - HYPOTHYROIDISM, UNSPECIFIED Qualifiers: Hypothyroidism type: unspecified Qualified Code(s): E03.9 - Hypothyroidism , unspecified Assessment/Plan 11/17/2018 Echo: Normal LV size with mod-severely decreased LV fxn LVEF 30-35%, mod MR, mild AR, TR 1. 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 Paroxysmal atrial fibrillation currently in sinus rhythm [id number] score of 3 on A/C with DOAC's/Eliquis 4. Moderate mitral regurgitation 5. HTN 6. Seizure disorder 7. Hypothyroidism PLAN: 1. Continue Toprol XL 50 qd 2. Continue Diovan 80 bid 3. Continue Eliquis 5 bid given elevated [id number] score of 3 4. Continue Lasix 40 qd and add Aldactone 25 qd with close monitoring of renal function, diuretic response and electrolytes, repleting K and Mg 5. Continue Amiodarone 200 qd 6. F/u repeat echocardiography to evaluate LV size and function and valvular function 7. Counselled importance of compliance to therapy administration
[2018-11-24] MEDS ORDERED: POTASSIUM CHLORIDE ORAL LIQUID 20 MEQ/15 ML PO ONE (11:01)
[2018-11-24] MEDS ORDERED: MAGNESIUM OXIDE 400 MG TABLET (FP) PO ONE (11:30)
[2018-11-24 11:52] LABS: PLATELET ESTIMATE ADEQUATE
[2018-11-24] MEDS: SPIRONOLACTONE 25 MG TABLET (FP) PO SCH (12:10)
--- NOTE | 2018-11-24 13:09 | PN ---
Physical Exam: SUBJECTIVE: Patient seen and examined Feels better today. Breathing little better. No Acute distress. OBJECTIVE: Vital Signs Period Temp Pulse Resp BP Sys/Batista Pulse Ox Last 24 Hr 97.8 F-98.3 F 52-136 18-24 95-154/61-90 96-99 GENERAL: The patient is awake, alert, and fully oriented, in no acute distress. HEAD: Normal with no signs of trauma. EYES: PERRL, extraocular movements intact, sclera anicteric, conjunctiva clear. No ptosis. ENT: Ears normal, nares patent, oropharynx clear without exudates, moist mucous membranes. NECK: Trachea midline, full range of motion, supple. LUNGS: Breath sounds equal, B/B crackles, HEART: Regular rate and rhythm, S1, S2 without murmur, rub or gallop. ABDOMEN: Soft, nontender, nondistended, normoactive bowel sounds, no guarding, no rebound, no hepatosplenomegaly, no masses. EXTREMITIES: 2+ pulses, warm, well-perfused, Edema LE B/L NEUROLOGICAL: Cranial nerves II through XII grossly intact. Normal speech, gait not observed. PSYCH: Normal mood, normal affect. SKIN: Warm, dry, normal turgor, no rashes or lesions noted Laboratory Results - last 24 hr 11/24/18 11/24/18 11/24/18 05:19 07:20 07:20 WBC 13.8 H RBC 4.35 Hgb 12.7 Hct 37.2 MCV 85.5 MCH 29.2 MCHC 34.2 RDW 13.6 Plt Count 329 MPV 11.4 H Absolute Neuts (auto) 9.8 H Neutrophils % 70.9 Lymphocytes % 16.8 D Monocytes % 8.2 Eosinophils % 3.6 D Basophils % 0.5 Nucleated RBC % 0 Platelet Estimate Adequate Platelet Comment Large platelets PT with INR 16.00 H INR 1.35 H PTT (Actin FS) 34.3 Sodium Potassium Chloride Carbon Dioxide Anion Gap BUN Creatinine Creat Clearance w eGFR POC Glucometer 111 Random Glucose Calcium Phosphorus Magnesium Total Bilirubin AST ALT Alkaline Phosphatase Total Protein Albumin 11/24/18 07:20 WBC RBC Hgb Hct MCV MCH MCHC RDW Plt Count MPV Absolute Neuts (auto) Neutrophils % Lymphocytes % Monocytes % Eosinophils % Basophils % Nucleated RBC % Platelet Estimate Platelet Comment PT with INR INR PTT (Actin FS) Sodium 141 Potassium 3.5 Chloride 103 Carbon Dioxide 29 Anion Gap 8 BUN 10 Creatinine 1.0 Creat Clearance w eGFR 54.50 POC Glucometer Random Glucose 112 H Calcium 8.0 L Phosphorus 4.4 Magnesium 1.9 Total Bilirubin 0.6 AST 14 L ALT 25 Alkaline Phosphatase 95 Total Protein 6.7 Albumin 3.2 L Active Medications Generic Name Dose Route Start Last Admin Trade Name Freq PRN Reason Stop Dose Admin Amiodarone HCl 200 mg 11/23/18 11:30 11/24/18 10:03 Cordarone - PO 200 mg DAILY ANN Administration Apixaban 5 mg 11/22/18 22:00 11/24/18 10:03 Eliquis - PO 5 mg BID ANN Administration Furosemide 40 mg 11/24/18 10:00 11/24/18 10:03 Lasix - PO 40 mg DAILY ANN Administration Levetiracetam 250 mg 11/22/18 22:00 11/24/18 10:03 Keppra - PO 250 mg BID ANN Administration Levothyroxine Sodium 25 mcg 11/23/18 07:00 11/24/18 06:10 Synthroid - PO 25 mcg DAILY@0700 ANN Administration Metoprolol Succinate 50 mg 11/23/18 10:00 11/24/18 10:03 Toprol Xl - PO 50 mg DAILY ANN Administration Spironolactone 25 mg 11/24/18 11:00 11/24/18 12:10 Aldactone - PO 25 mg DAILY ANN Administration Valsartan 80 mg 11/23/18 22:00 11/24/18 10:03 Diovan - PO 80 mg BID ANN Administration AAfib ASSESSMENT/PLAN: This is a 73 year old female with a PMHx of HTN, Atrial Fibrillation on recently started on amiodarone and apixiban s/p synchronized cardioversion to sinus rhythm, Seizure disorder, NIDDMII, and newly diagnosed HFrEF who presents today complaining of a constant, sharp chest pain radiating to the back associated with whole body aches, shortness of breath on exertion, and palpitations. Patient was seen here in the ED yesterday for similar symptoms with labs, ekg, and cxr wnl. Patient states the symptoms worsened, prompting this hospital visit. Patient also reports feeling more weak and fatigued, especially when taking a few steps. Patient otherwise denies fever, chills, nausea, vomiting, diaphoresis, abdominal pain, diarrhea, constipation, urinary and bowel symptoms, acute vision changes, headaches. she stated that everything started when the patient took the amiodarone few days ago. besides that she said the pain can be reproducible and worse with movement. # Acute on chronic systolic ( HF rEF)/diastolic CHF R/O ACS, serial CE. F/u 2D ECHO report, done earlier today. Diuresis. Strict I/O Fluid restriction. # Afib > On A/C eLIQUIS. Currently on Amiodarone, recently added. # HTN/ Seizure d/o/ NIDDM 2 >> C/W current medical mgmt. Plan d/w the patient and the family at bedside. Visit type - Emergency Visit Emergency Visit: Yes ED Registration Date: 11/22/18 Care time: The patient presented to the Emergency Department on the above date and was hospitalized for further evaluation of their emergent condition. - New Patient This patient is new to me today: Yes Date on this admission: 11/24/18 - Critical Care Critical Care patient: No - Discharge Referral Referred to [facility] Med P.[facility] No
[2018-11-25] MEDS ORDERED: ACETAMINOPHEN 325 MG TABLET (FP) PO PRN (02:10)
[2018-11-25] MEDS ORDERED: ACETAMINOPHEN 325 MG TABLET (FP) ONE (02:44)
[2018-11-25] MEDS: LEVOTHYROXINE NA 25 MCG TABLET (FP) PO SCH (06:02)
[2018-11-25] MEDS: APIXABAN 5 MG TABLET PO SCH (09:34)
[2018-11-25] MEDS: levETIRAcetam 250 MG TABLET (FP) PO SCH (09:34)
[2018-11-25] MEDS: AMIODARONE HCL 200 MG TABLET (FP) PO SCH (09:34)
[2018-11-25] MEDS: FUROSEMIDE 40 MG TABLET (FP) PO SCH (09:34)
[2018-11-25] MEDS: SPIRONOLACTONE 25 MG TABLET (FP) PO SCH (09:35)
[2018-11-25] MEDS: VALSARTAN 80 MG TABLET (UD) PO SCH (09:35)
--- NOTE | 2018-11-25 10:21 | PN ---
Progress Note, Physician Chief Complaint: Events noted Not in distress History of Present Illness: Patient was seen and examined. Awake and alert. Chart was reviewed Denies chest pain or palpitations Remains in sinus rhythm Less SOB - Current Medication List Current Medications: Active Medications Acetaminophen (Tylenol -) 650 mg PO Q6H PRN PRN Reason: PAIN OR FEVER Last Admin: 11/25/18 02:45 Dose: 650 mg Amiodarone HCl (Cordarone -) 200 mg PO DAILY [facility] Last Admin: 11/25/18 09:34 Dose: 200 mg Apixaban (Eliquis -) 5 mg PO BID [facility] Last Admin: 11/25/18 09:34 Dose: 5 mg Furosemide (Lasix -) 40 mg PO DAILY [facility] Last Admin: 11/25/18 09:34 Dose: 40 mg Levetiracetam (Keppra -) 250 mg PO BID [facility] Last Admin: 11/25/18 09:34 Dose: 250 mg Levothyroxine Sodium (Synthroid -) 25 mcg PO DAILY@0700 [facility] Last Admin: 11/25/18 06:02 Dose: 25 mcg Metoprolol Succinate (Toprol Xl -) 50 mg PO DAILY [facility] Last Admin: 11/25/18 09:34 Dose: 50 mg Spironolactone (Aldactone -) 25 mg PO DAILY [facility] Last Admin: 11/25/18 09:35 Dose: 25 mg Valsartan (Diovan -) 80 mg PO BID [facility] Last Admin: 11/25/18 09:35 Dose: 80 mg - Objective Vital Signs: Vital Signs Temperature 98 F 11/25/18 02:00 Pulse Rate 55 L 11/25/18 02:00 Respiratory Rate 18 11/25/18 02:00 Blood Pressure 131/73 11/25/18 02:00 O2 Sat by Pulse Oximetry (%) 97 11/23/18 21:00 Eyes: Yes: PERRL HENT: Yes: Atraumatic Neck: Yes: Supple Cardiovascular: Yes: Regular Rate and Rhythm, S1, S2 Respiratory: Yes: CTA Bilaterally Gastrointestinal: Yes: Normal Bowel Sounds, Soft. No: Tenderness Edema: No Labs: CBC, BMP 11/24/18 07:20 11/24/18 07:20 INR, PTT INR 1.35 (0.83-1.09) H 11/24/18 07:20 Problem List - Problems (1) Acute CHF (congestive heart failure) Code(s): I50.9 - HEART FAILURE, UNSPECIFIED Qualifiers: Heart failure type: combined systolic and diastolic Qualified Code(s): I50.41 - Acute combined systolic (congestive) and diastolic (congestive) heart failure (2) HFrEF (heart failure with reduced ejection fraction) Code(s): I50.20 - UNSPECIFIED SYSTOLIC (CONGESTIVE) HEART FAILURE Qualifiers: Heart failure chronicity: acute on chronic Qualified Code(s): I50.23 - Acute on chronic systolic (congestive) heart failure (3) Hypothyroidism Code(s): E03.9 - HYPOTHYROIDISM, UNSPECIFIED Qualifiers: Hypothyroidism type: unspecified Qualified Code(s): E03.9 - Hypothyroidism , unspecified (4) Acute exacerbation of CHF (congestive heart failure) Code(s): I50.9 - HEART FAILURE, UNSPECIFIED Qualifiers: Heart failure type: combined systolic and diastolic Qualified Code(s): I50.43 - Acute on chronic 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) heart failure (5) Hypertension Code(s): I10 - ESSENTIAL (PRIMARY) HYPERTENSION Qualifiers: Hypertension type: essential hypertension Qualified Code(s): I10 - Essential (primary) hypertension (6) Paroxysmal a-fib Code(s): I48.0 - PAROXYSMAL ATRIAL FIBRILLATION Assessment/Plan 1. 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 Paroxysmal atrial fibrillation currently in sinus rhythm [id number] score of 3 on A/C with DOAC (Eliquis) 4. Moderate mitral regurgitation 5. HTN 6. Seizure disorder 7. Hypothyroidism PLAN: 1. Continue Toprol XL and Diovan 2. Continue Eliquis 5 mg BID given elevated [id number] score of 3 3. Continue Lasix 40 mg QD and Aldactone 25 mg QD with close monitoring of renal function and electrolytes 4. Continue Amiodarone 200 mg QD 5. Echocardiography reviewed 6. Counselled importance of compliance to therapy administration Piter Sanchez MD
--- NOTE | 2018-11-25 14:54 | DS ---
Physical Exam: SUBJECTIVE: Patient seen and examined with her family at the bedside. She states she is ambulating around room w/o any difficulty or shortness of breath. no chest pain. Patient cleared for discharge by cardiology. she denies chest pain or shortness of breath. She is to follow up with Dr. Laura Dumas outpatient. OBJECTIVE: Vital Signs Period Temp Pulse Resp BP Sys/Batista Pulse Ox Last 24 Hr 97.8 F-98 F 55-68 18-18 131-154/64-84 97 PHYSICAL EXAM GENERAL: The patient is awake, alert, and fully oriented, in no acute distress. HEAD: Normal with no signs of trauma. EYES: PERRL, extraocular movements intact, sclera anicteric, conjunctiva clear. ENT: Ears normal, nares patent, oropharynx clear without exudates, moist mucous membranes. NECK: Trachea midline, full range of motion, supple. HEART: Regular rate and rhythm ABDOMEN: Soft, nontender, nondistended, normoactive bowel sounds, no guarding, no rebound, no hepatosplenomegaly, no masses. EXTREMITIES: 2+ pulses, warm, well-perfused, no edema. NEUROLOGICAL: Normal speech, gait not observed. PSYCH: Normal mood, normal affect. SKIN: Warm, dry, normal turgor, no rashes or lesions noted. LABS Laboratory Results - last 24 hr 11/25/18 11/25/18 05:57 12:19 POC Glucometer 102 124 HOSPITAL COURSE: Patient is a 73 year old female with a PMHx of HTN, and Atrial Fibrillation. She was recently started on amiodarone and apixiban s/p synchronized cardioversion to sinus rhythm. Her other history includes seizure disorder, diabetes, and newly diagnosed HFrEF. She presented to the ED on 11/22/2018 for complaints of a constant, sharp chest pain radiating to the back associated with whole body aches, shortness of breath on exertion, and palpitations. Patient was seen here in the ED yesterday for similar symptoms with labs, ekg, and cxr wnl. Patient states the symptoms worsened, prompting this hospital visit. Patient also reports feeling more weak and fatigued, especially when taking a few steps. Patient stated that everything started when the patient took the amiodarone and the metroprolol few days ago. On exam, all her symptoms are now resolved. She is denying and chest pain or shortness of breath. Cardiology: Acute on chronic systolic ( HF rEF)/diastolic CHF ACS ruled by by cardiology Troponins negative Echo reviewed Cleared by cardiology for outpatient workup. can be discharged home Patient to continue her cardiac medications. Atrial fibrillation On Eliquis bid, metoprolol and amiodrone (recently added). Hypertension, controlled. Continue Toprol XL and Diovan Neuro Seizure history. on keppra Patient to follow up outpatient with her drier helper, Dr. Sanchez. Date of Admission:11/22/18 Date of Discharge: 11/25/18 Minutes to complete discharge: 60 Discharge Summary Reason For Visit: ACUTE ON CHRONIC CHF Current Active Problems Acute CHF (congestive heart failure) (Acute) HFrEF (heart failure with reduced ejection fraction) (Acute) Hypothyroidism (Acute) Condition: Good - Instructions Diet, Activity, Other Instructions: Mrs Lo: You were sent to the ER on for symptoms of congestive heart failure. Your drier helper is clearing you for discharge. Please see Dr. Sanchez within 1` week of discharge. continue all the medications ordered for you in your discharge packet. Thank you for allowing us to care for you. Jennifer Nelson [place] PATIENT SERVICE COORDINATOR [phone] [facility] Referrals: Haley Schneider MD [Primary Care Provider] - Disposition: HOME - Home Medications Comprehensive Discharge Medication List: Ambulatory Orders levETIRAcetam [Keppra -] 250 mg PO BID 12/12/17 Apixaban [Eliquis] 5 mg PO BID 11/13/18 Amiodarone HCl [Cordarone -] 200 mg PO BID #60 tablet 11/18/18 Metoprolol Tartrate [Lopressor] 50 mg PO BID #60 tablet 11/18/18 This patient is new to me today: Yes Date on this admission: 11/25/18 Emergency Visit: Yes ED Registration Date: 11/22/18 Care time: The patient presented to the Emergency Department on the above date and was hospitalized for further evaluation of their emergent condition. Critical Care patient: No - Discharge Referral Referred to [facility] No
[2018-11-25 15:33] VITALS: BP 125/85; PULSE 67; TEMP 98
== END 2018-11-25 16:53 | disposition home or self-care (01) | DRG 293 ==
LOC: JER 09:15 → JERBED 15:31 → OBSVTOIN 16:39 → J4W 11-23 18:39
PROVIDERS: ADMIT Internal Medicine; ATTEND Nurse Practitioner Family
DX: I11.0 Hypertensive heart disease with heart failure (principal); I50.43 Acute on chronic combined systolic (congestive) and diastolic (congestive) heart failure; E11.9 Type 2 diabetes mellitus without complications; G40.909 Epilepsy, unspecified, not intractable, without status epilepticus; I25.10 Atherosclerotic heart disease of native coronary artery without angina pectoris; I48.0 Paroxysmal atrial fibrillation; E03.9 Hypothyroidism, unspecified; Z79.01 Long term (current) use of anticoagulants; I34.0 Nonrheumatic mitral (valve) insufficiency
CPT/HCPCS: 36415; 71045-TC-FY; 71046-TC-FY; 71270-TC; 80053; 82550; 82962; 83735; 83880; 84100; 84484; 85025; 85027; 85610; 85730; 93005; 93010; 93306-TC; 99285-25; G0378; J0282

== ENCOUNTER 2019-02-13 11:18 | Inpatient (IN) | payer OTHER ==
[2019-02-13] MEDS ORDERED: dilTIAZem HCL 50 MG/10 ML - 10 ML VIAL IVPUSH ONE (12:09)
[2019-02-13] MEDS ORDERED: dilTIAZem HCL 60 MG TABLET (FP) PO ONE (12:13)
--- NOTE | 2019-02-13 12:24 | PDOC ---
History of Present Illness - General Chief Complaint: Weakness Stated Complaint: WEAKNESS Time Seen by Provider: 02/13/19 11:45 History Source: Patient Exam Limitations: No Limitations - History of Present Illness Initial Comments: 02/13/19 12:19 Patient is a 73 y/o female with a history of HTN, afib, seizures, DM, and HFrEF who presnts for feeling tired, palpations, and feeling off. Patient has been feeling like this for a few days. 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 She is currently taking Eliquis twice a day, irbesartan, and Keppra. She reports she takes the medications that were at the pharmacy for her. She has not been taking metoprolol since her last refill ran out a couple months ago since it was not at the pharmacy. Patient does not have any shortness of breath and is able to walk. In November patient underwent cardioversion while here. Patient has not had recent fever or chills, no sick contacts. Patient has no other complaints. Climatologist [id number] used Past History - Past Medical History Allergies/Adverse Reactions: Allergies Allergy/AdvReac Type Severity Reaction Status Date / Time No Known Allergies Allergy Verified 02/13/19 11:33 Home Medications: Ambulatory Orders levETIRAcetam [Keppra -] 250 mg PO BID 12/12/17 Apixaban [Eliquis] 5 mg PO BID #60 tablet 11/25/18 Levothyroxine [Synthroid -] 25 mcg PO DAILY@0700 #30 tablet 11/25/18 Losartan Potassium 300 mg PO DAILY 02/13/19 Anemia: No Asthma: No Cancer: No Cardiac Disorders: Yes (afib,mvr) CVA: No COPD: No CHF: No DVT: No Dementia: No Diabetes: Yes GI Disorders: No Disorders: No HTN: Yes Hypercholesterolemia: No Liver Disease: No Seizures: Yes Thyroid Disease: No - Surgical History Abdominal Surgery: Yes (TUBAL LIGATION) Appendectomy: No Cardiac Surgery: No Cholecystectomy: No Lung Surgery: No Neurologic Surgery: No Orthopedic Surgery: No - Immunization History Immunization Up to Date: Yes - Suicide/Smoking/Psychosocial Hx Smoking Status: No Smoking History: Never smoked Have you smoked in the past 12 months: No Number of Cigarettes Smoked Daily: 0 Information on smoking cessation initiated: No Hx Alcohol Use: No Drug/Substance Use Hx: No Substance Use Type: None Hx Substance Use Treatment: No Review of Systems - Review of Systems Constitutional: No: Chills, Fever HEENTM: No: Eye Pain Respiratory: No: Cough, Shortness of Breath Cardiac (ROS): Yes: Chest Pain, Irregular Heart Rate, Lightheadedness, Palpitations ABD/GI: No: Diarrhea, Nausea, Vomiting *Physical Exam - Vital Signs Last Vital Signs Temp Pulse Resp BP Pulse Ox 98.3 F 57 L 18 106/68 98 02/13/19 11:31 02/13/19 11:31 02/13/19 11:31 02/13/19 11:31 02/13/19 12:09 - Physical Exam Comments: 02/13/19 12:26 GENERAL: A&O x3, no acute distress EYES: EOMI, PERRLA HEART: irregularly irregular, no murmurs, rubs, or gallops LUNGS: CTAL B/L ABD: soft, non tender, non distended EXTREMITIES: no pitting edema SKIN: no rashes or ulcers noted ED Treatment Course - LABORATORY CBC & Chemistry Diagram: 02/13/19 12:18 02/13/19 12:18 Medical Decision Making - Medical Decision Making 02/13/19 12:29 Cardizem 10 mg IV push, 60 po f/u labs f/u CXR, EKG: afib with RVR 02/13/19 14:23 WBC 18, hx of elevated WBC, UA sent to lab Called Dr. Sanchez service to be aware of patient 02/13/19 15:07 Spoke to Hospitalist team for admission Repeat pulse 87 *DC/Admit/Observation/Transfer Diagnosis at time of Disposition: Afib Qualifiers: Atrial fibrillation type: chronic Qualified Code(s): I48.2 - Chronic atrial fibrillation - Discharge Dispostion Decision to Admit order: Yes - Referrals Referrals: Haley Schneider MD [Primary Care Provider] - - Patient Instructions - Post Discharge Activity
--- NOTE | 2019-02-13 12:26 | PDOC ---
Attending Attestation - Resident Resident Name: Jaclyn Velasquez - ED Attending Attestation I have performed the following: I have examined & evaluated the patient, The case was reviewed & discussed with the resident, I agree w/resident's findings & plan - HPI HPI: 02/13/19 13:44 Patient is a 73 year old female with a PMHx of HTN, and Atrial Fibrillation on Eliquis and amiodarone s/p previous sync cardioversion to sinus rhythm, HFrEF - combined systolic and diastolic HF, seizure d/o on keppra presenting with generalized weakness, palpitations. Has not been taking her metoprolol Prior admissions for her Afib RVR and CHF workup. Student Worker: Dr Sanchez Admitted :11/22/18 to 11/25/18, previously in 10/2018 for Afib RVR. - Physicial Exam PE: 02/13/19 14:38 NAD, well appearing, PERRL, EOMI, MMM, nl conjunctiva, anicteric; neck supple. lungs clear, irregularly irregular, abdomen soft nontender. PELAYO x4, no focal neuro deficits. No peripheral edema. normal color for ethnicity, WWP. no calf tenderness. - Medical Decision Making 02/13/19 13:44 See HPI for details Vital signs reviewed, +tachy to 130s, Afib RVR; initial set of Vs incorrect, as EKG with Afib RVR noted. Prior notes reviewed, including admissions, discharges and consultations. laboratory results and imaging reviewed, basic labs and lytes wnl, notable for + 18K leukocytosis; prior wbc cts have been elevated. Mg low, repleted with 2g IV. TSH levels normal UA_sent, pending CXR_no acute chest pathology Cardiac panel_neg trop. Chronically elevated bnp, lower than previous results and known h/o CHF. EKG atrial fibrillation RVR at 130 bpm, no interval abnormalities, narrow QRS, ST and T wave segments and morphology normal. Nonspecific T wave abnormalities ED course: rate control here for Afib RVR with diltiazem. Likely trigger of poor med compliance, not on metoprolol x several weeks due to the pharmacy not having the medication. No fevers, defer blood culture testing. dispo: admit for Afib RVR, tele monitoring. cards cs with Dr Sanchez, admit to hospitalist 02/13/19 14:37 02/14/19 07:34 Heart Score/ECG Review #1 ECG reviewed & interpreted by me at: 11:30 Compared to previous ECG there are: Changes noted 02/13/19 12:26 EKG atrial fibrillation RVR at 130 bpm, no interval abnormalities, narrow QRS, ST and T wave segments and morphology normal. Nonspecific T wave abnormalities - ECG Intrepretation Rhythm: Irregularly Irregular
[2019-02-13] MEDS ORDERED: dilTIAZem HCL 60 MG TABLET (FP) ONE (12:42)
[2019-02-13] MEDS ORDERED: dilTIAZem HCL 125 MG/25 ML - 25 ML VIAL ONE (12:42)
[2019-02-13 13:04] LABS: INR 1.03 (0.83-1.09); PROTHROMBIN TIME (PATIENT) 12.2 SEC (9.7-13.0)
[2019-02-13 13:07] LABS: ACTIVATED PTT 37.1 SECONDS (25.2-36.5)
[2019-02-13 13:19] LABS: ALBUMIN 3.5 g/dl (3.4-5.0); ALK PHOS 107 U/L (45-117); ANION GAP 9 MMOL/L (8-16); BILIRUBIN,TOTAL 0.5 mg/dL (0.2-1); BLOOD UREA NITROGEN 19 mg/dL (7-18); CHLORIDE 104 mmol/L (98-107); CO2 26 mmol/L (21-32); GLUCOSE,RANDOM 185 mg/dL (74-106); MAGNESIUM 1.7 mg/dL (1.8-2.4); POTASSIUM 4.4 mmol/L (3.5-5.1); SGOT/AST 13 U/L (15-37); SGPT/ALT 22 U/L (13-61); SODIUM 140 mmol/L (136-145); TOT PROT 7.4 g/dl (6.4-8.2)
[2019-02-13 13:24] LABS: BASO % 0.4 % (0-2.0); EOS % 0.5 % (0-4.5); HEMATOCRIT 43.5 % (32.4-45.2); LYMPH % 16.4 % (8-40); MCH 28.3 pg (25.7-33.7); MCHC 32.1 g/dl (32.0-36.0); MEAN CELL VOLUME 88.1 fl (80-96); MEAN PLT VOLUME 11.3 fl (7.5-11.1); MONO % 5.9 % (3.8-10.2); NEUT % 76.8 % (42.8-82.8); PLATELET COUNT 301 K/MM3 (134-434); RBC 4.94 M/mm3 (3.60-5.2); RDW 14.5 % (11.6-15.6); WHITE BLOOD COUNT 18.3 K/mm3 (4.0-10.0)
[2019-02-13] MEDS ORDERED: MAGNESIUM SULF 50% (8.12 MEQ/2 ML-1 GM VIAL) IVPB ONE (13:39)
[2019-02-13] MEDS ORDERED: SODIUM CHLORIDE 0.9% 500 ML INFUS.BAG IV ONE (13:42)
[2019-02-13] MEDS ORDERED: METOPROLOL TARTRATE 25 MG TABLET (FP) PO ONE (14:32)
--- NOTE | 2019-02-13 14:39 | HP ---
Admitting History and Physical - Primary Care Physician PCP: Haley Schneider - Admission Chief Complaint: Palpittaion and Dizziness History of Present Illness: 73 yrs old F with seizures disorders Afib on AC and rate control with Metoprolol present with 2 days H/O feeling Dizzy and palpitation, but no chest pain, cough or SOB, nausea, vomiting diarrhea worsening SOB, OND or orthopnea, on arrival to Ed EKG shows afib with RVR recived Diltizem Push and PO at the time of examination HR is 82 is being admitted for further evaluation and managements. 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 Cardiovascular: Yes: AFIB, CAD, CHF, HTN, Other (STENTS, mitral regurgitation) Endocrine: Yes: Diabetes Mellitus - Past Surgical History Past Surgical History: Yes: Joint Replacement, Tubal Ligation - Smoking History Smoking history: Never smoked Have you smoked in the past 12 months: No Aproximately how many cigarettes per day: 0 - Alcohol/Substance Use Hx Alcohol Use: No History of Substance Use: reports: None - Social History ADL: Independent History of Recent Travel: No Home Medications - Allergies Allergies/Adverse Reactions: Allergies Allergy/AdvReac Type Severity Reaction Status Date / Time No Known Allergies Allergy Verified 02/13/19 11:33 - Home Medications Home Medications: Ambulatory Orders levETIRAcetam [Keppra -] 250 mg PO BID 12/12/17 Apixaban [Eliquis] 5 mg PO BID #60 tablet 11/25/18 Levothyroxine [Synthroid -] 25 mcg PO DAILY@0700 #30 tablet 11/25/18 Losartan Potassium 300 mg PO DAILY 02/13/19 Family Disease History - Family Disease History Family Disease History: Heart Disease: Mother (HTN), Sister (HTN) Review of Systems - Review of Systems Constitutional: denies: Chills, Diaphoresis Eyes: denies: Blind Spots, Blurred Vision HENT: denies: Difficult Swallowing, Ear Discharge Neck: denies: Decreased ROM, Lumps Cardiovascular: reports: Palpitations. denies: Chest Pain, Shortness of Breath Respiratory: denies: Cough, Exercise Intolerance, Hemoptysis Gastrointestinal: denies: Abdominal Pain, Bloating, Constipation, Diarrhea Genitourinary: denies: Burning, Discharge Musculoskeletal: denies: Back Pain, Crepitus, Decreased ROM Neurological: reports: Dizziness. denies: Change in Speech, Confusion Endocrine: denies: Excessive Sweating, Flushing Physical Examination Vital Signs: Vital Signs Temperature 98.3 F 02/13/19 11:31 Pulse Rate 92 H 02/13/19 13:17 Respiratory Rate 18 02/13/19 13:17 Blood Pressure 122/86 02/13/19 13:17 O2 Sat by Pulse Oximetry (%) 99 02/13/19 13:17 Elderly F obese not in distress HEENT: Mm moist, no anemia, PERRLA EOMI NECK: No JVD No Bruit CHEST: minimal Basal crepts CVS: S1S2 Irr SM ABD: No distention, non tender Bs + EXT: Edema fet +, no calf tenderness FINISH MOLDER: AOX3 non focal Constitutional: Yes: Well Nourished, No Distress Eyes: Yes: Conjunctiva Clear, EOM Intact HENT: Yes: Atraumatic, Normocephalic Neck: Yes: Supple Cardiovascular: Yes: Pulse Irregular, S1, S2. No: JVD Respiratory: Yes: Regular, CTA Bilaterally Gastrointestinal: Yes: Normal Bowel Sounds, Soft Musculoskeletal: No: Back Pain, Joint Stiffness Extremities: No: Calf Tenderness, Cold Edema: No Peripheral Pulses: Left Doralis Pedis: 1+, Right Dorsalis Pedis: 1+ Neurological: Yes: Alert, Oriented, Cran Nerves II-XII Intact ...Motor Strength: WNL, LUE, LLE, RUE, RLE Labs: C WBC 18.3 K/mm3 (4.0-10.0) H 02/13/19 12:18 RBC 4.94 M/mm3 (3.60-5.2) 02/13/19 12:18 Hgb 14.0 GM/dL (10.7-15.3) 02/13/19 12:18 Hct 43.5 % (32.4-45.2) D 02/13/19 12:18 MCV 88.1 fl (80-96) 02/13/19 12:18 MCHC 32.1 g/dl (32.0-36.0) 02/13/19 12:18 RDW 14.5 % (11.6-15.6) 02/13/19 12:18 Plt Count 301 K/MM3 (134-434) 02/13/19 12:18 MPV 11.3 fl (7.5-11.1) H 02/13/19 12:18 CMP Sodium 140 mmol/L (136-145) 02/13/19 12:18 Potassium 4.4 mmol/L (3.5-5.1) 02/13/19 12:18 Chloride 104 mmol/L (98-107) 02/13/19 12:18 Carbon Dioxide 26 mmol/L (21-32) 02/13/19 12:18 Anion Gap 9 MMOL/L (8-16) 02/13/19 12:18 BUN 19 mg/dL (7-18) H 02/13/19 12:18 Creatinine 1.0 mg/dL (0.55-1.3) 02/13/19 12:18 Creat Clearance w eGFR 54.50 (>60) 02/13/19 12:18 Calcium 9.0 mg/dL (8.5-10.1) 02/13/19 12:18 Total Bilirubin 0.5 mg/dL (0.2-1) 02/13/19 12:18 AST 13 U/L (15-37) L 02/13/19 12:18 ALT 22 U/L (13-61) 02/13/19 12:18 Alkaline Phosphatase 107 U/L (45-117) 02/13/19 12:18 Total Protein 7.4 g/dl (6.4-8.2) 02/13/19 12:18 Albumin 3.5 g/dl (3.4-5.0) 02/13/19 12:18 Imaging - Results X-ray: Report Reviewed (no acute infiltrates) EKG: Report Reviewed (Afib with RVR [address] t changes, poor progression of R wave) Problem List - Problems (1) Atrial fibrillation with RVR Assessment/Plan: Non compliant will re introduce Metoprolol 25 mg BID uptiter as needed Cont Apaxiban, Cardiology consult Rpt ECHO Code(s): I48.91 - UNSPECIFIED ATRIAL FIBRILLATION (2) Hypertension Assessment/Plan: Resume Metoprolol and Diovan optimized with BP response and HR response Code(s): I10 - ESSENTIAL (PRIMARY) HYPERTENSION Qualifiers: Hypertension type: essential hypertension Qualified Code(s): I10 - Essential (primary) hypertension (3) Diastolic CHF Assessment/Plan: Elevated pro BNP can be due to tachycardia induced Decopensation rate control add lasix and aldactone F/U BMP and BP response. Code(s): I50.30 - UNSPECIFIED DIASTOLIC (CONGESTIVE) HEART FAILURE Qualifiers: Heart failure chronicity: chronic Qualified Code(s): I50.32 - Chronic diastolic (congestive) heart failure (4) Hypothyroidism Assessment/Plan: Cont Current dose of Levothyroxine Code(s): E03.9 - HYPOTHYROIDISM, UNSPECIFIED Qualifiers: Hypothyroidism type: unspecified Qualified Code(s): E03.9 - Hypothyroidism , unspecified (5) Leukocytosis Assessment/Plan: Can be reactive CXR nrmal no GI or Pulmonary symptom F/U , CXR normal Code(s): D72.829 - ELEVATED WHITE BLOOD CELL COUNT, UNSPECIFIED Qualifiers: Leukocytosis type: unspecified Qualified Code(s): D72.829 - Elevated white blood cell count, unspecified (6) Seizure disorder Assessment/Plan: Cont Keppra Code(s): G40.909 - EPILEPSY, UNSP, NOT INTRACTABLE, WITHOUT STATUS EPILEPTICUS
--- NOTE | 2019-02-13 16:32 | CON.CARD ---
Consult Consult Specialty:: Cardiology Referred by:: Hospitalist Medicine Reason for Consultation:: Rapid afib - History of Present Illness Chief Complaint: palpitations and dizziness History of Present Illness: 73 yo with h/o paroxysmal afib, htn, hypothyroidism seizure d/o, obesity, syst chf last saw Dr. Sanchez 12/31/2018 presented with dizziness and palpitations referable to rapid afib in context of metoprolol and amiodarone noncompliance, now rate controlled with Cardizem, she denies chest pain, dyspnea, true syncope , orthopnea, PND or LE edema. 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 Cardio/Vascular: Yes: AFIB, CAD, CHF, HTN, Other (STENTS, mitral regurgitation) Endocrine: Yes: Diabetes Mellitus - Past Surgical History Past Surgical History: Yes: Joint Replacement, Tubal Ligation - Alcohol/Substance Use Hx Alcohol Use: No History of Substance Use: reports: None - Smoking History Smoking history: Never smoked Have you smoked in the past 12 months: No Aproximately how many cigarettes per day: 0 - Social History Usual Living Arrangement: With Child (daughter) ADL: Independent History of Recent Travel: No Home Medications - Allergies Allergies/Adverse Reactions: Allergies Allergy/AdvReac Type Severity Reaction Status Date / Time No Known Allergies Allergy Verified 02/13/19 11:33 - Home Medications Home Medications: Ambulatory Orders levETIRAcetam [Keppra -] 250 mg PO BID 12/12/17 Apixaban [Eliquis] 5 mg PO BID #60 tablet 11/25/18 Levothyroxine [Synthroid -] 25 mcg PO DAILY@0700 #30 tablet 11/25/18 Losartan Potassium 300 mg PO DAILY 02/13/19 Family Disease History - Family Disease History Family Disease History: Heart Disease: Mother (HTN), Sister (HTN) Review of Systems - Review of Systems Cardiovascular: reports: Palpitations, Shortness of Breath Vital Signs: Vital Signs Temperature 98.3 F 02/13/19 11:31 Pulse Rate 92 H 02/13/19 13:17 Respiratory Rate 18 02/13/19 13:17 Blood Pressure 122/86 02/13/19 13:17 O2 Sat by Pulse Oximetry (%) 99 02/13/19 13:17 Constitutional: Yes: No Distress, Calm Neck: Yes: Supple Respiratory: Yes: Regular, Diminished Gastrointestinal: Yes: Soft, Hypoactive Bowel Sounds Cardiovascular: Yes: Tachycardia, Pulse Irregular JVD: No Carotid Bruit: No Heart Sounds: Yes: S1, S2 Edema: No - Other Data Labs, Other Data: CBC, BMP 02/13/19 12:18 02/13/19 12:18 INR, PTT INR 1.03 (0.83-1.09) 02/13/19 12:18 Troponin, BNP 02/13/19 02/13/19 12:18 12:18 Troponin I < 0.02 B-Natriuretic Peptide 3630.8 H Troponin, BNP 02/13/19 02/13/19 12:18 12:18 Troponin I < 0.02 B-Natriuretic Peptide 3630.8 H EKG: Afib @ 121 LVH nonspec T wave changes Ejection Fraction %: LVEF < 40 % Imaging - Results Chest X-ray: Report Reviewed (NAD) Problem List - Problems (1) Acute exacerbation of CHF (congestive heart failure) Code(s): I50.9 - HEART FAILURE, UNSPECIFIED Qualifiers: Heart failure type: combined systolic and diastolic Qualified Code(s): I50.43 - Acute on chronic 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) heart failure (2) Atrial fibrillation with RVR Code(s): I48.91 - UNSPECIFIED ATRIAL FIBRILLATION (3) Chronic anticoagulation Code(s): Z79.01 - ASSISTED (CURRENT) USE OF 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 (4) HFrEF (heart failure with reduced ejection fraction) Code(s): I50.20 - UNSPECIFIED SYSTOLIC (CONGESTIVE) HEART FAILURE Qualifiers: Heart failure chronicity: acute on chronic Qualified Code(s): I50.23 - Acute on chronic systolic (congestive) heart failure (5) Hypothyroidism Code(s): E03.9 - HYPOTHYROIDISM, UNSPECIFIED Qualifiers: Hypothyroidism type: unspecified Qualified Code(s): E03.9 - Hypothyroidism , unspecified (6) Palpitations Code(s): R00.2 - PALPITATIONS (7) Hypertensive cardiomyopathy Code(s): I11.9 - HYPERTENSIVE HEART DISEASE WITHOUT HEART FAILURE; I43 - CARDIOMYOPATHY IN DISEASES CLASSIFIED ELSEWHERE Qualifiers: Heart failure presence: with heart failure Qualified Code(s): I11.0 - Hypertensive heart disease with heart failure; I43 - Cardiomyopathy in diseases classified elsewhere (8) Paroxysmal a-fib Code(s): I48.0 - PAROXYSMAL ATRIAL FIBRILLATION Assessment/Plan 01/08/2018 MPI: Low normal LVEF 50%, no ischemia 11/17/2018 CODEY Mod-severely reduced LV systolic function LVEF 30-35%, mod MR, mild TR, trace-mild IL, no thrombus, no PFO 11/24/2018 TTE Normal LVEF 55-60%, mild-mod MR, grade 2 diastolic dysfunction with elevated filling presures and mild-mod AR 1. 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 Paroxysmal atrial fibrillation with RVR [id number] score of 3 on A/C with DOAC (Eliquis) 4. Moderate mitral regurgitation 5. HTN 6. Seizure disorder 7. Hypothyroidism PLAN: 1. Continue Toprol XL 50 bid and Diovan 80 qd 2. Continue Eliquis 5 mg BID given elevated [id number] score of 3 3. Continue Lasix 40 mg QD and Aldactone 25 mg QD with close monitoring of renal function and electrolytes 4. Continue Amiodarone 200 mg QD 5. Counselled importance of compliance to therapy administration 6. Thank you for consultative opportunity
[2019-02-13] MEDS: FUROSEMIDE 40 MG TABLET (FP) PO SCH (18:00)
[2019-02-13] MEDS: levETIRAcetam 250 MG TABLET (FP) PO SCH (22:31)
[2019-02-13] MEDS: metoPROLOL SUCCINATE 25 MG TAB.SR.24H (FP) PO SCH (22:31)
[2019-02-13] MEDS: APIXABAN 5 MG TABLET PO SCH (22:31)
[2019-02-14] MEDS: LEVOTHYROXINE NA 25 MCG TABLET (FP) PO SCH (06:30)
[2019-02-14] MEDS ORDERED: dilTIAZem HCL 25 MG/5 ML - 5 ML VIAL IVPUSH ONE (07:30)
[2019-02-14 08:33] LABS: BASO % 0.6 % (0-2.0); EOS % 0.3 % (0-4.5); HEMATOCRIT 42.7 % (32.4-45.2); LYMPH % 18.3 % (8-40); MCH 29.2 pg (25.7-33.7); MCHC 32.7 g/dl (32.0-36.0); MEAN CELL VOLUME 89.2 fl (80-96); MEAN PLT VOLUME 11.5 fl (7.5-11.1); NEUT % 75.8 % (42.8-82.8); PLATELET COUNT 368 K/MM3 (134-434); RBC 4.79 M/mm3 (3.60-5.2); RDW 14.6 % (11.6-15.6); WHITE BLOOD COUNT 19.3 K/mm3 (4.0-10.0)
[2019-02-14 09:06] LABS: ANION GAP 8 MMOL/L (8-16); BLOOD UREA NITROGEN 25 mg/dL (7-18); CALCIUM 8.9 mg/dL (8.5-10.1); CHLORIDE 104 mmol/L (98-107); CO2 25 mmol/L (21-32); CREATININE 0.9 mg/dL (0.55-1.3); GLUCOSE,RANDOM 127 mg/dL (74-106); POTASSIUM 4.7 mmol/L (3.5-5.1); SODIUM 137 mmol/L (136-145)
[2019-02-14] MEDS: metoPROLOL SUCCINATE 25 MG TAB.SR.24H (FP) PO SCH (10:01)
[2019-02-14] MEDS: SPIRONOLACTONE 25 MG TABLET (FP) PO SCH (10:01)
[2019-02-14] MEDS: FUROSEMIDE 40 MG TABLET (FP) PO SCH (10:01)
[2019-02-14] MEDS: VALSARTAN 80 MG TABLET (UD) PO SCH (10:01)
[2019-02-14] MEDS: APIXABAN 5 MG TABLET PO SCH ×2 (10:02→21:02)
[2019-02-14] MEDS: levETIRAcetam 250 MG TABLET (FP) PO SCH ×2 (10:02→21:02)
--- NOTE | 2019-02-14 10:52 | PN ---
Progress Note, Physician - Current Medication List Current Medications: Active Medications Amiodarone HCl (Cordarone -) 200 mg PO DAILY [facility] Apixaban (Eliquis -) 5 mg PO BID [facility] Last Admin: 02/14/19 10:02 Dose: 5 mg Diltiazem HCl (Cardizem Injection -) 10 mg IVPUSH Q4H PRN PRN Reason: FOR HR OVER 120 Furosemide (Lasix -) 40 mg PO DAILY [facility] Last Admin: 02/14/19 10:01 Dose: 40 mg Levetiracetam (Keppra -) 250 mg PO BID [facility] Last Admin: 02/14/19 10:02 Dose: 250 mg Levothyroxine Sodium (Synthroid -) 25 mcg PO DAILY@0700 [facility] Last Admin: 02/14/19 06:30 Dose: 25 mcg Metoprolol Succinate (Toprol Xl -) 100 mg PO DAILY [facility] Spironolactone (Aldactone -) 25 mg PO DAILY [facility] Last Admin: 02/14/19 10:01 Dose: 25 mg Valsartan (Diovan -) 80 mg PO DAILY [facility] Last Admin: 02/14/19 10:01 Dose: 80 mg - Objective Vital Signs: Vital Signs Temperature 97.7 F 02/14/19 10:28 Pulse Rate 98 H 02/14/19 10:28 Respiratory Rate 20 02/14/19 10:28 Blood Pressure 111/67 02/14/19 10:28 O2 Sat by Pulse Oximetry (%) 99 02/13/19 21:00 Constitutional: Yes: Well Nourished, No Distress, Calm Eyes: Yes: WNL, Conjunctiva Clear, EOM Intact HENT: Yes: WNL, Atraumatic, Normocephalic Neck: Yes: WNL, Supple, Trachea Midline Cardiovascular: Yes: WNL, Pulse Irregular, S1, S2 Respiratory: Yes: WNL, Regular, CTA Bilaterally Gastrointestinal: Yes: WNL, Normal Bowel Sounds, Soft ...Rectal Exam: Yes: Deferred Musculoskeletal: Yes: WNL Extremities: Yes: WNL Edema: No Peripheral Pulses WNL: No Integumentary: Yes: WNL Neurological: Yes: WNL, Alert, Oriented ...Motor Strength: WNL Psychiatric: Yes: WNL, Alert, Oriented Labs: CBC, BMP 02/14/19 06:15 02/14/19 06:15 INR, PTT INR 1.03 (0.83-1.09) 02/13/19 12:18 Assessment/Plan Atrial fibrillation with RVR - c/w amiodarone 200mg daily - metoprolol succinated 50mg twice a day according to cardiology - c/w apixiban 5mg tiwce a day - IVP diltiazem if needed for the RVR -c/w telemetry monitoring Hypertension c/w Metoprolol - c/w Diovan optimized with BP response and HR response Diastolic CHF Elevated pro BNP can be due to tachycardia induced Decompensation rate control diuresis with furosemide c/w spironolactone 25mg per cardiology Hypothyroidism - TSH wnl Cont Current dose of Levothyroxine Leukocytosis: Can be reactive CXR nrmal no GI or Pulmonary symptom F/U , CXR normal no fever or left shift will monitor for signs of fever or chills - repeat CBC - if patient spikes fever - obtain culture and start IV antibiotics Seizure disorder Cont Keppra seizure precautions
--- NOTE | 2019-02-14 11:01 | PN ---
Progress Note, Physician History of Present Illness: Palpitations improved with improved rate-control. Denies chest pain or dyspnea. - Current Medication List Current Medications: Active Medications Amiodarone HCl (Cordarone -) 200 mg PO DAILY [facility] Apixaban (Eliquis -) 5 mg PO BID [facility] Last Admin: 02/14/19 10:02 Dose: 5 mg Diltiazem HCl (Cardizem Injection -) 10 mg IVPUSH Q4H PRN PRN Reason: FOR HR OVER 120 Furosemide (Lasix -) 40 mg PO DAILY [facility] Last Admin: 02/14/19 10:01 Dose: 40 mg Levetiracetam (Keppra -) 250 mg PO BID [facility] Last Admin: 02/14/19 10:02 Dose: 250 mg Levothyroxine Sodium (Synthroid -) 25 mcg PO DAILY@0700 [facility] Last Admin: 02/14/19 06:30 Dose: 25 mcg Metoprolol Succinate (Toprol Xl -) 50 mg PO BID [facility] Spironolactone (Aldactone -) 25 mg PO DAILY [facility] Last Admin: 02/14/19 10:01 Dose: 25 mg Valsartan (Diovan -) 80 mg PO DAILY [facility] Last Admin: 02/14/19 10:01 Dose: 80 mg - Objective Vital Signs: Vital Signs Temperature 97.7 F 02/14/19 10:28 Pulse Rate 98 H 02/14/19 10:28 Respiratory Rate 20 02/14/19 10:28 Blood Pressure 111/67 02/14/19 10:28 O2 Sat by Pulse Oximetry (%) 99 02/13/19 21:00 Constitutional: Yes: No Distress, Calm Neck: Yes: Supple Cardiovascular: Yes: Tachycardia, Pulse Irregular Respiratory: Yes: Regular, Diminished Gastrointestinal: Yes: Normal Bowel Sounds, Soft, Abdomen, Obese Edema: No Labs: CBC, BMP 02/14/19 06:15 02/14/19 06:15 INR, PTT INR 1.03 (0.83-1.09) 02/13/19 12:18 - ....Imaging EKG: Report Reviewed (Tele: Afib) Problem List - Problems (1) Acute exacerbation of CHF (congestive heart failure) Code(s): I50.9 - HEART FAILURE, UNSPECIFIED Qualifiers: Heart failure type: combined systolic and diastolic Qualified Code(s): I50.43 - Acute on chronic 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) heart failure (2) Atrial fibrillation with RVR Code(s): I48.91 - UNSPECIFIED ATRIAL FIBRILLATION (3) Chronic anticoagulation Code(s): Z79.01 - DEBURRER STRIP (CURRENT) USE OF 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 (4) HFrEF (heart failure with reduced ejection fraction) Code(s): I50.20 - UNSPECIFIED SYSTOLIC (CONGESTIVE) HEART FAILURE Qualifiers: Heart failure chronicity: acute on chronic Qualified Code(s): I50.23 - Acute on chronic systolic (congestive) heart failure (5) Hypothyroidism Code(s): E03.9 - HYPOTHYROIDISM, UNSPECIFIED Qualifiers: Hypothyroidism type: unspecified Qualified Code(s): E03.9 - Hypothyroidism , unspecified (6) Palpitations Code(s): R00.2 - PALPITATIONS (7) Hypertensive cardiomyopathy Code(s): I11.9 - HYPERTENSIVE HEART DISEASE WITHOUT HEART FAILURE; I43 - CARDIOMYOPATHY IN DISEASES CLASSIFIED ELSEWHERE Qualifiers: Heart failure presence: with heart failure Qualified Code(s): I11.0 - Hypertensive heart disease with heart failure; I43 - Cardiomyopathy in diseases classified elsewhere (8) Paroxysmal a-fib Code(s): I48.0 - PAROXYSMAL ATRIAL FIBRILLATION Assessment/Plan 01/08/2018 MPI: Low normal LVEF 50%, no ischemia 11/17/2018 CODEY Mod-severely reduced LV systolic function LVEF 30-35%, mod MR, mild TR, trace-mild NJ, no thrombus, no PFO 11/24/2018 TTE Normal LVEF 55-60%, mild-mod MR, grade 2 diastolic dysfunction with elevated filling presures and mild-mod AR 1. 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 Paroxysmal atrial fibrillation with RVR [id number] score of 3 on A/C with DOAC (Eliquis) 4. Moderate mitral regurgitation 5. HTN 6. Seizure disorder 7. Hypothyroidism PLAN: 1. Continue Toprol XL 50 bid and Diovan 80 qd with IV Cardizem as needed for increased rate-control 2. Continue Eliquis 5 mg BID given elevated [id number] score of 3 3. Continue Lasix 40 mg QD and Aldactone 25 mg QD with close monitoring of renal function and electrolytes 4. Continue Amiodarone 200 mg QD 5. Counselled importance of compliance to therapy administration
[2019-02-14] MEDS: AMIODARONE HCL 200 MG TABLET (FP) PO SCH (11:41)
[2019-02-14] MEDS: ACETAMINOPHEN 325 MG TABLET (FP) PO PRN (14:52)
[2019-02-14 15:00] LABS: MAGNESIUM 2.5 mg/dL (1.8-2.4)
[2019-02-14 16:05] LABS: URINE APPEARANCE CLEAR; URINE BILIRUBIN NEGATIVE (NEGATIVE); URINE COLOR YELLOW; URINE GLUCOSE (UA) NEGATIVE (NEGATIVE); URINE KETONE NEGATIVE (NEGATIVE)
[2019-02-14 16:06] LABS: EPI CELLS 2.8 /HPF (0-5); URINE BACTERIA 392.1 /hpf (NEGATIVE); URINE CASTS NONE SEEN /hpf (0-8); URINE LEUK ESTERASE 2+ (NEGATIVE); URINE NITRITE NEGATIVE (NEGATIVE); URINE PROTEIN NEGATIVE (NEGATIVE); URINE RBC NONE SEEN /hpf (0-4); URINE UROBILINOGEN 0.2 mg/dL (0.2-1.0); URINE WBC 7 /hpf (0-5)
[2019-02-14] MEDS: dilTIAZem HCL 25 MG/5 ML - 5 ML VIAL IVPUSH PRN (16:06)
[2019-02-14] MEDS ORDERED: DEXTROSE 5%-WATER - 50 ML IVPB ONE (16:39)
[2019-02-14] MEDS ORDERED: cefTRIAXone SODIUM 1 GM VIAL ONE (16:39)
[2019-02-14] MEDS ORDERED: CEFTRIAXONE 1 GM in DEXTROSE 5%-WATER - 50 ML IVPB ONE (16:45)
[2019-02-15] MEDS: dilTIAZem HCL 25 MG/5 ML - 5 ML VIAL IVPUSH PRN ×2 (06:33→17:23)
[2019-02-15] MEDS: LEVOTHYROXINE NA 25 MCG TABLET (FP) PO SCH (06:33)
--- NOTE | 2019-02-15 07:50 | PN ---
Progress Note, Physician - Current Medication List Current Medications: Active Medications Acetaminophen (Tylenol -) 650 mg PO Q6H PRN PRN Reason: HEADACHE Last Admin: 02/14/19 14:52 Dose: 650 mg Amiodarone HCl (Cordarone -) 200 mg PO DAILY [facility] Last Admin: 02/14/19 11:41 Dose: 200 mg Apixaban (Eliquis -) 5 mg PO BID [facility] Last Admin: 02/14/19 21:02 Dose: 5 mg Diltiazem HCl (Cardizem Injection -) 10 mg IVPUSH Q4H PRN PRN Reason: FOR HR OVER 120 Last Admin: 02/15/19 06:33 Dose: 10 mg Furosemide (Lasix -) 40 mg PO DAILY [facility] Last Admin: 02/14/19 10:01 Dose: 40 mg Levetiracetam (Keppra -) 250 mg PO BID [facility] Last Admin: 02/14/19 21:02 Dose: 250 mg Levothyroxine Sodium (Synthroid -) 25 mcg PO DAILY@0700 [facility] Last Admin: 02/15/19 06:33 Dose: 25 mcg Metoprolol Succinate (Toprol Xl -) 50 mg PO BID [facility] Last Admin: 02/14/19 21:02 Dose: 50 mg Spironolactone (Aldactone -) 25 mg PO DAILY [facility] Last Admin: 02/14/19 10:01 Dose: 25 mg Valsartan (Diovan -) 80 mg PO DAILY [facility] Last Admin: 02/14/19 10:01 Dose: 80 mg - Objective Vital Signs: Vital Signs Temperature 98.3 F 02/15/19 06:00 Pulse Rate 85 02/15/19 06:00 Respiratory Rate 20 02/15/19 06:00 Blood Pressure 124/92 02/15/19 06:00 O2 Sat by Pulse Oximetry (%) 94 L 02/14/19 20:19 Constitutional: Yes: Well Nourished, No Distress, Calm Eyes: Yes: WNL, Conjunctiva Clear, EOM Intact HENT: Yes: WNL, Atraumatic, Normocephalic Neck: Yes: WNL, Supple, Trachea Midline Cardiovascular: Yes: WNL, Pulse Irregular, S1, S2 Respiratory: Yes: WNL, Regular, CTA Bilaterally Gastrointestinal: Yes: WNL, Normal Bowel Sounds, Soft Musculoskeletal: Yes: WNL Extremities: Yes: WNL Edema: No Integumentary: Yes: WNL Neurological: Yes: WNL, Alert, Oriented ...Motor Strength: WNL Psychiatric: Yes: WNL, Alert, Oriented Labs: INR, PTT INR 1.03 (0.83-1.09) 02/13/19 12:18 Assessment/Plan Atrial fibrillation with RVR - c/w amiodarone 200mg daily - metoprolol succinated 50mg twice a day according to cardiology - c/w apixiban 5mg tiwce a day - IVP diltiazem if needed for the RVR -c/w telemetry monitoring Hypertension c/w Metoprolol - c/w Diovan optimized with BP response and HR response Diastolic CHF Elevated pro BNP can be due to tachycardia induced Decompensation rate control diuresis with furosemide c/w spironolactone 25mg per cardiology Hypothyroidism - TSH wnl Cont Current dose of Levothyroxine Leukocytosis: 2/2 UTI - c/w ceftriaxone 1g daily - repeat CBC Seizure disorder Cont Keppra seizure precautions
[2019-02-15 07:56] LABS: BASO % 0.5 % (0-2.0); EOS % 0.3 % (0-4.5); HEMATOCRIT 43.1 % (32.4-45.2); HEMOGLOBIN 13.8 GM/dL (10.7-15.3); LYMPH % 18.7 % (8-40); MCH 28.2 pg (25.7-33.7); MCHC 31.9 g/dl (32.0-36.0); MEAN CELL VOLUME 88.3 fl (80-96); MEAN PLT VOLUME 11.6 fl (7.5-11.1); MONO % 5.7 % (3.8-10.2); NEUT % 74.8 % (42.8-82.8); PLATELET COUNT 347 K/MM3 (134-434); RBC 4.88 M/mm3 (3.60-5.2); RDW 14.6 % (11.6-15.6); WHITE BLOOD COUNT 18.3 K/mm3 (4.0-10.0)
[2019-02-15 08:37] LABS: ALBUMIN 3.3 g/dl (3.4-5.0); ALK PHOS 99 U/L (45-117); ANION GAP 7 MMOL/L (8-16); BILIRUBIN,TOTAL 0.5 mg/dL (0.2-1); BLOOD UREA NITROGEN 33 mg/dL (7-18); CALCIUM 8.8 mg/dL (8.5-10.1); CHLORIDE 106 mmol/L (98-107); CO2 24 mmol/L (21-32); GLUCOSE,RANDOM 142 mg/dL (74-106); POTASSIUM 4.8 mmol/L (3.5-5.1); SGOT/AST 10 U/L (15-37); SGPT/ALT 22 U/L (13-61); SODIUM 137 mmol/L (136-145); TOT PROT 7.3 g/dl (6.4-8.2)
[2019-02-15] MEDS: levETIRAcetam 250 MG TABLET (FP) PO SCH ×2 (10:12→21:26)
[2019-02-15] MEDS: AMIODARONE HCL 200 MG TABLET (FP) PO SCH (10:12)
[2019-02-15] MEDS: VALSARTAN 80 MG TABLET (UD) PO SCH (10:12)
[2019-02-15] MEDS: FUROSEMIDE 40 MG TABLET (FP) PO SCH (10:12)
[2019-02-15] MEDS: SPIRONOLACTONE 25 MG TABLET (FP) PO SCH (10:13)
[2019-02-15] MEDS: APIXABAN 5 MG TABLET PO SCH ×2 (10:13→21:25)
[2019-02-15] MEDS ORDERED: cefTRIAXone SODIUM 1 GM VIAL ONE ×2 (13:13→16:53)
[2019-02-15] MEDS ORDERED: DEXTROSE 5%-WATER - 50 ML IVPB ONE ×2 (13:14→16:53)
[2019-02-15] MEDS: CEFTRIAXONE 1 GM in DEXTROSE 5%-WATER - 50 ML IVPB SCH (13:32)
[2019-02-16] MEDS: LEVOTHYROXINE NA 25 MCG TABLET (FP) PO SCH (06:24)
[2019-02-16 06:42] LABS: BASO % 0.6 % (0-2.0); EOS % 0.6 % (0-4.5); HEMATOCRIT 43.4 % (32.4-45.2); HEMOGLOBIN 13.9 GM/dL (10.7-15.3); LYMPH % 20.8 % (8-40); MCH 28.5 pg (25.7-33.7); MCHC 32.1 g/dl (32.0-36.0); MEAN PLT VOLUME 11.4 fl (7.5-11.1); MONO % 5.3 % (3.8-10.2); NEUT % 72.7 % (42.8-82.8); PLATELET COUNT 338 K/MM3 (134-434); RBC 4.88 M/mm3 (3.60-5.2); RDW 14.4 % (11.6-15.6); WHITE BLOOD COUNT 19.1 K/mm3 (4.0-10.0)
[2019-02-16 07:26] LABS: ALBUMIN 3.2 g/dl (3.4-5.0); ALK PHOS 90 U/L (45-117); ANION GAP 8 MMOL/L (8-16); BILIRUBIN,TOTAL 0.4 mg/dL (0.2-1); BLOOD UREA NITROGEN 34 mg/dL (7-18); CALCIUM 8.8 mg/dL (8.5-10.1); CHLORIDE 106 mmol/L (98-107); CO2 23 mmol/L (21-32); GLUCOSE,RANDOM 134 mg/dL (74-106); POTASSIUM 4.6 mmol/L (3.5-5.1); SGOT/AST 11 U/L (15-37); SGPT/ALT 19 U/L (13-61); SODIUM 137 mmol/L (136-145); TOT PROT 7.2 g/dl (6.4-8.2)
[2019-02-16] MEDS ORDERED: DEXTROSE 5%-WATER - 50 ML IVPB ONE (07:46)
[2019-02-16] MEDS ORDERED: cefTRIAXone SODIUM 1 GM VIAL ONE (07:46)
--- NOTE | 2019-02-16 07:55 | ECHO ---
Name: LIBBY PAUL Exam:Adult Echocardiogram Study Date: 02/13/2019 02:45 PM Age: 73 yrs Reason For Study: SYNCOPE Height: 62 in Weight: 205 lb BSA: 1.9 m2 MMode/2D Measurements & Calculations IVSd: 1.3 cm Ao root diam: 2.9 cm LVIDd: 4.4 cm LA dimension: 4.4 cm LVIDs: 3.1 cm LVPWd: 1.1 cm EDV(Teich): 86.9 ml LVOT diam: 2.0 cm ESV(Teich): 36.8 ml Doppler Measurements & Calculations MV E max santo: 89.3 cm/sec MVA(VTI): 1.6 cm2 MV V2 max: 127.6 cm/sec MV max P.5 mmHg MV V2 mean: 63.7 cm/sec MV mean P.0 mmHg MV V2 VTI: 28.7 cm Ao V2 max: 192.9 cm/sec AI max santo: 337.4 cm/sec Ao max P.9 mmHg AI max P.8 mmHg Ao V2 mean: 134.7 cm/sec AI dec slope: 123.0 cm/sec2 Ao mean P.6 mmHg Ao V2 VTI: 37.5 cm MILTON(I,D): 1.2 cm2 AI P1/2t: 803.6 msec MILTON(V,D): 1.3 cm2 LV V1 max P.6 mmHg MR max santo: 446.1 cm/sec LV V1 mean P.7 mmHg MR max P.7 mmHg LV V1 max: 81.0 cm/sec LV V1 mean: 60.8 cm/sec LV V1 VTI: 14.4 cm SV(LVOT): 45.9 ml TR max santo: 178.6 cm/sec TR max P.8 mmHg Med Peak E' Santo: 6.8 cm/sec Med E/e': 13.2 Lat Peak E' Santo: 8.4 cm/sec Lat E/e': 10.6 Left Ventricle There is mild concentric left ventricular hypertrophy. Left ventricular systolic function is low norm al. Ejection Fraction = 50%. Right Ventricle The right ventricle is normal in size and function. Atria The left atrium is mildly dilated. Right atrial size is normal. Mitral Valve The mitral valve is normal in structure and function. There is no mitral valve stenosis. There is mil d mitral regurgitation. Tricuspid Valve The tricuspid valve is normal in structure and function. There is mild tricuspid regurgitation. Aortic Valve The aortic valve opens well. No hemodynamically significant valvular aortic stenosis. Mild aortic regurgitation. Pulmonic Valve The pulmonic valve is not well seen, but is grossly normal. There is no pulmonic valvular stenosis. Great Vessels The aortic root is normal size. Pericardium/Pleura There is no pericardial effusion. Interpretation Summary There is mild concentric left ventricular hypertrophy. Left ventricular systolic function is low normal. Ejection Fraction = 50%. The left atrium is mildly dilated. There is mild mitral regurgitation. There is mild tricuspid regurgitation. Mild aortic regurgitation. There is no pericardial effusion. MD Tan *Kel 02/13/2019 04:06 PM
--- NOTE | 2019-02-16 08:56 | PN ---
Physical Exam: SUBJECTIVE: Patient seen and examined 24 HR EVENTS -AFIB better controlled on toprol 100mg BID -WBC continues to rise, no fevers or focal complaints. Heme consult placed OBJECTIVE: Vital Signs Period Temp Pulse Resp BP Sys/Batista Pulse Ox Last 24 Hr 97.6 F-98.6 F 71-90 20-22 104-139/57-82 95-100 GENERAL: The patient is awake, but lethargic, fully oriented, in no acute distress. HEAD: Normal with no signs of trauma. EYES: PERRL, extraocular movements intact, sclera anicteric, conjunctiva clear. No ptosis. ENT: Ears normal, nares patent, oropharynx clear without exudates, moist mucous membranes. NECK: Trachea midline, full range of motion, supple. LUNGS: Breath sounds equal, clear to auscultation bilaterally, no wheezes, no crackles, no accessory muscle use. HEART: irreg rate and rhythm, S1, S2 without murmur, rub or gallop. ABDOMEN: Soft, nontender, nondistended, normoactive bowel sounds, no guarding, no rebound, no hepatosplenomegaly, no masses. EXTREMITIES: 2+ pulses, warm, well-perfused, no edema. NEUROLOGICAL: Cranial nerves II through XII grossly intact. Normal speech, gait not observed. PSYCH: Normal mood, normal affect. SKIN: Warm, dry, normal turgor, no rashes or lesions noted Laboratory Results - last 24 hr 02/15/19 02/16/19 02/16/19 05:30 06:30 06:30 WBC 18.3 H 19.1 H RBC 4.88 4.88 Hgb 13.8 13.9 Hct 43.1 43.4 MCV 88.3 89.0 MCH 28.2 28.5 MCHC 31.9 L 32.1 RDW 14.6 14.4 Plt Count 347 338 MPV 11.6 H 11.4 H Absolute Neuts (auto) 13.7 H 13.9 H Neutrophils % 74.8 72.7 Lymphocytes % 18.7 20.8 Monocytes % 5.7 5.3 Eosinophils % 0.3 0.6 D Basophils % 0.5 0.6 Nucleated RBC % 0 0 Sodium 137 Potassium 4.6 Chloride 106 Carbon Dioxide 23 Anion Gap 8 BUN 34 H Creatinine 1.0 Creat Clearance w eGFR 54.50 Random Glucose 134 H Calcium 8.8 Total Bilirubin 0.4 AST 11 L ALT 19 Alkaline Phosphatase 90 Total Protein 7.2 Albumin 3.2 L Active Medications Generic Name Dose Route Start Last Admin Trade Name Freq PRN Reason Stop Dose Admin Acetaminophen 650 mg 02/14/19 14:30 02/14/19 14:52 Tylenol - PO 650 mg Q6H PRN Administration HEADACHE Amiodarone HCl 200 mg 02/14/19 11:00 02/15/19 10:12 Cordarone - PO 200 mg DAILY ANN Administration Apixaban 5 mg 02/13/19 22:00 02/15/19 21:25 Eliquis - PO 5 mg BID ANN Administration Diltiazem HCl 10 mg 02/14/19 07:25 02/15/19 17:23 Cardizem Injection - IVPUSH 10 mg Q4H PRN Administration FOR HR OVER 120 Furosemide 40 mg 02/13/19 17:30 02/15/19 10:12 Lasix - PO 40 mg DAILY ANN Administration Ceftriaxone Sodium 1 gm/ 50 mls @ 100 mls/hr 02/15/19 10:50 02/15/19 13:32 Dextrose IVPB 100 mls/hr DAILY ANN Administration Levetiracetam 250 mg 02/13/19 22:00 02/15/19 21:26 Keppra - PO 250 mg BID ANN Administration Levothyroxine Sodium 25 mcg 02/14/19 07:00 02/16/19 06:24 Synthroid - PO 25 mcg DAILY@0700 ANN Administration Metoprolol Succinate 50 mg 02/14/19 22:00 02/15/19 21:26 Toprol Xl - PO 50 mg BID ANN Administration Spironolactone 25 mg 02/14/19 10:00 02/15/19 10:13 Aldactone - PO 25 mg DAILY ANN Administration Valsartan 80 mg 02/14/19 10:00 02/15/19 10:12 Diovan - PO 80 mg DAILY ANN Administration ASSESSMENT/PLAN: 73 yrs old F with seizures disorders Afib on AC and rate control with Metoprolol present with 2 days H/O feeling Dizzy and palpitation. In ED pt with Afib with RVR, received cardizem IVP + oral dose. Pt admitted for further management Atrial fibrillation with RVR - amiodarone 200mg daily - metoprolol succinated 100mg twice a day according to cardiology - apixiban 5mg tiwce a day - IVP diltiazem if needed for the RVR -cont telemetry monitoring Hypertension - on BB Diastolic CHF -diuresis with furosemide -spironolactone 25mg per cardiology Hypothyroidism -TSH wnl -Cont Current dose of Levothyroxine Leukocytosis: 2/2 UTI? - c/w ceftriaxone 1g daily - urine and blood culture sent today Seizure disorder -Cont Keppra -seizure precautions PPX -OOB to chair -Bowel regimen with senna and colace -pt could be d/cori home tomorrow with outpt follow up if HR is better controlled DISPO: Full code Visit type - Emergency Visit Emergency Visit: Yes ED Registration Date: 02/13/19 Care time: The patient presented to the Emergency Department on the above date and was hospitalized for further evaluation of their emergent condition. - New Patient This patient is new to me today: Yes Date on this admission: 02/16/19 - Critical Care Critical Care patient: No - Discharge Referral Referred to [facility] Med P.C.: No
--- NOTE | 2019-02-16 10:00 | EKG ---
Test Reason : Blood Pressure : / mmHG Vent. Rate : 108 BPM Atrial Rate : 344 BPM P-R Int : 000 ms QRS Dur : 084 ms QT Int : 290 ms P-R-T Axes : 000 010 162 degrees QTc Int : 388 ms ATRIAL FLUTTER VS. ATRIAL FIBRILLATION WITH VARIABLE A-V BLOCK NONSPECIFIC T WAVE ABNORMALITY ABNORMAL ECG WHEN COMPARED WITH ECG OF 13-FEB-2019 12:17, T WAVE VARIATION Confirmed by LAQUITA YODER, ROXANNA ([id number]) on 02/16/2019 10:00:19 AM Referred By: Yaniv SERRANO Confirmed By:ROXANNA COELHO MD
[2019-02-16] MEDS: AMIODARONE HCL 200 MG TABLET (FP) PO SCH (10:22)
[2019-02-16] MEDS: levETIRAcetam 250 MG TABLET (FP) PO SCH ×2 (10:22→21:45)
[2019-02-16] MEDS: SPIRONOLACTONE 25 MG TABLET (FP) PO SCH (10:22)
--- NOTE | 2019-02-16 10:22 | PN ---
Progress Note, Physician History of Present Illness: Palpitations improved with improved rate-control. Denies chest pain, near syncope or dyspnea. - Current Medication List Current Medications: Active Medications Acetaminophen (Tylenol -) 650 mg PO Q6H PRN PRN Reason: HEADACHE Last Admin: 02/14/19 14:52 Dose: 650 mg Amiodarone HCl (Cordarone -) 200 mg PO DAILY [facility] Last Admin: 02/15/19 10:12 Dose: 200 mg Apixaban (Eliquis -) 5 mg PO BID [facility] Last Admin: 02/15/19 21:25 Dose: 5 mg Diltiazem HCl (Cardizem Injection -) 10 mg IVPUSH Q4H PRN PRN Reason: FOR HR OVER 120 Last Admin: 02/15/19 17:23 Dose: 10 mg Furosemide (Lasix -) 40 mg PO DAILY [facility] Last Admin: 02/15/19 10:12 Dose: 40 mg Ceftriaxone Sodium 1 gm/ (Dextrose) 50 mls @ 100 mls/hr IVPB DAILY [facility] Last Admin: 02/15/19 13:32 Dose: 100 mls/hr Levetiracetam (Keppra -) 250 mg PO BID [facility] Last Admin: 02/15/19 21:26 Dose: 250 mg Levothyroxine Sodium (Synthroid -) 25 mcg PO DAILY@0700 [facility] Last Admin: 02/16/19 06:24 Dose: 25 mcg Metoprolol Succinate (Toprol Xl -) 50 mg PO BID [facility] Last Admin: 02/15/19 21:26 Dose: 50 mg Spironolactone (Aldactone -) 25 mg PO DAILY [facility] Last Admin: 02/15/19 10:13 Dose: 25 mg Valsartan (Diovan -) 80 mg PO DAILY [facility] Last Admin: 02/15/19 10:12 Dose: 80 mg - Objective Vital Signs: Vital Signs Temperature 97.6 F 02/16/19 06:00 Pulse Rate 90 02/16/19 06:00 Respiratory Rate 22 H 02/16/19 06:00 Blood Pressure 123/68 02/16/19 06:00 O2 Sat by Pulse Oximetry (%) 100 02/15/19 21:00 Constitutional: Yes: No Distress, Calm Neck: Yes: Supple Cardiovascular: Yes: Pulse Irregular Respiratory: Yes: Regular, Diminished, On Nasal O2 Gastrointestinal: Yes: Normal Bowel Sounds, Soft, Abdomen, Obese Edema: No Labs: CBC, BMP 02/16/19 06:30 02/16/19 06:30 INR, PTT INR 1.03 (0.83-1.09) 02/13/19 12:18 - ....Imaging EKG: Report Reviewed (Aflutter @ 108 with variable conduction) Problem List - Problems (1) Acute exacerbation of CHF (congestive heart failure) Code(s): I50.9 - HEART FAILURE, UNSPECIFIED Qualifiers: Heart failure type: combined systolic and diastolic Qualified Code(s): I50.43 - Acute on chronic 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) heart failure (2) Atrial fibrillation with RVR Code(s): I48.91 - UNSPECIFIED ATRIAL FIBRILLATION (3) Chronic anticoagulation Code(s): Z79.01 - RESIDENTIAL (CURRENT) USE OF 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 (4) HFrEF (heart failure with reduced ejection fraction) Code(s): I50.20 - UNSPECIFIED SYSTOLIC (CONGESTIVE) HEART FAILURE Qualifiers: Heart failure chronicity: acute on chronic Qualified Code(s): I50.23 - Acute on chronic systolic (congestive) heart failure (5) Hypothyroidism Code(s): E03.9 - HYPOTHYROIDISM, UNSPECIFIED Qualifiers: Hypothyroidism type: unspecified Qualified Code(s): E03.9 - Hypothyroidism , unspecified (6) Palpitations Code(s): R00.2 - PALPITATIONS (7) Hypertensive cardiomyopathy Code(s): I11.9 - HYPERTENSIVE HEART DISEASE WITHOUT HEART FAILURE; I43 - CARDIOMYOPATHY IN DISEASES CLASSIFIED ELSEWHERE Qualifiers: Heart failure presence: with heart failure Qualified Code(s): I11.0 - Hypertensive heart disease with heart failure; I43 - Cardiomyopathy in diseases classified elsewhere (8) Paroxysmal a-fib Code(s): I48.0 - PAROXYSMAL ATRIAL FIBRILLATION Assessment/Plan 01/08/2018 MPI: Low normal LVEF 50%, no ischemia 11/17/2018 CODEY Mod-severely reduced LV systolic function LVEF 30-35%, mod MR, mild TR, trace-mild VT, no thrombus, no PFO 11/24/2018 TTE Normal LVEF 55-60%, mild-mod MR, grade 2 diastolic dysfunction with elevated filling presures and mild-mod AR 1. 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 Paroxysmal atrial fibrillation with RVR [id number] score of 3 on A/C with DOAC (Eliquis) 4. Moderate mitral regurgitation 5. HTN 6. Seizure disorder 7. Hypothyroidism 8. CKD 9. Leukocytosis PLAN: 1. Increase Toprol XL 100 bid and Diovan 80 qd with IV Cardizem as needed for increased rate-control 2. Continue Eliquis 5 mg BID given elevated [id number] score of 3 3. Decrease Lasix 20 mg QD and continue Aldactone 25 mg QD with close monitoring of renal function and electrolytes 4. Continue Amiodarone 200 mg QD 5. Counselled importance of compliance to therapy administration 6. F/u C&S and WBC
[2019-02-16] MEDS: VALSARTAN 80 MG TABLET (UD) PO SCH (10:23)
[2019-02-16] MEDS: CEFTRIAXONE 1 GM in DEXTROSE 5%-WATER - 50 ML IVPB SCH (10:23)
[2019-02-16] MEDS: FUROSEMIDE 40 MG TABLET (FP) PO SCH (10:23)
[2019-02-16] MEDS: APIXABAN 5 MG TABLET PO SCH ×2 (10:24→21:45)
--- NOTE | 2019-02-16 11:17 | EKG ---
Test Reason : Blood Pressure : / mmHG Vent. Rate : 121 BPM Atrial Rate : 127 BPM P-R Int : 000 ms QRS Dur : 078 ms QT Int : 308 ms P-R-T Axes : 000 -07 110 degrees QTc Int : 437 ms ATRIAL FIBRILLATION WITH RAPID VENTRICULAR RESPONSE VOLTAGE CRITERIA FOR LEFT VENTRICULAR HYPERTROPHY NONSPECIFIC T WAVE ABNORMALITY ABNORMAL ECG WHEN COMPARED WITH ECG OF 13-FEB-2019 11:28, NO SIGNIFICANT CHANGE WAS FOUND Confirmed by LAQUITA YODER, ROXANNA ([id number]) on 02/16/2019 11:17:16 AM Referred By: Confirmed By:ROXANNA COELHO MD
--- NOTE | 2019-02-16 11:21 | EKG ---
Test Reason : Blood Pressure : / mmHG Vent. Rate : 130 BPM Atrial Rate : 153 BPM P-R Int : 000 ms QRS Dur : 080 ms QT Int : 328 ms P-R-T Axes : 000 007 114 degrees QTc Int : 482 ms ATRIAL FIBRILLATION WITH RAPID VENTRICULAR RESPONSE WITH PREMATURE VENTRICULAR OR ABERRANTLY CONDUCTED COMPLEXES MODERATE VOLTAGE CRITERIA FOR LVH, MAY BE NORMAL VARIANT NONSPECIFIC T WAVE ABNORMALITY ABNORMAL ECG WHEN COMPARED WITH ECG OF 23-NOV-2018 16:29, ATRIAL FIBRILLATION HAS REPLACED SINUS RHYTHM VENT. RATE HAS INCREASED BY 60 BPM T WAVE VARIATION Confirmed by ROXANNA COELHO MD ([id number]) on 02/16/2019 11:20:58 AM Referred By: Confirmed By:ROXANNA COELHO MD
[2019-02-16] MEDS: dilTIAZem HCL 25 MG/5 ML - 5 ML VIAL IVPUSH PRN (16:26)
[2019-02-16] MEDS ORDERED: SENNOSIDES 8.6MG TABLET (FP) PO PRN (17:46)
[2019-02-16] MEDS ORDERED: DOCUSATE SODIUM 100 MG CAPSULE (FP) PO PRN (17:46)
[2019-02-16] MEDS ORDERED: PT OWN MED DRAWER 7, Y5N ONE (21:12)
[2019-02-17] MEDS: LEVOTHYROXINE NA 25 MCG TABLET (FP) PO SCH (06:02)
[2019-02-17 06:50] LABS: BASO % 0.3 % (0-2.0); HEMATOCRIT 42.3 % (32.4-45.2); HEMOGLOBIN 13.4 GM/dL (10.7-15.3); LYMPH % 24.4 % (8-40); MCH 28.2 pg (25.7-33.7); MCHC 31.6 g/dl (32.0-36.0); MEAN CELL VOLUME 89.3 fl (80-96); MONO % 7.5 % (3.8-10.2); NEUT % 66.8 % (42.8-82.8); PLATELET COUNT 365 K/MM3 (134-434); RBC 4.74 M/mm3 (3.60-5.2); RDW 14.4 % (11.6-15.6); WHITE BLOOD COUNT 16.1 K/mm3 (4.0-10.0)
[2019-02-17 07:47] LABS: ALBUMIN 3.1 g/dl (3.4-5.0); ALK PHOS 83 U/L (45-117); ANION GAP 9 MMOL/L (8-16); BILIRUBIN,TOTAL 0.5 mg/dL (0.2-1); BLOOD UREA NITROGEN 36 mg/dL (7-18); CALCIUM 8.6 mg/dL (8.5-10.1); CHLORIDE 107 mmol/L (98-107); CO2 25 mmol/L (21-32); GLUCOSE,RANDOM 124 mg/dL (74-106); POTASSIUM 4.8 mmol/L (3.5-5.1); SGOT/AST 15 U/L (15-37); SGPT/ALT 24 U/L (13-61); SODIUM 140 mmol/L (136-145); TOT PROT 6.9 g/dl (6.4-8.2)
[2019-02-17] MEDS ORDERED: cefTRIAXone SODIUM 1 GM VIAL ONE (09:05)
[2019-02-17] MEDS ORDERED: DEXTROSE 5%-WATER - 50 ML IVPB ONE (09:05)
[2019-02-17] MEDS: VALSARTAN 80 MG TABLET (UD) PO SCH (09:17)
[2019-02-17] MEDS: FUROSEMIDE 40 MG TABLET (FP) PO SCH (09:18)
[2019-02-17] MEDS: SPIRONOLACTONE 25 MG TABLET (FP) PO SCH (09:18)
[2019-02-17] MEDS: levETIRAcetam 250 MG TABLET (FP) PO SCH ×2 (09:18→21:41)
[2019-02-17] MEDS: AMIODARONE HCL 200 MG TABLET (FP) PO SCH (09:18)
[2019-02-17] MEDS: APIXABAN 5 MG TABLET PO SCH ×2 (09:18→21:41)
[2019-02-17] MEDS: CEFTRIAXONE 1 GM in DEXTROSE 5%-WATER - 50 ML IVPB SCH (09:20)
[2019-02-17] MEDS: dilTIAZem HCL 25 MG/5 ML - 5 ML VIAL IVPUSH PRN (10:14)
[2019-02-17 10:19] LABS: ERYTHROCYTE SEDIMENTATION RATE 10 mm/hr (0-30)
--- NOTE | 2019-02-17 14:10 | PN ---
Progress Note, Physician Chief Complaint: Events noted AF with periods of RVR and slow ventricular response Complains of epigastric discomfort History of Present Illness: Patient was seen and examined. Awake and alert. Chart was reviewed - Current Medication List Current Medications: Active Medications Acetaminophen (Tylenol -) 650 mg PO Q6H PRN PRN Reason: HEADACHE Last Admin: 02/14/19 14:52 Dose: 650 mg Amiodarone HCl (Cordarone -) 200 mg PO DAILY [facility] Last Admin: 02/17/19 09:18 Dose: 200 mg Apixaban (Eliquis -) 5 mg PO BID [facility] Last Admin: 02/17/19 09:18 Dose: 5 mg Diltiazem HCl (Cardizem Injection -) 10 mg IVPUSH Q4H PRN PRN Reason: FOR HR OVER 120 Last Admin: 02/17/19 10:14 Dose: 10 mg Docusate Sodium (Colace -) 100 mg PO Q8H PRN PRN Reason: CONSTIPATION Furosemide (Lasix -) 20 mg PO DAILY [facility] Last Admin: 02/17/19 09:18 Dose: 20 mg Ceftriaxone Sodium 1 gm/ (Dextrose) 50 mls @ 100 mls/hr IVPB DAILY [facility] Last Admin: 02/17/19 09:20 Dose: 100 mls/hr Levetiracetam (Keppra -) 250 mg PO BID [facility] Last Admin: 02/17/19 09:18 Dose: 250 mg Levothyroxine Sodium (Synthroid -) 25 mcg PO DAILY@0700 [facility] Last Admin: 02/17/19 06:02 Dose: 25 mcg Metoprolol Succinate (Toprol Xl -) 100 mg PO BID [facility] Last Admin: 02/17/19 09:18 Dose: 100 mg Senna (Senna -) 2 tab PO HS PRN PRN Reason: CONSTIPATION Spironolactone (Aldactone -) 25 mg PO DAILY [facility] Last Admin: 02/17/19 09:18 Dose: 25 mg Valsartan (Diovan -) 80 mg PO DAILY [facility] Last Admin: 02/17/19 09:17 Dose: 80 mg - Objective Vital Signs: Vital Signs Temperature 97.5 F L 02/17/19 06:00 Pulse Rate 72 02/17/19 06:00 Respiratory Rate 20 02/17/19 06:00 Blood Pressure 134/74 02/17/19 06:00 O2 Sat by Pulse Oximetry (%) 95 02/16/19 21:00 HENT: Yes: Atraumatic Neck: Yes: Supple Cardiovascular: Yes: Pulse Irregular, S1, S2 Respiratory: Yes: CTA Bilaterally Gastrointestinal: Yes: Normal Bowel Sounds, Soft. No: Tenderness Edema: No Additional Findings/Remarks: - Review of Systems Constitutional: denies: Chills, Fever Cardiovascular: denies Chest Pain, Shortness of Breath. denies: Palpitations Respiratory: denies Cough, SOB, SOB on Exertion. denies: Hemoptysis, Orthopnea , PND Gastrointestinal: denies: Abdominal Pain, Constipation, Diarrhea, Melena, Nausea , Rectal Bleeding, Vomiting Genitourinary: denies: Dysuria, Hematuria Musculoskeletal: denies: Back Pain, Joint Pain Neurological: denies: Dizziness, Headache, Seizure, Syncope Labs: CBC, BMP 02/17/19 05:30 02/17/19 05:30 Problem List - Problems (1) Diastolic CHF Code(s): I50.30 - UNSPECIFIED DIASTOLIC (CONGESTIVE) HEART FAILURE Qualifiers: Heart failure chronicity: chronic Qualified Code(s): I50.32 - Chronic diastolic (congestive) heart failure (2) Acute exacerbation of CHF (congestive heart failure) Code(s): I50.9 - HEART FAILURE, UNSPECIFIED Qualifiers: Heart failure type: combined systolic and diastolic Qualified Code(s): I50.43 - Acute on chronic 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) heart failure (3) Atrial fibrillation with RVR Code(s): I48.91 - UNSPECIFIED ATRIAL FIBRILLATION (4) Epigastric abdominal pain Code(s): R10.13 - EPIGASTRIC PAIN (5) HFrEF (heart failure with reduced ejection fraction) Code(s): I50.20 - UNSPECIFIED SYSTOLIC (CONGESTIVE) HEART FAILURE Qualifiers: Heart failure chronicity: acute on chronic Qualified Code(s): I50.23 - Acute on chronic systolic (congestive) heart failure (6) Hypothyroidism Code(s): E03.9 - HYPOTHYROIDISM, UNSPECIFIED Qualifiers: Hypothyroidism type: unspecified Qualified Code(s): E03.9 - Hypothyroidism , unspecified (7) Hypertension Code(s): I10 - ESSENTIAL (PRIMARY) HYPERTENSION Qualifiers: Hypertension type: essential hypertension Qualified Code(s): I10 - Essential (primary) hypertension (8) Seizure disorder Code(s): G40.909 - EPILEPSY, UNSP, NOT INTRACTABLE, WITHOUT STATUS EPILEPTICUS Assessment/Plan 1. 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 Paroxysmal atrial fibrillation with RVR [id number] score of 3 on A/C with DOAC (Eliquis) 4. Moderate mitral regurgitation 5. HTN 6. Seizure disorder 7. Hypothyroidism 8. CKD 9. Leukocytosis PLAN: 1. Continue Toprol XL 100 mg BID and Diovan 80 mg QD with IV Cardizem as needed for increased rate-control. If continues to be tachy-vanda, cardioversion may be considered 2. Continue Eliquis 5 mg BID given elevated [id number] score of 3 3. Lasix 20 mg QD and continue Aldactone 25 mg QD with close monitoring of renal function and electrolytes 4. Continue Amiodarone 200 mg QD 5. Counselled importance of compliance to therapy administration Further plans are to follow Piter Sanchez MD
--- NOTE | 2019-02-17 17:28 | PN ---
Physical Exam: SUBJECTIVE: Patient seen and examined -HR is improved, but with breakthrough periods of tachycardia -pt reports continued malaise and " does not have the strength to get out of bed." -continued treatment with rocephin for UTI OBJECTIVE: Vital Signs Period Temp Pulse Resp BP Sys/Batista Pulse Ox Last 24 Hr 97.5 F-98.1 F 72-120 20-20 98-134/56-74 95-95 GENERAL: The patient is awake, but lethargic, fully oriented, in no acute distress. HEAD: Normal with no signs of trauma. EYES: PERRL, extraocular movements intact, sclera anicteric, conjunctiva clear. No ptosis. ENT: Ears normal, nares patent, oropharynx clear without exudates, moist mucous membranes. NECK: Trachea midline, full range of motion, supple. LUNGS: Breath sounds equal, clear to auscultation bilaterally, no wheezes, no crackles, no accessory muscle use. HEART: irreg rate and rhythm, S1, S2 without murmur, rub or gallop. ABDOMEN: Soft, nontender, nondistended, normoactive bowel sounds, obese abdomen EXTREMITIES: 2+ pulses, warm, well-perfused, no edema. NEUROLOGICAL: Cranial nerves II through XII grossly intact. Normal speech, gait not observed. PSYCH: Normal mood, normal affect. SKIN: Warm, dry, normal turgor, no rashes or lesions noted Laboratory Results - last 24 hr 02/17/19 02/17/19 05:30 05:30 WBC 16.1 H RBC 4.74 Hgb 13.4 Hct 42.3 MCV 89.3 MCH 28.2 MCHC 31.6 L RDW 14.4 Plt Count 365 MPV 11.0 Absolute Neuts (auto) 10.8 H Neutrophils % 66.8 Lymphocytes % 24.4 Monocytes % 7.5 Eosinophils % 1.0 Basophils % 0.3 Nucleated RBC % 0 ESR 10 Sodium 140 Potassium 4.8 Chloride 107 Carbon Dioxide 25 Anion Gap 9 BUN 36 H Creatinine 1.0 Creat Clearance w eGFR 54.50 Random Glucose 124 H Calcium 8.6 Total Bilirubin 0.5 AST 15 ALT 24 Alkaline Phosphatase 83 Total Protein 6.9 Albumin 3.1 L TSH 3.85 H Active Medications Generic Name Dose Route Start Last Admin Trade Name Freq PRN Reason Stop Dose Admin Acetaminophen 650 mg 02/14/19 14:30 03/30/19 14:52 Tylenol - PO 650 mg Q6H PRN Administration HEADACHE Amiodarone HCl 200 mg 02/14/19 11:00 02/17/19 09:18 Cordarone - PO 200 mg DAILY ANN Administration Apixaban 5 mg 02/13/19 22:00 02/17/19 09:18 Eliquis - PO 5 mg BID ANN Administration Diltiazem HCl 10 mg 02/14/19 07:25 02/17/19 10:14 Cardizem Injection - IVPUSH 10 mg Q4H PRN Administration FOR HR OVER 120 Docusate Sodium 100 mg 02/16/19 17:46 Colace - PO Q8H PRN CONSTIPATION Furosemide 20 mg 02/16/19 10:25 02/17/19 09:18 Lasix - PO 20 mg DAILY ANN Administration Ceftriaxone Sodium 1 gm/ 50 mls @ 100 mls/hr 02/15/19 10:50 02/17/19 09:20 Dextrose IVPB 100 mls/hr DAILY ANN Administration Levetiracetam 250 mg 02/13/19 22:00 02/17/19 09:18 Keppra - PO 250 mg BID ANN Administration Levothyroxine Sodium 25 mcg 02/14/19 07:00 02/17/19 06:02 Synthroid - PO 25 mcg DAILY@0700 ANN Administration Metoprolol Succinate 100 mg 02/16/19 10:26 02/17/19 09:18 Toprol Xl - PO 100 mg BID ANN Administration Senna 2 tab 02/16/19 17:46 Senna - PO HS PRN CONSTIPATION Spironolactone 25 mg 02/14/19 10:00 02/17/19 09:18 Aldactone - PO 25 mg DAILY ANN Administration Valsartan 80 mg 02/14/19 10:00 02/17/19 09:17 Diovan - PO 80 mg DAILY [facility] Administration ASSESSMENT/PLAN:73 yrs old F with seizures disorders Afib on AC and rate control with Metoprolol present with 2 days H/O feeling Dizzy and palpitation. In ED pt with Afib with RVR, received cardizem IVP + oral dose. Pt admitted for further management Atrial fibrillation with RVR - amiodarone 200mg daily - metoprolol succinated 100mg twice a day - apixiban 5mg tiwce a day - IVP diltiazem if needed for the RVR -cont telemetry monitoring Diastolic CHF -diuresis with furosemide 20mg daily -spironolactone 25mg per cardiology Hypothyroidism -Cont Current dose of Levothyroxine Leukocytosis: 2/2 UTI - c/w ceftriaxone 1g daily - urine and blood culture sent today Seizure disorder -Cont Keppra -seizure precautions PPX -OOB to chair -Bowel regimen with senna and colace -pt could be d/cori home tomorrow with outpt follow up if HR is better controlled DISPO: Full code -pt can most likely be discharged tomorrow with continued outpt management. Visit type - Emergency Visit Emergency Visit: Yes ED Registration Date: 02/13/19 Care time: The patient presented to the Emergency Department on the above date and was hospitalized for further evaluation of their emergent condition. - New Patient This patient is new to me today: No - Critical Care Critical Care patient: No - Discharge Referral Referred to [facility] No
--- NOTE | 2019-02-17 18:56 | CONSULT ---
Consult Consult Specialty:: Hematology-Oncology Referred by:: Dr Velasquez Reason for Consultation:: high WBC - History of Present Illness Chief Complaint: dizziness , palpitations History of Present Illness: 73 y/o HF with hx A. fib on Eliquis admitted w palpitations and dizziness, found to have AF w FVR , non- compliant w cardiac meds recently ; Pt claims she was feeling well until her symptoms began , no fevers/chills/sweats/cough/phlegm /dysuria/pleuritic chest pain; she was admitted for rate control ,placed back on cardiac meds; She was found to have an elevated WBC on admission WBC 18K w 68polys, 16lymphs, 6monos,0.5 eos , H/H 14/43 MCV 88 ,plates 301K ; chemistries showed nl liver function ,calcium 8.9, PT/PTT unremarkable ; CXR neg for infiltrates ; UA + for 2+ leukocytes . Pt started on ab's for possible UTI, although c/s was ultimately neg. ; blood c/s also neg. Pt denies any significant symptoms over past 6 months, no change in appetite, weight change, change in overall function /energy.Today's CBC shows WBC down to 16 K. 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 Cardio/Vascular: Yes: AFIB, CAD, CHF, HTN, Other (STENTS, mitral regurgitation) Pulmonary: No: Asthma, Bronchitis, Cancer, COPD, O2 Dependent, Pneumonia, Previously Intubated, Pulmonary Embolus, Pulmonary Fibrosis, Sleep Apnea, Other Gastrointestinal: No: Ascites, Cancer, Constipation, Crohn's Disease, Diverticulitis, Diverticulosis, Esophageal Varices, Gastritis, GERD, GI Bleed, Hemorrhoids, Hiatal Hernia, Inflamatory Bowel Disease, Irritable Bowel Disease, Pancreatitis, Peptic Ulcer Disease, Ulcerative Colitis, Other Hepatobiliary: No: Cirrhosis, Cholelithiasis, Cholecystitis, Choledocholithiasis , Hepatitis A, Hepatitis B, Hepatitis C, Other ...: 5 ...Para: 5 Heme/Onc: No: Anemia, B12 Deficiency, Bleeding Disorder, Cancer, Current Chemotherapy, Current Radiation Therapy, Hemochromatosis, Hypercoaguable State, Myeloproliferative Synd, Sickle Cell Disease, Sickle Cell Trait, Thrombocytopenia, Other Infectious Disease: Yes: Other (UTI) Psych: No: Addictions, Anxiety, Bipolar, Depression, Panic, Psychosis, Schizophrenia, Other Musculoskeletal: Yes: Other (occ mild L shoulder discomfort) ENT: No: Allergic Rhinitis, Sinusitis, Other Endocrine: Yes: Diabetes Mellitus Dermatology: No: Basal Cell, Cellulitis, Eczema, Melanoma, Psoriasis, Squamous Cell, Other - Past Surgical History Past Surgical History: Yes: Joint Replacement, Tubal Ligation. No: None, AAA Repair, AICD, Amputation, Appendectomy, Arthrosocopy, AV Fistula/Graft, Bariatric Surgery, Breast Biopsy, Bypass, CABG, Carotid Endarterectomy, Cataract Removal, Cholecystectomy, Colectomy, Colonoscopy, Colostomy, Craniotomy , , Cystectomy, Hernia Repair, Hysterectomy, Ileal Conduit, Ileosotomy , Kidney Transplant, Laminectomy, Liver Transplant, Mastectomy, Nephrectomy, Oopherectomy, Orchiectomy, Permanent Pacemaker, Prostatectomy, Splenectomy, Stent, Thoracotomy, TURP, Tonsillectomy, Upper Endoscopy, Valve Replacement, Vasectomy, Vein Stripping/Ligation - Alcohol/Substance Use Hx Alcohol Use: No History of Substance Use: reports: None - Smoking History Smoking history: Never smoked Have you smoked in the past 12 months: No Aproximately how many cigarettes per day: 0 - Social History Usual Living Arrangement: With Child (daughter) ADL: Independent History of Recent Travel: No Home Medications - Allergies Allergies/Adverse Reactions: Allergies Allergy/AdvReac Type Severity Reaction Status Date / Time No Known Allergies Allergy Verified 02/13/19 11:33 - Home Medications Home Medications: Ambulatory Orders levETIRAcetam [Keppra -] 250 mg PO BID 12/12/17 Apixaban [Eliquis] 5 mg PO BID #60 tablet 11/25/18 Levothyroxine [Synthroid -] 25 mcg PO DAILY@0700 #30 tablet 11/25/18 Losartan Potassium 300 mg PO DAILY 02/13/19 Family Disease History - Family Disease History Family Disease History: Heart Disease: Mother (HTN), Sister (HTN) Other Family History: no hx blood issues or cancer Review of Systems - Review of Systems Constitutional: reports: Weakness (mild) Eyes: denies: No Symptoms, Blind Spots, Blurred Vision, Double Vision, Eye Pain , Floaters, Photophobia, Recent Change in Vision, Other HENT: denies: No Symptoms, Difficult Swallowing, Ear Discharge, Ear Pain, Epistaxis, Gingival Bleeding, Hearing Loss, Mouth Swelling, Nasal Congestion, Ocular Prosthesis, Throat Pain, Toothache, Ringing in Ears, Other Neck: reports: No Symptoms Respiratory: reports: SOB on Exertion Gastrointestinal: reports: No Symptoms, Other (hx colonoscopy < 5 yrs ago,normal ) Genitourinary: reports: Other (recent PAP, no pelvic pain or post-men bleeding) Breasts: reports: No Symptoms Reported, Other (mammogram 2018) Musculoskeletal: reports: Joint Pain (L shoulder) Integumentary: reports: No Symptoms Neurological: reports: No Symptoms Endocrine: reports: No Symptoms Hematology/Lymphatic: reports: No Symptoms Psychiatric: reports: No Symptoms Physical Exam Vital Signs: Vital Signs Temperature 98 F 02/17/19 10:00 Pulse Rate 120 H 02/17/19 10:00 Respiratory Rate 20 02/17/19 10:00 Blood Pressure 126/74 02/17/19 10:00 O2 Sat by Pulse Oximetry (%) 95 02/17/19 10:00 Constitutional: Yes: Well Nourished, No Distress, Calm, Obese Eyes: Yes: WNL, Conjunctiva Clear, EOM Intact HENT: Yes: WNL, Atraumatic, Normocephalic Neck: Yes: WNL, Supple, Trachea Midline Cardiovascular: Yes: WNL, Pulse Irregular, S1, S2 Respiratory: Yes: WNL, Regular, CTA Bilaterally Gastrointestinal: Yes: WNL, Normal Bowel Sounds, Abdomen, Obese. No: Soft, Ascites, Distention, Hematemesis, Hemorrhoids, Hepatomegaly, Hernia, Hyperactive Bowel Sounds, Hypoactive Bowel Sounds, Melena, Palpable Mass, Pulsatile Mass, Rectal Bleeding, Splenomegaly, Tenderness, Tenderness, Epigastrium, Tenderness, Rebound, Vomiting, Other Musculoskeletal: Yes: WNL Extremities: Yes: WNL Edema: No Integumentary: Yes: WNL Neurological: Yes: WNL, Alert, Oriented ...Motor Strength: WNL Psychiatric: Yes: WNL Labs: CBC, BMP 02/17/19 05:30 02/17/19 05:30 Problem List - Problems (1) Leukocytosis Code(s): D72.829 - ELEVATED WHITE BLOOD CELL COUNT, UNSPECIFIED (2) Leukocytosis Code(s): D72.829 - ELEVATED WHITE BLOOD CELL COUNT, UNSPECIFIED Qualifiers: Leukocytosis type: unspecified Qualified Code(s): D72.829 - Elevated white blood cell count, unspecified Assessment/Plan The hemogram is unremarkable other than for the modestly elevated WBC , which predominantly is composed of neutrophils; It seems to be coming down w antibiotics , although cultures neg ; The UTI does not seem to be significant , pt had minimal symptoms . On PE, she has no peripheral lymphadenopathy or organomegaly to suggest a primary hematological disorder. Chances are high this is reactive to infectious/inflammatory issue,or physical emotional stress (AF w FVR ) , rather than a primary hematologic disorder ( eg Myeloprolif. disease) or occult malignancy . If WBC normalizes , no need for further w/u now ; if remains elevated , can embark on w/u in office . She has no acute pulmonary symptoms suggestive of pulm. embolism. Pt and family given my card and # to make appt within 2 weeks to check labs. one more time , to start w/u in office( [phone] [id number]). If pt staying in hospital several more days and wbc remains >16 , can start eval in-hospital if necessary.
[2019-02-18 00:01] VITALS: BMI 37.3
[2019-02-18] MEDS: LEVOTHYROXINE NA 25 MCG TABLET (FP) PO SCH (06:36)
[2019-02-18 07:51] LABS: HEMATOCRIT 40.3 % (32.4-45.2); HEMOGLOBIN 13.1 GM/dL (10.7-15.3); MCH 28.7 pg (25.7-33.7); MCHC 32.5 g/dl (32.0-36.0); MEAN CELL VOLUME 88.3 fl (80-96); MEAN PLT VOLUME 10.9 fl (7.5-11.1); PLATELET COUNT 378 K/MM3 (134-434); RBC 4.56 M/mm3 (3.60-5.2); RDW 14.7 % (11.6-15.6); WHITE BLOOD COUNT 15.6 K/mm3 (4.0-10.0)
[2019-02-18 08:19] LABS: ALBUMIN 3.2 g/dl (3.4-5.0); ALK PHOS 87 U/L (45-117); ANION GAP 8 MMOL/L (8-16); BLOOD UREA NITROGEN 32 mg/dL (7-18); CALCIUM 8.7 mg/dL (8.5-10.1); CHLORIDE 109 mmol/L (98-107); CO2 24 mmol/L (21-32); GLUCOSE,RANDOM 117 mg/dL (74-106); POTASSIUM 4.7 mmol/L (3.5-5.1); SGOT/AST 17 U/L (15-37); SGPT/ALT 25 U/L (13-61); SODIUM 140 mmol/L (136-145); TOT PROT 6.7 g/dl (6.4-8.2)
[2019-02-18] MEDS ORDERED: cefTRIAXone SODIUM 1 GM VIAL ONE (09:07)
[2019-02-18] MEDS ORDERED: DEXTROSE 5%-WATER - 50 ML IVPB ONE (09:07)
[2019-02-18] MEDS: VALSARTAN 80 MG TABLET (UD) PO SCH (09:35)
[2019-02-18] MEDS: FUROSEMIDE 40 MG TABLET (FP) PO SCH (09:35)
[2019-02-18] MEDS: SPIRONOLACTONE 25 MG TABLET (FP) PO SCH (09:35)
[2019-02-18] MEDS: levETIRAcetam 250 MG TABLET (FP) PO SCH ×2 (09:35→21:30)
[2019-02-18] MEDS: AMIODARONE HCL 200 MG TABLET (FP) PO SCH (09:35)
[2019-02-18] MEDS: APIXABAN 5 MG TABLET PO SCH ×2 (09:35→21:30)
[2019-02-18] MEDS: CEFTRIAXONE 1 GM in DEXTROSE 5%-WATER - 50 ML IVPB SCH (09:36)
--- NOTE | 2019-02-18 10:19 | PN ---
Progress Note, Physician History of Present Illness: Palpitations improved despite AF with periods of RVR. Denies chest pain, near syncope or dyspnea. - Current Medication List Current Medications: Active Medications Acetaminophen (Tylenol -) 650 mg PO Q6H PRN PRN Reason: HEADACHE Last Admin: 02/14/19 14:52 Dose: 650 mg Amiodarone HCl (Cordarone -) 200 mg PO DAILY [facility] Last Admin: 02/18/19 09:35 Dose: 200 mg Apixaban (Eliquis -) 5 mg PO BID [facility] Last Admin: 02/18/19 09:35 Dose: 5 mg Diltiazem HCl (Cardizem Injection -) 10 mg IVPUSH Q4H PRN PRN Reason: FOR HR OVER 120 Last Admin: 02/17/19 10:14 Dose: 10 mg Docusate Sodium (Colace -) 100 mg PO Q8H PRN PRN Reason: CONSTIPATION Furosemide (Lasix -) 20 mg PO DAILY [facility] Last Admin: 02/18/19 09:35 Dose: 20 mg Ceftriaxone Sodium 1 gm/ (Dextrose) 50 mls @ 100 mls/hr IVPB DAILY [facility] Last Admin: 02/18/19 09:36 Dose: 100 mls/hr Levetiracetam (Keppra -) 250 mg PO BID [facility] Last Admin: 02/18/19 09:35 Dose: 250 mg Levothyroxine Sodium (Synthroid -) 25 mcg PO DAILY@0700 [facility] Last Admin: 02/18/19 06:36 Dose: 25 mcg Metoprolol Succinate (Toprol Xl -) 100 mg PO BID [facility] Last Admin: 02/18/19 09:36 Dose: 100 mg Senna (Senna -) 2 tab PO HS PRN PRN Reason: CONSTIPATION Spironolactone (Aldactone -) 25 mg PO DAILY [facility] Last Admin: 02/18/19 09:35 Dose: 25 mg Valsartan (Diovan -) 80 mg PO DAILY [facility] Last Admin: 02/18/19 09:35 Dose: 80 mg - Objective Vital Signs: Vital Signs Temperature 98 F 02/18/19 09:33 Pulse Rate 119 H 02/18/19 09:33 Respiratory Rate 20 02/18/19 09:33 Blood Pressure 110/70 02/18/19 09:33 O2 Sat by Pulse Oximetry (%) 98 02/17/19 21:00 Constitutional: Yes: No Distress, Calm HENT: Yes: Tonsillar Exudate Cardiovascular: Yes: Tachycardia, Pulse Irregular Respiratory: Yes: Regular, Diminished, On Nasal O2 Gastrointestinal: Yes: Normal Bowel Sounds, Soft, Abdomen, Obese Edema: No Labs: CBC, BMP 02/18/19 06:00 02/18/19 06:00 INR, PTT INR 1.03 (0.83-1.09) 02/13/19 12:18 - ....Imaging EKG: Report Reviewed (Tele: Episodes of rapid afib) Problem List - Problems (1) Acute exacerbation of CHF (congestive heart failure) Code(s): I50.9 - HEART FAILURE, UNSPECIFIED Qualifiers: Heart failure type: combined systolic and diastolic Qualified Code(s): I50.43 - Acute on chronic 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) heart failure (2) Atrial fibrillation with RVR Code(s): I48.91 - UNSPECIFIED ATRIAL FIBRILLATION (3) Chronic anticoagulation Code(s): 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.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 (4) HFrEF (heart failure with reduced ejection fraction) Code(s): I50.20 - UNSPECIFIED SYSTOLIC (CONGESTIVE) HEART FAILURE Qualifiers: Heart failure chronicity: acute on chronic Qualified Code(s): I50.23 - Acute on chronic systolic (congestive) heart failure (5) Hypothyroidism Code(s): E03.9 - HYPOTHYROIDISM, UNSPECIFIED Qualifiers: Hypothyroidism type: unspecified Qualified Code(s): E03.9 - Hypothyroidism , unspecified (6) Palpitations Code(s): R00.2 - PALPITATIONS (7) Hypertensive cardiomyopathy Code(s): I11.9 - HYPERTENSIVE HEART DISEASE WITHOUT HEART FAILURE; I43 - CARDIOMYOPATHY IN DISEASES CLASSIFIED ELSEWHERE Qualifiers: Heart failure presence: with heart failure Qualified Code(s): I11.0 - Hypertensive heart disease with heart failure; I43 - Cardiomyopathy in diseases classified elsewhere (8) Paroxysmal a-fib Code(s): I48.0 - PAROXYSMAL ATRIAL FIBRILLATION Assessment/Plan 01/08/2018 MPI: Low normal LVEF 50%, no ischemia 11/17/2018 NINFA: Mod-severely reduced LV systolic function LVEF 30-35%, mod MR, mild TR, trace-mild NM, no thrombus, no PFO 11/24/2018 TTE: Normal LVEF 55-60%, mild-mod MR, grade 2 diastolic dysfunction with elevated filling presures and mild-mod AR 1. 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 Paroxysmal atrial fibrillation with RVR [id number] score of 3 on A/C with DOAC (Eliquis) 4. Moderate mitral regurgitation 5. HTN 6. Seizure disorder 7. Hypothyroidism 8. CKD 9. Leukocytosis PLAN: 1. Continue Toprol XL 100 mg BID and Diovan 80 mg QD with IV Cardizem as needed for increased rate-control. Cardioversion planned given inadequate rate-control , patient confirms compliance with Eliquis for last 2 months for NINFA-guidance is not warranted 2. Continue Eliquis 5 mg BID given elevated [id number] score of 3 3. Lasix 20 mg QD and continue Aldactone 25 mg QD with close monitoring of renal function and electrolytes 4. Continue Amiodarone 200 mg QD 5. Counselled importance of compliance to therapy administration
[2019-02-18 10:45] LABS: ERYTHROCYTE SEDIMENTATION RATE 5 mm/hr (0-30)
--- NOTE | 2019-02-18 10:58 | PN ---
Physical Exam: SUBJECTIVE: Patient seen and examined at the bedside. tells that at home she was non compliant with the metoprolol but states she was compliant with the eliquis at home. denies chest pain, denies shortness of breath. feels stronger. npo for possible cardioversion tomorrow with Dr. 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 HEAD: Normal with no signs of trauma. EYES: PERRL, extraocular movements intact, sclera anicteric, conjunctiva clear. No ptosis. ENT: Ears normal, nares patent, oropharynx clear without exudates, moist mucous membranes. NECK: Trachea midline, full range of motion, supple. 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 NEUROLOGICAL: Normal speech, gait not observed. PSYCH: Normal mood, normal affect. SKIN: Warm, dry, normal turgor, no rashes or lesions noted Laboratory Results - last 24 hr 02/16/19 02/18/19 02/18/19 09:35 06:00 06:00 WBC 15.6 H RBC 4.56 Hgb 13.1 Hct 40.3 MCV 88.3 MCH 28.7 MCHC 32.5 RDW 14.7 Plt Count 378 MPV 10.9 ESR 5 Sodium 140 Potassium 4.7 Chloride 109 H Carbon Dioxide 24 Anion Gap 8 BUN 32 H Creatinine 1.0 Creat Clearance w eGFR 54.50 Random Glucose 117 H Calcium 8.7 Total Bilirubin 1.0 AST 17 ALT 25 Alkaline Phosphatase 87 Total Protein 6.7 Albumin 3.2 L ANGEL Screen Negative EBV Nuclear Antigen 177.0 H Active Medications Generic Name Dose Route Start Last Admin Trade Name Freq PRN Reason Stop Dose Admin Acetaminophen 650 mg 02/14/19 14:30 02/14/19 14:52 Tylenol - PO 650 mg Q6H PRN Administration HEADACHE Amiodarone HCl 200 mg 02/14/19 11:00 02/18/19 09:35 Cordarone - PO 200 mg DAILY ANN Administration Apixaban 5 mg 02/13/19 22:00 02/18/19 09:35 Eliquis - PO 5 mg BID ANN Administration Diltiazem HCl 10 mg 02/14/19 07:25 02/17/19 10:14 Cardizem Injection - IVPUSH 10 mg Q4H PRN Administration FOR HR OVER 120 Docusate Sodium 100 mg 02/16/19 17:46 Colace - PO Q8H PRN CONSTIPATION Furosemide 20 mg 02/16/19 10:25 02/18/19 09:35 Lasix - PO 20 mg DAILY ANN Administration Ceftriaxone Sodium 1 gm/ 50 mls @ 100 mls/hr 02/15/19 10:50 02/18/19 09:36 Dextrose IVPB 100 mls/hr DAILY ANN Administration Levetiracetam 250 mg 02/13/19 22:00 02/18/19 09:35 Keppra - PO 250 mg BID ANN Administration Levothyroxine Sodium 25 mcg 02/14/19 07:00 02/18/19 06:36 Synthroid - PO 25 mcg DAILY@0700 ANN Administration Metoprolol Succinate 100 mg 02/16/19 10:26 02/18/19 09:36 Toprol Xl - PO 100 mg BID ANN Administration Senna 2 tab 02/16/19 17:46 Senna - PO HS PRN CONSTIPATION Spironolactone 25 mg 02/14/19 10:00 02/18/19 09:35 Aldactone - PO 25 mg DAILY ANN Administration Valsartan 80 mg 02/14/19 10:00 02/18/19 09:35 Diovan - PO 80 mg DAILY ANN Administration ASSESSMENT/PLAN: Patient is a 73 year old female with a significant past medical history of seizures disorders, afib on eliquis, hypothyroidism, diastolic CHF. She presents dizziness, weakness and palpitations. patient admitted for further management. Card: Atrial fibrillation with RVR Cardiac monitoring shows afib rvr 88-140s. patient denies dizziness of shortness of breath. for cardioversion tomorrow. npo at midnight On Amiodorone 200mg daily, metoprolol 100mg bid Eliquis 5mg bid. Cardizem 10mg ivp prn for tachycardia Diastolic CHF On furosemide 20mg, spironalctone 25mg per cardiology Endocrine: Hypothyroidism. cont Current dose of Levothyroxine ID: Leukocytosis Initially on ceftriaxone for UTI, however, UC negative and patient is asymptomatic. will d/c ceftriaxone. Seen by hematology Neuro: Seizure disorder On Keppra. maintain seizure precautions fen tolerating po npo at midnight bowel regimen disposition d/c once cleared by cardiology Visit type - Emergency Visit Emergency Visit: Yes ED Registration Date: 02/13/19 Care time: The patient presented to the Emergency Department on the above date and was hospitalized for further evaluation of their emergent condition. - New Patient This patient is new to me today: Yes Date on this admission: 02/18/19 - Critical Care Critical Care patient: No - Discharge Referral Referred to [facility] No
[2019-02-18] MEDS: ACETAMINOPHEN 325 MG TABLET (FP) PO PRN (16:07)
--- NOTE | 2019-02-19 08:27 | PN ---
Physical Exam: SUBJECTIVE: Patient seen and examined at the bedside. for a cardioversion today. patient admits being non compliant with the metoprolol because she ran out of this medication and assumed that she no longer needed it. I spoke to her daughter regarding importance of medication compliance for her mom to avoid re-admission. OBJECTIVE: for cardioversion today per Dr. Ward Vital Signs Period Temp Pulse Resp BP Sys/Batista Pulse Ox Last 24 Hr 97.1 F-98.5 F 102-121 18-20 97-113/54-70 97-98 GENERAL: The patient is awake, alert, and fully oriented, in no acute distress. HEAD: Normal with no signs of trauma. EYES: PERRL, extraocular movements intact, sclera anicteric, conjunctiva clear. No ptosis. ENT: Ears normal, nares patent, oropharynx clear without exudates, moist mucous membranes. NECK: Trachea midline, full range of motion, supple. 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 NEUROLOGICAL: Normal speech, gait not observed. PSYCH: Normal mood, normal affect. SKIN: Warm, dry, normal turgor, no rashes or lesions noted Laboratory Results - last 24 hr 02/18/19 06:00 ESR 5 Active Medications Generic Name Dose Route Start Last Admin Trade Name Freq PRN Reason Stop Dose Admin Acetaminophen 650 mg 02/14/19 14:30 02/18/19 16:07 Tylenol - PO 650 mg Q6H PRN Administration HEADACHE Amiodarone HCl 200 mg 02/14/19 11:00 02/18/19 09:35 Cordarone - PO 200 mg DAILY ANN Administration Apixaban 5 mg 02/13/19 22:00 02/18/19 21:30 Eliquis - PO 5 mg BID ANN Administration Diltiazem HCl 10 mg 02/14/19 07:25 02/17/19 10:14 Cardizem Injection - IVPUSH 10 mg Q4H PRN Administration FOR HR OVER 120 Docusate Sodium 100 mg 02/16/19 17:46 Colace - PO Q8H PRN CONSTIPATION Furosemide 20 mg 02/16/19 10:25 02/18/19 09:35 Lasix - PO 20 mg DAILY ANN Administration Ceftriaxone Sodium 1 gm/ 50 mls @ 100 mls/hr 02/15/19 10:50 02/18/19 09:36 Dextrose IVPB 100 mls/hr DAILY ANN Administration Levetiracetam 250 mg 02/13/19 22:00 02/18/19 21:30 Keppra - PO 250 mg BID ANN Administration Levothyroxine Sodium 25 mcg 02/14/19 07:00 02/18/19 06:36 Synthroid - PO 25 mcg DAILY@0700 ANN Administration Metoprolol Succinate 100 mg 02/16/19 10:26 02/18/19 21:30 Toprol Xl - PO 100 mg BID ANN Administration Senna 2 tab 02/16/19 17:46 Senna - PO HS PRN CONSTIPATION Spironolactone 25 mg 02/14/19 10:00 02/18/19 09:35 Aldactone - PO 25 mg DAILY ANN Administration Valsartan 80 mg 02/14/19 10:00 02/18/19 09:35 Diovan - PO 80 mg DAILY ANN Administration ASSESSMENT/PLAN: Patient is a 73 year old female with a significant past medical history of seizures disorders, afib on eliquis, hypothyroidism and diastolic CHF. She presents dizziness, weakness and palpitations. patient admitted for further management of her symptoms. Card: Atrial fibrillation with RVR secondary to medication non compliance. Cardiac monitoring shows afib rvr 88-140s. patient denies dizziness of shortness of breath. for cardioversion today. Has been NPO since midnight. On Amiodorone 200mg daily, metoprolol 100mg bid Eliquis 5mg bid. Cardizem 10mg ivp prn for tachycardia Diastolic CHF On furosemide 20mg, spironalctone 25mg per cardiology Endocrine: Hypothyroidism. cont Current dose of Levothyroxine Hypertension, controlled. On diovan ID: Leukocytosis Initially on ceftriaxone for UTI, however, UC negative and patient is asymptomatic. will d/c ceftriaxone. Seen by hematology Neuro: Seizure disorder On Keppra. maintain seizure precautions fen tolerating po npo at midnight bowel regimen disposition d/c once cleared by cardiology, likely tomorrow. patient may benefit from a visiting nurse to assure medication compliance. Visit type - Emergency Visit Emergency Visit: Yes ED Registration Date: 02/13/19 Care time: The patient presented to the Emergency Department on the above date and was hospitalized for further evaluation of their emergent condition. - New Patient This patient is new to me today: No - Critical Care Critical Care patient: No - Discharge Referral Referred to [facility] No
[2019-02-19] MEDS: LEVOTHYROXINE NA 25 MCG TABLET (FP) PO SCH ×2 (09:37→09:39)
[2019-02-19] MEDS: AMIODARONE HCL 200 MG TABLET (FP) PO SCH (09:37)
[2019-02-19] MEDS: levETIRAcetam 250 MG TABLET (FP) PO SCH ×2 (09:38→22:01)
[2019-02-19] MEDS: APIXABAN 5 MG TABLET PO SCH ×2 (09:38→22:01)
--- NOTE | 2019-02-19 10:11 | PN ---
Progress Note, Physician History of Present Illness: Palpitations improved despite AF with periods of RVR. Denies chest pain, near syncope or dyspnea. - Current Medication List Current Medications: Active Medications Acetaminophen (Tylenol -) 650 mg PO Q6H PRN PRN Reason: HEADACHE Last Admin: 02/18/19 16:07 Dose: 650 mg Amiodarone HCl (Cordarone -) 200 mg PO DAILY [facility] Last Admin: 02/19/19 09:37 Dose: 200 mg Apixaban (Eliquis -) 5 mg PO BID [facility] Last Admin: 02/19/19 09:38 Dose: 5 mg Diltiazem HCl (Cardizem Injection -) 10 mg IVPUSH Q4H PRN PRN Reason: FOR HR OVER 120 Last Admin: 02/17/19 10:14 Dose: 10 mg Docusate Sodium (Colace -) 100 mg PO Q8H PRN PRN Reason: CONSTIPATION Furosemide (Lasix -) 20 mg PO DAILY [facility] Last Admin: 02/18/19 09:35 Dose: 20 mg Levetiracetam (Keppra -) 250 mg PO BID [facility] Last Admin: 02/19/19 09:38 Dose: 250 mg Levothyroxine Sodium (Synthroid -) 25 mcg PO DAILY@0700 [facility] Last Admin: 02/19/19 09:39 Dose: Not Given Metoprolol Succinate (Toprol Xl -) 100 mg PO BID [facility] Last Admin: 02/19/19 09:38 Dose: 100 mg Senna (Senna -) 2 tab PO HS PRN PRN Reason: CONSTIPATION Spironolactone (Aldactone -) 25 mg PO DAILY [facility] Last Admin: 02/18/19 09:35 Dose: 25 mg Valsartan (Diovan -) 80 mg PO DAILY [facility] Last Admin: 02/18/19 09:35 Dose: 80 mg - Objective Vital Signs: Vital Signs Temperature 97.4 F L 02/19/19 09:35 Pulse Rate 98 H 02/19/19 09:35 Respiratory Rate 18 02/19/19 09:35 Blood Pressure 110/62 02/19/19 09:35 O2 Sat by Pulse Oximetry (%) 98 02/18/19 21:00 Constitutional: Yes: No Distress, Calm Neck: Yes: Supple Cardiovascular: Yes: Tachycardia, Pulse Irregular Respiratory: Yes: Regular, Diminished, On Nasal O2 Gastrointestinal: Yes: Normal Bowel Sounds, Soft, Abdomen, Obese Edema: No Labs: CBC, BMP 02/18/19 06:00 02/18/19 06:00 INR, PTT INR 1.03 (0.83-1.09) 02/13/19 12:18 Problem List - Problems (1) Acute exacerbation of CHF (congestive heart failure) Code(s): I50.9 - HEART FAILURE, UNSPECIFIED Qualifiers: Heart failure type: combined systolic and diastolic Qualified Code(s): I50.43 - Acute on chronic 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) heart failure (2) Atrial fibrillation with RVR Code(s): I48.91 - UNSPECIFIED ATRIAL FIBRILLATION (3) Chronic anticoagulation Code(s): Z79.01 - 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 (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) USE OF 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 (4) HFrEF (heart failure with reduced ejection fraction) Code(s): I50.20 - UNSPECIFIED SYSTOLIC (CONGESTIVE) HEART FAILURE Qualifiers: Heart failure chronicity: acute on chronic Qualified Code(s): I50.23 - Acute on chronic systolic (congestive) heart failure (5) Hypothyroidism Code(s): E03.9 - HYPOTHYROIDISM, UNSPECIFIED Qualifiers: Hypothyroidism type: unspecified Qualified Code(s): E03.9 - Hypothyroidism , unspecified (6) Palpitations Code(s): R00.2 - PALPITATIONS (7) Hypertensive cardiomyopathy Code(s): I11.9 - HYPERTENSIVE HEART DISEASE WITHOUT HEART FAILURE; I43 - CARDIOMYOPATHY IN DISEASES CLASSIFIED ELSEWHERE Qualifiers: Heart failure presence: with heart failure Qualified Code(s): I11.0 - Hypertensive heart disease with heart failure; I43 - Cardiomyopathy in diseases classified elsewhere (8) Paroxysmal a-fib Code(s): I48.0 - PAROXYSMAL ATRIAL FIBRILLATION Assessment/Plan 01/08/2018 MPI: Low normal LVEF 50%, no ischemia 11/17/2018 NINFA: Mod-severely reduced LV systolic function LVEF 30-35%, mod MR, mild TR, trace-mild IA, no thrombus, no PFO 11/24/2018 TTE: Normal LVEF 55-60%, mild-mod MR, grade 2 diastolic dysfunction with elevated filling presures and mild-mod AR 1. 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 Paroxysmal atrial fibrillation with RVR [id number] score of 3 on A/C with DOAC (Eliquis) 4. Moderate mitral regurgitation 5. HTN 6. Seizure disorder 7. Hypothyroidism 8. CKD 9. Leukocytosis PLAN: 1. Continue Toprol XL 100 mg BID and Diovan 80 mg QD with IV Cardizem as needed for increased rate-control. Cardioversion today given inadequate rate-control, patient confirms compliance with Eliquis for last 2 months for NINFA-guidance is not warranted 2. Continue Eliquis 5 mg BID given elevated [id number] score of 3 3. Lasix 20 mg QD and continue Aldactone 25 mg QD with close monitoring of renal function and electrolytes 4. Continue Amiodarone 200 mg QD 5. Counselled importance of compliance to therapy administration
[2019-02-19 10:30] LABS: BASO % 0.8 % (0-2.0); EOS % 1.2 % (0-4.5); HEMATOCRIT 39.6 % (32.4-45.2); HEMOGLOBIN 12.7 GM/dL (10.7-15.3); LYMPH % 24.9 % (8-40); MCH 28.6 pg (25.7-33.7); MCHC 32.1 g/dl (32.0-36.0); MEAN CELL VOLUME 88.9 fl (80-96); MEAN PLT VOLUME 10.9 fl (7.5-11.1); MONO % 7.8 % (3.8-10.2); NEUT % 65.3 % (42.8-82.8); PLATELET COUNT 352 K/MM3 (134-434); RBC 4.46 M/mm3 (3.60-5.2); RDW 14.1 % (11.6-15.6); WHITE BLOOD COUNT 13.3 K/mm3 (4.0-10.0)
[2019-02-19 10:50] LABS: INR 1.28 (0.83-1.09); PROTHROMBIN TIME (PATIENT) 15.2 SEC (9.7-13.0)
[2019-02-19 11:03] LABS: ALBUMIN 3.1 g/dl (3.4-5.0); ALK PHOS 81 U/L (45-117); ANION GAP 8 MMOL/L (8-16); BILIRUBIN,TOTAL 0.7 mg/dL (0.2-1); BLOOD UREA NITROGEN 32 mg/dL (7-18); CALCIUM 8.8 mg/dL (8.5-10.1); CHLORIDE 109 mmol/L (98-107); CO2 24 mmol/L (21-32); GLUCOSE,RANDOM 112 mg/dL (74-106); POTASSIUM 4.7 mmol/L (3.5-5.1); SGOT/AST 12 U/L (15-37); SGPT/ALT 25 U/L (13-61); SODIUM 141 mmol/L (136-145); TOT PROT 6.6 g/dl (6.4-8.2)
[2019-02-19] MEDS ORDERED: oxyCODONE HCL 5 MG TABLET PO PRN (12:45)
[2019-02-19] MEDS ORDERED: PROMETHAZINE HCL 25 MG/1 ML VIAL IVPUSH PRN (12:45)
[2019-02-19] MEDS ORDERED: ONDANSETRON 4 MG/2 ML VIAL IVPUSH PRN (12:45)
[2019-02-19] MEDS: SPIRONOLACTONE 25 MG TABLET (FP) PO SCH (15:06)
[2019-02-19] MEDS: FUROSEMIDE 40 MG TABLET (FP) PO SCH (15:06)
[2019-02-19] MEDS: VALSARTAN 80 MG TABLET (UD) PO SCH (15:07)
[2019-02-20] MEDS: LEVOTHYROXINE NA 25 MCG TABLET (FP) PO SCH (06:06)
[2019-02-20 07:58] LABS: ALK PHOS 80 U/L (45-117); ANION GAP 8 MMOL/L (8-16); BILIRUBIN,TOTAL 0.6 mg/dL (0.2-1); BLOOD UREA NITROGEN 28 mg/dL (7-18); CHLORIDE 108 mmol/L (98-107); CO2 25 mmol/L (21-32); CREATININE 1.1 mg/dL (0.55-1.3); GLUCOSE,RANDOM 145 mg/dL (74-106); MAGNESIUM 1.9 mg/dL (1.8-2.4); POTASSIUM 4.8 mmol/L (3.5-5.1); SGOT/AST 15 U/L (15-37); SGPT/ALT 23 U/L (13-61); SODIUM 141 mmol/L (136-145); TOT PROT 6.3 g/dl (6.4-8.2)
[2019-02-20 08:02] LABS: BASO % 0.3 % (0-2.0); HEMATOCRIT 38.7 % (32.4-45.2); HEMOGLOBIN 12.5 GM/dL (10.7-15.3); LYMPH % 24.8 % (8-40); MCH 29.2 pg (25.7-33.7); MCHC 32.4 g/dl (32.0-36.0); MEAN PLT VOLUME 11.7 fl (7.5-11.1); MONO % 7.2 % (3.8-10.2); NEUT % 66.7 % (42.8-82.8); PLATELET COUNT 326 K/MM3 (134-434); RDW 14.5 % (11.6-15.6); WHITE BLOOD COUNT 13.4 K/mm3 (4.0-10.0)
--- NOTE | 2019-02-20 08:54 | PN ---
Progress Note, Physician History of Present Illness: Palpitations resolved, afib is rate-controlled after addition of Cardizem, remains in afib despite DCCV attempts. Denies chest pain, near syncope or dyspnea. - Current Medication List Current Medications: Active Medications Acetaminophen (Tylenol -) 650 mg PO Q6H PRN PRN Reason: HEADACHE Last Admin: 02/18/19 16:07 Dose: 650 mg Amiodarone HCl (Cordarone -) 200 mg PO DAILY [facility] Last Admin: 02/19/19 09:37 Dose: 200 mg Apixaban (Eliquis -) 5 mg PO BID [facility] Last Admin: 02/19/19 22:01 Dose: 5 mg Diltiazem HCl (Cardizem Injection -) 10 mg IVPUSH Q4H PRN PRN Reason: FOR HR OVER 120 Last Admin: 02/17/19 10:14 Dose: 10 mg Diltiazem HCl (Cardizem Cd -) 120 mg PO DAILY [facility] Last Admin: 02/19/19 15:07 Dose: 120 mg Docusate Sodium (Colace -) 100 mg PO Q8H PRN PRN Reason: CONSTIPATION Fentanyl (Sublimaze Injection -) 25 mcg IVPUSH [id number] PRN PRN Reason: PAIN-PACU ORDER X 4 DOSES ONLY Furosemide (Lasix -) 20 mg PO DAILY [facility] Last Admin: 02/19/19 15:06 Dose: 20 mg Levetiracetam (Keppra -) 250 mg PO BID [facility] Last Admin: 02/19/19 22:01 Dose: 250 mg Levothyroxine Sodium (Synthroid -) 25 mcg PO DAILY@0700 [facility] Last Admin: 02/20/19 06:06 Dose: 25 mcg Metoprolol Succinate (Toprol Xl -) 100 mg PO BID [facility] Last Admin: 02/19/19 22:01 Dose: 100 mg Ondansetron HCl (Zofran Injection) 4 mg IVPUSH Q6H PRN PRN Reason: NAUSEA AND/OR VOMITING Oxycodone HCl (Roxicodone -) 5 mg PO Q4H PRN PRN Reason: PAIN LEVEL 1-5 Stop: 02/20/19 12:44 Promethazine HCl (Phenergan Injection -) 12.5 mg IVPUSH Q6H PRN PRN Reason: NAUSEA-FOR RESCUE AFTER 15 MIN Senna (Senna -) 2 tab PO HS PRN PRN Reason: CONSTIPATION Spironolactone (Aldactone -) 25 mg PO DAILY [facility] Last Admin: 02/19/19 15:06 Dose: 25 mg Valsartan (Diovan -) 80 mg PO DAILY [facility] Last Admin: 02/19/19 15:07 Dose: 80 mg - Objective Vital Signs: Vital Signs Temperature 97 F L 02/20/19 08:50 Pulse Rate 90 02/20/19 08:50 Respiratory Rate 20 02/20/19 08:50 Blood Pressure 107/60 02/20/19 08:50 O2 Sat by Pulse Oximetry (%) 100 02/19/19 21:00 Constitutional: Yes: No Distress, Calm Neck: Yes: Supple Cardiovascular: Yes: Pulse Irregular Respiratory: Yes: Regular, Diminished Gastrointestinal: Yes: Normal Bowel Sounds, Soft, Abdomen, Obese Edema: No Labs: CBC, BMP 02/20/19 06:00 02/20/19 06:00 INR, PTT INR 1.28 (0.83-1.09) H 02/19/19 10:05 - ....Imaging EKG: Report Reviewed (Tele: Rate-controlled afib) Problem List - Problems (1) Acute exacerbation of CHF (congestive heart failure) Code(s): I50.9 - HEART FAILURE, UNSPECIFIED Qualifiers: Heart failure type: diastolic Qualified Code(s): I50.33 - Acute on chronic diastolic (congestive) heart failure (2) Atrial fibrillation with RVR Code(s): I48.91 - UNSPECIFIED ATRIAL FIBRILLATION (3) Chronic anticoagulation Code(s): Z79.01 - RENAL CASE MANAGER (CURRENT) USE OF 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 (4) Hypothyroidism Code(s): E03.9 - HYPOTHYROIDISM, UNSPECIFIED Qualifiers: Hypothyroidism type: unspecified Qualified Code(s): E03.9 - Hypothyroidism , unspecified (5) Palpitations Code(s): R00.2 - PALPITATIONS (6) Hypertensive cardiomyopathy Code(s): I11.9 - HYPERTENSIVE HEART DISEASE WITHOUT HEART FAILURE; I43 - CARDIOMYOPATHY IN DISEASES CLASSIFIED ELSEWHERE Qualifiers: Heart failure presence: with heart failure Qualified Code(s): I11.0 - Hypertensive heart disease with heart failure; I43 - Cardiomyopathy in diseases classified elsewhere (7) Paroxysmal a-fib Code(s): I48.0 - PAROXYSMAL ATRIAL FIBRILLATION Assessment/Plan 01/08/2018 MPI: Low normal LVEF 50%, no ischemia 11/17/2018 NINFA: Mod-severely reduced LV systolic function LVEF 30-35%, mod MR, mild TR, trace-mild NM, no thrombus, no PFO 11/24/2018 TTE: Normal LVEF 55-60%, mild-mod MR, grade 2 diastolic dysfunction with elevated filling pressures and mild-mod AR 1. 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 Permanent atrial fibrillation with improved rate-control having failed DCCV [id number] score of 3 on A/C with DOAC (Eliquis) 4. Moderate mitral regurgitation 5. HTN 6. Seizure disorder 7. Hypothyroidism 8. CKD 9. Leukocytosis PLAN: 1. Continue Toprol XL 100 mg BID, Cardizem CD 120 qd and Diovan 80 mg QD with IV Cardizem as needed for increased rate-control 2. D/c amiodarone as afib is permanent 3. Continue Eliquis 5 mg BID given elevated [id number] score of 3 4. Lasix 20 mg QD and Aldactone 25 mg QD with close monitoring of renal function and electrolytes 5. Counselled importance of compliance to therapy administration 6. D/c planning with f/u with Dr. Sanchez in office
[2019-02-20] MEDS: AMIODARONE HCL 200 MG TABLET (FP) PO SCH (09:57)
[2019-02-20] MEDS: SPIRONOLACTONE 25 MG TABLET (FP) PO SCH (09:57)
[2019-02-20] MEDS: levETIRAcetam 250 MG TABLET (FP) PO SCH ×2 (09:57→21:27)
[2019-02-20] MEDS: FUROSEMIDE 40 MG TABLET (FP) PO SCH (10:00)
[2019-02-20] MEDS: APIXABAN 5 MG TABLET PO SCH ×2 (10:00→21:27)
--- NOTE | 2019-02-20 11:26 | DS ---
Physical Exam: SUBJECTIVE: Patient seen and examined OBJECTIVE: Vital Signs Period Temp Pulse Resp BP Sys/Batista Pulse Ox Last 24 Hr 97 F-98.5 F 70-123 16-20 97-121/43-93 99-100 PHYSICAL EXAM GENERAL: The patient is awake, alert, and fully oriented, in no acute distress. HEAD: Normal with no signs of trauma. EYES: PERRL, extraocular movements intact, sclera anicteric, conjunctiva clear. ENT: Ears normal, nares patent, oropharynx clear without exudates, moist mucous membranes. NECK: Trachea midline, full range of motion, supple. LUNGS: Breath sounds equal, clear to auscultation bilaterally, no wheezes, no crackles, no accessory muscle use. HEART: Regular rate and rhythm, S1, S2 without murmur, rub or gallop. ABDOMEN: Soft, nontender, nondistended, normoactive bowel sounds, no guarding, no rebound, no hepatosplenomegaly, no masses. EXTREMITIES: 2+ pulses, warm, well-perfused, no edema. NEUROLOGICAL: Cranial nerves II through XII grossly intact. Normal speech, gait not observed. PSYCH: Normal mood, normal affect. SKIN: Warm, dry, normal turgor, no rashes or lesions noted. LABS Laboratory Results - last 24 hr 02/20/19 02/20/19 02/20/19 04:59 06:00 06:00 WBC 13.4 H RBC 4.30 Hgb 12.5 Hct 38.7 MCV 90.0 MCH 29.2 MCHC 32.4 RDW 14.5 Plt Count 326 MPV 11.7 H Absolute Neuts (auto) 8.9 H Neutrophils % 66.7 Lymphocytes % 24.8 Monocytes % 7.2 Eosinophils % 1.0 Basophils % 0.3 Nucleated RBC % 0 Sodium 141 Potassium 4.8 Chloride 108 H Carbon Dioxide 25 Anion Gap 8 BUN 28 H Creatinine 1.1 Creat Clearance w eGFR 48.82 POC Glucometer 124 Random Glucose 145 H Calcium 8.0 L Magnesium 1.9 Total Bilirubin 0.6 AST 15 ALT 23 Alkaline Phosphatase 80 Total Protein 6.3 L Albumin 3.0 L HOSPITAL COURSE: Date of Admission:02/13/19 Date of Discharge: 02/20/19 Discharge Summary Reason For Visit: A-FIB WITH RAPID VENTRICULAR RESPONSE Current Active Problems Afib (Acute) Diastolic CHF (Acute) Condition: Stable - Instructions Diet, Activity, Other Instructions: Mrs Lo: You were admitted for uncontrolled fast heart rate. Dr. Ward attempted to cardio vert you on 02/19/2019, but you remained in Atrial Fibrillation, but now your heart rate is more controlled. We will be sending you home with a visiting nurse so that they can monitor your heart rate and blood pressure. I have made an appointment with you to follow up with your primary care physician as follows: - Dr. Francis, February 24 at 1:15pm - Dr. Laura Dumas on March 04 at 12:30pm (you had this appointment already, but please call them for an earlier appointment, as they tell me that they might have cancellations) Your white blood cell counts are slightly elevated. You dont have a urinary tract infection but you will need your WBC monitored with your primary care doctor. You were seen by a bailing machine operator during your hospital stay. NEW MEDICATIONS LIST: Diovan (Valsartan) for high blood pressure - take 80mg at 8am Eliquis 5mg (blood thinner) for atrial fibrillation - take 5mg at 8am and 8pm. stroke prevention Keppra 250mg (seizures) take 250mg at 8am and 8pm Metoprolol (Toprol xl) 100mg - take at 8am and 8pm - hypertension - and to control your heart rate Synthroid 25mcg daily in the morning before breakfast - for hypothyroidism Lasix 20mg daily - take daily at 8am - for hypertension Aldactone 25mg daily at 8am - for hypertension Cardizem 120mg daily at 8 am - for atrial fibrillation rate control follow up: You have appointments with Dr Francis and Dr. Sanchez. Please follow up with them I have called in your medications to make sure you have enough medications. Please see your doctors so that they can give you refills. Thank you for allowing us to care for you Jennifer Nelson [facility] [phone] Referrals: Piter Sanchez MD [Staff Physician] - (please follow up with Dr. Laura Dumas on March 04 at 12:30pm Dr. Francis follow up -> appointment made for you on February 24 1:15pm. - monitor WBC. ) Haley Schneider MD [Primary Care Provider] - (Dr. Francis follow up -> appointment made for you on February 24 1:15pm. - monitor WBC) Disposition: HOME - Home Medications Comprehensive Discharge Medication List: Ambulatory Orders Levothyroxine [Synthroid -] 25 mcg PO DAILY@0700 #30 tablet 11/25/18 Apixaban [Eliquis] 5 mg PO BID #60 tablet 02/20/19 Diltiazem Cd [Cardizem Cd -] 120 mg PO DAILY #60 cap.cd.24h 02/20/19 Furosemide [Lasix -] 20 mg PO DAILY #60 tablet 02/20/19 Metoprolol Succinate [Toprol XL -] 100 mg PO BID #120 tab.sr.24h 02/20/19 Spironolactone [Aldactone -] 25 mg PO DAILY #60 tablet 02/20/19 Valsartan [Diovan] 80 mg PO DAILY #60 tablet 02/20/19 levETIRAcetam [Keppra -] 250 mg PO BID #60 tablet 02/20/19 - Discharge Referral [facility]erred to [facility] No
--- NOTE | 2019-02-20 12:33 | PN ---
Physical Exam: SUBJECTIVE: Patient seen and examined at the bedside. reports feelings of dizziness with position changes. OBJECTIVE: has orthostatic changes with position changes monitor orthostatics q8 d/c home likely tomorrow if BP more stable. cardiac cath lab technologist: afib controlled 80s-90s, having 2.6 second pauses. Vital Signs Period Temp Pulse Resp BP Sys/Batista Pulse Ox Last 24 Hr 97 F-98.5 F 70-123 16-20 79-121/43-93 96-100 GENERAL: The patient is awake, alert, and fully oriented, in no acute distress. HEAD: Normal with no signs of trauma. EYES: PERRL, extraocular movements intact, sclera anicteric, conjunctiva clear. No ptosis. ENT: Ears normal, nares patent, oropharynx clear without exudates, moist mucous membranes. NECK: Trachea midline, full range of motion, supple. LUNGS: Breath sounds equal, clear to auscultation bilaterally, no wheezes HEART: cardiac cath lab technologist afib with controlled rate 88-90s ABDOMEN: Soft, nontender, nondistended, normoactive bowel sounds EXTREMITIES: no edema. NEUROLOGICAL: Normal speech, gait not observed. PSYCH: Normal mood, normal affect. SKIN: Warm, dry, normal turgor, no rashes or lesions noted Laboratory Results - last 24 hr 02/20/19 02/20/19 02/20/19 04:59 06:00 06:00 WBC 13.4 H RBC 4.30 Hgb 12.5 Hct 38.7 MCV 90.0 MCH 29.2 MCHC 32.4 RDW 14.5 Plt Count 326 MPV 11.7 H Absolute Neuts (auto) 8.9 H Neutrophils % 66.7 Lymphocytes % 24.8 Monocytes % 7.2 Eosinophils % 1.0 Basophils % 0.3 Nucleated RBC % 0 Sodium 141 Potassium 4.8 Chloride 108 H Carbon Dioxide 25 Anion Gap 8 BUN 28 H Creatinine 1.1 Creat Clearance w eGFR 48.82 POC Glucometer 124 Random Glucose 145 H Calcium 8.0 L Magnesium 1.9 Total Bilirubin 0.6 AST 15 ALT 23 Alkaline Phosphatase 80 Total Protein 6.3 L Albumin 3.0 L Active Medications Generic Name Dose Route Start Last Admin Trade Name Freq PRN Reason Stop Dose Admin Acetaminophen 650 mg 02/14/19 14:30 02/18/19 16:07 Tylenol - PO 650 mg Q6H PRN Administration HEADACHE Apixaban 5 mg 02/13/19 22:00 02/20/19 10:00 Eliquis - PO 5 mg BID ANN Administration Diltiazem HCl 10 mg 02/14/19 07:25 02/17/19 10:14 Cardizem Injection - IVPUSH 10 mg Q4H PRN Administration FOR HR OVER 120 Diltiazem HCl 120 mg 02/19/19 15:00 02/20/19 09:57 Cardizem Cd - PO 120 mg DAILY ANN Administration Docusate Sodium 100 mg 02/16/19 17:46 Colace - PO Q8H PRN CONSTIPATION Fentanyl 25 mcg 02/19/19 12:45 Sublimaze Injection - IVPUSH [id number] PRN PAIN-PACU ORDER X 4 DOSES ONLY Furosemide 20 mg 02/16/19 10:25 02/20/19 10:00 Lasix - PO 20 mg DAILY ANN Administration Levetiracetam 250 mg 02/13/19 22:00 02/20/19 09:57 Keppra - PO 250 mg BID ANN Administration Levothyroxine Sodium 25 mcg 02/14/19 07:00 02/20/19 06:06 Synthroid - PO 25 mcg DAILY@0700 ANN Administration Metoprolol Succinate 100 mg 02/16/19 10:26 02/20/19 09:59 Toprol Xl - PO 100 mg BID ANN Administration Ondansetron HCl 4 mg 02/19/19 12:45 Zofran Injection IVPUSH Q6H PRN NAUSEA AND/OR VOMITING Oxycodone HCl 5 mg 02/19/19 12:45 Roxicodone - PO 02/20/19 12:44 Q4H PRN PAIN LEVEL 1-5 Promethazine HCl 12.5 mg 02/19/19 12:45 Phenergan Injection - IVPUSH Q6H PRN NAUSEA-FOR RESCUE AFTER 15 MIN Senna 2 tab 02/16/19 17:46 Senna - PO HS PRN CONSTIPATION Spironolactone 25 mg 02/14/19 10:00 02/20/19 09:57 Aldactone - PO 25 mg DAILY ANN Administration Valsartan 80 mg 02/14/19 10:00 02/19/19 15:07 Diovan - PO 80 mg DAILY ANN Administration ASSESSMENT/PLAN: Patient is a 73 year old female with a significant past medical history of seizures disorders, afib on eliquis, hypothyroidism and diastolic CHF. She presents dizziness, weakness and palpitations. patient admitted for further management of her symptoms. Card: Atrial fibrillation with RVR secondary to medication non compliance. Cardiac monitoring shows afib 88-90s. Attempts at cardioverting patient yesterday were unsuccessful per cardiology. Rate controlled with: metoprolol 100mg BID, Cardizem 120mg daily. Anticoagulated with Eliquis 5mg bid. Diastolic CHF On furosemide 20mg, spironalctone 25mg per cardiology Endocrine: Hypothyroidism. cont Current dose of Levothyroxine Hypertension, controlled. On diovan Orthostatic hypotension. Monitor q8. maintain fall precautions. ID: Leukocytosis Initially on ceftriaxone for UTI, however, UC negative and patient is asymptomatic. will d/c ceftriaxone. Seen by hematology Neuro: Seizure disorder On Keppra. fen tolerating po low salt diet bowel regimen disposition d/c once cleared by cardiology, likely tomorrow. patient may benefit from a visiting nurse to assure medication compliance. Visit type - Emergency Visit Emergency Visit: Yes ED Registration Date: 02/13/19 Care time: The patient presented to the Emergency Department on the above date and was hospitalized for further evaluation of their emergent condition. - New Patient This patient is new to me today: No - Critical Care Critical Care patient: No - Discharge Referral Referred to [facility] Med P.C.: No
[2019-02-20] MEDS: VALSARTAN 80 MG TABLET (UD) PO SCH (17:05)
[2019-02-21] MEDS: LEVOTHYROXINE NA 25 MCG TABLET (FP) PO SCH (06:15)
[2019-02-21] MEDS: FUROSEMIDE 40 MG TABLET (FP) PO SCH (09:36)
[2019-02-21] MEDS: VALSARTAN 80 MG TABLET (UD) PO SCH (09:36)
[2019-02-21] MEDS: APIXABAN 5 MG TABLET PO SCH ×2 (09:37→21:55)
[2019-02-21] MEDS: SPIRONOLACTONE 25 MG TABLET (FP) PO SCH (09:37)
[2019-02-21] MEDS: levETIRAcetam 250 MG TABLET (FP) PO SCH ×2 (09:37→21:55)
[2019-02-21 09:53] LABS: BASO % 1.3 % (0-2.0); EOS % 1.1 % (0-4.5); HEMATOCRIT 38.6 % (32.4-45.2); HEMOGLOBIN 12.3 GM/dL (10.7-15.3); LYMPH % 22.9 % (8-40); MCH 28.6 pg (25.7-33.7); MEAN CELL VOLUME 89.6 fl (80-96); MEAN PLT VOLUME 10.9 fl (7.5-11.1); MONO % 5.5 % (3.8-10.2); NEUT % 69.2 % (42.8-82.8); PLATELET COUNT 311 K/MM3 (134-434); RBC 4.31 M/mm3 (3.60-5.2); RDW 14.4 % (11.6-15.6); WHITE BLOOD COUNT 12.9 K/mm3 (4.0-10.0)
[2019-02-21 10:29] LABS: ALBUMIN 3.1 g/dl (3.4-5.0); ALK PHOS 82 U/L (45-117); ANION GAP 8 MMOL/L (8-16); BILIRUBIN,TOTAL 0.7 mg/dL (0.2-1); BLOOD UREA NITROGEN 24 mg/dL (7-18); CALCIUM 8.6 mg/dL (8.5-10.1); CHLORIDE 107 mmol/L (98-107); CO2 23 mmol/L (21-32); CREATININE 1.2 mg/dL (0.55-1.3); GLUCOSE,RANDOM 237 mg/dL (74-106); POTASSIUM 4.3 mmol/L (3.5-5.1); SGOT/AST 13 U/L (15-37); SGPT/ALT 30 U/L (13-61); SODIUM 138 mmol/L (136-145); TOT PROT 6.6 g/dl (6.4-8.2)
--- NOTE | 2019-02-21 13:46 | PN ---
Physical Exam: SUBJECTIVE: Patient seen and examined at the bedside. denies dizziness or chest pain. feels better today. OBJECTIVE: patient has an appointment to see her pcp on February 24, and an appointment with Dr. Laura Dumas on March 04 will d/c once cleared by cardiology she is no longer having orthostatic changes with position cardiac exercise physiologist: afib 80s-130s. Vital Signs Period Temp Pulse Resp BP Sys/Batista Pulse Ox Last 24 Hr 98.0 F-98.8 F 60-115 18-20 91-115/51-73 99-99 GENERAL: The patient is awake, alert, and fully oriented, in no acute distress. HEAD: Normal with no signs of trauma. EYES: PERRL, extraocular movements intact, sclera anicteric, conjunctiva clear. No ptosis. ENT: Ears normal, nares patent, oropharynx clear without exudates, moist mucous membranes. NECK: Trachea midline, full range of motion, supple. LUNGS: Breath sounds equal, clear to auscultation bilaterally, no wheezes HEART: cardiac exercise physiologist afib with controlled rate 88-90s ABDOMEN: Soft, nontender, nondistended, normoactive bowel sounds EXTREMITIES: no edema. NEUROLOGICAL: Normal speech, gait not observed. PSYCH: Normal mood, normal affect. SKIN: Warm, dry, normal turgor, no rashes or lesions noted Laboratory Results - last 24 hr 02/21/19 02/21/19 02/21/19 09:11 09:11 09:11 WBC 12.9 H RBC 4.31 Hgb 12.3 Hct 38.6 MCV 89.6 MCH 28.6 MCHC 32.0 RDW 14.4 Plt Count 311 MPV 10.9 Absolute Neuts (auto) 8.9 H Neutrophils % 69.2 Lymphocytes % 22.9 Monocytes % 5.5 Eosinophils % 1.1 Basophils % 1.3 D Nucleated RBC % 0 Sodium 138 Potassium 4.3 Chloride 107 Carbon Dioxide 23 Anion Gap 8 BUN 24 H Creatinine 1.2 Creat Clearance w eGFR 44.16 Random Glucose 237 H Hemoglobin A1c % 6.7 H Calcium 8.6 Total Bilirubin 0.7 AST 13 L ALT 30 Alkaline Phosphatase 82 Total Protein 6.6 Albumin 3.1 L Active Medications Generic Name Dose Route Start Last Admin Trade Name Freq PRN Reason Stop Dose Admin Acetaminophen 650 mg 02/14/19 14:30 02/18/19 16:07 Tylenol - PO 650 mg Q6H PRN Administration HEADACHE Apixaban 5 mg 02/13/19 22:00 02/21/19 09:37 Eliquis - PO 5 mg BID ANN Administration Diltiazem HCl 10 mg 02/14/19 07:25 02/17/19 10:14 Cardizem Injection - IVPUSH 10 mg Q4H PRN Administration FOR HR OVER 120 Diltiazem HCl 120 mg 02/19/19 15:00 02/21/19 09:37 Cardizem Cd - PO 120 mg DAILY ANN Administration Docusate Sodium 100 mg 02/16/19 17:46 Colace - PO Q8H PRN CONSTIPATION Fentanyl 25 mcg 02/19/19 12:45 Sublimaze Injection - IVPUSH [id number] PRN PAIN-PACU ORDER X 4 DOSES ONLY Furosemide 20 mg 02/16/19 10:25 02/21/19 09:36 Lasix - PO 20 mg DAILY ANN Administration Levetiracetam 250 mg 02/13/19 22:00 02/21/19 09:37 Keppra - PO 250 mg BID ANN Administration Levothyroxine Sodium 25 mcg 02/14/19 07:00 02/21/19 06:15 Synthroid - PO 25 mcg DAILY@0700 ANN Administration Metoprolol Succinate 100 mg 02/16/19 10:26 02/21/19 09:37 Toprol Xl - PO 100 mg BID ANN Administration Ondansetron HCl 4 mg 02/19/19 12:45 Zofran Injection IVPUSH Q6H PRN NAUSEA AND/OR VOMITING Promethazine HCl 12.5 mg 02/19/19 12:45 Phenergan Injection - IVPUSH Q6H PRN NAUSEA-FOR RESCUE AFTER 15 MIN Senna 2 tab 02/16/19 17:46 Senna - PO HS PRN CONSTIPATION Spironolactone 25 mg 02/14/19 10:00 02/21/19 09:37 Aldactone - PO 25 mg DAILY ANN Administration Valsartan 80 mg 02/14/19 10:00 02/21/19 09:36 Diovan - PO 80 mg DAILY ANN Administration ASSESSMENT/PLAN: Patient is a 73 year old female with a significant past medical history of seizures disorders, afib on eliquis, hypothyroidism and diastolic CHF. She presents dizziness, weakness and palpitations. patient admitted for further management of her symptoms. Card: Atrial fibrillation with RVR secondary to medication non compliance. Cardiac monitoring shows afib 80s-130s Attempts at cardioverting patient on Saturday were unsuccessful per cardiology. Rate controlled with: metoprolol 100mg BID, Cardizem 120mg daily. Anticoagulated with Eliquis 5mg bid. Diastolic CHF On furosemide 20mg, spironalctone 25mg per cardiology Endocrine: Hypothyroidism. cont Current dose of Levothyroxine Hypertension, controlled. On diovan Orthostatic hypotension. resolved ID: Leukocytosis, improving Initially on ceftriaxone for UTI, however, UC negative and patient is asymptomatic. will d/c ceftriaxone. Seen by hematology Neuro: Seizure disorder On Keppra. fen tolerating po low salt diet bowel regimen disposition d/c once cleared by cardiology Visit type - Emergency Visit Emergency Visit: Yes ED Registration Date: 02/13/19 Care time: The patient presented to the Emergency Department on the above date and was hospitalized for further evaluation of their emergent condition. - New Patient This patient is new to me today: No - Critical Care Critical Care patient: No - Discharge Referral Referred to [facility] Med P.C.: No
--- NOTE | 2019-02-21 18:44 | PN ---
Progress Note, Physician Chief Complaint: Pt A&Ox3; no cfhest pain, dyspnea, or palopitations. History of Present Illness: Patient is a 73 year old female with a PMHx of HTN, and Atrial Fibrillation on Eliquis and amiodarone s/p previous sync cardioversion to sinus rhythm, HFrEF - combined systolic and diastolic HF, seizure d/o on keppra presenting with generalized weakness, palpitations. Has not been taking her metoprolol Prior admissions for her Afib RVR and CHF workup. 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 - Current Medication List Current Medications: Active Medications Acetaminophen (Tylenol -) 650 mg PO Q6H PRN PRN Reason: HEADACHE Last Admin: 02/18/19 16:07 Dose: 650 mg Apixaban (Eliquis -) 5 mg PO BID [facility] Last Admin: 02/21/19 09:37 Dose: 5 mg Diltiazem HCl (Cardizem Injection -) 10 mg IVPUSH Q4H PRN PRN Reason: FOR HR OVER 120 Last Admin: 02/17/19 10:14 Dose: 10 mg Diltiazem HCl (Cardizem Cd -) 120 mg PO DAILY [facility] Last Admin: 02/21/19 09:37 Dose: 120 mg Docusate Sodium (Colace -) 100 mg PO Q8H PRN PRN Reason: CONSTIPATION Fentanyl (Sublimaze Injection -) 25 mcg IVPUSH [id number] PRN PRN Reason: PAIN-PACU ORDER X 4 DOSES ONLY Furosemide (Lasix -) 20 mg PO DAILY [facility] Last Admin: 02/21/19 09:36 Dose: 20 mg Levetiracetam (Keppra -) 250 mg PO BID [facility] Last Admin: 02/21/19 09:37 Dose: 250 mg Levothyroxine Sodium (Synthroid -) 25 mcg PO DAILY@0700 [facility] Last Admin: 02/21/19 06:15 Dose: 25 mcg Metoprolol Succinate (Toprol Xl -) 100 mg PO BID [facility] Last Admin: 02/21/19 09:37 Dose: 100 mg Ondansetron HCl (Zofran Injection) 4 mg IVPUSH Q6H PRN PRN Reason: NAUSEA AND/OR VOMITING Promethazine HCl (Phenergan Injection -) 12.5 mg IVPUSH Q6H PRN PRN Reason: NAUSEA-FOR RESCUE AFTER 15 MIN Senna (Senna -) 2 tab PO HS PRN PRN Reason: CONSTIPATION Spironolactone (Aldactone -) 25 mg PO DAILY [facility] Last Admin: 02/21/19 09:37 Dose: 25 mg Valsartan (Diovan -) 80 mg PO DAILY [facility] Last Admin: 02/21/19 09:36 Dose: 80 mg - Objective Vital Signs: Vital Signs Temperature 98.6 F 02/21/19 18:03 Pulse Rate 74 02/21/19 18:03 Respiratory Rate 18 02/21/19 18:03 Blood Pressure 96/56 L 02/21/19 18:03 O2 Sat by Pulse Oximetry (%) 99 02/21/19 09:00 Constitutional: Yes: Anxious, Obese Eyes: Yes: WNL HENT: Yes: WNL Neck: Yes: WNL Cardiovascular: Yes: Pulse Irregular, S1 (varies in intensity), S2 Respiratory: Yes: WNL Gastrointestinal: Yes: Soft, Abdomen, Obese ...Rectal Exam: Yes: Deferred Genitourinary: No: Anuria Breast(s): Yes: WNL Musculoskeletal: Yes: Joint Stiffness Extremities: Yes: WNL Edema: No Peripheral Pulses WNL: Yes Integumentary: Yes: WNL Neurological: Yes: WNL Psychiatric: Yes: WNL Labs: CBC, BMP 02/21/19 09:11 02/21/19 09:11 INR, PTT INR 1.28 (0.83-1.09) H 02/19/19 10:05 - ....Imaging Other: Image Reviewed (telemetry: AF; periods of RVR) Problem List - Problems (1) Obesity (BMI 30-39.9) Code(s): E66.9 - OBESITY, UNSPECIFIED (2) Afib Assessment/Plan: On metoprolol ER for HR control and BP. On apixaban for anticoagulation. Code(s): I48.91 - UNSPECIFIED ATRIAL FIBRILLATION Qualifiers: Atrial fibrillation type: chronic Qualified Code(s): I48.2 - Chronic atrial fibrillation (3) Diastolic CHF Code(s): I50.30 - UNSPECIFIED DIASTOLIC (CONGESTIVE) HEART FAILURE Qualifiers: Heart failure chronicity: chronic Qualified Code(s): I50.32 - Chronic diastolic (congestive) heart failure (4) Orthostatic hypotension Assessment/Plan: Elevated BUN (more than double what it was in 11/2018). Now off lisinopril. Will discontinue spironolactone.and furosemide. F?u BUN/Cr, Is and Os, electrolytes, F/u orthostatic VS. Code(s): I95.1 - ORTHOSTATIC HYPOTENSION
[2019-02-22] MEDS: LEVOTHYROXINE NA 25 MCG TABLET (FP) PO SCH (06:31)
[2019-02-22] MEDS: APIXABAN 5 MG TABLET PO SCH (09:06)
[2019-02-22] MEDS: VALSARTAN 80 MG TABLET (UD) PO SCH (09:06)
[2019-02-22] MEDS: levETIRAcetam 250 MG TABLET (FP) PO SCH (09:10)
[2019-02-22 15:09] VITALS: BP 95/54; PULSE 75; TEMP 98.7
--- NOTE | 2019-02-22 16:48 | PN ---
Progress Note, Physician Chief Complaint: Pt A&Ox3; no cfhest pain, dyspnea, or palopitations. HR is better controlled. Daughter is at bedside. History of Present Illness: Patient is a 73 year old female (b. [facility] [place]), with a PMHx of HTN, diastollic CHF, Atrial Fibrillation, obesity, sedentary lifestyle, on Eliquis and amiodarone s/p previous sync cardioversion to sinus rhythm, HFrEF - combined systolic and diastolic HF, seizure d/o on keppra presenting with generalized weakness, palpitations. Has not been taking her metoprolol Prior admissions for her Afib RVR and CHF workup. 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 - Current Medication List Current Medications: Active Medications Acetaminophen (Tylenol -) 650 mg PO Q6H PRN PRN Reason: HEADACHE Last Admin: 02/18/19 16:07 Dose: 650 mg Apixaban (Eliquis -) 5 mg PO BID [facility] Last Admin: 02/22/19 09:06 Dose: 5 mg Diltiazem HCl (Cardizem Injection -) 10 mg IVPUSH Q4H PRN PRN Reason: FOR HR OVER 120 Last Admin: 02/17/19 10:14 Dose: 10 mg Diltiazem HCl (Cardizem Cd -) 120 mg PO DAILY [facility] Last Admin: 02/22/19 09:06 Dose: 120 mg Docusate Sodium (Colace -) 100 mg PO Q8H PRN PRN Reason: CONSTIPATION Fentanyl (Sublimaze Injection -) 25 mcg IVPUSH [id number] PRN PRN Reason: PAIN-PACU ORDER X 4 DOSES ONLY Levetiracetam (Keppra -) 250 mg PO BID [facility] Last Admin: 02/22/19 09:10 Dose: 250 mg Levothyroxine Sodium (Synthroid -) 25 mcg PO DAILY@0700 [facility] Last Admin: 02/22/19 06:31 Dose: 25 mcg Metoprolol Succinate (Toprol Xl -) 100 mg PO BID [facility] Last Admin: 02/22/19 09:06 Dose: 100 mg Ondansetron HCl (Zofran Injection) 4 mg IVPUSH Q6H PRN PRN Reason: NAUSEA AND/OR VOMITING Promethazine HCl (Phenergan Injection -) 12.5 mg IVPUSH Q6H PRN PRN Reason: NAUSEA-FOR RESCUE AFTER 15 MIN Senna (Senna -) 2 tab PO HS PRN PRN Reason: CONSTIPATION Valsartan (Diovan -) 80 mg PO DAILY ANN Last Admin: 02/22/19 09:06 Dose: 80 mg - Objective Vital Signs: Vital Signs Temperature 98.7 F 02/22/19 14:00 Pulse Rate 75 02/22/19 14:00 Respiratory Rate 20 02/22/19 14:00 Blood Pressure 95/54 L 02/22/19 14:00 O2 Sat by Pulse Oximetry (%) 100 02/22/19 09:00 Labs: CBC, BMP 02/21/19 09:11 02/21/19 09:11 INR, PTT INR 1.28 (0.83-1.09) H 02/19/19 10:05 Problem List - Problems (1) Obesity (BMI 30-39.9) Code(s): E66.9 - OBESITY, UNSPECIFIED (2) Afib Assessment/Plan: On metoprolol ER for HR control and BP. On apixaban for anticoagulation. (once was on amioradone). Pt and daughter had many questions regarding what to do if rapid HR returns. If pt continues to have episodes of [id number] AF with RVR, may have to consider ablation therapy. HR and BP are better-controlled now. From a [address] perspective, pt may be sent home and followed as an outpatient. Code(s): I48.91 - UNSPECIFIED ATRIAL FIBRILLATION Qualifiers: Atrial fibrillation type: chronic Qualified Code(s): I48.2 - Chronic atrial fibrillation (3) Diastolic CHF Code(s): I50.30 - UNSPECIFIED DIASTOLIC (CONGESTIVE) HEART FAILURE Qualifiers: Heart failure chronicity: chronic Qualified Code(s): I50.32 - Chronic diastolic (congestive) heart failure (4) Orthostatic hypotension Assessment/Plan: Elevated BUN (more than double what it was in 11/2018); now improving off diuretics. On Valsartan, metoprolol. F?u BUN/Cr, Is and Os, electrolytes, F/u orthostatic VS. Code(s): I95.1 - ORTHOSTATIC HYPOTENSION (5) Obesity Assessment/Plan: the importance of losing weight and increasing exercise in helping overall health and lowering cardiac risks was discussed. Code(s): E66.9 - OBESITY, UNSPECIFIED (6) Sedentary lifestyle Code(s): Z91.89 - OTH PERSONAL RISK FACTORS, NOT ELSEWHERE CLASSIFIED
--- NOTE | 2019-02-22 17:10 | DS ---
Physical Exam: SUBJECTIVE: Patient seen and examined at the bedside. Daughter Remedios at the bedside and POC discussed with her. All medications called in to patient's pharmacy. Explained to patient and daughter to hold off on taking Lasix and Aldactone until seen by Dr. Laura Dumas. An appointment has been made by me for a follow up with her PCP. She already has an appointment with her oss architect on March 04. OBJECTIVE: discharge home with cardiology follow up Vital Signs Period Temp Pulse Resp BP Sys/Batista Pulse Ox Last 24 Hr 98.2 F-98.9 F 74-100 18-20 95-116/54-81 99-100 PHYSICAL EXA GENERAL: The patient is awake, alert, and fully oriented, in no acute distress. HEAD: Normal with no signs of trauma. EYES: PERRL, extraocular movements intact, sclera anicteric, conjunctiva clear. No ptosis. ENT: Ears normal, nares patent, oropharynx clear without exudates, moist mucous membranes. NECK: Trachea midline, full range of motion, supple. LUNGS: Breath sounds equal, clear to auscultation bilaterally, no wheezes HEART: cardiac technologist afib with controlled rate 88-90s ABDOMEN: Soft, nontender, nondistended, normoactive bowel sounds EXTREMITIES: no edema. NEUROLOGICAL: Normal speech, gait not observed. PSYCH: Normal mood, normal affect. SKIN: Warm, dry, normal turgor, no rashes or lesions noted LABS HOSPITAL COURSE: Date of Admission:02/13/19 Date of Discharge: 02/22/19 Patient is a 73 year old female with a significant past medical history of seizures disorders, afib on eliquis, hypothyroidism and diastolic CHF. She presents dizziness, weakness and palpitations. patient was admitted on 02/13/19 for further management of her symptoms. Hospital Course by Problem List: Card: Atrial fibrillation with RVR secondary to medication non compliance. resolved Cardiac monitoring shows afib, now rate controlled Attempts at cardioverting patient by cardiology on 02/20/2019 were unsuccessful Rate controlled with: metoprolol 100mg BID, Cardizem 120mg daily. Anticoagulated with Eliquis 5mg bid. Patient instructed to hold off on Lasix and Aldactone until she is seen by her oss architect - per Dr. Toribio. Diastolic CHF Hold Lasix and Aldactone until cardiology f/u. Endocrine: Hypothyroidism. cont Current dose of Levothyroxine Hypertension, controlled. On diovan Orthostatic hypotension. resolved. no longer having feelings of dizziness with position changes. ID: Leukocytosis, improving Initially on ceftriaxone for UTI, however, UC negative and patient is asymptomatic. d/c ceftriaxone. Seen by hematology during hospital stay. Neuro: Seizure disorder On Keppra BID. Discharge with PCP follow up appointment (February 24 at 1pm) and has cardiology appointment on March 04 (Dr. Roxanna Sanchez) Minutes to complete discharge: 60 Discharge Summary Reason For Visit: A-FIB WITH RAPID VENTRICULAR RESPONSE Current Active Problems Afib (Acute) Diastolic CHF (Acute) Obesity (Acute) Obesity (BMI 30-39.9) (Acute) Orthostatic hypotension (Acute) Sedentary lifestyle (Acute) Condition: Stable - Instructions Diet, Activity, Other Instructions: Mrs Lo: You were admitted for uncontrolled fast heart rate. Dr. Ward attempted to cardio vert you on 02/19/2019, but you remained in Atrial Fibrillation, but now your heart rate is more controlled. We will be sending you home with a visiting nurse so that they can monitor your heart rate and blood pressure. I have made an appointment with you to follow up with your primary care physician as follows: - Dr. Francis, February 24 at 1:15pm - Dr. Laura Dumas on March 04 at 12:30pm (you had this appointment already, but please call them for an earlier appointment, as they tell me that they might have cancellations) Your white blood cell counts are slightly elevated. You dont have a urinary tract infection but you will need your WBC monitored with your primary care doctor. You were seen by a binder fixer during your hospital stay. NEW MEDICATIONS LIST: Diovan (Valsartan) for high blood pressure - take 80mg at 8am every day Eliquis 5mg (blood thinner) for atrial fibrillation - take 5mg at 8am and 8pm. stroke prevention Keppra 250mg (seizures) take 250mg at 8am and 8pm Metoprolol (Toprol xl) 100mg - take at 8am and 8pm - hypertension - and to control your heart rate Synthroid 25mcg daily in the morning before breakfast - for hypothyroidism Lasix 20mg daily - take daily at 8am - for hypertension - DO NOT TAKE THIS ONE UNTIL YOU SEE DR ROXANNA SANCHEZ Aldactone 25mg daily at 8am - for hypertension - DO NOT TAKE THIS ONE UNTIL YOU SEE DR ROXANNA SANCHEZ Cardizem 120mg daily at 8 am - for atrial fibrillation rate control follow up: You have appointments with Dr Francis and Dr. Sanchez. Please follow up with them I have called in your medications to make sure you have enough medications. Please see your doctors so that they can give you refills. Thank you for allowing us to care for you Jennifer Nelson [place] PROFESSOR OF LANGUAGES [facility] [phone] Referrals: Roxanna Sanchez MD [Staff Physician] - (please follow up with Dr. Laura Dumas on March 04 at 12:30pm Dr. Francis follow up -> appointment made for you on February 24 1:15pm. - monitor WBC. ) Haley Schneider MD [Primary Care Provider] - (Dr. Francis follow up -> appointment made for you on February 24 1:15pm. - monitor WBC) Disposition: HOME - Home Medications Comprehensive Discharge Medication List: Ambulatory Orders Levothyroxine [Synthroid -] 25 mcg PO DAILY@0700 #30 tablet 11/25/18 Apixaban [Eliquis] 5 mg PO BID #60 tablet 02/20/19 Diltiazem Cd [Cardizem Cd -] 120 mg PO DAILY #60 cap.cd.24h 02/20/19 Furosemide [Lasix -] 20 mg PO DAILY #60 tablet 02/20/19 Metoprolol Succinate [Toprol XL -] 100 mg PO BID #120 tab.sr.24h 02/20/19 Spironolactone [Aldactone -] 25 mg PO DAILY #60 tablet 02/20/19 Valsartan [Diovan] 80 mg PO DAILY #60 tablet 02/20/19 levETIRAcetam [Keppra -] 250 mg PO BID #60 tablet 02/20/19 This patient is new to me today: No Emergency Visit: Yes ED Registration Date: 02/13/19 Care time: The patient presented to the Emergency Department on the above date and was hospitalized for further evaluation of their emergent condition. Critical Care patient: No - Discharge Referral Referred to [facility] Med P.C.: No
== END 2019-02-22 17:54 | disposition home or self-care (01) | DRG 308 ==
LOC: JER 11:18 → JERBED 14:52 → J4W 16:31
PROVIDERS: ADMIT Internal Medicine; ATTEND Nurse Practitioner Family
DX: I48.0 Paroxysmal atrial fibrillation (principal); I50.43 Acute on chronic combined systolic (congestive) and diastolic (congestive) heart failure; I13.0 Hypertensive heart and chronic kidney disease with heart failure and stage 1 through stage 4 chronic kidney disease, or unspecified chronic kidney disease; G40.909 Epilepsy, unspecified, not intractable, without status epilepticus; E03.9 Hypothyroidism, unspecified; E66.9 Obesity, unspecified; Z79.01 Long term (current) use of anticoagulants; I34.0 Nonrheumatic mitral (valve) insufficiency; N18.9 Chronic kidney disease, unspecified; Z91.14 Patient's other noncompliance with medication regimen; I95.1 Orthostatic hypotension; Z68.37 Body mass index [BMI] 37.0-37.9, adult
CPT/HCPCS: 36415; 71045-TC-FY; 80048; 80053; 81003; 82308; 82550; 82962; 83036; 83735; 83880; 84436; 84439; 84443; 84481; 84484; 85025; 85027; 85610; 85651; 85730; 86038; 86140; 86664; 87040; 87086; 93005; 93010; 93306-TC; 97116-GP; 97161-GP; 99285-25

== ENCOUNTER 2019-03-02 23:47 | Emergency (ER) | payer OTHER ==
[2019-03-02 23:53] VITALS: BMI 32.0
--- NOTE | 2019-03-03 01:09 | PDOC ---
Attending Attestation - Resident Resident Name: Nica Worthington - ED Attending Attestation I have performed the following: I have examined & evaluated the patient, The case was reviewed & discussed with the resident, I agree w/resident's findings & plan, Exceptions are as noted
--- NOTE | 2019-03-03 01:09 | PDOC ---
History of Present Illness - General Chief Complaint: Lightheaded Stated Complaint: Lightheaded Time Seen by Provider: 03/03/19 00:23 History Source: Patient - History of Present Illness Initial Comments: 03/03/19 01:20 HPI obtained using manufacturing engineer chief phone. The patient is a 73 female with a PMH of Atrial Fibrillation (on Eliquis), HTN, CHF, Seizures (can't recall date of last seizure but states it was more than 3- 4 years previous) who presents to our ED c/o 2 day h/o lightheadedness, weakness and decreased appetite. States symptoms came on gradually yesterday and her lightheadedness is especially severe with movement. Also notes three episodes of dizziness (room spinning) that lasted 5 minutes all while she was laying down. States her symptoms are very similar to those associated with her hospitalization earlier this month. Denies any associated chest pain, shortness of breath, numbness/tingling, palpitations, visual changes, slurred speech. NKDA Surgical: Tubal Ligation Social: denies toxic habits PMD: Dr. Waggoner As per EMR, patient evaluated in our ED on On attending exam patient c/o shortness of breath. Past History - Past Medical History Allergies/Adverse Reactions: Allergies Allergy/AdvReac Type Severity Reaction Status Date / Time No Known Allergies Allergy Verified 03/02/19 23:53 Home Medications: Ambulatory Orders Levothyroxine [Synthroid -] 25 mcg PO DAILY@0700 #30 tablet 11/25/18 Apixaban [Eliquis] 5 mg PO BID #60 tablet 02/20/19 Diltiazem Cd [Cardizem Cd -] 120 mg PO DAILY #60 cap.cd.24h 02/20/19 Furosemide [Lasix -] 20 mg PO DAILY #60 tablet 02/20/19 Metoprolol Succinate [Toprol XL -] 100 mg PO BID #120 tab.sr.24h 02/20/19 Spironolactone [Aldactone -] 25 mg PO DAILY #60 tablet 02/20/19 Valsartan [Diovan] 80 mg PO DAILY #60 tablet 02/20/19 Anemia: No Asthma: No Cancer: No Cardiac Disorders: Yes (afib,mvr, stents) CVA: No COPD: No CHF: Yes DVT: No Dementia: No Diabetes: Yes GI Disorders: No Disorders: No HTN: Yes Hypercholesterolemia: No Liver Disease: No Seizures: Yes Thyroid Disease: No - Surgical History Abdominal Surgery: Yes (TUBAL LIGATION) Appendectomy: No Cardiac Surgery: No Cholecystectomy: No Lung Surgery: No Neurologic Surgery: No Orthopedic Surgery: No - Immunization History Immunization Up to Date: Yes - Suicide/Smoking/Psychosocial Hx Smoking Status: No Smoking History: Never smoked Have you smoked in the past 12 months: No Number of Cigarettes Smoked Daily: 0 Hx Alcohol Use: No Drug/Substance Use Hx: No Substance Use Type: None Hx Substance Use Treatment: No Review of Systems - Review of Systems Constitutional: Yes: Weakness. No: Chills, Fever *Physical Exam - Vital Signs Last Vital Signs Temp Pulse Resp BP Pulse Ox 97.6 F 54 L 20 107/74 100 03/02/19 23:50 03/02/19 23:50 03/02/19 23:50 03/02/19 23:50 03/02/19 23:50 ED Treatment Course - LABORATORY CBC & Chemistry Diagram: 03/03/19 03:17 03/03/19 03:17 Medical Decision Making - Medical Decision Making 03/03/19 01:27 73 year old female with weakness, decreased appetite, ? shortness of breath. No neurologic deficit noted on exam. H/o recent hospitalization for similar symptoms with discontinuation of diuretics. Will evaluate for r/o ACS, CHF exacerbation 2/2 to medication regimen changes, electrolyte derangement, anemia. CBC, CMP, Troponin, BNP, EKG, CXR. Reassess. 03/03/19 02:19 Patient signed out to Dr. Tabor (Resident) and Dr. Alexis (Attending) for further management. *DC/Admit/Observation/Transfer Diagnosis at time of Disposition: Weakness - Discharge Dispostion Disposition: HOME Condition at time of disposition: Stable - Referrals Referrals: Piter Sanchez MD [Staff Physician] - Haley Schneider MD [Primary Care Provider] - - Patient Instructions Additional Instructions: please follow up with Dr. Sanchez for your regularly scheduled appointment tomorrow please follow up with dr. waggoner within one week with keep yourself hydrated if you begin to have worsening or concerning symptoms please return to the emergency room immediately - Post Discharge Activity
--- NOTE | 2019-03-03 02:08 | PDOC ---
Documentation entered by Jaron Gonzalez SCRIBE, acting as scribe for Darby Alexis MD. Attending Attestation - Resident Resident Name: Nica Worthington - ED Attending Attestation I have performed the following: I have examined & evaluated the patient, The case was reviewed & discussed with the resident, I agree w/resident's findings & plan, Exceptions are as noted - HPI HPI: 03/03/19 01:36 Patient is a 73 year old female with a significant past medical history of CHF, HTN, afib, seizures, DM, who presents to the ED with complaints of lightheadedness and SOB for 2 days. Reports SOB came on gradually, is worse when she ambulates. Pt states lightheadedness comes and goes without trigger. Denies associated CP, headache, N/V, diaphoresis. Per EMR, pt was taken off her diuretics during last admission and she states that she has not restarted them. Denies fevers, chills. Denies diarrhea, constipation. Denies dysuria, hematuria. Denies focal weakness/numbness. Denies contact with sick individuals , out of state travelling. Denies any other symptoms. Allergies: None Social history: No smoking. No alcohol. No illicit drugs. Surgical history: Tubal Ligation, PMD: Dr. Schneider - Physicial Exam PE: 03/03/19 02:03 GENERAL: Awake, alert, and fully oriented, in no acute distress EYES: PERRLA, EOMI, sclera anicteric, conjunctiva clear ENT: Oropharynx clear without exudates. Moist mucosa NECK: Normal ROM, supple, no lymphadenopathy, JVD, or masses LUNGS: Breath sounds equal, diminished at the bases b/l. No wheezes, and no crackles HEART: Regular rate and rhythm, normal S1 and S2, no murmurs, rubs or gallops ABDOMEN: Soft, nontender, normoactive bowel sounds. No guarding, no rebound. No masses EXTREMITIES: Normal range of motion, trace b/l LE edema. No cords, erythema, or tenderness NEUROLOGICAL: Normal speech, cranial nerves intact, equal strength and sensation b/l SKIN: Warm, Dry, normal turgor, no rashes or lesions noted. - Medical Decision Making 03/03/19 02:05 73yo F hx MMP including AF, CHF presents to the ED with SOB on exertion and lightheadedness for 2 days. Vitals unremarkable Exam with dminished BS at the lung bases, and trace b/l LE symmetric edema Likely CHF exacerbation as pt was taken off diuretics recently, ACS also on ddx but EKG non ischemic and no CP PE is also a consideration but pt is on AC, is not tachycardic or hypoxic so unlikely Plan for labs, XR, reassess Case signed out to overnight attending for further mgmt and dispo Heart Score/ECG Review #1 03/03/19 02:05 Twelve-lead EKG was performed and reviewed by me. Atrial fibrillation, rate 95. Normal axis. No ST elevations. Darby Alexis MD: This documentation has been prepared by the Lisa mccurdy Matthew, SCRIBE, under my direction and personally reviewed by me in its entirety. I confirm that the documentation accurately reflects all work, treatment, procedures, and medical decision making performed by me.
[2019-03-03] MEDS ORDERED: SODIUM CHLORIDE 500 ML IV STA (03:09)
[2019-03-03 03:25] LABS: BASO % 0.6 % (0-2.0); EOS % 1.3 % (0-4.5); HEMATOCRIT 33.1 % (32.4-45.2); HEMOGLOBIN 11.1 GM/dL (10.7-15.3); LYMPH % 22.9 % (8-40); MCH 30.3 pg (25.7-33.7); MCHC 33.5 g/dl (32.0-36.0); MEAN CELL VOLUME 90.6 fl (80-96); MEAN PLT VOLUME 11.1 fl (7.5-11.1); MONO % 6.9 % (3.8-10.2); NEUT % 68.3 % (42.8-82.8); PLATELET COUNT 251 K/MM3 (134-434); RBC 3.65 M/mm3 (3.60-5.2); RDW 14.9 % (11.6-15.6); WHITE BLOOD COUNT 14.2 K/mm3 (4.0-10.0)
[2019-03-03 03:38] LABS: INR 1.18 (0.83-1.09); PROTHROMBIN TIME (PATIENT) 13.9 SEC (9.7-13.0)
[2019-03-03 03:40] LABS: ACTIVATED PTT 36.3 SECONDS (25.2-36.5)
[2019-03-03 03:54] VITALS: BP 122/88; PULSE 108; TEMP 97.8
[2019-03-03 03:56] LABS: ALBUMIN 3.3 g/dl (3.4-5.0); ALK PHOS 96 U/L (45-117); ANION GAP 6 MMOL/L (8-16); BILIRUBIN,TOTAL 0.4 mg/dL (0.2-1); BLOOD UREA NITROGEN 19 mg/dL (7-18); CALCIUM 8.2 mg/dL (8.5-10.1); CHLORIDE 109 mmol/L (98-107); CO2 23 mmol/L (21-32); GLUCOSE,RANDOM 106 mg/dL (74-106); N-TERMINAL BNP 2528.6 pg/ml (5-125); POTASSIUM 5.1 mmol/L (3.5-5.1); SGOT/AST 54 U/L (15-37); SGPT/ALT 77 U/L (13-61); SODIUM 138 mmol/L (136-145); TOT PROT 6.7 g/dl (6.4-8.2)
--- NOTE | 2019-03-03 06:14 | PDOC ---
*Physical Exam - Vital Signs Last Vital Signs Temp Pulse Resp BP Pulse Ox 97.8 F 108 H 22 H 122/88 99 03/03/19 03:51 03/03/19 03:51 03/03/19 03:51 03/03/19 03:51 03/03/19 03:51 - Physical Exam General Appearance: Yes: Nourished Neck: positive: Normal Thyroid Respiratory/Chest: positive: Lungs Clear, Normal Breath Sounds Cardiovascular: positive: S1, S2, Edema (trace B/L), Irregularly Irregular Gastrointestinal/Abdominal: positive: Soft. negative: Tender Neurologic: positive: Alert, Normal Response ED Treatment Course - LABORATORY CBC & Chemistry Diagram: 03/03/19 03:17 03/03/19 03:17 - ADDITIONAL ORDERS Additional order review: Laboratory Results 03/03/19 03/03/19 03/03/19 05:13 03:17 03:17 PT with INR 13.90 H INR 1.18 H PTT (Actin FS) 36.3 Sodium 138 Potassium 5.1 Chloride 109 H Carbon Dioxide 23 Anion Gap 6 L BUN 19 H Creatinine 1.0 Creat Clearance w eGFR 54.50 Random Glucose 106 Calcium 8.2 L Total Bilirubin 0.4 AST 54 H ALT 77 H Alkaline Phosphatase 96 Creatine Kinase 31 31 Troponin I < 0.02 < 0.02 B-Natriuretic Peptide 2528.6 H Total Protein 6.7 Albumin 3.3 L 03/03/19 03:17 RBC 3.65 MCV 90.6 MCHC 33.5 RDW 14.9 MPV 11.1 Neutrophils % 68.3 Lymphocytes % 22.9 Monocytes % 6.9 Eosinophils % 1.3 Basophils % 0.6 - Medications Given in the ED: ED Medications Discontinued Medications Generic Name Dose Route Start Last Admin Trade Name Freq PRN Reason Stop Dose Admin Sodium Chloride 500 mls @ 500 mls/hr 03/03/19 03:09 03/03/19 03:50 Normal Saline - IV 03/03/19 04:08 500 mls/hr ASDIR STA Administration Medical Decision Making - Medical Decision Making 03/03/19 06:10 second cardiac profile done and negative *DC/Admit/Observation/Transfer Diagnosis at time of Disposition: Weakness - Discharge Dispostion Disposition: HOME Condition at time of disposition: Stable Decision to Admit order: No - Referrals Referrals: Haley Schneider MD [Primary Care Provider] - Piter Sanchez MD [Staff Physician] - - Patient Instructions Additional Instructions: please follow up with Dr. Sanchez for your regularly scheduled appointment tomorrow please follow up with dr. waggoner within one week with keep yourself hydrated if you begin to have worsening or concerning symptoms please return to the emergency room immediately - Post Discharge Activity - Attestations Physician Attestion: 03/03/19 06:16 Arianna Tabor
--- NOTE | 2019-03-03 11:07 | EKG ---
Test Reason : Blood Pressure : / mmHG Vent. Rate : 095 BPM Atrial Rate : 267 BPM P-R Int : 000 ms QRS Dur : 076 ms QT Int : 374 ms P-R-T Axes : 000 013 008 degrees QTc Int : 469 ms ATRIAL FIBRILLATION WITH PREMATURE VENTRICULAR OR ABERRANTLY CONDUCTED COMPLEXES ABNORMAL ECG WHEN COMPARED WITH ECG OF 15-FEB-2019 13:50, ATRIAL FIBRILLATION HAS REPLACED ATRIAL FLUTTER NONSPECIFIC T WAVE ABNORMALITY, IMPROVED IN LATERAL LEADS QT HAS LENGTHENED Confirmed by MD Benji, Oracio ([id number]) on 03/03/2019 11:07:05 AM Referred By: Confirmed By:Oracio Leblanc MD
== END 2019-03-03 06:47 | disposition home or self-care (01) ==
LOC: JER 23:47
PROC: 3E0337Z Introduction of Electrolytic and Water Balance Substance into Peripheral Vein, Percutaneous Approach (ICD-10-PCS; principal; 2019-03-02)
DX: R53.1 Weakness (principal); I25.10 Atherosclerotic heart disease of native coronary artery without angina pectoris; I11.0 Hypertensive heart disease with heart failure; I48.91 Unspecified atrial fibrillation; Z79.01 Long term (current) use of anticoagulants; E11.9 Type 2 diabetes mellitus without complications; G40.909 Epilepsy, unspecified, not intractable, without status epilepticus
CPT/HCPCS: 36415; 71045-TC-FY; 80053; 82550; 83880; 84484; 85025; 85610; 85730; 93005; 93010; 96360; 99283-25

== ENCOUNTER 2019-09-14 11:39 | Emergency (ER) | payer OTHER ==
[2019-09-14 12:02] VITALS: TEMP 98.3; BMI 34.7
--- NOTE | 2019-09-14 12:11 | PDOC ---
History of Present Illness - General Chief Complaint: Lightheaded Stated Complaint: HYPERTENSION Time Seen by Provider: 09/14/19 12:07 - History of Present Illness Initial Comments: Ms. Lo is a 74 y/o female with PMH of a-fib, CHF, HTN, presenting with 2 days of high blood pressure in the 160s, dizziness, and "warmth in her stomach. " Also reports dizziness with vertigo component that started 2 days ago, has never had this before. Denies headache, vision changes, nausea/vomiting, chest pain, shortness of breath, constipation/diarrhea, urinary symptoms. Denies weakness or numbness or tingling. Meds: eliquis, metoprolol Past History - Past Medical History Allergies/Adverse Reactions: Allergies Allergy/AdvReac Type Severity Reaction Status Date / Time No Known Allergies Allergy Verified 09/14/19 11:59 Home Medications: Ambulatory Orders Levothyroxine [Synthroid -] 25 mcg PO DAILY@0700 #30 tablet 11/25/18 Apixaban [Eliquis] 5 mg PO BID #60 tablet 02/20/19 Diltiazem Cd [Cardizem Cd -] 120 mg PO DAILY #60 cap.cd.24h 02/20/19 Furosemide [Lasix -] 20 mg PO DAILY #60 tablet 02/20/19 Metoprolol Succinate [Toprol XL -] 100 mg PO BID #120 tab.sr.24h 02/20/19 Spironolactone [Aldactone -] 25 mg PO DAILY #60 tablet 02/20/19 Valsartan [Diovan] 80 mg PO DAILY #60 tablet 02/20/19 Cephalexin [Keflex] 500 mg PO BID 7 Days #14 capsule 09/14/19 Anemia: No Asthma: No Cancer: No Cardiac Disorders: Yes (afib,mvr, stents) CVA: No COPD: No CHF: Yes DVT: No Dementia: No Diabetes: Yes GI Disorders: No Disorders: No HTN: Yes Hypercholesterolemia: No Liver Disease: No Seizures: Yes Thyroid Disease: No - Surgical History Abdominal Surgery: Yes (TUBAL LIGATION) Appendectomy: No Cardiac Surgery: No Cholecystectomy: No Lung Surgery: No Neurologic Surgery: No Orthopedic Surgery: No - Immunization History Immunization Up to Date: Yes - Psycho Social/Smoking Cessation Hx Smoking Status: No Smoking History: Never smoked Have you smoked in the past 12 months: No Number of Cigarettes Smoked Daily: 0 Hx Alcohol Use: No Drug/Substance Use Hx: No Substance Use Type: None Hx Substance Use Treatment: No Review of Systems - Review of Systems Comments:: GENERAL/CONSTITUTIONAL: No fever or chills. No weakness._ HEAD, EYES, EARS, NOSE AND THROAT: No change in vision. No change in hearing. No sore throat._ CARDIOVASCULAR: No chest pain or shortness of breath_ RESPIRATORY: Denies cough, hemoptysis GASTROINTESTINAL: No nausea, vomiting, diarrhea or constipation._ GENITOURINARY: No dysuria, frequency, or change in urination._ MUSCULOSKELETAL: No joint or muscle swelling or pain. No neck or back pain._ SKIN: No rash_ NEUROLOGIC: Reports dizziness and vertigo. No headache, loss of consciousness, or change in strength/sensation._ ENDOCRINE: No increased thirst. No abnormal weight change_ HEMATOLOGIC/LYMPHATIC: No anemia, easy bleeding, or history of blood clots._ ALLERGIC/IMMUNOLOGIC: No hives or skin allergy._ *Physical Exam - Vital Signs Last Vital Signs Temp Pulse Resp BP Pulse Ox 98.3 F 64 16 153/79 99 09/14/19 11:59 09/14/19 11:59 09/14/19 11:59 09/14/19 11:59 09/14/19 11:59 - Physical Exam Comments: GENERAL: Awake, alert, and oriented to person/place/time, in no acute distress_ HEAD: No signs of trauma, normocephalic, atraumatic _ EYES: PERRLA, EOMI, sclera anicteric, conjunctiva clear_ ENT: Hearing grossly normal, nares patent, oropharynx clear without exudates. No uvular deviation. Moist mucosa. TM's clear and intact bilaterally. NECK: Normal ROM, supple, no lymphadenopathy, JVD, or masses_ LUNGS: No distress, speaks in full sentences, clear to auscultation bilaterally _ HEART: Irregular, normal S1 and S2, no murmurs appreciated, peripheral pulses normal and equal bilaterally._ ABDOMEN: Soft, nontender, normoactive bowel sounds. No guarding, no rebound. No masses_ EXTREMITIES: Normal inspection, Normal range of motion, no edema. No clubbing or cyanosis_ NEUROLOGICAL: Cranial nerves II through XII grossly intact. Normal speech, normal gait, no focal sensorimotor deficits. Cerebellar testing negative. No ataxia. Eugenia-Hallpike negative. Vertigo not worsened positionally. No horizontal or vertigo nystagmus appreciated. SKIN: Warm, Dry, normal turgor, no rashes or lesions noted_ ED Treatment Course - LABORATORY CBC & Chemistry Diagram: 09/14/19 13:25 09/14/19 13:25 Medical Decision Making - Medical Decision Making 74F with hx of a-fib, CHF, HTN, seizures, presenting with 2 days of high blood pressure at home, GERD, and new onset vertigo that started 2 days ago. Vertigo is non-positional. -CBC, CMP, coags -EKG, CXR, trop -TSH -CT head -UA -home dose hydralazine 25 mg 09/14/19 13:22 EKG shows NSR, 61 bpm, no axis deviation, no ST elevation/depression, QTc 481. 09/14/19 14:17 CT head negative for acute otomastoiditis, acute intracranial hemorrhage, no midline shift. Labs reviewed. UA shows positive nitrites and leuk esterases. -keflex and rocephin 09/14/19 15:25 Pt reports that dizziness has improved after PO Reglan and lunch. -Free T4, as TSH is mildly elevated 09/14/19 16:07 free t4 wnl. Patient reports dizziness has improved and is feeling much better. D/c home. Rpt BP 137/88. -f/u PCP, neuro, ENT -Keflex 500mg BID for 7 days. Discharge - Discharge Information Problems reviewed: Yes Clinical Impression/Diagnosis: Vertigo UTI (urinary tract infection) Qualifiers: Hematuria presence: without hematuria Condition: Stable Disposition: HOME - Admission No - Additional Discharge Information Prescriptions: Cephalexin [Keflex] 500 mg PO BID 7 Days #14 capsule - Follow up/Referral Referrals: Clayton Kingsley MD [Staff Physician] - Mario Oh MD [Staff Physician] - - Patient Discharge Instructions Additional Instructions: Please make a follow up appointment with Dr. Kingsley (neurology) and Dr. Oh (ENT) to follow up with your dizziness. Please also make a follow up appointment with your primary care physician. Please take Keflex 500 mg twice per day for 1 week. If you experience any new, worsening, or concerning symptoms, including severe dizziness, loss of consciousness, falls, severe headache, severe nausea/vomiting , weakness, loss of sensation, numbness or any other concerns, please return to the emergency department. - Post Discharge Activity
[2019-09-14] MEDS ORDERED: hydrALAZINE HCL 25 MG TABLET (FP) PO ONE (13:14)
[2019-09-14] MEDS ORDERED: MAG HYDROX/AL HYDROX/SIMETH 30 ML UNIT-DOSE CUP PO ONE (13:31)
[2019-09-14] MEDS ORDERED: LIDOCAINE VISCOUS 2% ORAL/TOP 20 ML UNIT-DOSE CUP MM ONE (13:31)
[2019-09-14] MEDS ORDERED: FAMOTIDINE 10 MG TABLET PO ONE (13:31)
[2019-09-14] MEDS ORDERED: METOCLOPRAMIDE HCL INJECTION 10 MG/2 ML VIAL IVPUSH ONE (13:33)
--- NOTE | 2019-09-14 13:33 | PDOC ---
Documentation entered by April Araujo SCRIBE, acting as scribe for Letha Suarez DO. Letha Suarez DO: This documentation has been prepared by the Van mccurdy Sammi, SCRIBE, under my direction and personally reviewed by me in its entirety. I confirm that the documentation accurately reflects all work, treatment, procedures, and medical decision making performed by me. Attending Attestation - Resident Resident Name: Dannielle Boggshan - ED Attending Attestation I have performed the following: I have examined & evaluated the patient, The case was reviewed & discussed with the resident, I agree w/resident's findings & plan, Exceptions are as noted - HPI HPI: 09/14/19 13:20 The patient is a 74 year old female who presents to the emergency department for evaluation of 2 days of dizziness and heat in the stomach. She denies headache, neck pain, numbness or tingling down all extremities. She denies chest pain or burning, SOB, recent fever or chills. She denies change in symptoms with position changes. PMH: Afib(on eliquis), CHF, HTN - Physicial Exam PE: 09/14/19 13:20 GENERAL: Awake, alert, and fully oriented, in no acute distress EYES: PERRLA, EOMI, sclera anicteric, conjunctiva clear. No nystagmus. ENT: Auricles normal inspection, hearing grossly normal, nares patent, oropharynx clear without exudates. Moist mucosa NECK: Normal ROM, supple, no lymphadenopathy, JVD, or masses LUNGS: Breath sounds equal, clear to auscultation bilaterally. No wheezes, and no crackles HEART: Regular rate and rhythm, normal S1 and S2, no murmurs, rubs or gallops ABDOMEN: Soft, nontender, normoactive bowel sounds. No guarding, no rebound. No masses EXTREMITIES: Normal range of motion, no edema. No clubbing or cyanosis. No cords, erythema, or tenderness NEUROLOGICAL: Cranial nerves II through XII grossly intact. Normal speech, normal gait SKIN: Warm, Dry, normal turgor, no rashes or lesions noted. - Medical Decision Making 09/14/19 13:31 I, Dr. Letha Suarez DO, attest that this document has been prepared under my direction and personally reviewed by me in its entirety. I further attest, that it accurately reflects all work, treatment, procedures and medical decision -making performed by me. a/p: 74yo female with dizziness - vertiginous symptoms this AM -woke up feeling dizzy and "warmth in the upper abd" -no assoc vision/rogers/neck pain -vertigo is not positional -no cp/sob -no n/v/d -no dysuria -will send labs, head ct, ekg, cxr -will monitor and reassess 09/14/19 13:54 pt with uti on labs will start abx 09/14/19 14:[address] neg 09/14/19 14:15 cxr clear 09/14/19 15:56 pt feeling better will rx abx for uti free t4 pending 09/14/19 16:07 pt feels better free t4 pt ambulatory in the ED with a steady gait dizziness has resolved bp improved Heart Score/ECG Review - ECG Intrepretation Comment:: 09/14/19 13:33 sinus at 61, 1st degree av block, nl axis, no acute st/t wave findings
[2019-09-14] MEDS ORDERED: hydrALAZINE HCL 25 MG TABLET (FP) ONE (13:35)
[2019-09-14] MEDS ORDERED: MAG HYDROX/AL HYDROX/SIMETH 30 ML UNIT-DOSE CUP ONE (13:35)
[2019-09-14] MEDS ORDERED: LIDOCAINE VISCOUS 2% ORAL/TOP 20 ML UNIT-DOSE CUP ONE (13:35)
[2019-09-14] MEDS ORDERED: FAMOTIDINE 10 MG TABLET ONE (13:35)
[2019-09-14 13:41] LABS: BASO % 0.4 % (0-2.0); EOS % 1.7 % (0-4.5); HEMATOCRIT 38.3 % (32.4-45.2); HEMOGLOBIN 12.3 GM/dL (10.7-15.3); LYMPH % 24.6 % (8-40); MCH 29.1 pg (25.7-33.7); MEAN PLT VOLUME 10.8 fl (7.5-11.1); NEUT % 66.3 % (42.8-82.8); PLATELET COUNT 289 K/MM3 (134-434); RBC 4.21 M/mm3 (3.60-5.2); RDW 14.8 % (11.6-15.6); WHITE BLOOD COUNT 11.2 K/mm3 (4.0-10.0)
[2019-09-14 13:43] LABS: EPI CELLS 0.4 /HPF (0-5/HPF); HYALINE CASTS 3 /lpf (0-8); URINE APPEARANCE CLEAR; URINE BACTERIA 8205.6 /hpf (NEGATIVE); URINE BILIRUBIN NEGATIVE (NEGATIVE); URINE COLOR YELLOW; URINE GLUCOSE (UA) NEGATIVE (NEGATIVE); URINE KETONE NEGATIVE (NEGATIVE); URINE LEUK ESTERASE 2+ (NEGATIVE); URINE NITRITE POSITIVE (NEGATIVE); URINE PROTEIN NEGATIVE (NEGATIVE); URINE RBC 1 /hpf (0-4); URINE UROBILINOGEN 0.2 mg/dL (0.2-1.0); URINE WBC 23 /hpf (0-5)
[2019-09-14 13:48] LABS: INR 1.04 (0.83-1.09); PROTHROMBIN TIME (PATIENT) 12.3 SEC (9.7-13.0)
[2019-09-14 14:17] LABS: ALBUMIN 3.7 g/dl (3.4-5.0); ALK PHOS 82 U/L (45-117); ANION GAP 5 MMOL/L (8-16); BILIRUBIN,TOTAL 0.4 mg/dL (0.2-1); BLOOD UREA NITROGEN 13.7 mg/dL (7-18); CALCIUM 8.7 mg/dL (8.5-10.1); CHLORIDE 108 mmol/L (98-107); CO2 29 mmol/L (21-32); GLUCOSE,RANDOM 71 mg/dL (74-106); POTASSIUM 4.5 mmol/L (3.5-5.1); SGOT/AST 14 U/L (15-37); SGPT/ALT 19 U/L (13-61); SODIUM 143 mmol/L (136-145); TOT PROT 6.8 g/dl (6.4-8.2)
[2019-09-14] MEDS ORDERED: CEPHALEXIN MONOHYDRATE 500 MG CAPSULE (UD) PO ONE (16:05)
[2019-09-14] MEDS ORDERED: cefTRIAXone SODIUM 1 GM VIAL ONE (16:12)
[2019-09-14] MEDS ORDERED: CEPHALEXIN MONOHYDRATE 500 MG CAPSULE (UD) ONE (16:12)
[2019-09-14 16:17] VITALS: BP 138/76; PULSE 80
--- NOTE | 2019-09-15 11:06 | EKG ---
Test Reason : Blood Pressure : / mmHG Vent. Rate : 061 BPM Atrial Rate : 061 BPM P-R Int : 206 ms QRS Dur : 076 ms QT Int : 478 ms P-R-T Axes : 033 -04 064 degrees QTc Int : 481 ms NORMAL SINUS RHYTHM MODERATE VOLTAGE CRITERIA FOR LVH, MAY BE NORMAL VARIANT BORDERLINE ECG Confirmed by Carlito Vásquez MD ([id number]) on 09/15/2019 11:05:46 AM Referred By: Confirmed By:Carlito Vásquez MD
== END 2019-09-14 16:17 | disposition home or self-care (01) ==
LOC: JER 11:39
DX: N39.0 Urinary tract infection, site not specified (principal); R42 Dizziness and giddiness; I25.10 Atherosclerotic heart disease of native coronary artery without angina pectoris; I11.0 Hypertensive heart disease with heart failure; Z95.5 Presence of coronary angioplasty implant and graft; I50.9 Heart failure, unspecified; I48.91 Unspecified atrial fibrillation; Z79.01 Long term (current) use of anticoagulants; E11.9 Type 2 diabetes mellitus without complications; G40.909 Epilepsy, unspecified, not intractable, without status epilepticus; K21.9 Gastro-esophageal reflux disease without esophagitis; Z98.51 Tubal ligation status
CPT/HCPCS: 36415; 70450-TC; 71045-TC-FY; 80053; 81003; 82550; 83880; 84439; 84443; 84484; 85025; 85610; 85730; 93005; 93010; 96372; 99282-25

== ENCOUNTER 2019-12-06 18:40 | Inpatient (IN) | payer OTHER ==
[2019-12-06 18:51] VITALS: BMI 38.0
--- NOTE | 2019-12-06 20:35 | PDOC ---
Attending Attestation - Resident Resident Name: Tez Lacy - ED Attending Attestation I have performed the following: I have examined & evaluated the patient, The case was reviewed & discussed with the resident, I agree w/resident's findings & plan - HPI HPI: 12/06/19 22:52 Pt comes with SOB. She has no cough and no fever and no ill contacts. She is compliant with all her meds. - Physicial Exam PE: 12/06/19 22:52 Afebrile Heart [id number] Lungs clear with the BIPAP on; good air exchange throughout. Abd soft NT ND No flank pain ext no c/c/e - Medical Decision Making 12/11/19 20:06 ECG w/ sinus bradycardia; HR 55; QTc 512; TW abn; no ZACHERY; abn ECG Leukocytosis to 15 noted Pt given Ceftriaxone and Azithromycin for suspicion of clinical PNA BNP 2000s Lytes unremarkable No BRENDA Trop I neg Pt feels mildly improved at this time Plan for admission for CHF exacerbation w/ possible clinical PNA Pt is compliant with her eliquis for afib Heart Score/ECG Review - ECG Intrepretation Rhythm: Regular Rhythm - [place]: Normal - P and NM Atrial Enlargement: Right Delta Wave(s) Present: No WPW: No - QRS Poor R Wave Progression: No Q Wave Present: No - ST and T Early Repolarization: No Non Specific ST-T Wave changes: No Flattened T Waves: No Prolonged Q-T Interval: Yes Comment:: 12/06/19 23:12 QT 536 - ECG Impressions Normal ECG: Yes Non-specific ST Elevation: No Ischemic Changes: No Bradycardia: No T[place] Point[place]: No
[2019-12-06] MEDS ORDERED: ALBUTEROL SO4 2.5/IPRATROPIUM 0.5 INH SOL 3 ML VIAL.NEB. NEB ONE ×2 (20:43→20:49)
[2019-12-06] MEDS ORDERED: ACETAMINOPHEN 1000 MG/100 ML VIAL (NON FORMULARY) IVPB ONE (20:56)
[2019-12-06] MEDS ORDERED: ACETAMINOPHEN INJECTION 100 ML IVPB ONE (21:00)
--- NOTE | 2019-12-06 21:02 | PDOC ---
History of Present Illness - General Chief Complaint: Respiratory Stated Complaint: SOB Time Seen by Provider: 12/06/19 20:19 - History of Present Illness Initial Comments: The pt is a 74F w/ a history of a-fib (eliquis), HTN, HFrEF who presents for evaluation of several hours of shortness of breath and ART. She reports gradual onset shortness of breath with cough tonight. It is worse with laying down, associated with a cough tonight, and a global gradual onset ART. She reports being compliant with her medications. She denies fevers/ chest pain, vision changes, abdominal pain, N/V/D, dysuria, or leg swelling. 12/06/19 20:57 Past History - Past Medical History Allergies/Adverse Reactions: Allergies Allergy/AdvReac Type Severity Reaction Status Date / Time No Known Allergies Allergy Verified 12/06/19 18:51 Home Medications: Ambulatory Orders Levothyroxine [Synthroid -] 25 mcg PO DAILY@0700 #30 tablet 11/25/18 Apixaban [Eliquis] 5 mg PO BID #60 tablet 02/20/19 Diltiazem Cd [Cardizem Cd -] 120 mg PO DAILY #60 cap.cd.24h 02/20/19 Furosemide [Lasix -] 20 mg PO DAILY #60 tablet 02/20/19 Metoprolol Succinate [Toprol XL -] 100 mg PO BID #120 tab.sr.24h 02/20/19 Spironolactone [Aldactone -] 25 mg PO DAILY #60 tablet 02/20/19 Valsartan [Diovan] 80 mg PO DAILY #60 tablet 02/20/19 Cephalexin [Keflex] 500 mg PO BID 7 Days #14 capsule 09/14/19 Anemia: No Asthma: No Cancer: No Cardiac Disorders: Yes (afib,mvr, stents) CVA: No COPD: No CHF: Yes DVT: No Dementia: No Diabetes: Yes GI Disorders: No Disorders: No HTN: Yes Hypercholesterolemia: No Liver Disease: No Seizures: Yes Thyroid Disease: No - Surgical History Abdominal Surgery: Yes (TUBAL LIGATION) Appendectomy: No Cardiac Surgery: No Cholecystectomy: No Lung Surgery: No Neurologic Surgery: No Orthopedic Surgery: No - Immunization History Immunization Up to Date: Yes - Psycho Social/Smoking Cessation Hx Smoking Status: No Smoking History: Never smoked Have you smoked in the past 12 months: No Number of Cigarettes Smoked Daily: 0 Hx Alcohol Use: No Drug/Substance Use Hx: No Substance Use Type: None Hx Substance Use Treatment: No Review of Systems - Review of Systems Able to Perform ROS?: Yes Comments:: GENERAL/CONSTITUTIONAL: No fever or chills. No weakness HEAD, EYES, EARS, NOSE AND THROAT: No change in vision. No change in hearing. No sore throat CARDIOVASCULAR: No chest pain RESPIRATORY: Denies hemoptysis GASTROINTESTINAL: No nausea, vomiting, diarrhea or constipation GENITOURINARY: No dysuria, frequency, or change in urination MUSCULOSKELETAL: No joint or muscle swelling or pain. No neck or back pain SKIN: No rash NEUROLOGIC: No headache, vertigo, loss of consciousness, or change in strength/ sensation ENDOCRINE: No increased thirst. No abnormal weight change HEMATOLOGIC/LYMPHATIC: No anemia, easy bleeding, or history of blood clots ALLERGIC/IMMUNOLOGIC: No hives or skin allergy 12/06/19 21:02 *Physical Exam - Vital Signs Last Vital Signs Temp Pulse Resp BP Pulse Ox 99.1 F 64 20 179/93 H 97 12/06/19 18:48 12/06/19 18:48 12/06/19 18:48 12/06/19 18:48 12/06/19 18:48 - Physical Exam GENERAL: Awake, alert, and oriented to person/place/time, in no acute distress HEAD: No signs of trauma, normoc ephalic, atraumatic EYES: PERRLA, EOMI, sclera anicteric, conjunctiva clear ENT: Hearing grossly normal, nares patent, oropharynx clear without exudates. Moist mucosa LUNGS: Tachypnic, b/l diffuse crackles, diminished breath sounds at bases HEART: Regular rate and rhythm, normal S1 and S2, no murmurs appreciated, peripheral pulses normal and equal bilaterally ABDOMEN: Soft, nontender, normoactive bowel sounds. No guarding, no rebound EXTREMITIES: Normal inspection, Normal range of motion, no edema. No clubbing or cyanosis NEUROLOGICAL: Cranial nerves II through XII grossly intact. Normal speech, normal gait, no focal sensorimotor deficits SKIN: Warm, Dry 12/06/19 21:05 ED Treatment Course - LABORATORY CBC & Chemistry Diagram: 12/06/19 20:45 12/06/19 20:45 - Medications Given in the ED: ED Medications Discontinued Medications Generic Name Dose Route Start Last Admin Trade Name Varinder PRN Reason Stop Dose Admin Albuterol/Ipratropium 2 amp 12/06/19 20:43 12/06/19 20:55 Duoneb - NEB 12/06/19 20:44 2 amp ONCE ONE Administration Medical Decision Making - Medical Decision Making The pt is a 74F w/ a history of a-fib (eliquis), HTN, HFrEF who presents for evaluation of several hours of shortness of breath and ART. Likely CHF exacerbation Pt reports being compliant with meds ED Course Labs sent ECG CXR BiPAP 12/06/19 21:06 ECG w/ sinus bradycardia; HR 55; QTc 512; TW abn; no ZACHERY; abn ECG Leukocytosis to 15 noted Pt given Ceftriaxone and Azitromycin for suspicion of clinical PNA BNP 2000s Lytes unremarkable No BRENDA Trop I neg Pt feels mildly improved at this time Plan for admission for CHF exacerbation w/ possible clinical PNA Pt singed out to [facility] Admitting 12/06/19 22:46 Discharge - Discharge Information Problems reviewed: Yes Clinical Impression/Diagnosis: CHF exacerbation Qualifiers: Heart failure type: systolic Qualified Code(s): I50.23 - Acute on chronic systolic (congestive) heart failure CAP (community acquired pneumonia) Qualifiers: Laterality: unspecified laterality Qualified Code(s): J18.9 - Pneumonia, unspecified organism Afib Qualifiers: Atrial fibrillation type: unspecified Qualified Code(s): I48.91 - Unspecified atrial fibrillation Condition: Fair - Admission Yes - Follow up/Referral - Patient Discharge Instructions - Post Discharge Activity
[2019-12-06 21:16] LABS: BASO % 0.2 % (0-2.0); EOS % 1.4 % (0-4.5); HEMOGLOBIN 11.8 GM/dL (10.7-15.3); LYMPH % 6.5 % (8-40); MCH 29.2 pg (25.7-33.7); MCHC 32.8 g/dl (32.0-36.0); MEAN CELL VOLUME 89.1 fl (80-96); MEAN PLT VOLUME 10.7 fl (7.5-11.1); MONO % 6.3 % (3.8-10.2); NEUT % 85.6 % (42.8-82.8); PLATELET COUNT 273 K/MM3 (134-434); RBC 4.05 M/mm3 (3.60-5.2); RDW 14.2 % (11.6-15.6); WHITE BLOOD COUNT 15.1 K/mm3 (4.0-10.0)
[2019-12-06] MEDS ORDERED: CEFTRIAXONE 1 GM in DEXTROSE 5%-WATER - 100 ML IVPB ONE (21:36)
[2019-12-06] MEDS ORDERED: AZITHROMYCIN IVPB 500 MG in DEXTROSE 5%-WATER - 250 ML IVPB ONE (21:36)
[2019-12-06] MEDS ORDERED: FUROSEMIDE 40 MG/4 ML INJECTABLE VIAL IVPUSH ONE (21:37)
[2019-12-06] MEDS ORDERED: CEFTRIAXONE 1 GM/50 ML BAG ONE (21:46)
[2019-12-06] MEDS ORDERED: FUROSEMIDE 40 MG/4 ML INJECTABLE VIAL ONE ×2 (21:46→23:45)
[2019-12-06] MEDS ORDERED: AZITHROMYCIN IVPB 500 MG/250 ML BAG IVPB ONE (21:46)
[2019-12-06 22:05] LABS: ALBUMIN 3.7 g/dl (3.4-5.0); BILIRUBIN,TOTAL 0.3 mg/dL (0.2-1); BLOOD UREA NITROGEN 13.5 mg/dL (7-18); CALCIUM 8.4 mg/dL (8.5-10.1); CREATININE 0.9 mg/dL (0.55-1.3); N-TERMINAL BNP 2484.1 pg/ml (5-125); POTASSIUM 4.3 mmol/L (3.5-5.1); TOT PROT 7.1 g/dl (6.4-8.2)
--- NOTE | 2019-12-06 23:07 | PN ---
Teaching Attending Note Name of Resident: Pilo Saul ATTENDING PHYSICIAN STATEMENT I saw and evaluated the patient. I reviewed the resident's note and discussed the case with the resident. I agree with the resident's findings and plan as documented. SUBJECTIVE: Patient is a 74 year old woman with a PMH of Afib on Eliquis (s/p synchronized cardioversion), Hypothyrodism, Seizure disorder, NIDDM, HTN and HFrEF who presents for evaluation of several hours of shortness of breath and headache. She reports gradual onset shortness of breath with cough tonight. It is worse with laying down, associated with a cough tonight, and a global gradual onset headache. She reports being compliant with her medications. She denies fevers, chest pain, vision changes, chills, abdominal pain, nausea, vomiting, diarrhea, dysuria or leg swelling. Denies alcohol, tobacco or illicit drug use. No sick contacts or recent travels. Had the Flu shot. OBJECTIVE: Alert Vital Signs Period Temp Pulse Resp BP Sys/Batista Pulse Ox Last 24 Hr 99.1 F 64-67 20 179/93 97-100 HEENT: No Jaundice, eye redness or discharge, PERRLA, EOMI. Normocephalic, atraumatic. External ears are normal and hearing is grossly intact. No nasal discharge. Neck: Supple, nontender. No palpable adenopathy or thyromegaly. No JVD Chest: Good effort. Bibasilar crackles. Clear to percussion. Heart: Regular. No S3, rub or murmur Abdomen: Not distended, soft, nontender and no HSM. No rebound or guarding. Normal bowel sounds. Ext: Peripheral pulses intact. No leg edema. Skin: Warm and dry. No petechiae, rash or ecchymosis. Neuro: Alert. Oriented x3. CN 2-12 grossly intact. Sensation grossly intact in all four extremities and DTR are symmetric. Psych: Appropriate mood and affect. Good insight. Home Medications Medication Instructions Recorded Levothyroxine [Synthroid -] 25 mcg PO DAILY@0700 #30 tablet 11/25/18 Apixaban [Eliquis] 5 mg PO BID #60 tablet 02/20/19 Diltiazem Cd [Cardizem Cd -] 120 mg PO DAILY #60 cap.cd.24h 04/05/19 Furosemide [Lasix -] 20 mg PO DAILY #60 tablet 02/20/19 Metoprolol Succinate [Toprol XL -] 100 mg PO BID #120 tab.sr.24h 02/20/19 Spironolactone [Aldactone -] 25 mg PO DAILY #60 tablet 02/20/19 Valsartan [Diovan] 80 mg PO DAILY #60 tablet 02/20/19 Cephalexin [Keflex] 500 mg PO BID 7 Days #14 capsule 09/14/19 Abnormal Lab Results 12/06/19 12/06/19 20:45 20:45 WBC 15.1 H Absolute Neuts (auto) 12.9 H Neutrophils % 85.6 H D Lymphocytes % 6.5 L D Chloride 109 H Anion Gap 6 L Calcium 8.4 L B-Natriuretic Peptide 2484.1 H ASSESSMENT AND PLAN: 1. CHF exacerbation/?Pneumonia - CXR shows cardiomegaly, unfolded aorta and blunted costophrenic angles. ECHO from 02/13/2019 showed mild concentric LH hypertrophy, low normal LV systolic and LVEF of 50%. EKG shows sinus bradycardia , 1o AV block, nonspecific T wave changes and prolonged QTc. Initial troponin is negative. Leukocytosis and low grade temperature are concerning. Will get a chest CTA to rule out PE as wall as pneumonic infiltrate or effusion. Urinalysis is pending. Got Rocephin and Azithromycin in the ER. Will await chest CTA and UA before deciding on further antibiotics treatment. Will give IV lasix stat, monitor urine output, restrict dietary salt intake and get daily standing weight and TSH. Will continue comprehensive care for all of patients comorbid conditions including Eliquis for Afib. 2. DM For now, we will hold the home diabetes drugs and implement sliding scale insulin regimen. Provide comprehensive diabetes care with patient teaching and counseling about the importance of adherence to prescribed diabetes regimen, euglycemia, eye care and foot care. 3. Obesity Counseled on the risks associated with obesity. Will provide patient all the necessary assistance, counseling and positive reinforcement to facilitate weight loss. Consult cane piler. 4. Uncontrolled Hypertension - Restart suitable outpatient antihypertensive drugs when clinically appropriate. Revise regimen to ensure [id number] excellent BP control and chief counsel patient on the injurious effects of uncontrolled hypertension. Nonpharmacologic measures to control hypertension like weight loss, salt restriction and exercise discussed. Importance of adherence to treatment regimen and attainment of normotension emphasized. 5. DVT prophylaxis - On Eliquis for Afib. 6. Advance directives - Full code
--- NOTE | 2019-12-06 23:29 | HP ---
CHIEF COMPLAINT: SOB+Cough PCP: Harriet Aguirre NP HISTORY OF PRESENT ILLNESS: Daughter assisting in translation Pt is a 74 y/o F with a significant past medical history of Afib on Eliquis (s/ p synchronized cardioversion), Hypothyroidism, Seizure disorder, NIDDM, HTN and HFrEF who presented to [facility] due to shortness of breath and cough. Pt endorses that around noon today she abruptly began to start coughing and become short of breath. She states she as sitting down when she began to cough. Denies any fever , nausea/vomiting, chills, or sick contacts. Does endorse having received the influenza vaccine. Of note, pt states for the past 11-12 days, she has become more short of breath, especially while lying supine. Pt's daughter states she has observed her mother waking up in the middle of the night gasping for air. Pt endorses she is compliant with all of her medications. PMH: As above Social Hx- Denies T/A/D FamHx- NC SurgHx- Denies NKDA ER course was notable for: (1) Lasix 20 mg (2) Cef+Azithro (3) EKG-->Sinus vanda, 1st degree AV block. QTc 512 Recent Travel: Denies HOME MEDICATIONS: Home Medications Medication Instructions Recorded Levothyroxine [Synthroid -] 25 mcg PO DAILY@0700 #30 tablet 11/25/18 Apixaban [Eliquis] 5 mg PO BID #60 tablet 02/20/19 Diltiazem Cd [Cardizem Cd -] 120 mg PO DAILY #60 cap.cd.24h 02/20/19 Furosemide [Lasix -] 20 mg PO DAILY #60 tablet 02/20/19 Metoprolol Succinate [Toprol XL -] 100 mg PO BID #120 tab.sr.24h 02/20/19 Spironolactone [Aldactone -] 25 mg PO DAILY #60 tablet 02/20/19 Valsartan [Diovan] 80 mg PO DAILY #60 tablet 02/20/19 Cephalexin [Keflex] 500 mg PO BID 7 Days #14 capsule 09/14/19 REVIEW OF SYSTEMS CONSTITUTIONAL: Absent: fever, chills, diaphoresis, generalized weakness, malaise, loss of appetite, weight change HEENT: Absent: rhinorrhea, nasal congestion, throat pain, throat swelling, difficulty swallowing, mouth swelling, ear pain, eye pain, visual changes CARDIOVASCULAR: Absent: chest pain, syncope, palpitations, irregular heart rate, lightheadedness , peripheral edema RESPIRATORY: PRESENT: cough, shortness of breath, dyspnea with exertion, orthopnea GASTROINTESTINAL: Absent: abdominal pain, abdominal distension, nausea, vomiting, diarrhea, constipation, melena, hematochezia GENITOURINARY: Absent: dysuria, frequency, urgency, hesitancy, hematuria, flank pain, genital pain MUSCULOSKELETAL: Absent: myalgia, arthralgia, joint swelling, back pain, neck pain SKIN: Absent: rash, itching, pallor HEMATOLOGIC/IMMUNOLOGIC: Absent: easy bleeding, easy bruising, lymphadenopathy, frequent infections ENDOCRINE: Absent: unexplained weight gain, unexplained weight loss, heat intolerance, cold intolerance NEUROLOGIC: Absent: headache, focal weakness or paresthesias, dizziness, unsteady gait, seizure, mental status changes, bladder or bowel incontinence PSYCHIATRIC: Absent: anxiety, depression, suicidal or homicidal ideation, hallucinations. PHYSICAL EXAMINATION Vital Signs - 24 hr 12/06/19 12/06/19 12/06/19 18:48 21:00 21:28 Temperature 99.1 F Pulse Rate 64 Respiratory 20 Rate Blood Pressure 179/93 H O2 Sat by Pulse 97 100 100 Oximetry (%) 12/06/19 21:29 Temperature Pulse Rate 67 Respiratory Rate Blood Pressure O2 Sat by Pulse 100 Oximetry (%) GENERAL: NAD, on BiPAP HEAD: Normal with no signs of trauma. EYES: EOMI Sclera Clear EARS, NOSE, THROAT: MMM NECK: No JVD appreciated LUNGS: Rales at bases bilaterally HEART: RRR S1S2 ABDOMEN: Soft, NDNT Obese MUSCULOSKELETAL: FROM LOWER EXTREMITIES: No significant pedel edema appreciated NEUROLOGICAL: Cranial nerves II-XII intact. Normal speech. PSYCHIATRIC: Cooperative. Good eye contact. Appropriate mood and affect. SKIN: Warm, dry, normal turgor, no rashes or lesions noted, normal capillary refill. Laboratory Results - last 24 hr 12/06/19 12/06/19 12/06/19 20:45 20:45 20:45 WBC 15.1 H RBC 4.05 Hgb 11.8 Hct 36.0 MCV 89.1 MCH 29.2 MCHC 32.8 RDW 14.2 Plt Count 273 MPV 10.7 Absolute Neuts (auto) 12.9 H Neutrophils % 85.6 H D Lymphocytes % 6.5 L D Monocytes % 6.3 Eosinophils % 1.4 Basophils % 0.2 Nucleated RBC % 0 Sodium 142 Potassium 4.3 Chloride 109 H Carbon Dioxide 27 Anion Gap 6 L BUN 13.5 Creatinine 0.9 Est GFR (CKD-EPI)AfAm 73.52 Est GFR (CKD-EPI)NonAf 63.43 Random Glucose 91 Calcium 8.4 L Total Bilirubin 0.3 AST 20 ALT 27 Alkaline Phosphatase 88 Creatine Kinase 58 Troponin I < 0.02 B-Natriuretic Peptide 2484.1 H Total Protein 7.1 Albumin 3.7 ASSESSMENT/PLAN: Pt is a 74 y/o F with a significant past medical history of Afib on Eliquis (s/ p synchronized cardioversion), Hypothyrodism, Seizure disorder, NIDDM, HTN and HFrEF who presented to [facility] due to shortness of breath and cough. #SOB 2/2 likely CHF exacerbation -BNP 2484. BNP in August was 770. -Echo 01/2019--> EF 50%. Mild concentric LVH. Mild atrial enlargement. -Trop negative -CXR- Unofficial read--> Blunting of costophrenic angles b/l. -EKG--> Sinus vanda, 1st degree AV block. QTc 512 -CT Chest--> No pulmonary infiltrates. No evidence of pulmonary embolism in major central pulmonary arteries. -Given Lasix 20 IV in ED. Will order another 60 mg and monitor I's and O's -Fluid Restriction -CTA Chest suggests evidence of Heart Failure -Cardiology Consult. Appreciate recs. -Tele monitoring -Echocardiogram to assess for wall motion abnormalities and EF. -Repeat EKG in am. #AFIB -Resume Eliquis #Hypothyroidism -Resume synthroid. Medications need to be reconciled in am. #NIDDM -ISS #HTN -Administered one time dose of Valsartan 80. Medications will need to be reconciled in am. #Seizure d/o -Day team tor reconcile medications in am. #FEN -No standing fluids -Monitor Electrolytes -Sodium Controlled Diet #DVT ppx -Eliquis #Dispo -Tele Medications need to be reconciled Visit type - Emergency Visit Emergency Visit: Yes ED Registration Date: 12/06/19 Care time: The patient presented to the Emergency Department on the above date and was hospitalized for further evaluation of their emergent condition. - New Patient This patient is new to me today: Yes Date on this admission: 12/06/19 - Critical Care Critical Care patient: No ATTENDING PHYSICIAN STATEMENT I saw and evaluated the patient. I reviewed the resident's note and discussed the case with the resident. I agree with the resident's findings and plan as documented. SUBJECTIVE: OBJECTIVE: ASSESSMENT AND PLAN:
[2019-12-07] MEDS ORDERED: FUROSEMIDE 40 MG/4 ML INJECTABLE VIAL IVPUSH ONE ×2 (00:10→23:30)
[2019-12-07] MEDS ORDERED: VALSARTAN 80 MG TABLET (UD) PO ONE (01:11)
[2019-12-07 01:21] LABS: URINE APPEARANCE CLEAR; URINE BILIRUBIN NEGATIVE (NEGATIVE); URINE COLOR YELLOW; URINE GLUCOSE (UA) NEGATIVE (NEGATIVE); URINE KETONE NEGATIVE (NEGATIVE); URINE LEUK ESTERASE NEGATIVE (NEGATIVE); URINE NITRITE NEGATIVE (NEGATIVE); URINE PROTEIN NEGATIVE (NEGATIVE); URINE UROBILINOGEN 0.2 mg/dL (0.2-1.0)
[2019-12-07] MEDS ORDERED: HEPARIN NA (PORCINE) 5,000 UNITS/ML 1ML VIAL SQ SCH (06:00)
[2019-12-07 07:04] LABS: INR 1.01 (0.83-1.09); PROTHROMBIN TIME (PATIENT) 11.9 SEC (9.7-13.0)
[2019-12-07 07:07] LABS: ACTIVATED PTT 36.3 SECONDS (25.2-36.5)
[2019-12-07 07:08] LABS: ALBUMIN 4.1 g/dl (3.4-5.0); BILIRUBIN,TOTAL 0.6 mg/dL (0.2-1); BLOOD UREA NITROGEN 12.2 mg/dL (7-18); CALCIUM 8.8 mg/dL (8.5-10.1); CREATININE 1.1 mg/dL (0.55-1.3); MAGNESIUM 1.9 mg/dL (1.8-2.4); PHOSPHOROUS 4.8 mg/dL (2.5-4.9); POTASSIUM 3.8 mmol/L (3.5-5.1); TOT PROT 7.7 g/dl (6.4-8.2)
[2019-12-07 07:11] LABS: BASO % 0.4 % (0-2.0); EOS % 0.9 % (0-4.5); HEMATOCRIT 40.6 % (32.4-45.2); HEMOGLOBIN 13.6 GM/dL (10.7-15.3); LYMPH % 3.5 % (8-40); MCH 29.6 pg (25.7-33.7); MCHC 33.4 g/dl (32.0-36.0); MEAN CELL VOLUME 88.6 fl (80-96); MEAN PLT VOLUME 10.6 fl (7.5-11.1); MONO % 8.5 % (3.8-10.2); NEUT % 86.7 % (42.8-82.8); PLATELET COUNT 272 K/MM3 (134-434); RBC 4.59 M/mm3 (3.60-5.2); RDW 14.3 % (11.6-15.6); WHITE BLOOD COUNT 14.6 K/mm3 (4.0-10.0)
[2019-12-07] MEDS: APIXABAN 5 MG TABLET PO SCH ×2 (09:22→22:03)
[2019-12-07] MEDS: INSULIN SLIDING SCALE (NOVOLOG) 1 VIAL SQ SCH ×4 (09:23→22:03)
[2019-12-07] MEDS ORDERED: ACETAMINOPHEN 500 MG TABLET (FP) PO PRN ×2 (09:41→22:00)
--- NOTE | 2019-12-07 09:42 | PN ---
Physical Exam: SUBJECTIVE: Patient seen and examined. Pt. states that her breathing is better. Pt. endorses R arm pain where the IV site is. Pt. states that she eat mainly vegetables at home and is compliant with all her medications but does not remember the dosages of her medications or all the names. Pt. states she does not drink a lot of water at home. Pt. pulled out medictions from her bag from [place] and from [facility] but states she uses [facility]. Call placed to [facility] where medications were reconciled. Called [facility] which Pt. states she uses not [facility]. Pt. last picked up Metformin and Synthroid in April of the 2018 and has not picked up those medications since. 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 Pt. denies having diabetes. OBJECTIVE: Vital Signs Period Temp Pulse Resp BP Sys/Batista Pulse Ox Last 24 Hr 99.1 F-101.2 F 64-67 20-22 119-179/72-95 96-100 GENERAL: The patient is awake, alert, and fully oriented, in no acute distress. HEAD: Normal with no signs of trauma. EYES: Extraocular movements intact, sclera anicteric, conjunctiva clear. No ptosis. ENT: Ears normal, nares patent, oropharynx clear without exudates, moist mucous membranes. NECK: Trachea midline, full range of motion, supple. LUNGS: Bilateral bibasilar crackles, no accessory muscle use. HEART: Regular rate and rhythm, S1, S2 with Aortic systolic murmur, rub or gallop. ABDOMEN: Soft, nontender, nondistended, normoactive bowel sounds, no guarding, no rebound EXTREMITIES: 2+ dorsal pedal pulses, warm, well-perfused, non-pitting edema, trace pitting edema NEUROLOGICAL: Cranial nerves II through XII grossly intact. Normal speech, gait not observed. PSYCH: Normal mood, normal affect. SKIN: Warm, dry, normal turgor Laboratory Results - last 24 hr 12/06/19 12/06/19 12/06/19 20:45 20:45 20:45 WBC 15.1 H RBC 4.05 Hgb 11.8 Hct 36.0 MCV 89.1 MCH 29.2 MCHC 32.8 RDW 14.2 Plt Count 273 MPV 10.7 Absolute Neuts (auto) 12.9 H Neutrophils % 85.6 H D Lymphocytes % 6.5 L D Monocytes % 6.3 Eosinophils % 1.4 Basophils % 0.2 Nucleated RBC % 0 PT with INR INR PTT (Actin FS) Sodium 142 Potassium 4.3 Chloride 109 H Carbon Dioxide 27 Anion Gap 6 L BUN 13.5 Creatinine 0.9 Est GFR (CKD-EPI)AfAm 73.52 Est GFR (CKD-EPI)NonAf 63.43 POC Glucometer Random Glucose 91 Hemoglobin A1c % Calcium 8.4 L Phosphorus Magnesium Total Bilirubin 0.3 AST 20 ALT 27 Alkaline Phosphatase 88 Creatine Kinase 58 Troponin I < 0.02 B-Natriuretic Peptide 2484.1 H Total Protein 7.1 Albumin 3.7 Triglycerides Cholesterol Total LDL Cholesterol HDL Cholesterol Urine Color Urine Appearance Urine pH Ur Specific [place] Urine Protein Urine Glucose (UA) Urine Ketones Urine Blood Urine Nitrite Urine Bilirubin Urine Urobilinogen Ur Leukocyte Esterase 12/07/19 12/07/19 12/07/19 00:45 06:00 06:00 WBC 14.6 H RBC 4.59 Hgb 13.6 Hct 40.6 MCV 88.6 MCH 29.6 MCHC 33.4 RDW 14.3 Plt Count 272 MPV 10.6 Absolute Neuts (auto) 12.6 H Neutrophils % 86.7 H Lymphocytes % 3.5 L D Monocytes % 8.5 Eosinophils % 0.9 Basophils % 0.4 Nucleated RBC % 0 PT with INR 11.90 INR 1.01 PTT (Actin FS) 36.3 Sodium Potassium Chloride Carbon Dioxide Anion Gap BUN Creatinine Est GFR (CKD-EPI)AfAm Est GFR (CKD-EPI)NonAf POC Glucometer Random Glucose Hemoglobin A1c % Calcium Phosphorus Magnesium Total Bilirubin AST ALT Alkaline Phosphatase Creatine Kinase Troponin I B-Natriuretic Peptide Total Protein Albumin Triglycerides Cholesterol Total LDL Cholesterol HDL Cholesterol Urine Color Yellow Urine Appearance Clear Urine pH 7.0 Ur Specific [place] 1.006 L Urine Protein Negative Urine Glucose (UA) Negative Urine Ketones Negative Urine Blood Negative Urine Nitrite Negative Urine Bilirubin Negative Urine Urobilinogen 0.2 Ur Leukocyte Esterase Negative 12/07/19 12/07/19 12/07/19 06:00 06:00 07:25 WBC RBC Hgb Hct MCV MCH MCHC RDW Plt Count MPV Absolute Neuts (auto) Neutrophils % Lymphocytes % Monocytes % Eosinophils % Basophils % Nucleated RBC % PT with INR INR PTT (Actin FS) Sodium 141 Potassium 3.8 Chloride 102 Carbon Dioxide 30 Anion Gap 9 BUN 12.2 Creatinine 1.1 Est GFR (CKD-EPI)AfAm 57.68 Est GFR (CKD-EPI)NonAf 49.77 POC Glucometer 96 Random Glucose 92 Hemoglobin A1c % 5.9 Calcium 8.8 Phosphorus 4.8 Magnesium 1.9 Total Bilirubin 0.6 AST 18 ALT 26 Alkaline Phosphatase 92 Creatine Kinase Troponin I B-Natriuretic Peptide Total Protein 7.7 Albumin 4.1 Triglycerides 157 H Cholesterol 155 Total LDL Cholesterol 69 HDL Cholesterol 69 H Urine Color Urine Appearance Urine pH Ur Specific [place] Urine Protein Urine Glucose (UA) Urine Ketones Urine Blood Urine Nitrite Urine Bilirubin Urine Urobilinogen Ur Leukocyte Esterase Active Medications Home Medications Medication Instructions Recorded Apixaban [Eliquis] 5 mg PO BID #60 tablet 02/20/19 Acetaminophen [Tylenol 500 mg PO PRN PRN 12/07/19 .Extra-Strength -] Amiodarone HCl 200 mg PO DAILY 12/07/19 Furosemide 40 mg PO DAILY 12/07/19 Hydralazine HCl 25 mg PO TID 12/07/19 Isosorbide Mononitrate [Imdur -] 30 mg PO DAILY 12/07/19 Lisinopril [Prinivil -] 40 mg PO DAILY 12/07/19 Metoprolol Succinate [Toprol Xl] 25 mg PO DAILY 12/07/19 levETIRAcetam [Keppra -] 250 mg PO BID 12/07/19 Current Medications Acetaminophen (Tylenol -) 500 mg PO PRN PRN PRN Reason: PAIN LEVEL 4 - 6 Amiodarone HCl (Cordarone -) 200 mg PO DAILY [facility] Apixaban (Eliquis -) 5 mg PO BID [facility] Last Admin: 12/07/19 09:22 Dose: 5 mg Hydralazine HCl (Apresoline -) 25 mg PO TID [facility] Insulin Aspart (Novolog Vial Sliding Scale -) 1 vial SQ ACHS [facility]; Protocol Last Admin: 12/07/19 09:23 Dose: Not Given Isosorbide Mononitrate (Imdur -) 30 mg PO DAILY [facility] Levetiracetam (Keppra -) 250 mg PO BID [facility] Metoprolol Succinate (Toprol Xl -) 25 mg PO DAILY [facility] ASSESSMENT/PLAN: Pt is a 74 y/o F with a significant past medical history of Afib on Eliquis (s/ p synchronized cardioversion), Hypothyrodism, Seizure disorder, NIDDM, HTN and mCHF who presented to [facility] due to shortness of breath and cough. #SOB 2/2 likely mCHF exacerbation -BNP 2484. BNP in August was 770. -Echo 01/2019--> EF 50%. Mild concentric LVH. Mild atrial enlargement. Grade II Diastolic dysfunction, although previos Echo to the one in January showed severely reduced EF of 30-35% -Trop negative, will trend -CXR- Unofficial read--> Blunting of costophrenic angles b/l. -EKG--> Sinus vanda, 1st degree AV block. QTc 512 -CT Chest--> No pulmonary infiltrates. No evidence of pulmonary embolism in major central pulmonary arteries. -Given Lasix 20 IV in ED. Will order another 60 mg and monitor I's and O's Overnight Pt. put out 2.4L (after total of 80mg IV Lasix). -Can continue IV Lasix 60mg and f/u Cardio recommendations -Fluid Restriction -CTA Chest suggests evidence of Heart Failure -Cardiology Consult. Appreciate recs. -Tele monitoring -Echocardiogram to assess for wall motion abnormalities and EF. -Repeat EKG in am. #AFIB -Resume Eliquis -c/w Amiodarone 200mg -resume Toprol XL 25mg Daily #Hypothyroidism elevated TSH, low T4 will resume Synthroid 25 mcg (her previous dose) will advise on discharge to follow up TSH in 3 months with her PCP for Synthroid adjustment. #NIDDM A1c: 5.9 suggestive of well controlled DM Will monitor BGMs Pt. currently not on any medications #Seizure Disorder resume Keppra 250mg BID #HTN D/c Diovan resume home medications: Hydralazine and Lisinopril #CAD? resume Imdur 30mg Daily #FEN No standing fluids Monitor Electrolytes Sodium Controlled Diet #DVT ppx -Eliquis #Dispo -Tele Visit type - Emergency Visit Emergency Visit: Yes ED Registration Date: 12/06/19 Care time: The patient presented to the Emergency Department on the above date and was hospitalized for further evaluation of their emergent condition. - New Patient This patient is new to me today: Yes Date on this admission: 12/07/19 - Critical Care Critical Care patient: No - Discharge Referral Referred to [facility] Med P.C.: No ATTENDING PHYSICIAN STATEMENT I saw and evaluated the patient. I reviewed the resident's note and discussed the case with the resident. I agree with the resident's findings and plan as documented. SUBJECTIVE: OBJECTIVE: ASSESSMENT AND PLAN:
--- NOTE | 2019-12-07 09:57 | EKG ---
Test Reason : Blood Pressure : / mmHG Vent. Rate : 055 BPM Atrial Rate : 055 BPM P-R Int : 210 ms QRS Dur : 088 ms QT Int : 536 ms P-R-T Axes : 059 -09 044 degrees QTc Int : 512 ms SINUS BRADYCARDIA WITH SINUS ARRHYTHMIA WITH 1ST DEGREE A-V BLOCK VOLTAGE CRITERIA FOR LEFT VENTRICULAR HYPERTROPHY T WAVE ABNORMALITY, CONSIDER ANTERIOR ISCHEMIA PROLONGED QT ABNORMAL ECG WHEN COMPARED WITH ECG OF 14-SEP-2019 11:52, T WAVE VARIATION Confirmed by ROXANNA COELHO MD ([id number]) on 12/07/2019 9:57:32 AM Referred By: Confirmed By:ROXANNA COELHO MD
[2019-12-07] MEDS ORDERED: ISOSORBIDE MONONITRATE 60 MG TAB.SR.24H (FP) PO ONE (09:59)
[2019-12-07] MEDS ORDERED: AMIODARONE HCL 200 MG TABLET ONE (09:59)
[2019-12-07] MEDS ORDERED: levETIRAcetam 500 MG TABLET (FP) PO ONE ×2 (09:59→21:50)
[2019-12-07] MEDS: levETIRAcetam 250 MG TABLET PO SCH ×2 (10:16→22:03)
[2019-12-07] MEDS: metoPROLOL SUCCINATE 25 MG TAB.SR.24H (FP) PO SCH (10:16)
[2019-12-07] MEDS: ISOSORBIDE MONONITRATE 30 MG TAB.SR.24H (FP) PO SCH (10:16)
--- NOTE | 2019-12-07 10:57 | CON.CARD ---
Consult Consult Specialty:: Cardiology Referred by:: Hospitalist Medicine Reason for Consultation:: Dyspnea, cough - History of Present Illness Chief Complaint: Dyspnea, cough History of Present Illness: 74 yo with h/o paroxysmal afib, htn, hypothyroidism seizure d/o, obesity, syst chf, DM, last saw Dr. Sanchez 12/31/2018 presented with shortness of breath with cough worse supine, and gradual onset headache. She reports being compliant with her medications. She denies fevers, chest pain, vision changes, chills, abdominal pain, nausea, vomiting, diarrhea, dysuria or leg swelling, near or true syncope, palpitations, OND. Denies alcohol, tobacco or illicit drug use. No sick contacts or recent travels. Had the Flu shot. 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 No: None, AAA Repair, AICD, Amputation, Appendectomy, Arthrosocopy, AV Fistula/Graft, Bariatric Surgery, Breast Biopsy, Bypass, CABG, Carotid Endarterectomy, Cataract Removal, Cholecystectomy, Colectomy, Colonoscopy, Colostomy, Craniotomy , , Cystectomy, Hernia Repair, Hysterectomy, Ileal Conduit, Ileosotomy , Kidney Transplant, Laminectomy, Liver Transplant, Mastectomy, Nephrectomy, Oopherectomy, Orchiectomy, Permanent Pacemaker, Prostatectomy, Splenectomy, Stent, Thoracotomy, TURP, Tonsillectomy, Upper Endoscopy, Valve Replacement, Vasectomy, Vein Stripping/Ligation - Alcohol/Substance Use Hx Alcohol Use: No History of Substance Use: reports: None - Smoking History Smoking history: Never smoked Have you smoked in the past 12 months: No Aproximately how many cigarettes per day: 0 - Social History Usual Living Arrangement: With Child (daughter) ADL: Independent History of Recent Travel: No Home Medications - Allergies Allergies/Adverse Reactions: Allergies Allergy/AdvReac Type Severity Reaction Status Date / Time No Known Allergies Allergy Verified 12/06/19 18:51 - Home Medications Home Medications: Ambulatory Orders Apixaban [Eliquis] 5 mg PO BID #60 tablet 02/20/19 Acetaminophen [Tylenol .Extra-Strength -] 500 mg PO BID 12/07/19 Amiodarone HCl 200 mg PO DAILY 12/07/19 Furosemide 40 mg PO DAILY 12/07/19 Hydralazine HCl 25 mg PO TID 12/07/19 Isosorbide Mononitrate [Imdur -] 30 mg PO DAILY 12/07/19 Lisinopril [Prinivil -] 40 mg PO DAILY 12/07/19 Metoprolol Succinate [Toprol Xl] 25 mg PO DAILY 12/07/19 levETIRAcetam [Keppra -] 250 mg PO BID 12/07/19 Review of Systems - Review of Systems Cardiovascular: reports: Chest Pain, Shortness of Breath Respiratory: reports: Cough, Exercise Intolerance, SOB, SOB on Exertion Vital Signs: Vital Signs Temperature 100.6 F H 12/07/19 08:00 Pulse Rate 65 12/07/19 08:00 Respiratory Rate 22 H 12/07/19 07:19 Blood Pressure 119/95 12/07/19 08:00 O2 Sat by Pulse Oximetry (%) 96 12/07/19 08:00 Constitutional: Yes: No Distress, Calm Neck: Yes: Supple Respiratory: Yes: Regular, Diminished, On Nasal O2 Gastrointestinal: Yes: Normal Bowel Sounds, Soft, Abdomen, Obese Cardiovascular: Yes: Regular Rate and Rhythm JVD: No Carotid Bruit: No Heart Sounds: Yes: S1, S2 Murmur: Yes: Systolic Murmur, Grade 1 Edema: No - Other Data Labs, Other Data: CBC, BMP 12/07/19 06:00 12/07/19 06:00 INR, PTT INR 1.01 (0.83-1.09) 12/07/19 06:00 Troponin, BNP 12/06/19 12/06/19 20:45 20:45 Troponin I < 0.02 B-Natriuretic Peptide 2484.1 H Troponin, BNP 12/06/19 12/06/19 20:45 20:45 Troponin I < 0.02 B-Natriuretic Peptide 2484.1 H SB @ 55 1st deg AVB LVH Ejection Fraction %: LVEF > or = 40 % Imaging - Results Chest X-ray: Report Reviewed (NAD) Cat Scan: Report Reviewed (Chest CTA: No PE, + RLL ATX, chronic lung changes) Problem List - Problems (1) Acute exacerbation of CHF (congestive heart failure) Code(s): I50.9 - HEART FAILURE, UNSPECIFIED Qualifiers: Heart failure type: diastolic Qualified Code(s): I50.33 - Acute on chronic diastolic (congestive) heart failure (2) Chronic anticoagulation Code(s): Z79.01 - INSURANCE DEFENSE PARALEGAL (CURRENT) USE OF 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 (3) Diastolic CHF Code(s): I50.30 - UNSPECIFIED DIASTOLIC (CONGESTIVE) HEART FAILURE Qualifiers: Heart failure chronicity: acute on chronic Qualified Code(s): I50.33 - Acute on chronic diastolic (congestive) heart failure (4) Headache Code(s): R51 - HEADACHE Qualifiers: Headache type: unspecified Headache chronicity pattern: acute headache Intractability: not intractable Qualified Code(s): R51 - Headache (5) Hypothyroidism Code(s): E03.9 - HYPOTHYROIDISM, UNSPECIFIED Qualifiers: Hypothyroidism type: unspecified Qualified Code(s): E03.9 - Hypothyroidism , unspecified (6) Leukocytosis Code(s): D72.829 - ELEVATED WHITE BLOOD CELL COUNT, UNSPECIFIED (7) Obesity Code(s): E66.9 - OBESITY, UNSPECIFIED (8) Hypertensive cardiomyopathy Code(s): I11.9 - HYPERTENSIVE HEART DISEASE WITHOUT HEART FAILURE; I43 - CARDIOMYOPATHY IN DISEASES CLASSIFIED ELSEWHERE Qualifiers: Heart failure presence: with heart failure Qualified Code(s): I11.0 - Hypertensive heart disease with heart failure; I43 - Cardiomyopathy in diseases classified elsewhere Assessment/Plan 12/07/2019: Chest CTA: No PE, chronic lung disease and cardiomegaly 01/08/2018 MPI: Low normal LVEF 50%, no ischemia 11/17/2018 NINFA: Mod-severely reduced LV systolic function LVEF 30-35%, mod MR, mild TR, trace-mild SD, no thrombus, no PFO 11/24/2018 TTE: Normal LVEF 55-60%, mild-mod MR, grade 2 diastolic dysfunction with elevated filling pressures and mild-mod AR 1. Acute on chronic diastolic heart failure 2. 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 PAF->SR h/o DCCV [id number] score of 3 on A/C with DOAC (Eliquis) 4. Moderate mitral regurgitation 5. HTN heart disease 6. Seizure disorder 7. Hypothyroidism 8. Leukocytosis 9. Fever PLAN: 1. IV diuresis with monitor diuretic response, renal fxn and electrolytes, f/u repeat echocardiogram 2. Continue Toprol XL 25 mg QD, Amio 200 qd and Lisinopril 40 qd with IV Cardizem as needed for increased rate-control, may not need BiDil with improvement of systolic function 3. Continue Eliquis 5 mg BID given elevated [id number] score of 3 4. BD, O2 as needed, counselled importance of compliance to therapy administration 5. D/c planning with f/u with Dr. Sanchez in office 6. Thank you for consultative opportunity
[2019-12-07] MEDS: AMIODARONE HCL 200 MG TABLET PO SCH (11:04)
[2019-12-07] MEDS ORDERED: ACETAMINOPHEN 325 MG TABLET (FP) ONE ×2 (11:48→21:50)
[2019-12-07] MEDS: ACETAMINOPHEN 325 MG TABLET (FP) PO PRN ×2 (11:54→22:12)
[2019-12-07] MEDS ORDERED: hydrALAZINE HCL 25 MG TABLET (FP) ONE ×2 (13:48→21:50)
[2019-12-07] MEDS: hydrALAZINE HCL 25 MG TABLET (FP) PO SCH ×2 (14:11→22:03)
[2019-12-07] MEDS: ALBUTEROL SO4 2.5/IPRATROPIUM 0.5 INH SOL 3 ML VIAL.NEB. NEB SCH ×2 (17:23→22:03)
--- NOTE | 2019-12-07 17:55 | PN ---
Teaching Attending Note Name of Resident: Clayton Al ATTENDING PHYSICIAN STATEMENT I saw and evaluated the patient. I reviewed the resident's note and discussed the case with the resident. I agree with the resident's findings and plan as documented. SUBJECTIVE: Patient is lying in bed comfortably , minimally shortness of breath. Vital Signs Temperature 97.7 F 12/07/19 15:00 Pulse Rate 63 12/07/19 15:00 Respiratory Rate 20 12/07/19 15:00 Blood Pressure 103/65 12/07/19 15:00 O2 Sat by Pulse Oximetry (%) 95 12/07/19 14:00 GENERAL: The patient is awake, alert, and fully oriented, in no acute distress. HEAD: Normal with no signs of trauma. EYES: PERRL, extraocular movements intact, sclera anicteric, conjunctiva clear. ENT: Ears normal, oropharynx clear without exudates, moist mucous membranes. NECK: Trachea midline, full range of motion, supple. LUNGS: decreased BS BL, positive for rales. no accessory muscle use. HEART: Regular rate and rhythm, S1, S2 without murmur, rub or gallop. ABDOMEN: Soft, NT,ND, normoactive bowel sounds, no guarding, no rebound, no hepatosplenomegaly, no masses. EXTREMITIES: 2+ pulses, warm, well-perfused, no edema. bl knee replacement NEUROLOGICAL: Cranial nerves II through XII grossly intact. Normal speech, gait not observed. PSYCH: Normal mood, normal affect. SKIN: Warm, dry, normal turgor, no rashes or lesions noted CBCD WBC 14.6 K/mm3 (4.0-10.0) H 12/07/19 06:00 RBC 4.59 M/mm3 (3.60-5.2) 12/07/19 06:00 Hgb 13.6 GM/dL (10.7-15.3) 12/07/19 06:00 Hct 40.6 % (32.4-45.2) 12/07/19 06:00 MCV 88.6 fl (80-96) 12/07/19 06:00 MCHC 33.4 g/dl (32.0-36.0) 12/07/19 06:00 RDW 14.3 % (11.6-15.6) 12/07/19 06:00 Plt Count 272 K/MM3 (134-434) 12/07/19 06:00 MPV 10.6 fl (7.5-11.1) 12/07/19 06:00 CMP Sodium 141 mmol/L (136-145) 12/07/19 06:00 Potassium 3.8 mmol/L (3.5-5.1) 12/07/19 06:00 Chloride 102 mmol/L (98-107) 12/07/19 06:00 Carbon Dioxide 30 mmol/L (21-32) 12/07/19 06:00 Anion Gap 9 MMOL/L (8-16) 12/07/19 06:00 BUN 12.2 mg/dL (7-18) 12/07/19 06:00 Creatinine 1.1 mg/dL (0.55-1.3) 12/07/19 06:00 Random Glucose 92 mg/dL (74-106) 12/07/19 06:00 Calcium 8.8 mg/dL (8.5-10.1) 12/07/19 06:00 Total Bilirubin 0.6 mg/dL (0.2-1) 12/07/19 06:00 AST 18 U/L (15-37) 12/07/19 06:00 ALT 26 U/L (13-61) 12/07/19 06:00 Alkaline Phosphatase 92 U/L (45-117) 12/07/19 06:00 Total Protein 7.7 g/dl (6.4-8.2) 12/07/19 06:00 Albumin 4.1 g/dl (3.4-5.0) 12/07/19 06:00 CARDIAC ENZYMES Creatine Kinase 58 U/L (26-192) 12/06/19 20:45 Troponin I < 0.02 ng/ml (0.00-0.05) 12/06/19 20:45 Current Medications Generic Name Dose Route Start Last Admin Trade Name Freq PRN Reason Stop Dose Admin Acetaminophen 650 mg 12/07/19 11:08 12/07/19 11:54 Tylenol - PO 650 mg Q6H PRN Administration PAIN LEVEL 6-10 Albuterol/Ipratropium 1 amp 12/07/19 16:00 12/07/19 17:23 Duoneb - NEB 1 amp RQID ANN Administration Amiodarone HCl 200 mg 12/07/19 10:00 12/07/19 11:04 Cordarone - PO 200 mg DAILY [facility] Administration Apixaban 5 mg 12/07/19 10:00 12/07/19 09:22 Eliquis - PO 5 mg BID ANN Administration Furosemide 60 mg 12/08/19 06:00 Lasix Injection - IVPB BID@0600,1400 [facility] Hydralazine HCl 25 mg 12/07/19 14:00 12/07/19 14:11 Apresoline - PO 25 mg TID ANN Administration Insulin Aspart 1 vial 12/07/19 07:00 12/07/19 16:56 Novolog Vial Sliding Scale - SQ Not Given ACHS [facility] Protocol Isosorbide Mononitrate 30 mg 12/07/19 10:00 12/07/19 10:16 Imdur - PO 30 mg DAILY [facility] Administration Levetiracetam 250 mg 12/07/19 10:00 12/07/19 10:16 Keppra - PO 250 mg BID [facility] Administration Levothyroxine Sodium 25 mcg 12/07/19 11:18 Synthroid - PO DAILY@0700 [facility] Lisinopril 40 mg 12/08/19 10:00 Prinivil PO DAILY [facility] Metoprolol Succinate 25 mg 12/07/19 10:00 12/07/19 10:16 Toprol Xl - PO 25 mg DAILY [facility] Administration Home Medications Medication Instructions Recorded Apixaban [Eliquis] 5 mg PO BID #60 tablet 02/20/19 Acetaminophen [Tylenol 500 mg PO BID 12/07/19 .Extra-Strength -] Amiodarone HCl 200 mg PO DAILY 12/07/19 Furosemide 40 mg PO DAILY 12/07/19 Hydralazine HCl 25 mg PO TID 12/07/19 Isosorbide Mononitrate [Imdur -] 30 mg PO DAILY 12/07/19 Lisinopril [Prinivil -] 40 mg PO DAILY 12/07/19 Metoprolol Succinate [Toprol Xl] 25 mg PO DAILY 12/07/19 levETIRAcetam [Keppra -] 250 mg PO BID 12/07/19 Echo 01/2019--> EF 50%. Mild concentric LVH. Mild atrial enlargement. Grade II Diastolic dysfunction, although previos Echo to the one in January showed -Trop negative, will trend ,severely reduced EF of 30-35% -CXR- Unofficial read--> Blunting of costophrenic angles b/l. -EKG--> Sinus vanda, 1st degree AV block. QTc 512 -CT Chest--> No pulmonary infiltrates. No evidence of pulmonary embolism in major central pulmonary arteries. -CTA Chest suggests evidence of Heart Failure Assessment and plan: Pt is a 74 y/o F with a significant past medical history of Afib on Eliquis (s/ p synchronized cardioversion), Hypothyrodism, Seizure disorder, NIDDM, HTN and mCHF who presented to [facility] due to shortness of breath and cough. #Acute Over chronic exacerbation of systolic CHF : BNP 2484 now from ---. August was 770. will start 60mg iv bid, cardio consulted. Repeat EKG in am. #AFIB continue Eliquis, c/w Amiodarone 200mg, resume Toprol XL 25mg Daily #Hypothyroidism with elevated TSH, low T4, will resume Synthroid 25 mcg (her previous dose), patient was non complient with her meds. will advise on discharge to follow up TSH in 3 months with her PCP for Synthroid adjustment. #NIDDM: A1c: 5.9, SS with coverage #Seizure Disorder continue Keppra 250mg BID #HTN : dc Karel; resume home medications: Hydralazine and Lisinopril #CAD: on Imdur 30mg Daily #DVT ppx: Eliquis
[2019-12-07 21:46] LABS: INR 1.32 (0.83-1.09); PROTHROMBIN TIME (PATIENT) 15.6 SEC (9.7-13.0)
[2019-12-07] MEDS ORDERED: ALBUTEROL SO4 2.5/IPRATROPIUM 0.5 INH SOL 3 ML VIAL.NEB. NEB ONE (21:49)
[2019-12-07] MEDS ORDERED: APIXABAN 5 MG TABLET ONE (21:50)
[2019-12-08] MEDS ORDERED: hydrALAZINE HCL 25 MG TABLET (FP) ONE (06:34)
[2019-12-08] MEDS ORDERED: FUROSEMIDE 40 MG/4 ML INJECTABLE VIAL ONE (06:35)
[2019-12-08] MEDS ORDERED: LEVOTHYROXINE NA 25 MCG TABLET (FP) ONE (06:35)
[2019-12-08] MEDS ORDERED: LEVOTHYROXINE NA 25 MCG TABLET (FP) PO SCH (07:00)
[2019-12-08] MEDS: hydrALAZINE HCL 25 MG TABLET (FP) PO SCH ×3 (07:01→21:45)
[2019-12-08] MEDS: FUROSEMIDE 100 MG/10 ML INJECTABLE VIAL IVPB SCH ×2 (07:01→14:15)
[2019-12-08] MEDS: LEVOTHYROXINE NA 25 MCG TABLET (FP) PO SCH (07:01)
[2019-12-08] MEDS: ALBUTEROL SO4 2.5/IPRATROPIUM 0.5 INH SOL 3 ML VIAL.NEB. NEB SCH ×4 (08:30→21:15)
[2019-12-08] MEDS: INSULIN SLIDING SCALE (NOVOLOG) 1 VIAL SQ SCH ×4 (09:53→21:54)
[2019-12-08] MEDS: APIXABAN 5 MG TABLET PO SCH ×2 (09:58→21:46)
[2019-12-08] MEDS: levETIRAcetam 250 MG TABLET PO SCH ×2 (09:58→21:49)
[2019-12-08] MEDS: ISOSORBIDE MONONITRATE 30 MG TAB.SR.24H (FP) PO SCH (09:58)
[2019-12-08] MEDS: LISINOPRIL 20 MG TABLET (FP) PO SCH (09:58)
[2019-12-08] MEDS: AMIODARONE HCL 200 MG TABLET PO SCH (09:58)
[2019-12-08] MEDS: metoPROLOL SUCCINATE 25 MG TAB.SR.24H (FP) PO SCH (09:58)
[2019-12-08] MEDS ORDERED: FUROSEMIDE 40 MG/4 ML INJECTABLE VIAL IVPUSH SCH (10:00)
--- NOTE | 2019-12-08 11:45 | PN ---
Progress Note, Physician Chief Complaint: Events noted. Intermittent dyspnea History of Present Illness: Patient was seen and examined. Awake and alert. Chart was reviewed Denies chest pain or palpitations Intermittent SOB - Current Medication List Current Medications: Active Medications Acetaminophen (Tylenol -) 650 mg PO Q6H PRN PRN Reason: PAIN LEVEL 6-10 Last Admin: 12/07/19 22:12 Dose: 650 mg Albuterol/Ipratropium (Duoneb -) 1 amp NEB RQID [facility] Last Admin: 12/08/19 08:30 Dose: 1 amp Amiodarone HCl (Cordarone -) 200 mg PO DAILY [facility] Last Admin: 12/08/19 09:58 Dose: 200 mg Apixaban (Eliquis -) 5 mg PO BID [facility] Last Admin: 12/08/19 09:58 Dose: 5 mg Furosemide (Lasix Injection -) 60 mg IVPB BID@0600,1400 [facility] Last Admin: 12/08/19 07:01 Dose: 60 mg Hydralazine HCl (Apresoline -) 25 mg PO TID [facility] Last Admin: 12/08/19 07:01 Dose: 25 mg Insulin Aspart (Novolog Vial Sliding Scale -) 1 vial SQ [facility]; Protocol Last Admin: 12/08/19 09:53 Dose: Not Given Isosorbide Mononitrate (Imdur -) 30 mg PO DAILY [facility] Last Admin: 12/08/19 09:58 Dose: 30 mg Levetiracetam (Keppra -) 250 mg PO BID [facility] Last Admin: 12/08/19 09:58 Dose: 250 mg Levothyroxine Sodium (Synthroid -) 25 mcg PO DAILY@0700 [facility] Last Admin: 12/08/19 07:01 Dose: 25 mcg Lisinopril (Prinivil) 40 mg PO DAILY [facility] Last Admin: 12/08/19 09:58 Dose: 40 mg Metoprolol Succinate (Toprol Xl -) 25 mg PO DAILY [facility] Last Admin: 12/08/19 09:58 Dose: 25 mg - Objective Vital Signs: Vital Signs Temperature 98.6 F 12/08/19 10:00 Pulse Rate 81 12/08/19 10:00 Respiratory Rate 20 12/08/19 10:00 Blood Pressure 119/81 12/08/19 10:00 O2 Sat by Pulse Oximetry (%) 97 12/08/19 10:00 Eyes: Yes: PERRL HENT: Yes: Atraumatic Neck: Yes: Supple Cardiovascular: Yes: Regular Rate and Rhythm, S1, S2 Respiratory: Yes: Diminished Gastrointestinal: Yes: Normal Bowel Sounds, Soft. No: Tenderness Edema: No Additional Findings/Remarks: - Review of Systems Constitutional: denies: Chills, Fever Cardiovascular: denies Chest Pain, Shortness of Breath. denies: Palpitations Respiratory: denies Cough, SOB, SOB on Exertion, Wheezing. denies: Orthopnea, PND Genitourinary: denies: Discharge, Hematuria Neurological: denies: Dizziness, Headache, Seizure, Syncope Labs: CBC, BMP 12/07/19 06:00 12/07/19 06:00 INR, PTT INR 1.01 (0.83-1.09) 12/07/19 06:00 Problem List - Problems (1) Diabetes mellitus Code(s): E11.9 - TYPE 2 DIABETES MELLITUS WITHOUT COMPLICATIONS (2) Acute exacerbation of CHF (congestive heart failure) Code(s): I50.9 - HEART FAILURE, UNSPECIFIED Qualifiers: Heart failure type: diastolic Qualified Code(s): I50.33 - Acute on chronic diastolic (congestive) heart failure (3) Afib Code(s): I48.91 - UNSPECIFIED ATRIAL FIBRILLATION Qualifiers: Atrial fibrillation type: unspecified Qualified Code(s): I48.91 - Unspecified atrial fibrillation (4) CAP (community acquired pneumonia) Code(s): J18.9 - PNEUMONIA, UNSPECIFIED ORGANISM Qualifiers: Laterality: unspecified laterality Qualified Code(s): J18.9 - Pneumonia, unspecified organism (5) Acute CHF (congestive heart failure) Code(s): I50.9 - HEART FAILURE, UNSPECIFIED Qualifiers: Heart failure type: combined systolic and diastolic Qualified Code(s): I50.41 - Acute combined systolic (congestive) and diastolic (congestive) heart failure (6) Diastolic CHF Code(s): I50.30 - UNSPECIFIED DIASTOLIC (CONGESTIVE) HEART FAILURE Qualifiers: Heart failure chronicity: acute on chronic Qualified Code(s): I50.33 - Acute on chronic diastolic (congestive) heart failure (7) HFrEF (heart failure with reduced ejection fraction) Code(s): I50.20 - UNSPECIFIED SYSTOLIC (CONGESTIVE) HEART FAILURE Qualifiers: Heart failure chronicity: acute on chronic Qualified Code(s): I50.23 - Acute on chronic systolic (congestive) heart failure (8) Hypothyroidism Code(s): E03.9 - HYPOTHYROIDISM, UNSPECIFIED Qualifiers: Hypothyroidism type: unspecified Qualified Code(s): E03.9 - Hypothyroidism , unspecified (9) Hypertension Code(s): I10 - ESSENTIAL (PRIMARY) HYPERTENSION Qualifiers: Hypertension type: essential hypertension Qualified Code(s): I10 - Essential (primary) hypertension (10) Seizure disorder Code(s): G40.909 - EPILEPSY, UNSP, NOT INTRACTABLE, WITHOUT STATUS EPILEPTICUS Assessment/Plan 1. Acute on chronic diastolic heart failure 2. 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 PAF currently in sinus rhythm h/o DCCV [id number] score of 3 on A/C with DOAC (Eliquis) 4. Moderate mitral regurgitation 5. HTN 6. Seizure disorder 7. Hypothyroidism 8. Leukocytosis 9. Fever PLAN: 1. IV diuresis with monitor renal function and electrolytes 2. Echocardiography to assess LV/RV and valvular function 3. Continue Toprol XL 25 mg QD, Amiodarone 200 mg QD and Lisinopril 40 mg QD with IV Cardizem as needed for increased rate-control 4. Continue Eliquis 5 mg BID given elevated [id number] score of 3 5. Bronchodilator and O2 as needed 5. Follow up with Dr. Sanchez in office upon discharge Piter Sanchez MD
[2019-12-08 14:07] LABS: HEMOGLOBIN 12.7 GM/dL (10.7-15.3); MCH 29.3 pg (25.7-33.7); MCHC 33.3 g/dl (32.0-36.0); MEAN CELL VOLUME 87.8 fl (80-96); MEAN PLT VOLUME 10.7 fl (7.5-11.1); PLATELET COUNT 237 K/MM3 (134-434); RBC 4.32 M/mm3 (3.60-5.2); RDW 14.2 % (11.6-15.6); WHITE BLOOD COUNT 8.8 K/mm3 (4.0-10.0)
[2019-12-08 14:30] LABS: BLOOD UREA NITROGEN 18.9 mg/dL (7-18); CALCIUM 8.5 mg/dL (8.5-10.1); CREATININE 1.3 mg/dL (0.55-1.3); MAGNESIUM 2.4 mg/dL (1.8-2.4); PHOSPHOROUS 5.3 mg/dL (2.5-4.9); POTASSIUM 3.9 mmol/L (3.5-5.1)
[2019-12-08] MEDS ORDERED: ALBUTEROL SO4 2.5/IPRATROPIUM 0.5 INH SOL 3 ML VIAL.NEB. NEB ONE (17:23)
--- NOTE | 2019-12-08 18:14 | PN ---
Physical Exam: SUBJECTIVE: Patient seen and examined NAEON Denies SOB, cough, palpitations OBJECTIVE: Vital Signs Period Temp Pulse Resp BP Sys/Batista Pulse Ox Last 24 Hr 98.4 F-102.8 F 64-94 18-22 119-135/70-84 94-97 GENERAL: NAD, albanian-speaking predominantly. Obese HEAD: Normal with no signs of trauma. EYES: sclera anicteric, conjunctiva clear. No ptosis. ENT: Ears normal, nares patent, oropharynx clear without exudates, moist mucous membranes. NECK: Trachea midline, full range of motion, supple. LUNGS: b/l expiratory wheezes, no accessory muscle use. HEART: Regular rate and rhythm, S1, S2 without murmur, rub or gallop. ABDOMEN: Soft, nontender, nondistended, normoactive bowel sounds, no guarding. EXTREMITIES: 2+ pulses, warm, well-perfused, no edema. NEUROLOGICAL: moving all extremities spontaneously SKIN: Warm, dry, normal turgor, no rashes or lesions noted. Nonpitting BLE edema Laboratory Results - last 24 hr 12/06/19 12/07/19 12/08/19 20:50 21:43 07:46 WBC RBC Hgb Hct MCV MCH MCHC RDW Plt Count MPV PT with INR 15.60 H INR 1.32 H Sodium Potassium Chloride Carbon Dioxide Anion Gap BUN Creatinine Est GFR (CKD-EPI)AfAm Est GFR (CKD-EPI)NonAf POC Glucometer 138 117 Random Glucose Calcium Phosphorus Magnesium 12/08/19 12/08/19 12/08/19 13:40 13:40 17:36 WBC 8.8 RBC 4.32 Hgb 12.7 Hct 38.0 MCV 87.8 MCH 29.3 MCHC 33.3 RDW 14.2 Plt Count 237 MPV 10.7 PT with INR INR Sodium 136 Potassium 3.9 Chloride 98 Carbon Dioxide 30 Anion Gap 8 BUN 18.9 H Creatinine 1.3 Est GFR (CKD-EPI)AfAm 47.13 Est GFR (CKD-EPI)NonAf 40.67 POC Glucometer 101 Random Glucose 173 H Calcium 8.5 Phosphorus 5.3 H Magnesium 2.4 Active Medications Generic Name Dose Route Start Last Admin Trade Name Freq PRN Reason Stop Dose Admin Acetaminophen 650 mg 12/07/19 11:08 12/07/19 22:12 Tylenol - PO 650 mg Q6H PRN Administration PAIN LEVEL 6-10 Albuterol/Ipratropium 1 amp 12/07/19 16:00 12/08/19 17:20 Duoneb - NEB 1 amp RQID [facility] Administration Amiodarone HCl 200 mg 12/07/19 10:00 12/08/19 09:58 Cordarone - PO 200 mg DAILY [facility] Administration Apixaban 5 mg 12/07/19 10:00 12/08/19 09:58 Eliquis - PO 5 mg BID [facility] Administration Furosemide 60 mg 12/08/19 06:00 12/08/19 14:15 Lasix Injection - IVPB 60 mg BID@0600,1400 [facility] Administration Hydralazine HCl 25 mg 12/07/19 14:00 12/08/19 14:15 Apresoline - PO 25 mg TID [facility] Administration Insulin Aspart 1 vial 12/07/19 07:00 12/08/19 17:44 Novolog Vial Sliding Scale - SQ Not Given ACHS [facility] Protocol Isosorbide Mononitrate 30 mg 12/07/19 10:00 12/08/19 09:58 Imdur - PO 30 mg DAILY [facility] Administration Levetiracetam 250 mg 12/07/19 10:00 12/08/19 09:58 Keppra - PO 250 mg BID [facility] Administration Levothyroxine Sodium 25 mcg 12/07/19 11:18 12/08/19 07:01 Synthroid - PO 25 mcg DAILY@0700 [facility] Administration Lisinopril 40 mg 12/08/19 10:00 12/08/19 09:58 Prinivil PO 40 mg DAILY [facility] Administration Metoprolol Succinate 25 mg 12/07/19 10:00 12/08/19 09:58 Toprol Xl - PO 25 mg DAILY [facility] Administration ASSESSMENT/PLAN: 74 y/o F with a significant past medical history of Afib on Eliquis (s/p synchronized cardioversion), Hypothyrodism, Seizure disorder, NIDDM, HTN and HFrEF who presented to [facility] due to shortness of breath and cough. Elevated BNP to >24k. CXR Admitted for CHFe. CTA chest showing increased interstitial markings diffusely, indictative of interstitial lung disease. Had fever 102.8F on 12/07/19, with uknown infectious source. #SOB 2/2 likely CHF exacerbation >BNP 2484. BNP in August was 770. >Echo 01/2019--> EF 50%. Mild concentric LVH. Mild atrial enlargement. >Trop negative >CXR: neg for acute path >EKG--> Sinus vanda, 1st degree AV block. QTc 512 >CT Chest--> No pulmonary infiltrates. No evidence of pulmonary embolism in major central pulmonary arteries. Increased interstitial markings diffuselvy, indictative of chronic lung disease >Echo --pending -ED: Lasix 20 IVP x1. Will order another 60 mg and monitor I's and O's -diuresis regimen: -- lasix 60mg IVP BID -Fluid Restriction -Cardiology(Jayesh Sanchez) Consult --Toprol XL 25 mg QD, Amio 200 qd and Lisinopril 40 qd with IV Cardizem as needed for increased rate-control --may not need BiDil with improvement of systolic function --Eliquis 5 mg BID given elevated [id number] score of 3 --fu echo -Tele monitoring #Fever --unknown source, possible atelectasis less likely infectious > 102.8F @2100, 12/07/19 - monitor labs #prolonged QTc > QTc 512 - avoid QTc prolonging drugs #AFIB -Resume Eliquis #Hypothyroidism -Resume synthroid. Medications need to be reconciled in am. #NIDDM --well controlled > HbA1c 5.9 -ISS #HTN -Administered one time dose of Valsartan 80. Medications will need to be reconciled in am. #Seizure disorder -cw home Keprra #FEN -No standing fluids -Monitor Electrolytes -Sodium Controlled Diet #DVT ppx -Eliquis #Dispo -Tele Visit type - Emergency Visit Emergency Visit: No - New Patient This patient is new to me today: Yes Date on this admission: 12/08/19 - Critical Care Critical Care patient: No ATTENDING PHYSICIAN STATEMENT I saw and evaluated the patient. I reviewed the resident's note and discussed the case with the resident. I agree with the resident's findings and plan as documented. SUBJECTIVE: OBJECTIVE: ASSESSMENT AND PLAN:
--- NOTE | 2019-12-08 18:54 | PN ---
Teaching Attending Note Name of Resident: Talha Ibarra ATTENDING PHYSICIAN STATEMENT I saw and evaluated the patient. I reviewed the resident's note and discussed the case with the resident. I agree with the resident's findings and plan as documented. SUBJECTIVE: Patient is feeling slightly better . Swiss speaking lady. Vital Signs Temperature 98.0 F 12/08/19 16:00 Pulse Rate 87 12/08/19 16:00 Respiratory Rate 20 12/08/19 16:00 Blood Pressure 135/78 12/08/19 16:00 O2 Sat by Pulse Oximetry (%) 95 12/08/19 16:00 GENERAL: The patient is awake, alert, and fully oriented, in no acute distress. HEAD: Normal with no signs of trauma. EYES: PERRL, extraocular movements intact, sclera anicteric, conjunctiva clear. ENT: Ears normal, oropharynx clear without exudates, moist mucous membranes. NECK: Trachea midline, full range of motion, supple. LUNGS: decreased BS BL, no accessory muscle use. HEART: Regular rate and rhythm, S1, S2 without murmur, rub or gallop. ABDOMEN: Soft, NT,ND, normoactive bowel sounds, no guarding, no rebound, no hepatosplenomegaly, no masses. EXTREMITIES: 2+ pulses, warm, well-perfused, no edema. bl knee replacement NEUROLOGICAL: Cranial nerves II through XII grossly intact. Normal speech, gait not observed. PSYCH: Normal mood, normal affect. SKIN: Warm, dry, normal turgor, no rashes or lesions noted CBCD WBC 8.8 K/mm3 (4.0-10.0) 12/08/19 13:40 RBC 4.32 M/mm3 (3.60-5.2) 12/08/19 13:40 Hgb 12.7 GM/dL (10.7-15.3) 12/08/19 13:40 Hct 38.0 % (32.4-45.2) 12/08/19 13:40 MCV 87.8 fl (80-96) 12/08/19 13:40 MCHC 33.3 g/dl (32.0-36.0) 12/08/19 13:40 RDW 14.2 % (11.6-15.6) 12/08/19 13:40 Plt Count 237 K/MM3 (134-434) 12/08/19 13:40 MPV 10.7 fl (7.5-11.1) 12/08/19 13:40 CMP Sodium 136 mmol/L (136-145) 12/08/19 13:40 Potassium 3.9 mmol/L (3.5-5.1) 12/08/19 13:40 Chloride 98 mmol/L (98-107) 12/08/19 13:40 Carbon Dioxide 30 mmol/L (21-32) 12/08/19 13:40 Anion Gap 8 MMOL/L (8-16) 12/08/19 13:40 BUN 18.9 mg/dL (7-18) H 12/08/19 13:40 Creatinine 1.3 mg/dL (0.55-1.3) 12/08/19 13:40 Random Glucose 173 mg/dL (74-106) H 12/08/19 13:40 Calcium 8.5 mg/dL (8.5-10.1) 12/08/19 13:40 Total Bilirubin 0.6 mg/dL (0.2-1) 12/07/19 06:00 AST 18 U/L (15-37) 12/07/19 06:00 ALT 26 U/L (13-61) 12/07/19 06:00 Alkaline Phosphatase 92 U/L (45-117) 12/07/19 06:00 Total Protein 7.7 g/dl (6.4-8.2) 12/07/19 06:00 Albumin 4.1 g/dl (3.4-5.0) 12/07/19 06:00 CARDIAC ENZYMES Creatine Kinase 58 U/L (26-192) 12/06/19 20:45 Troponin I < 0.02 ng/ml (0.00-0.05) 12/06/19 20:45 Current Medications Generic Name Dose Route Start Last Admin Trade Name Freq PRN Reason Stop Dose Admin Acetaminophen 650 mg 12/07/19 11:08 12/07/19 22:12 Tylenol - PO 650 mg Q6H PRN Administration PAIN LEVEL 6-10 Albuterol/Ipratropium 1 amp 12/07/19 16:00 12/08/19 17:20 Duoneb - NEB 1 amp RQID [facility] Administration Amiodarone HCl 200 mg 12/07/19 10:00 12/08/19 09:58 Cordarone - PO 200 mg DAILY [facility] Administration Apixaban 5 mg 12/07/19 10:00 12/08/19 09:58 Eliquis - PO 5 mg BID [facility] Administration Furosemide 60 mg 12/08/19 06:00 12/08/19 14:15 Lasix Injection - IVPB 60 mg BID@0600,1400 [facility] Administration Hydralazine HCl 25 mg 12/07/19 14:00 12/08/19 14:15 Apresoline - PO 25 mg TID [facility] Administration Insulin Aspart 1 vial 12/07/19 07:00 12/08/19 17:44 Novolog Vial Sliding Scale - SQ Not Given ACHS [facility] Protocol Isosorbide Mononitrate 30 mg 12/07/19 10:00 12/08/19 09:58 Imdur - PO 30 mg DAILY [facility] Administration Levetiracetam 250 mg 12/07/19 10:00 12/08/19 09:58 Keppra - PO 250 mg BID [facility] Administration Levothyroxine Sodium 25 mcg 12/07/19 11:18 12/08/19 07:01 Synthroid - PO 25 mcg DAILY@0700 [facility] Administration Lisinopril 40 mg 12/08/19 10:00 12/08/19 09:58 Prinivil PO 40 mg DAILY [facility] Administration Metoprolol Succinate 25 mg 12/07/19 10:00 12/08/19 09:58 Toprol Xl - PO 25 mg DAILY [facility] Administration Home Medications Medication Instructions Recorded Apixaban [Eliquis] 5 mg PO BID #60 tablet 02/20/19 Acetaminophen [Tylenol 500 mg PO BID 12/07/19 .Extra-Strength -] Amiodarone HCl 200 mg PO DAILY 12/07/19 Furosemide 40 mg PO DAILY 12/07/19 Hydralazine HCl 25 mg PO TID 12/07/19 Isosorbide Mononitrate [Imdur -] 30 mg PO DAILY 12/07/19 Lisinopril [Prinivil -] 40 mg PO DAILY 12/07/19 Metoprolol Succinate [Toprol Xl] 25 mg PO DAILY 12/07/19 levETIRAcetam [Keppra -] 250 mg PO BID 12/07/19 Echo 01/2019--> EF 50%. Mild concentric LVH. Mild atrial enlargement. Grade II Diastolic dysfunction, although previos Echo to the one in January showed -Trop negative, will trend ,severely reduced EF of 30-35% -CXR- Unofficial read--> Blunting of costophrenic angles b/l. -EKG--> Sinus vanda, 1st degree AV block. QTc 512 -CT Chest--> No pulmonary infiltrates. No evidence of pulmonary embolism in major central pulmonary arteries. -CTA Chest suggests evidence of Heart Failure Assessment and plan: Pt is a 74 y/o F with a significant past medical history of Afib on Eliquis (s/ p synchronized cardioversion), Hypothyrodism, Seizure disorder, NIDDM, HTN and mCHF who presented to [facility] due to shortness of breath and cough. #Acute Over chronic exacerbation of systolic CHF : BNP 2484 now from August was 770. continue IV lasix and monitor kidney function; cr. 1.3 today cardio is on the case. #AFIB continue Eliquis, c/w Amiodarone 200mg, resume Toprol XL 25mg Daily #Hypothyroidism with elevated TSH, low T4, will resume Synthroid 25 mcg (her previous dose), patient was non complient with her meds. will advise on discharge to follow up TSH in 3 months with her PCP for Synthroid adjustment. #NIDDM: A1c: 5.9, SS with coverage #Seizure Disorder continue Keppra 250mg BID #HTN : breanna Vinson; resume home medications: Hydralazine and Lisinopril #CAD: on Imdur 30mg Daily #DVT ppx: Eliquis
[2019-12-08] MEDS ORDERED: DOCUSATE SODIUM 100 MG CAPSULE (FP) PO ONE (20:34)
[2019-12-08] MEDS ORDERED: SENNOSIDES 8.6MG TABLET (FP) PO ONE (20:34)
[2019-12-08] MEDS ORDERED: POLYETHYLENE GLYCOL 3350 119 GM BTL PO ONE (20:34)
[2019-12-08] MEDS ORDERED: PANTOPRAZOLE 40 MG TABLET PO ONE (20:34)
[2019-12-08] MEDS ORDERED: BENZOCAINE/MENTH/CETYLPYRD CL 1 EACH LOZENGE MM PRN (21:37)
[2019-12-08] MEDS ORDERED: TRIMETHOBENZAMIDE HCL 300 MG CAPSULE PO ONE (21:45)
[2019-12-08] MEDS: ACETAMINOPHEN 325 MG TABLET (FP) PO PRN (21:46)
[2019-12-09] MEDS: hydrALAZINE HCL 25 MG TABLET (FP) PO SCH ×3 (06:31→22:37)
[2019-12-09] MEDS: FUROSEMIDE 100 MG/10 ML INJECTABLE VIAL IVPB SCH ×2 (06:31→15:04)
[2019-12-09] MEDS: INSULIN SLIDING SCALE (NOVOLOG) 1 VIAL SQ SCH ×4 (06:32→22:46)
[2019-12-09] MEDS: LEVOTHYROXINE NA 25 MCG TABLET (FP) PO SCH (06:32)
[2019-12-09] MEDS: ALBUTEROL SO4 2.5/IPRATROPIUM 0.5 INH SOL 3 ML VIAL.NEB. NEB SCH ×4 (07:45→20:38)
[2019-12-09 08:26] LABS: HEMATOCRIT 37.9 % (32.4-45.2); HEMOGLOBIN 12.8 GM/dL (10.7-15.3); MCH 29.8 pg (25.7-33.7); MCHC 33.7 g/dl (32.0-36.0); MEAN CELL VOLUME 88.4 fl (80-96); MEAN PLT VOLUME 11.4 fl (7.5-11.1); PLATELET COUNT 209 K/MM3 (134-434); RBC 4.29 M/mm3 (3.60-5.2); RDW 14.4 % (11.6-15.6); WHITE BLOOD COUNT 7.8 K/mm3 (4.0-10.0)
[2019-12-09 08:36] LABS: BLOOD UREA NITROGEN 25.4 mg/dL (7-18); CALCIUM 8.1 mg/dL (8.5-10.1); CREATININE 1.4 mg/dL (0.55-1.3); MAGNESIUM 2.6 mg/dL (1.8-2.4); POTASSIUM 3.3 mmol/L (3.5-5.1)
[2019-12-09] MEDS ORDERED: PT OWN MED DRAWER 7, Y5N ONE (08:48)
[2019-12-09] MEDS: APIXABAN 5 MG TABLET PO SCH ×2 (11:41→22:37)
[2019-12-09] MEDS: ISOSORBIDE MONONITRATE 30 MG TAB.SR.24H (FP) PO SCH (11:41)
[2019-12-09] MEDS: levETIRAcetam 250 MG TABLET PO SCH ×2 (11:41→22:41)
[2019-12-09] MEDS: LISINOPRIL 20 MG TABLET (FP) PO SCH (11:41)
[2019-12-09] MEDS: metoPROLOL SUCCINATE 25 MG TAB.SR.24H (FP) PO SCH (11:41)
[2019-12-09] MEDS: AMIODARONE HCL 200 MG TABLET PO SCH (11:42)
[2019-12-09] MEDS: ACETAMINOPHEN 325 MG TABLET (FP) PO PRN (11:42)
--- NOTE | 2019-12-09 11:44 | PN ---
Progress Note, Physician History of Present Illness: Shortness of breath with cough worse supine improving with diuresis. Afebrile. - Current Medication List Current Medications: Active Medications Acetaminophen (Tylenol -) 650 mg PO Q6H PRN PRN Reason: PAIN LEVEL 6-10 Last Admin: 12/08/19 21:46 Dose: 650 mg Albuterol/Ipratropium (Duoneb -) 1 amp NEB RQID [facility] Last Admin: 12/09/19 11:39 Dose: 1 amp Amiodarone HCl (Cordarone -) 200 mg PO DAILY [facility] Last Admin: 12/08/19 09:58 Dose: 200 mg Apixaban (Eliquis -) 5 mg PO BID [facility] Last Admin: 12/08/19 21:46 Dose: 5 mg Benzocaine/Menthol (Cepacol Lozenge -) 1 each MM Q2H PRN PRN Reason: SORE THROAT Furosemide (Lasix Injection -) 60 mg IVPB BID@0600,1400 [facility] Last Admin: 12/09/19 06:31 Dose: 60 mg Hydralazine HCl (Apresoline -) 25 mg PO TID [facility] Last Admin: 12/09/19 06:31 Dose: 25 mg Insulin Aspart (Novolog Vial Sliding Scale -) 1 vial SQ ACHS [facility]; Protocol Last Admin: 12/09/19 06:32 Dose: Not Given Isosorbide Mononitrate (Imdur -) 30 mg PO DAILY [facility] Last Admin: 12/08/19 09:58 Dose: 30 mg Levetiracetam (Keppra -) 250 mg PO BID [facility] Last Admin: 12/08/19 21:49 Dose: 250 mg Levothyroxine Sodium (Synthroid -) 25 mcg PO DAILY@0700 [facility] Last Admin: 12/09/19 06:32 Dose: 25 mcg Lisinopril (Prinivil) 40 mg PO DAILY [facility] Last Admin: 12/08/19 09:58 Dose: 40 mg Metoprolol Succinate (Toprol Xl -) 25 mg PO DAILY [facility] Last Admin: 12/08/19 09:58 Dose: 25 mg - Objective Vital Signs: Vital Signs Temperature 98.9 F 12/09/19 06:00 Pulse Rate 64 12/09/19 06:00 Respiratory Rate 20 12/09/19 06:00 Blood Pressure 104/56 L 12/09/19 06:00 O2 Sat by Pulse Oximetry (%) 98 12/08/19 21:52 Constitutional: Yes: No Distress, Calm Neck: Yes: Supple Cardiovascular: Yes: Regular Rate and Rhythm Respiratory: Yes: Regular, Diminished, On Nasal O2 Gastrointestinal: Yes: Normal Bowel Sounds, Soft, Abdomen, Obese Genitourinary: Yes: Torres Present Edema: Yes Edema: LLE: Trace, RLE: Trace Labs: CBC, BMP 12/09/19 05:30 12/09/19 05:30 INR, PTT INR 1.01 (0.83-1.09) 12/07/19 06:00 - ....Imaging EKG: Report Reviewed (Tele: NSR) Problem List - Problems (1) Acute exacerbation of CHF (congestive heart failure) Code(s): I50.9 - HEART FAILURE, UNSPECIFIED Qualifiers: Heart failure type: diastolic Qualified Code(s): I50.33 - Acute on chronic diastolic (congestive) heart failure (2) Chronic anticoagulation Code(s): Z79.01 - MANAGER VAN (CURRENT) USE OF 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 (3) Diastolic CHF Code(s): I50.30 - UNSPECIFIED DIASTOLIC (CONGESTIVE) HEART FAILURE Qualifiers: Heart failure chronicity: acute on chronic Qualified Code(s): I50.33 - Acute on chronic diastolic (congestive) heart failure (4) Headache Code(s): R51 - HEADACHE Qualifiers: Headache type: unspecified Headache chronicity pattern: acute headache Intractability: not intractable Qualified Code(s): R51 - Headache (5) Hypothyroidism Code(s): E03.9 - HYPOTHYROIDISM, UNSPECIFIED Qualifiers: Hypothyroidism type: unspecified Qualified Code(s): E03.9 - Hypothyroidism , unspecified (6) Obesity Code(s): E66.9 - OBESITY, UNSPECIFIED (7) Hypertensive cardiomyopathy Code(s): I11.9 - HYPERTENSIVE HEART DISEASE WITHOUT HEART FAILURE; I43 - CARDIOMYOPATHY IN DISEASES CLASSIFIED ELSEWHERE Qualifiers: Heart failure presence: with heart failure Qualified Code(s): I11.0 - Hypertensive heart disease with heart failure; I43 - Cardiomyopathy in diseases classified elsewhere Assessment/Plan 12/07/2019: Chest CTA: No PE, chronic lung disease and cardiomegaly 01/08/2018 MPI: Low normal LVEF 50%, no ischemia 11/17/2018 NINFA: Mod-severely reduced LV systolic function LVEF 30-35%, mod MR, mild TR, trace-mild CT, no thrombus, no PFO 11/24/2018 TTE: Normal LVEF 55-60%, mild-mod MR, grade 2 diastolic dysfunction with elevated filling pressures and mild-mod AR 01/2019 TTE: EF 50%. Mild concentric LVH. Mild atrial enlargement. Grade II Diastolic dysfunction 1. Acute on chronic diastolic heart failure 2. 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 PAF->SR h/o DCCV [id number] score of 3 on A/C with DOAC (Eliquis) 4. Moderate mitral regurgitation 5. HTN heart disease 6. Seizure disorder 7. Hypothyroidism 8. Leukocytosis and fever resolved 9. NIDDM PLAN: 1. IV diuresis with monitor diuretic response, renal fxn and electrolytes, f/u repeat echocardiogram 2. Continue Toprol XL 25 mg QD, Amio 200 qd, Lisinopril 40 qd, Imdur 30 qd, hydralazine 25 tid with IV Cardizem as needed for increased rate-control 3. Continue Eliquis 5 mg BID given elevated [id number] score of 3 4. BD, O2 as needed, counselled importance of compliance to therapy administration 5. D/c planning with f/u with Dr. Sanchez in office
--- NOTE | 2019-12-09 14:09 | ECHO ---
Name: PAUL, LIBBY Exam:Adult Echocardiogram Study Date: 12/09/2019 10:50 AM Age: 74 yrs Height: 62 in Weight: 208 lb BSA: 1.9 m2 MMode/2D Measurements & Calculations IVSd: 1.0 cm Ao root diam: 2.7 cm LVIDd: 3.8 cm LA dimension: 4.6 cm LVIDs: 2.9 cm ACS: 1.7 cm LVPWd: 1.7 cm EDV(Teich): 60.4 ml LVOT diam: 1.8 cm ESV(Teich): 30.9 ml RV S Santo: 19.4 cm/sec Doppler Measurements & Calculations MV E max santo: 84.4 cm/sec Ao V2 max: 151.2 cm/sec MV A max santo: 54.8 cm/sec Ao max P.1 mmHg MV E/A: 1.5 Ao V2 mean: 106.5 cm/sec MV dec time: 0.24 sec Ao mean P.2 mmHg Ao V2 VTI: 24.4 cm MILTON(I,D): 0.95 cm2 AI P1/2t: 1097 msec MILTON(V,D): 1.00 cm2 AI max santo: 314.9 cm/sec LV V1 max P.3 mmHg AI max P.7 mmHg LV V1 mean P.87 mmHg AI dec slope: 84.1 cm/sec2 LV V1 max: 57.9 cm/sec LV V1 mean: 44.5 cm/sec LV V1 VTI: 8.9 cm MR max santo: 398.8 cm/sec SV(LVOT): 23.2 ml MR max P.0 mmHg TR max santo: 199.7 cm/sec PA V2 max: 63.7 cm/sec TR max P.2 mmHg PA max P.6 mmHg PI end-d santo: 101.1 cm/sec Med Peak E' Santo: 6.0 cm/sec Med E/e': 14.1 Lat Peak E' Santo: 13.1 cm/sec Lat E/e': 6.4 Procedure A two-dimensional transthoracic echocardiogram with color flow and Doppler was performed. Left Ventricle The left ventricular size, thickness and function are normal. The left ventricular ejection fraction is normal. Left Ventricular Filling pattern is normal for age. The left ventricular wall motion is maximiliano l. Right Ventricle The right ventricle is normal in size and function. Atria The left atrium is mildly dilated. The right atrium is mildly dilated. Mitral Valve There is mild mitral valve thickening. There is no mitral valve stenosis. There is mild to moderate m itral regurgitation. Tricuspid Valve The tricuspid valve is not well visualized. There is no tricuspid stenosis. There is Trace to mild tr icuspid regurgitation. Right ventricular systolic pressure is normal. Aortic Valve The aortic valve is not well visualized. No hemodynamically significant valvular aortic stenosis. Mod erate aortic regurgitation. Pulmonic Valve The pulmonic valve is not well visualized. Great Vessels The aortic root is normal size. Pericardium/Pleura There is no pericardial effusion. Interpretation Summary The left ventricular size, thickness and function are normal The left ventricular ejection fraction is normal. The left ventricular wall motion is normal. The left atrium is mildly dilated. The right atrium is mildly dilated. There is mild to moderate mitral regurgitation. Moderate aortic regurgitation. Left Ventricular Filling pattern is normal for age. There is Trace to mild tricuspid regurgitation. Right ventricular systolic pressure is normal. MD Hira Ray 12/09/2019 02:08 PM
[2019-12-09] MEDS ORDERED: POTASSIUM CHLORIDE TABS 20 MEQ TABLET.ER (FP) PO ONE (16:36)
--- NOTE | 2019-12-09 18:15 | PN ---
Physical Exam: SUBJECTIVE: Patient seen and examined NAEON Tele: no notable findings Endorses neck pain and headache. Has urinated a lot OBJECTIVE: Vital Signs Period Temp Pulse Resp BP Sys/Batista Pulse Ox Last 24 Hr 97.7 F-98.9 F 58-90 18-20 92-128/38-79 95-99 GENERAL: NAD, angolan-speaking predominantly. Obese HEAD: Normal with no signs of trauma. EYES: sclera anicteric, conjunctiva clear. No ptosis. ENT: Ears normal, nares patent, oropharynx clear without exudates, moist mucous membranes. NECK: Trachea midline, full range of motion, supple. LUNGS: b/l expiratory wheezes, mild crackles no accessory muscle use. HEART: Regular rate and rhythm, S1, S2 without murmur, rub or gallop. ABDOMEN: Soft, nontender, nondistended, normoactive bowel sounds, no guarding. EXTREMITIES: 2+ pulses, warm, well-perfused, no edema. NEUROLOGICAL: moving all extremities spontaneously SKIN: Warm, dry, normal turgor, no rashes or lesions noted. Nonpitting BLE edema Laboratory Results - last 24 hr 12/07/19 12/08/19 12/09/19 20:50 21:53 05:15 WBC RBC Hgb Hct MCV MCH MCHC RDW Plt Count MPV Sodium Potassium Chloride Carbon Dioxide Anion Gap BUN Creatinine Est GFR (CKD-EPI)AfAm Est GFR (CKD-EPI)NonAf POC Glucometer 233 148 Random Glucose Calcium Phosphorus Magnesium Free T3 1.2 L 12/09/19 12/09/19 12/09/19 05:30 05:30 11:39 WBC 7.8 RBC 4.29 Hgb 12.8 Hct 37.9 MCV 88.4 MCH 29.8 MCHC 33.7 RDW 14.4 Plt Count 209 MPV 11.4 H Sodium 137 Potassium 3.3 L Chloride 98 Carbon Dioxide 30 Anion Gap 9 BUN 25.4 H Creatinine 1.4 H Est GFR (CKD-EPI)AfAm 43.09 Est GFR (CKD-EPI)NonAf 37.18 POC Glucometer 168 Random Glucose 144 H Calcium 8.1 L Phosphorus 6.0 H Magnesium 2.6 H Free T3 Active Medications Generic Name Dose Route Start Last Admin Trade Name Freq PRN Reason Stop Dose Admin Acetaminophen 650 mg 12/07/19 11:08 12/09/19 11:42 Tylenol - PO 650 mg Q6H PRN Administration PAIN LEVEL 6-10 Albuterol/Ipratropium 1 amp 12/07/19 16:00 12/09/19 15:45 Duoneb - NEB 1 amp RQID ANN Administration Amiodarone HCl 200 mg 12/07/19 10:00 12/09/19 11:42 Cordarone - PO 200 mg DAILY ANN Administration Apixaban 5 mg 12/07/19 10:00 12/09/19 11:41 Eliquis - PO 5 mg BID ANN Administration Benzocaine/Menthol 1 each 12/08/19 21:37 Cepacol Lozenge - MM Q2H PRN SORE THROAT Furosemide 40 mg 12/10/19 06:00 Lasix - PO BIDLASIX [facility] Hydralazine HCl 25 mg 12/07/19 14:00 12/09/19 15:03 Apresoline - PO Not Given TID [facility] Insulin Aspart 1 vial 12/07/19 07:00 12/09/19 17:44 Novolog Vial Sliding Scale - SQ Not Given ACHS [facility] Protocol Isosorbide Mononitrate 30 mg 12/07/19 10:00 12/09/19 11:41 Imdur - PO 30 mg DAILY ANN Administration Levetiracetam 250 mg 12/07/19 10:00 12/09/19 11:41 Keppra - PO 250 mg BID ANN Administration Levothyroxine Sodium 25 mcg 12/07/19 11:18 12/09/19 06:32 Synthroid - PO 25 mcg DAILY@0700 ANN Administration Lisinopril 40 mg 12/08/19 10:00 12/09/19 11:41 Prinivil PO 40 mg DAILY [facility] Administration Metoprolol Succinate 25 mg 12/07/19 10:00 12/09/19 11:41 Toprol Xl - PO 25 mg DAILY ANN Administration ASSESSMENT/PLAN: 74 y/o F with a significant past medical history of Afib on Eliquis (s/p synchronized cardioversion), Hypothyrodism, Seizure disorder, NIDDM, HTN and HFrEF who presented to [facility] due to shortness of breath and cough. Elevated BNP to >24k. CXR Admitted for CHFe. CTA chest showing increased interstitial markings diffusely, indicative of interstitial lung disease. On lasix IVP, clinically improving. Cr uptrending. Echo grossly normal. HbA1c 5.9 #SOB 2/2 likely CHF exacerbation >BNP 2484. BNP in August was 770. >Echo 01/2019--> EF 50%. Mild concentric LVH. Mild atrial enlargement. >Trop negative >CXR: neg for acute path >EKG--> Sinus vanda, 1st degree AV block. QTc 512 >CT Chest--> No pulmonary infiltrates. No evidence of pulmonary embolism in major central pulmonary arteries. Increased interstitial markings diffuselvy, indictative of chronic lung disease >Echo: grossly normal -diuresis regimen: -- lasix 20mg IVP x1. Lasix 60mg IVP BID. Lasix 40mg PO BID. -Fluid Restriction -Cardiology(Jayesh Sanchez) Consult --Toprol XL 25 mg QD, Amio 200 qd and Lisinopril 40 qd with IV Cardizem as needed for increased rate-control --may not need BiDil with improvement of systolic function --Eliquis 5 mg BID given elevated [id number] score of 3 -Tele monitoring #Fever --unknown source, possible atelectasis less likely infectious > 102.8F @2100, 12/07/19 - monitor labs #prolonged QTc > QTc 512 - avoid QTc prolonging drugs #AFIB -Resume Eliquis #Hypothyroidism -Resume synthroid. Medications need to be reconciled in am. #NIDDM --well controlled > HbA1c 5.9 -ISS #HTN -amiodarone, hydralazine, imdur, lisinopril, metoprolol #Seizure disorder - home Keprra #FEN -No standing fluids -Monitor Electrolytes -Sodium Controlled Diet #DVT ppx -Eliquis #Dispo -Tele Visit type - Emergency Visit Emergency Visit: No - New Patient This patient is new to me today: No - Critical Care Critical Care patient: No ATTENDING PHYSICIAN STATEMENT I saw and evaluated the patient. I reviewed the resident's note and discussed the case with the resident. I agree with the resident's findings and plan as documented. SUBJECTIVE: OBJECTIVE: ASSESSMENT AND PLAN:
--- NOTE | 2019-12-09 20:08 | PN ---
Teaching Attending Note Name of Resident: Demetrius Damian ATTENDING PHYSICIAN STATEMENT I saw and evaluated the patient. I reviewed the resident's note and discussed the case with the resident. I agree with the resident's findings and plan as documented. SUBJECTIVE: SOB is better . no cp OBJECTIVE: NAD CV: RRR Lungs: minimal bibasilar crackles Ext: no edema or erythema ASSESSMENT AND PLAN: 72 y/o lady with h/o A fib, HTN, seizure disorder , and Mitral regurgitation , seizure, and other medical problems who presented with SOB 1- acute diastolic CHF: 2- A fib 3- HTN 4- BRENDA plan - improved - cont lasix -monitor cr. - cont antihypertensives - cont eliquis ASSESSMENT AND PLAN:
[2019-12-10] MEDS: ACETAMINOPHEN 325 MG TABLET (FP) PO PRN (03:05)
[2019-12-10] MEDS: FUROSEMIDE 40 MG TABLET (FP) PO SCH ×2 (05:08→14:55)
[2019-12-10] MEDS: hydrALAZINE HCL 25 MG TABLET (FP) PO SCH ×3 (05:08→22:16)
[2019-12-10] MEDS: INSULIN SLIDING SCALE (NOVOLOG) 1 VIAL SQ SCH ×4 (06:17→22:20)
[2019-12-10] MEDS: LEVOTHYROXINE NA 25 MCG TABLET (FP) PO SCH (06:17)
[2019-12-10 07:51] LABS: HEMATOCRIT 38.7 % (32.4-45.2); MCH 29.8 pg (25.7-33.7); MCHC 33.6 g/dl (32.0-36.0); MEAN CELL VOLUME 88.7 fl (80-96); MEAN PLT VOLUME 11.5 fl (7.5-11.1); PLATELET COUNT 213 K/MM3 (134-434); RBC 4.37 M/mm3 (3.60-5.2); RDW 14.1 % (11.6-15.6); WHITE BLOOD COUNT 9.5 K/mm3 (4.0-10.0)
[2019-12-10] MEDS: ALBUTEROL SO4 2.5/IPRATROPIUM 0.5 INH SOL 3 ML VIAL.NEB. NEB SCH ×3 (08:00→16:00)
[2019-12-10 08:11] LABS: BLOOD UREA NITROGEN 32.1 mg/dL (7-18); CALCIUM 8.2 mg/dL (8.5-10.1); CREATININE 1.6 mg/dL (0.55-1.3); MAGNESIUM 2.6 mg/dL (1.8-2.4); PHOSPHOROUS 4.4 mg/dL (2.5-4.9)
[2019-12-10] MEDS ORDERED: PT OWN MED DRAWER 7, Y5N ONE (09:49)
[2019-12-10] MEDS: levETIRAcetam 250 MG TABLET PO SCH ×2 (10:10→22:16)
[2019-12-10] MEDS: AMIODARONE HCL 200 MG TABLET PO SCH (10:10)
[2019-12-10] MEDS: APIXABAN 5 MG TABLET PO SCH ×2 (10:10→22:16)
[2019-12-10] MEDS: ISOSORBIDE MONONITRATE 30 MG TAB.SR.24H (FP) PO SCH (10:12)
[2019-12-10] MEDS: metoPROLOL SUCCINATE 25 MG TAB.SR.24H (FP) PO SCH (10:12)
[2019-12-10] MEDS: LISINOPRIL 20 MG TABLET (FP) PO SCH (10:12)
--- NOTE | 2019-12-10 10:25 | PN ---
Progress Note, Physician History of Present Illness: Shortness of breath with cough worse supine improving with diuresis. Low grade fever overnight, no source. - Current Medication List Current Medications: Active Medications Acetaminophen (Tylenol -) 650 mg PO Q6H PRN PRN Reason: PAIN LEVEL 6-10 Last Admin: 12/10/19 03:05 Dose: 650 mg Albuterol/Ipratropium (Duoneb -) 1 amp NEB RQID [facility] Last Admin: 12/10/19 08:00 Dose: 1 amp Amiodarone HCl (Cordarone -) 200 mg PO DAILY [facility] Last Admin: 12/10/19 10:10 Dose: 200 mg Apixaban (Eliquis -) 5 mg PO BID [facility] Last Admin: 12/10/19 10:10 Dose: 5 mg Benzocaine/Menthol (Cepacol Lozenge -) 1 each MM Q2H PRN PRN Reason: SORE THROAT Furosemide (Lasix -) 40 mg PO BIDLASIX [facility] Last Admin: 12/10/19 05:08 Dose: 40 mg Hydralazine HCl (Apresoline -) 25 mg PO TID [facility] Last Admin: 12/10/19 05:08 Dose: 25 mg Insulin Aspart (Novolog Vial Sliding Scale -) 1 vial SQ ACHS [facility]; Protocol Last Admin: 12/10/19 06:17 Dose: Not Given Isosorbide Mononitrate (Imdur -) 30 mg PO DAILY [facility] Last Admin: 12/10/19 10:12 Dose: Not Given Levetiracetam (Keppra -) 250 mg PO BID [facility] Last Admin: 12/10/19 10:10 Dose: 250 mg Levothyroxine Sodium (Synthroid -) 25 mcg PO DAILY@0700 [facility] Last Admin: 12/10/19 06:17 Dose: 25 mcg Lisinopril (Prinivil) 40 mg PO DAILY [facility] Last Admin: 12/10/19 10:12 Dose: Not Given Metoprolol Succinate (Toprol Xl -) 25 mg PO DAILY [facility] Last Admin: 12/10/19 10:12 Dose: Not Given - Objective Vital Signs: Vital Signs Temperature 98.2 F 12/10/19 10:00 Pulse Rate 66 12/10/19 10:00 Respiratory Rate 19 12/10/19 10:00 Blood Pressure 99/58 L 12/10/19 10:00 O2 Sat by Pulse Oximetry (%) 99 12/09/19 21:00 Constitutional: Yes: No Distress, Calm Neck: Yes: Supple Cardiovascular: Yes: Regular Rate and Rhythm Respiratory: Yes: Regular, Diminished Gastrointestinal: Yes: Normal Bowel Sounds, Soft Edema: No Labs: CBC, BMP 12/10/19 05:53 12/10/19 05:53 INR, PTT INR 1.01 (0.83-1.09) 12/07/19 06:00 - ....Imaging EKG: Report Reviewed (Tele: NSR) Problem List - Problems (1) Acute exacerbation of CHF (congestive heart failure) Code(s): I50.9 - HEART FAILURE, UNSPECIFIED Qualifiers: Heart failure type: diastolic Qualified Code(s): I50.33 - Acute on chronic diastolic (congestive) heart failure (2) Chronic anticoagulation Code(s): Z79.01 - GEOPHYSICAL PARTY CHIEF (CURRENT) USE OF 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 (3) Diastolic CHF Code(s): I50.30 - UNSPECIFIED DIASTOLIC (CONGESTIVE) HEART FAILURE Qualifiers: Heart failure chronicity: acute on chronic Qualified Code(s): I50.33 - Acute on chronic diastolic (congestive) heart failure (4) Hypothyroidism Code(s): E03.9 - HYPOTHYROIDISM, UNSPECIFIED Qualifiers: Hypothyroidism type: unspecified Qualified Code(s): E03.9 - Hypothyroidism , unspecified (5) Obesity Code(s): E66.9 - OBESITY, UNSPECIFIED (6) Hypertensive cardiomyopathy Code(s): I11.9 - HYPERTENSIVE HEART DISEASE WITHOUT HEART FAILURE; I43 - CARDIOMYOPATHY IN DISEASES CLASSIFIED ELSEWHERE Qualifiers: Heart failure presence: with heart failure Qualified Code(s): I11.0 - Hypertensive heart disease with heart failure; I43 - Cardiomyopathy in diseases classified elsewhere Assessment/Plan 12/09/2019 TTE: Normal LV and RV size and fxn, mild HERNANDO, mild-mod MR, mod AR, tr -mild TR normal RVSP 12/07/2019: Chest CTA: No PE, chronic lung disease and cardiomegaly 01/08/2018 MPI: Low normal LVEF 50%, no ischemia 11/17/2018 NINFA: Mod-severely reduced LV systolic function LVEF 30-35%, mod MR, mild TR, trace-mild MT, no thrombus, no PFO 11/24/2018 TTE: Normal LVEF 55-60%, mild-mod MR, grade 2 diastolic dysfunction with elevated filling pressures and mild-mod AR 01/2019 TTE: EF 50%. Mild concentric LVH. Mild atrial enlargement. Grade II Diastolic dysfunction 1. Acute on chronic diastolic heart failure resolving 2. 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 PAF->SR h/o DCCV [id number] score of 3 on A/C with DOAC (Eliquis) 4. Moderate aortic regurgitation 5. HTN heart disease 6. Seizure disorder 7. Hypothyroidism 8. Leukocytosis and fever resolved 9. NIDDM 10. BRENDA PLAN: 1. Resume oral diuresis with monitor diuretic response, renal fxn and electrolytes 2. Continue Toprol XL 25 mg QD, Amio 200 qd, Lisinopril 40 qd, Imdur 30 qd, hydralazine 25 tid with IV Cardizem as needed for increased rate-control 3. Continue Eliquis 5 mg BID given elevated [id number] score of 3 4. BD, O2 as needed, counselled importance of compliance to therapy administration 5. D/c planning with f/u with Dr. Sanchez in office
[2019-12-10 13:42] LABS: URINE APPEARANCE CLOUDY; URINE BILIRUBIN NEGATIVE (NEGATIVE); URINE COLOR YELLOW; URINE GLUCOSE (UA) NEGATIVE (NEGATIVE); URINE KETONE NEGATIVE (NEGATIVE); URINE LEUK ESTERASE NEGATIVE (NEGATIVE); URINE NITRITE NEGATIVE (NEGATIVE); URINE PROTEIN NEGATIVE (NEGATIVE); URINE UROBILINOGEN 0.2 mg/dL (0.2-1.0)
--- NOTE | 2019-12-10 15:54 | PN ---
Teaching Attending Note Name of Resident: Talha Ibarra ATTENDING PHYSICIAN STATEMENT I saw and evaluated the patient. I reviewed the resident's note and discussed the case with the resident. I agree with the resident's findings and plan as documented. SUBJECTIVE: Topographical Surveyor phone Amandeep [phone] was used. No fever or chills. No ART has cough. no sputum production . No abd pain, dysuria , or CP. she has no diarrhea. had a fever last night . OBJECTIVE: NAD, cough CV: RRR Lungs: minimal bibasilar crackles Ext: no edema or erythema Abd: soft , NT, ND,NL BS ASSESSMENT AND PLAN: 72 y/o lady with h/o A fib, HTN, seizure disorder , and Mitral regurgitation , seizure, and other medical problems who presented with SOB 1- acute diastolic CHF: improved 2- A fib 3- HTN 4- BRENDA : due to over diuresis plan -cxray and UA neg . no source of the fever. check flu swab - cont lasix po daily - resume lisinopril as out pt in a week due to elevated cr - cont eliquis - cont rest of home meds. dc home today after flu swab
--- NOTE | 2019-12-10 18:10 | DS ---
Physical Exam: SUBJECTIVE: Patient seen and examined OBJECTIVE: Vital Signs Period Temp Pulse Resp BP Sys/Batista Pulse Ox Last 24 Hr 98.2 F-100.5 F 60-82 19-30 99-118/46-72 99-99 PHYSICAL EXAM GENERAL: NAD, bahamian-speaking predominantly. Obese HEAD: Normal with no signs of trauma. EYES: sclera anicteric, conjunctiva clear. No ptosis. ENT: Ears normal, nares patent, oropharynx clear without exudates, moist mucous membranes. NECK: Trachea midline, full range of motion, supple. LUNGS: b/l expiratory wheezes, no accessory muscle use. HEART: Regular rate and rhythm, S1, S2 without murmur, rub or gallop. ABDOMEN: Soft, nontender, nondistended, normoactive bowel sounds, no guarding. EXTREMITIES: 2+ pulses, warm, well-perfused, no edema. NEUROLOGICAL: moving all extremities spontaneously SKIN: Warm, dry, normal turgor, no rashes or lesions noted. Nonpitting BLE edema LABS Laboratory Results - last 24 hr 12/09/19 12/09/19 12/10/19 17:42 22:43 05:01 WBC RBC Hgb Hct MCV MCH MCHC RDW Plt Count MPV Sodium Potassium Chloride Carbon Dioxide Anion Gap BUN Creatinine Est GFR (CKD-EPI)AfAm Est GFR (CKD-EPI)NonAf POC Glucometer 197 129 114 Random Glucose Calcium Phosphorus Magnesium Urine Color Urine Appearance Urine pH Ur Specific [place] Urine Protein Urine Glucose (UA) Urine Ketones Urine Blood Urine Nitrite Urine Bilirubin Urine Urobilinogen Ur Leukocyte Esterase Influenza A (Rapid) Influenza B (Rapid) 12/10/19 12/10/19 12/10/19 05:53 05:53 12:16 WBC 9.5 RBC 4.37 Hgb 13.0 Hct 38.7 MCV 88.7 MCH 29.8 MCHC 33.6 RDW 14.1 Plt Count 213 MPV 11.5 H Sodium 136 Potassium 4.0 Chloride 98 Carbon Dioxide 28 Anion Gap 9 BUN 32.1 H Creatinine 1.6 H Est GFR (CKD-EPI)AfAm 36.67 Est GFR (CKD-EPI)NonAf 31.64 POC Glucometer 105 Random Glucose 88 Calcium 8.2 L Phosphorus 4.4 Magnesium 2.6 H Urine Color Urine Appearance Urine pH Ur Specific [place] Urine Protein Urine Glucose (UA) Urine Ketones Urine Blood Urine Nitrite Urine Bilirubin Urine Urobilinogen Ur Leukocyte Esterase Influenza A (Rapid) Influenza B (Rapid) 12/10/19 12/10/19 12/10/19 12:45 12:55 17:25 WBC RBC Hgb Hct MCV MCH MCHC RDW Plt Count MPV Sodium Potassium Chloride Carbon Dioxide Anion Gap BUN Creatinine Est GFR (CKD-EPI)AfAm Est GFR (CKD-EPI)NonAf POC Glucometer 145 Random Glucose Calcium Phosphorus Magnesium Urine Color Yellow Urine Appearance Cloudy Urine pH 5.0 D Ur Specific [place] 1.013 Urine Protein Negative Urine Glucose (UA) Negative Urine Ketones Negative Urine Blood Negative Urine Nitrite Negative Urine Bilirubin Negative Urine Urobilinogen 0.2 Ur Leukocyte Esterase Negative Influenza A (Rapid) Negative Influenza B (Rapid) Negative HOSPITAL COURSE: Date of Admission:12/06/19 Date of Discharge: 12/10/19 74 y/o F with a significant past medical history of Afib on Eliquis (s/p synchronized cardioversion), Hypothyrodism, Seizure disorder, NIDDM, HTN and HFrEF who presented to [facility] due to shortness of breath and cough. Elevated BNP to >24k. CXR Admitted for CHFe. CTA chest showing increased interstitial markings diffusely, indicative of interstitial lung disease. Received lasix IVP , clinically improved. Echo grossly normal. HbA1c 5.9. Had Tmax 100.5F. CXR neg for path. UA neg for UTI. Flu neg. Cr uptrended, but pt to have follow up Cr as outpt w/in 1week. Lasix to be held for 1week d/t BRENDA. Spoke to pt via [employer] [phone]. Pt's questions were answered. Minutes to complete discharge: 33 Discharge Summary Problems reviewed: Yes Reason For Visit: SOB/ACUTE ON CHRONIC CONGESTIVE HEART FAILURE/COMU Current Active Problems Acute exacerbation of CHF (congestive heart failure) (Acute) CAP (community acquired pneumonia) (Acute) Diabetes mellitus (Acute) Afib (Chronic) Condition: Stable - Instructions Diet, Activity, Other Instructions: You were evaluated in the hospitalization for shortness of breath. You were found to be in acute exacerbation of your Heart Failure. You were given medications to help you urinate excess fluids from your body. Your breathing improved, and you are discharged home with home services. Medications: - Levothyroxine[SYNTHROID] 25mcg, daily - Albuterol[VENTOLIN] 1-2 puffs, every 6 hours as needed for SHORTNESS of BREATH - resume other medications as previously prescribed - Start your lisinopril in 1 week ( hold for now due to slightly elevated renal function ) Additional Instructions: - Diet: restrict your sodium intake to less than 2g, daily. Restrict your water intake to less than 2 Liters daily Please follow-up with the physicians below: - Primary Care Physician: to discuss your recent hospitalization. Check your Labwork (BMP in 1 week to review you kidney function, TSH in 6-8 weeks for possible Synthroid adjustment). - Full Stack Software Engineer(Piter Sanchez): to discuss your Lasix (water-pill) regimen Please seek immediate medical evaluation if you experience: - severe worsening shortness of breath - chest pain, palpitations - fever, chills Referrals: Piter Sanchez MD [Staff Physician] - ON STAFF,NOT [Primary Care Provider] - 1 Week Disposition: VNS/HOME HEALTH CARE - Home Medications Comprehensive Discharge Medication List: Ambulatory Orders Apixaban [Eliquis] 5 mg PO BID #60 tablet 02/20/19 Acetaminophen [Tylenol .Extra-Strength -] 500 mg PO BID 12/07/19 Amiodarone HCl 200 mg PO DAILY 12/07/19 Furosemide 40 mg PO DAILY 12/07/19 Hydralazine HCl 25 mg PO TID 12/07/19 Isosorbide Mononitrate [Imdur -] 30 mg PO DAILY 12/07/19 Lisinopril [Prinivil -] 40 mg PO DAILY 12/07/19 Metoprolol Succinate [Toprol Xl] 25 mg PO DAILY 12/07/19 levETIRAcetam [Keppra -] 250 mg PO BID 12/07/19 Albuterol Sulfate Inhaler - [Ventolin Hfa Inhaler -] 1 - 2 inh PO QID #1 inhaler 12/10/19 Levothyroxine [Synthroid -] 25 mcg PO DAILY@0700 #30 tablet 12/10/19 This patient is new to me today: No Emergency Visit: No Critical Care patient: No - Discharge Referral Referred to [facility] No ATTENDING PHYSICIAN STATEMENT I saw and evaluated the patient. I reviewed the resident's note and discussed the case with the resident. I agree with the resident's findings and plan as documented. SUBJECTIVE: OBJECTIVE: ASSESSMENT AND PLAN:
[2019-12-11] MEDS: ACETAMINOPHEN 325 MG TABLET (FP) PO PRN (05:52)
[2019-12-11] MEDS: hydrALAZINE HCL 25 MG TABLET (FP) PO SCH (05:53)
[2019-12-11] MEDS: FUROSEMIDE 40 MG TABLET (FP) PO SCH (05:53)
[2019-12-11] MEDS: INSULIN SLIDING SCALE (NOVOLOG) 1 VIAL SQ SCH (06:11)
[2019-12-11] MEDS: LEVOTHYROXINE NA 25 MCG TABLET (FP) PO SCH (06:13)
[2019-12-11] MEDS: ISOSORBIDE MONONITRATE 30 MG TAB.SR.24H (FP) PO SCH (10:30)
[2019-12-11] MEDS: AMIODARONE HCL 200 MG TABLET PO SCH (10:30)
[2019-12-11] MEDS: LISINOPRIL 20 MG TABLET (FP) PO SCH (10:30)
[2019-12-11] MEDS: levETIRAcetam 250 MG TABLET PO SCH (10:31)
[2019-12-11] MEDS: metoPROLOL SUCCINATE 25 MG TAB.SR.24H (FP) PO SCH (10:31)
[2019-12-11] MEDS: APIXABAN 5 MG TABLET PO SCH (10:31)
--- NOTE | 2019-12-11 11:04 | PN ---
Progress Note, Physician History of Present Illness: Shortness of breath with cough worse supine resolved with diuresis. Afebrile. - Current Medication List Current Medications: Active Medications Acetaminophen (Tylenol -) 650 mg PO Q6H PRN PRN Reason: PAIN LEVEL 6-10 Last Admin: 12/11/19 05:52 Dose: 650 mg Amiodarone HCl (Cordarone -) 200 mg PO DAILY [facility] Last Admin: 12/11/19 10:30 Dose: 200 mg Apixaban (Eliquis -) 5 mg PO BID [facility] Last Admin: 12/11/19 10:31 Dose: 5 mg Benzocaine/Menthol (Cepacol Lozenge -) 1 each MM Q2H PRN PRN Reason: SORE THROAT Furosemide (Lasix -) 40 mg PO BIDLASIX [facility] Last Admin: 12/11/19 05:53 Dose: 40 mg Hydralazine HCl (Apresoline -) 25 mg PO TID [facility] Last Admin: 12/11/19 05:53 Dose: 25 mg Insulin Aspart (Novolog Vial Sliding Scale -) 1 vial SQ ACHS [facility]; Protocol Last Admin: 12/11/19 06:11 Dose: Not Given Isosorbide Mononitrate (Imdur -) 30 mg PO DAILY [facility] Last Admin: 12/11/19 10:30 Dose: 30 mg Levetiracetam (Keppra -) 250 mg PO BID [facility] Last Admin: 12/11/19 10:31 Dose: 250 mg Levothyroxine Sodium (Synthroid -) 25 mcg PO DAILY@0700 [facility] Last Admin: 12/11/19 06:13 Dose: 25 mcg Lisinopril (Prinivil) 40 mg PO DAILY [facility] Last Admin: 12/11/19 10:30 Dose: 40 mg Metoprolol Succinate (Toprol Xl -) 25 mg PO DAILY [facility] Last Admin: 12/11/19 10:31 Dose: 25 mg - Objective Vital Signs: Vital Signs Temperature 98.3 F 12/11/19 05:14 Pulse Rate 69 12/11/19 05:14 Respiratory Rate 20 12/11/19 05:14 Blood Pressure 132/68 12/11/19 05:14 O2 Sat by Pulse Oximetry (%) 97 12/11/19 08:09 Constitutional: Yes: No Distress, Calm Neck: Yes: Supple Cardiovascular: Yes: Regular Rate and Rhythm Respiratory: Yes: Regular, Diminished, On Nasal O2 Gastrointestinal: Yes: Normal Bowel Sounds, Soft, Abdomen, Obese Edema: No Labs: CBC, BMP 12/10/19 05:53 12/10/19 05:53 INR, PTT INR 1.01 (0.83-1.09) 12/07/19 06:00 - ....Imaging EKG: Report Reviewed (Tele: NSR) Problem List - Problems (1) Acute exacerbation of CHF (congestive heart failure) Code(s): I50.9 - HEART FAILURE, UNSPECIFIED Qualifiers: Heart failure type: diastolic Qualified Code(s): I50.33 - Acute on chronic diastolic (congestive) heart failure (2) Chronic anticoagulation Code(s): Z79.01 - LEAD JAVA SOFTWARE ENGINEER (CURRENT) USE OF 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 (3) Diastolic CHF Code(s): I50.30 - UNSPECIFIED DIASTOLIC (CONGESTIVE) HEART FAILURE Qualifiers: Heart failure chronicity: acute on chronic Qualified Code(s): I50.33 - Acute on chronic diastolic (congestive) heart failure (4) Hypothyroidism Code(s): E03.9 - HYPOTHYROIDISM, UNSPECIFIED Qualifiers: Hypothyroidism type: unspecified Qualified Code(s): E03.9 - Hypothyroidism , unspecified (5) Obesity Code(s): E66.9 - OBESITY, UNSPECIFIED (6) Hypertensive cardiomyopathy Code(s): I11.9 - HYPERTENSIVE HEART DISEASE WITHOUT HEART FAILURE; I43 - CARDIOMYOPATHY IN DISEASES CLASSIFIED ELSEWHERE Qualifiers: Heart failure presence: with heart failure Qualified Code(s): I11.0 - Hypertensive heart disease with heart failure; I43 - Cardiomyopathy in diseases classified elsewhere Assessment/Plan 12/09/2019 TTE: Normal LV and RV size and fxn, mild HERNANDO, mild-mod MR, mod AR, tr -mild TR normal RVSP 12/07/2019: Chest CTA: No PE, chronic lung disease and cardiomegaly 01/08/2018 MPI: Low normal LVEF 50%, no ischemia 11/17/2018 NINFA: Mod-severely reduced LV systolic function LVEF 30-35%, mod MR, mild TR, trace-mild MT, no thrombus, no PFO 11/24/2018 TTE: Normal LVEF 55-60%, mild-mod MR, grade 2 diastolic dysfunction with elevated filling pressures and mild-mod AR 01/2019 TTE: EF 50%. Mild concentric LVH. Mild atrial enlargement. Grade II Diastolic dysfunction 1. Acute on chronic diastolic heart failure resolving 2. 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 PAF->SR h/o DCCV [id number] score of 3 on A/C with DOAC (Eliquis) 4. Moderate aortic regurgitation 5. HTN heart disease 6. Seizure disorder 7. Hypothyroidism 8. Leukocytosis and fever resolved 9. NIDDM 10. BRENDA PLAN: 1. Continue oral diuresis Lasix 40 bid with monitor diuretic response, renal fxn and electrolytes 2. Continue Toprol XL 25 mg QD, Amio 200 qd, Lisinopril 40 qd, Imdur 30 qd, hydralazine 25 tid with IV Cardizem as needed for increased rate-control 3. Continue Eliquis 5 mg BID given elevated [id number] score of 3 4. BD, O2 as needed, counselled importance of compliance to therapy administration 5. D/c planning with f/u with Dr. Sanchez in office
[2019-12-11 11:21] VITALS: BP 102/62; PULSE 68; TEMP 98.7
--- NOTE | 2019-12-11 17:04 | HOSP ---
Subjective - Review of Symptoms Events since last encounter: Although patient was discharged yesterday, she refused to leave. She was seen on wheel chair leaving floor this am Physical Examination Vital Signs: Vital Signs Temperature 98.7 F 12/11/19 10:00 Pulse Rate 68 12/11/19 10:00 Respiratory Rate 20 12/11/19 10:00 Blood Pressure 102/62 12/11/19 10:00 O2 Sat by Pulse Oximetry (%) 97 12/11/19 09:00 Labs: CBC, BMP 12/10/19 05:53 12/10/19 05:53
--- NOTE | 2019-12-11 17:42 | DS ---
Physical Exam: SUBJECTIVE: Patient seen and examined OBJECTIVE: Vital Signs Period Temp Pulse Resp BP Sys/Batista Pulse Ox Last 24 Hr 98.3 F-99.7 F 68-74 20-20 98-132/50-68 96-97 PHYSICAL EXAM GENERAL: NAD, swazi-speaking predominantly. Obese HEAD: Normal with no signs of trauma. EYES: sclera anicteric, conjunctiva clear. No ptosis. ENT: Ears normal, nares patent, oropharynx clear without exudates, moist mucous membranes. NECK: Trachea midline, full range of motion, supple. LUNGS: b/l mild expiratory wheezes, no accessory muscle use. HEART: Regular rate and rhythm, S1, S2 without murmur, rub or gallop. ABDOMEN: Soft, nontender, nondistended, normoactive bowel sounds, no guarding. EXTREMITIES: 2+ pulses, warm, well-perfused, no edema. NEUROLOGICAL: moving all extremities spontaneously SKIN: Warm, dry, normal turgor, no rashes or lesions noted. Nonpitting BLE edema LABS Laboratory Results - last 24 hr 12/10/19 12/11/19 12/11/19 22:18 05:44 11:55 POC Glucometer 152 114 98 HOSPITAL COURSE: Date of Admission:12/06/19 Date of Discharge: 12/11/19 74 y/o F with a significant past medical history of Afib on Eliquis (s/p synchronized cardioversion), Hypothyrodism, Seizure disorder, NIDDM, HTN and HFrEF who presented to [facility] due to shortness of breath and cough. Elevated BNP to >24k. CXR Admitted for CHFe. CTA chest showing increased interstitial markings diffusely, indicative of interstitial lung disease. Received lasix IVP , clinically improved. Echo grossly normal. HbA1c 5.9. Had Tmax 100.5F. CXR neg for path. UA neg for UTI. Flu neg. Cr uptrended, but pt to have follow up Cr as outpt w/in 1week. Lasix to be held for 1week d/t BRENDA. Spoke to pt via [employer] [phone] on day prior to discahrge. Pt's questions were answered. Pt stayed overnight on 12/10/19, left facility on 12/11/19. Minutes to complete discharge: 32 Discharge Summary Problems reviewed: Yes Reason For Visit: SOB/ACUTE ON CHRONIC CONGESTIVE HEART FAILURE/COMU Condition: Stable - Instructions Diet, Activity, Other Instructions: You were evaluated in the hospitalization for shortness of breath. You were found to be in acute exacerbation of your Heart Failure. You were given medications to help you urinate excess fluids from your body. Your breathing improved, and you are discharged home with home services. Medications: - Levothyroxine[SYNTHROID] 25mcg, daily - Albuterol[VENTOLIN] 1-2 puffs, every 6 hours as needed for SHORTNESS of BREATH - resume other medications as previously prescribed - Start your lisinopril in 1 week ( hold for now due to slightly elevated renal function ) Additional Instructions: - Diet: restrict your sodium intake to less than 2g, daily. Restrict your water intake to less than 2 Liters daily Please follow-up with the physicians below: - Primary Care Physician: to discuss your recent hospitalization. Check your Labwork (BMP in 1 week to review you kidney function, TSH in 6-8 weeks for possible Synthroid adjustment). - Senior [employer](Piter Sanchez): to discuss your Lasix (water-pill) regimen Please seek immediate medical evaluation if you experience: - severe worsening shortness of breath - chest pain, palpitations - fever, chills Referrals: Piter Sanchez MD [Staff Physician] - ON STAFF,NOT [Primary Care Provider] - 1 Week Disposition: VNS/HOME HEALTH CARE - Home Medications Comprehensive Discharge Medication List: Ambulatory Orders Apixaban [Eliquis] 5 mg PO BID #60 tablet 02/20/19 Acetaminophen [Tylenol .Extra-Strength -] 500 mg PO BID 12/07/19 Amiodarone HCl 200 mg PO DAILY 12/07/19 Furosemide 40 mg PO DAILY 12/07/19 Hydralazine HCl 25 mg PO TID 12/07/19 Isosorbide Mononitrate [Imdur -] 30 mg PO DAILY 12/07/19 Lisinopril [Prinivil -] 40 mg PO DAILY 12/07/19 Metoprolol Succinate [Toprol Xl] 25 mg PO DAILY 12/07/19 levETIRAcetam [Keppra -] 250 mg PO BID 12/07/19 Albuterol Sulfate Inhaler - [Ventolin Hfa Inhaler -] 1 - 2 inh PO QID #1 inhaler 12/10/19 Levothyroxine [Synthroid -] 25 mcg PO DAILY@0700 #30 tablet 12/10/19 This patient is new to me today: No Emergency Visit: No Critical Care patient: No - Discharge Referral Referred to [facility] Med [facility] No ATTENDING PHYSICIAN STATEMENT I saw and evaluated the patient. I reviewed the resident's note and discussed the case with the resident. I agree with the resident's findings and plan as documented. SUBJECTIVE: OBJECTIVE: ASSESSMENT AND PLAN:
== END 2019-12-11 12:29 | disposition home health service (06) | DRG 291 ==
LOC: JER 18:40 → SUPCPDRO 18:40 → JERBED 22:44 → J4W 12-08 17:56
PROVIDERS: ADMIT Internal Medicine; ATTEND Internal Medicine
DX: I11.0 Hypertensive heart disease with heart failure (principal); J18.9 Pneumonia, unspecified organism; N17.9 Acute kidney failure, unspecified; I50.33 Acute on chronic diastolic (congestive) heart failure; I34.0 Nonrheumatic mitral (valve) insufficiency; G40.909 Epilepsy, unspecified, not intractable, without status epilepticus; D72.829 Elevated white blood cell count, unspecified; R50.9 Fever, unspecified; I25.119 Atherosclerotic heart disease of native coronary artery with unspecified angina pectoris; I48.91 Unspecified atrial fibrillation; E66.9 Obesity, unspecified; Z68.39 Body mass index [BMI] 39.0-39.9, adult; E11.9 Type 2 diabetes mellitus without complications; E03.9 Hypothyroidism, unspecified; I44.0 Atrioventricular block, first degree
CPT/HCPCS: 36415; 71045-TC-FY; 71046-TC-FY; 71275-TC; 80048; 80053; 80061; 81003; 82550; 82962; 83036; 83721; 83735; 83880; 84100; 84439; 84443; 84481; 84484; 85025; 85027; 85610; 85730; 87040; 87804; 93005; 93010; 93306-TC; 94640; 94660; 94761; 97116-GP; 97161-GP; 99285-25; J0131; Q9967

== ENCOUNTER 2022-02-19 04:53 | Day surgery (SDC) | payer OTHER ==
[2022-02-15 12:02] VITALS: BMI 25.1
[2022-02-19] MEDS ORDERED: LIDOCAINE VISCOUS 2% ORAL/TOP 15 ML UNIT-DOSE CUP ONE (09:52)
[2022-02-19] MEDS ORDERED: LIDOCAINE VISCOUS 2% ORAL/TOP 15 ML UNIT-DOSE CUP PO ONE (09:52)
[2022-02-19 10:40] VITALS: TEMP 97.3
[2022-02-19 12:54] VITALS: BP 112/67; PULSE 57
== END 2022-02-19 12:14 | disposition home or self-care (01) ==
LOC: JASU-ENDO 04:53
PROVIDERS: ATTEND Internal Medicine Cardiovascular Disease
PROC: 5A2204Z Restoration of Cardiac Rhythm, Single (ICD-10-PCS; 2022-02-19)
PROC: B246ZZ4 Ultrasonography of Right and Left Heart, Transesophageal (ICD-10-PCS; principal; 2022-02-19 09:00)
DX: I48.91 Unspecified atrial fibrillation (principal); I10 Essential (primary) hypertension
CPT/HCPCS: 82962; 93005; 93010; 93312; 93325

== ENCOUNTER 2022-02-24 10:19 | Inpatient (IN) | payer OTHER ==
[2022-02-24 11:04] VITALS: BMI 40.6
[2022-02-24] MEDS ORDERED: ACETAMINOPHEN 1000 MG/100 ML BAG IVPB ONE (11:41)
[2022-02-24 12:15] LABS: BASO % 0.9 % (0-2.0); EOS % 1.3 % (0-4.5); HEMATOCRIT 38.2 % (32.4-45.2); HEMOGLOBIN 12.5 GM/dL (10.7-15.3); LYMPH % 10.2 % (8-40); MCH 29.1 pg (25.7-33.7); MCHC 32.8 g/dl (32.0-36.0); MEAN CELL VOLUME 88.8 fl (80-96); MEAN PLT VOLUME 10.4 fl (7.5-11.1); MONO % 7.5 % (3.8-10.2); NEUT % 80.1 % (42.8-82.8); PLATELET COUNT 290 10^3/uL (134-434); RDW 16.1 % (11.6-15.6); WHITE BLOOD COUNT 12.3 K/mm3 (4.0-10.0)
[2022-02-24 12:45] LABS: ALBUMIN 3.2 g/dl (3.4-5.0); BLOOD UREA NITROGEN 10.7 mg/dL (7-18); CALCIUM 8.3 mg/dL (8.5-10.1)
[2022-02-24 12:48] LABS: CREATININE 1.2 mg/dL (0.55-1.3)
[2022-02-24 12:49] LABS: BILIRUBIN,TOTAL 0.7 mg/dL (0.2-1)
[2022-02-24 12:53] LABS: N-TERMINAL BNP 7322.3 pg/ml (5-450)
[2022-02-24] MEDS ORDERED: FUROSEMIDE 100 MG/10 ML INJECTABLE VIAL IVPB ONE (13:47)
[2022-02-24] MEDS ORDERED: FUROSEMIDE 40 MG/4 ML INJECTABLE VIAL ONE (13:50)
[2022-02-24 14:18] LABS: PH,URINE 6.5 (5.0-8.0); URINE APPEARANCE CLEAR; URINE BILIRUBIN NEGATIVE (NEGATIVE); URINE COLOR YELLOW; URINE GLUCOSE (UA) NEGATIVE (NEGATIVE); URINE KETONE NEGATIVE (NEGATIVE); URINE LEUK ESTERASE NEGATIVE (NEGATIVE); URINE NITRITE NEGATIVE (NEGATIVE); URINE PROTEIN NEGATIVE (NEGATIVE); URINE UROBILINOGEN 0.2 mg/dL (0.2-1.0)
[2022-02-24] MEDS ORDERED: ONDANSETRON 4 MG/2 ML VIAL IVPUSH PRN (16:36)
[2022-02-24] MEDS ORDERED: ACETAMINOPHEN 325 MG TABLET (FP) PO PRN (16:43)
[2022-02-24] MEDS ORDERED: ALBUTEROL SO4 HFA INHALER IH PRN (18:00)
[2022-02-24] MEDS: levETIRAcetam 250 MG TABLET PO SCH (21:18)
[2022-02-24] MEDS: INSULIN SLIDING SCALE (NOVOLOG) 1 VIAL SQ SCH (21:19)
[2022-02-25] MEDS: INSULIN SLIDING SCALE (NOVOLOG) 1 VIAL SQ SCH ×4 (06:01→21:05)
[2022-02-25 08:54] LABS: HEMATOCRIT 39.1 % (32.4-45.2); HEMOGLOBIN 12.7 GM/dL (10.7-15.3); MCHC 32.4 g/dl (32.0-36.0); MEAN CELL VOLUME 89.3 fl (80-96); MEAN PLT VOLUME 11.2 fl (7.5-11.1); PLATELET COUNT 281 10^3/uL (134-434); RBC 4.38 M/mm3 (3.60-5.2); RDW 15.9 % (11.6-15.6)
[2022-02-25] MEDS: levETIRAcetam 250 MG TABLET PO SCH ×2 (09:20→21:05)
[2022-02-25] MEDS: LOSARTAN POTASSIUM 50 MG TABLET PO SCH (09:26)
[2022-02-25] MEDS: CARVEDILOL 6.25 MG TABLET (FP) PO SCH (09:26)
[2022-02-25 09:38] LABS: ALBUMIN 2.9 g/dl (3.4-5.0); BILIRUBIN,TOTAL 0.9 mg/dL (0.2-1); BLOOD UREA NITROGEN 12.6 mg/dL (7-18); CALCIUM 8.7 mg/dL (8.5-10.1); CREATININE 1.2 mg/dL (0.55-1.3); TOT PROT 6.4 g/dl (6.4-8.2)
[2022-02-25] MEDS ORDERED: AMIODARONE HCL 200 MG TABLET PO SCH (10:00)
[2022-02-25] MEDS ORDERED: EDOXABAN TOSYLATE 30 MG TABLET PO SCH (10:00)
[2022-02-25] MEDS: APIXABAN 5 MG TABLET PO SCH ×2 (16:42→21:04)
[2022-02-25] MEDS: FUROSEMIDE 40 MG/4 ML INJECTABLE VIAL IVPUSH SCH (16:42)
[2022-02-25] MEDS: AMIODARONE HCL 200 MG TABLET PO SCH (21:05)
[2022-02-26] MEDS: INSULIN SLIDING SCALE (NOVOLOG) 1 VIAL SQ SCH ×4 (06:00→21:07)
[2022-02-26 09:32] LABS: HEMATOCRIT 40.1 % (32.4-45.2); HEMOGLOBIN 12.9 GM/dL (10.7-15.3); MCH 28.7 pg (25.7-33.7); MCHC 32.2 g/dl (32.0-36.0); MEAN CELL VOLUME 89.3 fl (80-96); MEAN PLT VOLUME 11.5 fl (7.5-11.1); PLATELET COUNT 261 10^3/uL (134-434); RBC 4.49 M/mm3 (3.60-5.2); RDW 15.8 % (11.6-15.6); WHITE BLOOD COUNT 11.1 K/mm3 (4.0-10.0)
[2022-02-26] MEDS: CARVEDILOL 6.25 MG TABLET (FP) PO SCH (09:58)
[2022-02-26] MEDS: AMIODARONE HCL 200 MG TABLET PO SCH (09:59)
[2022-02-26] MEDS: LOSARTAN POTASSIUM 50 MG TABLET PO SCH (09:59)
[2022-02-26] MEDS: FUROSEMIDE 40 MG/4 ML INJECTABLE VIAL IVPUSH SCH ×2 (09:59→21:07)
[2022-02-26] MEDS: levETIRAcetam 250 MG TABLET PO SCH ×2 (09:59→21:07)
[2022-02-26] MEDS: APIXABAN 5 MG TABLET PO SCH ×2 (09:59→21:07)
[2022-02-26 10:01] LABS: CALCIUM 8.8 mg/dL (8.5-10.1)
[2022-02-26 10:02] LABS: BLOOD UREA NITROGEN 17.9 mg/dL (7-18)
[2022-02-26 10:05] LABS: CREATININE 1.3 mg/dL (0.55-1.3)
[2022-02-26] MEDS ORDERED: SIMETHICONE 80 MG TAB.CHEW (FP) PO PRN (13:07)
[2022-02-26] MEDS: SPIRONOLACTONE 25 MG TABLET PO SCH (14:52)
[2022-02-27] MEDS: INSULIN SLIDING SCALE (NOVOLOG) 1 VIAL SQ SCH ×3 (06:00→16:47)
[2022-02-27] MEDS ORDERED: LEVOTHYROXINE NA 25 MCG TABLET (FP) PO SCH (07:00)
[2022-02-27] MEDS ORDERED: AMIODARONE HCL 200 MG TABLET PO SCH (10:00)
[2022-02-27] MEDS: CARVEDILOL 6.25 MG TABLET (FP) PO SCH (10:03)
[2022-02-27] MEDS: APIXABAN 5 MG TABLET PO SCH (10:03)
[2022-02-27] MEDS: LOSARTAN POTASSIUM 50 MG TABLET PO SCH (10:03)
[2022-02-27] MEDS: levETIRAcetam 250 MG TABLET PO SCH (10:03)
[2022-02-27] MEDS: SPIRONOLACTONE 25 MG TABLET PO SCH (10:59)
[2022-02-27] MEDS: FUROSEMIDE 40 MG/4 ML INJECTABLE VIAL IVPUSH SCH (10:59)
[2022-02-27 11:40] LABS: BLOOD UREA NITROGEN 26.3 mg/dL (7-18); CALCIUM 8.6 mg/dL (8.5-10.1)
[2022-02-27 11:44] LABS: CREATININE 1.5 mg/dL (0.55-1.3)
[2022-02-27 11:47] LABS: BASO % 0.6 % (0-2.0); EOS % 1.6 % (0-4.5); HEMATOCRIT 42.8 % (32.4-45.2); LYMPH % 18.8 % (8-40); MCH 28.5 pg (25.7-33.7); MCHC 32.6 g/dl (32.0-36.0); MEAN CELL VOLUME 87.4 fl (80-96); MEAN PLT VOLUME 10.5 fl (7.5-11.1); MONO % 10.2 % (3.8-10.2); NEUT % 68.8 % (42.8-82.8); PLATELET COUNT 294 10^3/uL (134-434); RDW 15.6 % (11.6-15.6); WHITE BLOOD COUNT 10.5 K/mm3 (4.0-10.0)
[2022-02-27 13:54] VITALS: BP 102/62; PULSE 79; TEMP 98.4
== END 2022-02-27 18:39 | disposition home or self-care (01) | DRG 291 ==
LOC: JER 10:19 → JERBED 14:31 → J4S 19:38
PROVIDERS: ADMIT Internal Medicine; ATTEND Internal Medicine
DX: I11.0 Hypertensive heart disease with heart failure (principal); I50.43 Acute on chronic combined systolic (congestive) and diastolic (congestive) heart failure; Z79.01 Long term (current) use of anticoagulants; E11.9 Type 2 diabetes mellitus without complications; Z79.84 Long term (current) use of oral hypoglycemic drugs; I34.0 Nonrheumatic mitral (valve) insufficiency; R51.9 Headache, unspecified; G40.909 Epilepsy, unspecified, not intractable, without status epilepticus; I25.10 Atherosclerotic heart disease of native coronary artery without angina pectoris; E03.9 Hypothyroidism, unspecified; G47.00 Insomnia, unspecified; I35.1 Nonrheumatic aortic (valve) insufficiency; I48.0 Paroxysmal atrial fibrillation
CPT/HCPCS: 36415; 70450-TC; 71045-TC-FY; 80048; 80053; 81003; 82962; 83036; 83880; 84439; 84443; 84481; 84484; 85025; 85027; 86376; 93005; 93010; 99285-25; C9803-CS; U0003; U0005

== ENCOUNTER 2022-12-10 04:21 | Day surgery (SDC) | payer OTHER ==
[2022-12-07 10:13] VITALS: BMI 40.0
[2022-12-10 11:39] VITALS: TEMP 98.1
[2022-12-10 15:12] VITALS: BP 105/66; PULSE 68; RESP 20
== END 2022-12-10 15:27 | disposition home or self-care (01) ==
LOC: JASU-ENDO 04:21
PROVIDERS: ATTEND Internal Medicine Cardiovascular Disease
PROC: 5A2204Z Restoration of Cardiac Rhythm, Single (ICD-10-PCS; principal; 2022-12-10 13:00)
DX: I48.91 Unspecified atrial fibrillation (principal)
CPT/HCPCS: 82962; 93005; 93010